=== PATIENT | female | born 1975 | race Hispanic/Latino ===

== ENCOUNTER 2019-12-27 12:22 | Emergency (ER) | payer SELFPAY ==
[2019-12-27 13:44] LABS: Absolute Lymphocytes (CBC) 2.1 K/uL (0.7-4.9); Basophils % 0.2 % (0-1.3); Hematocrit 40.2 % (36.0-45.0); Lymphocytes % 16.3 % (15.3-44.8); MPV 10.9 fL (7.6-11.3); RBC Red Blood Cell Count 4.82 M/uL (3.86-4.86)
[2019-12-27 14:02] LABS: BUN Blood Urea Nitrogen 16 mg/dL (7-18); Bicarbonate 25 mmol/L (21-32); Glucose Level 183 mg/dL (74-106); Potassium 3.3 mmol/L (3.5-5.1); Sodium Level 140 mmol/L (136-145)
[2019-12-27 14:03] LABS: HCG, Quantitative < 1 mIU/mL (1-3)
[2019-12-27] MEDS ORDERED: NA CHLORIDE 0.9% 3,000 ML ONE (14:37)
[2019-12-27] MEDS ORDERED: PROMETHAZINE INJ 25 MG/ML AMP ONE (14:37)
[2019-12-27 14:42] LABS: Absolute Lymphocytes (CBC) 1.7 K/uL (0.7-4.9); Basophils % 0.4 % (0-1.3); Hematocrit 37.7 % (36.0-45.0); Lymphocytes % 12.9 % (15.3-44.8); MPV 11.6 fL (7.6-11.3); RBC Red Blood Cell Count 4.49 M/uL (3.86-4.86)
--- NOTE | 2019-12-27 16:20 | EDPHYS ---
Physician Documentation [facility] Name: Shwetha Hightower Age: 44 yrs Sex: Female : 1975 Arrival Date: 12/27/2019 Time: 12:24 Bed 20 Private MD: ED Physician Bladimir Gallegos HPI: 12/26 13:20 This 44 yrs old Female presents to ER via Ambulatory with complaints of snw Vaginal Bleeding. 13:20 The patient presents with vaginal bleeding that is heavy, with clots. Onset: The snw symptoms/episode began/occurred 3 day(s) ago, and became persistent. Modifying factors: The symptoms are alleviated by nothing. Associated signs and symptoms: Pertinent positives: nausea, dizziness, diaphoresis. Severity of symptoms: At their worst the symptoms were moderate, severe. The patient's method of control includes Depo-provera. The patient has experienced a previous episode, approximately 3 years ago. The patient has not recently seen a physician, appt for depo-provera tomorrow. 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 - Social history:: Smoking status: Patient denies any tobacco usage or history of. ROS: 14:53 Constitutional: Negative for fever, chills, and weight loss, Eyes: Negative for injury, snw pain, redness, and discharge, ENT: Negative for injury, pain, and discharge, Neck: Negative for injury, pain, and swelling, Cardiovascular: Negative for chest pain, palpitations, and edema, Respiratory: Negative for shortness of breath, cough, wheezing, and pleuritic chest pain, Abdomen/GI: Negative for abdominal pain, vomiting, diarrhea, and constipation, positive for nausea Back: Negative for injury and pain, : Negative for injury, discharge, and swelling, heavy bleeding with clots MS/Extremity: Negative for injury and deformity, Skin: Negative for injury, rash, and discoloration, Neuro: Negative for headache, weakness, numbness, tingling, and seizure, + dizziness Psych: Negative for depression, anxiety, suicide ideation, homicidal ideation, and hallucinations. Exam: 13:30 Head/Face: Normocephalic, atraumatic. Eyes: Pupils equal round and reactive to light, snw extra-ocular motions intact. Lids and lashes normal. Conjunctiva and sclera are non-icteric and not injected. Cornea within normal limits. Periorbital areas with no swelling, redness, or edema. ENT: Nares patent. No nasal discharge, no septal abnormalities noted. Tympanic membranes are normal and external auditory canals are clear. Oropharynx with no redness, swelling, or masses, exudates, or evidence of obstruction, uvula midline. Mucous membranes moist. Neck: Trachea midline, no thyromegaly or masses palpated, and no cervical lymphadenopathy. Supple, full range of motion without nuchal rigidity, or vertebral point tenderness. No Meningismus. Chest/axilla: Normal chest wall appearance and motion. Nontender with no deformity. No lesions are appreciated. Cardiovascular: Regular rate and rhythm with a normal S1 and S2. No gallops, murmurs, or rubs. Normal PMI, no JVD. No pulse deficits. Respiratory: Lungs have equal breath sounds bilaterally, clear to auscultation and percussion. No rales, rhonchi or wheezes noted. No increased work of breathing, no retractions or nasal flaring. Abdomen/GI: Soft, non-tender, with normal bowel sounds. No distension or tympany. No guarding or rebound. No evidence of tenderness throughout. Back: No spinal tenderness. No costovertebral tenderness. Full range of motion. Skin: Warm, dry with normal turgor. Normal color with no rashes, no lesions, and no evidence of cellulitis. MS/ Extremity: Pulses equal, no cyanosis. Neurovascular intact. Full, normal range of motion. Neuro: Awake and alert, GCS 15, oriented to person, place, time, and situation. Cranial nerves II-XII grossly intact. Motor strength 5/5 in all extremities. Sensory grossly intact. Cerebellar exam normal. Normal gait. Psych: Awake, alert, with orientation to person, place and time. Behavior, mood, and affect are within normal limits. 13:30 Constitutional: The patient appears alert, awake, anxious, diaphoretic. Vital Signs: 12:43 BP 111 / 78; Pulse 123; Resp 18; Temp 98.3; Pulse Ox 99% ; Pain 0/10; ll1 13:30 BP 109 / 65; Pulse 101; Resp 18; Pulse Ox 99% on R/A; ls4 14:30 BP 95 / 65; Pulse 104; Resp 16; Pulse Ox 99% on R/A; Pain 0/10; ls4 15:37 BP 110 / 62; Pulse 101; Resp 16; Pulse Ox 99% on R/A; Pain 0/10; ls4 MDM: 13:24 Patient medically screened. snw 16:26 Data reviewed: vital signs, nurses notes. Counseling: I had a detailed discussion with snw the patient and/or guardian regarding: the historical points, exam findings, and any diagnostic results supporting the discharge/admit diagnosis, lab results, the need for outpatient follow up, to return to the emergency department if symptoms worsen or persist or if there are any questions or concerns that arise at home. Special discussion: Based on the history and exam findings, there is no indication for further emergent testing or inpatient evaluation. I discussed with the patient/guardian the need to see the OB Gyne specialist for further evaluation of the symptoms. I discussed with the patient/guardian the need to see the primary care provider for further evaluation of the symptoms. 12/26 13:23 Order name: Quantitative Hcg; Complete Time: 14:13 [facility] 12/26 13:23 Order name: Basic Metabolic Panel; Complete Time: 14:13 [facility] 12/26 13:23 Order name: CBC with Diff; Complete Time: 13:48 [facility] 12/26 13:41 Order name: TS [facility] 12/26 14:38 Order name: CBC with Automated Diff; Complete Time: 14:50 [facility] 12/26 13:23 Order name: IV Saline Lock; Complete Time: 13:37 [facility] 12/26 13:50 Order name: EKG; Complete Time: 13:50 [facility] 12/26 15:38 Order name: Antibody Identification [facility] 12/26 16:51 Order name: Urine Microscopic Only [facility] 12/26 17:24 Order name: Urine Culture [facility] 12/26 13:23 Order name: Labs collected and sent; Complete Time: 13:36 w 12/26 13:23 Order name: NPO; Complete Time: 13:36 [facility] 12/26 13:42 Order name: Labs - recollect needed: recollect aborh tube and reband / cut off old eb band; Complete Time: 14:29 12/26 13:50 Order name: EKG - Nurse/Tech; Complete Time: 15:06 snw EC:38 Rate is 104 beats/min. Rhythm is regular. ME interval is normal. QRS interval is snw normal. QT interval is normal. Clinical impression: Sinus tachycardia. Administered Medications: 14:32 Drug: NS 0.9% 1000 ml Route: IV; Rate: 1 bolus; Site: right antecubital; ls4 16:22 Follow up: IV Status: Completed infusion; IV Intake: 1000ml ls4 14:32 Drug: NS 0.9% 2000 ml Route: IV; Rate: 1 bolus; Site: right antecubital; ls4 15:32 Follow up: IV Status: Completed infusion; IV Intake: 1000ml ls4 14:32 Drug: Phenergan 12.5 mg Route: IVP; Site: right antecubital; ls4 14:45 Follow up: Response: No adverse reaction; Marked relief of symptoms ls4 Disposition: 12/27/19 16:19 Discharged to Home. Impression: Abnormal uterine and vaginal bleeding, unspecified. - Condition is Stable. - Discharge Instructions: Abnormal Uterine Bleeding, Dysfunctional Uterine Bleeding. - Prescriptions for Vitamin 27- 0.8 mg Oral Tablet - take 1 tablet by ORAL route once daily; 60 tablet. Diclofenac Sodium 75 mg Oral Tablet Sustained Release - take 1 tablet by ORAL route 2 times per day; 30 tablet. - Medication Reconciliation Form, Thank You Letter, Antibiotic Education, Prescription Opioid Use form. - Follow up: Emergency Department; When: As needed; Reason: Worsening of condition. Follow up: Private Physician; When: Tomorrow; Reason: Recheck today's complaints, Continuance of care, Re-evaluation by your physician. Signatures: Dispatcher [employer] EDMS Elvira Tian, DARRELLC EGG SMELLER-Csnw Joleen Pina Lisa RN RN ls4 Sofy Pizarro RN RN ll1 Corrections: (The following items were deleted from the chart) 14:54 14:53 Constitutional: Negative for fever, chills, and weight loss, Eyes: Negative for snw injury, pain, redness, and discharge, ENT: Negative for injury, pain, and discharge, Neck: Negative for injury, pain, and swelling, Cardiovascular: Negative for chest pain, palpitations, and edema, Respiratory: Negative for shortness of breath, cough, wheezing, and pleuritic chest pain, Abdomen/GI: Negative for abdominal pain, nausea, vomiting, diarrhea, and constipation, Back: Negative for injury and pain, : Negative for injury, discharge, and swelling, heavy bleeding with clots MS/Extremity: Negative for injury and deformity, Skin: Negative for injury, rash, and discoloration, Neuro: Negative for headache, weakness, numbness, tingling, and seizure, Psych: Negative for depression, anxiety, suicide ideation, homicidal ideation, and hallucinations, snw 15:06 13:23 ABO/RH TYPING+BB.LAB.BRZ ordered. EDMS EDMS 16:19 16:18 Chart complete. snw snw 18:07 16:19 12/27/2019 16:19 Discharged to Home. Impression: Abnormal uterine and vaginal ls4 bleeding, unspecified. Condition is Stable. Forms are Medication Reconciliation Form, Thank You Letter, Antibiotic Education, Prescription Opioid Use. Follow up: Emergency Department; When: As needed; Reason: Worsening of condition. Follow up: Private Physician; When: Tomorrow; Reason: Recheck today's complaints, Continuance of care, Re-evaluation by your physician. snw
--- NOTE | 2019-12-27 16:20 | ER ---
Nurse's Notes [facility] Name: Shwetha Hightower Age: 44 yrs Sex: Female : 1975 Arrival Date: 12/27/2019 Time: 12:24 Bed 20 Private MD: Diagnosis: Abnormal uterine and vaginal bleeding, unspecified Presentation: 12/26 12:43 Chief complaint: Patient states: Vaginal bleeding for 3 days, worse today with large ll1 clots. + dizzy, weak, and sweating a lot. Coronavirus screen: Client denies travel out of the [place] in the last 14 days. At this time, the client does not indicate any symptoms associated with coronavirus-19. Ebola Screen: Patient denies travel to an Ebola-affected area in the 21 days before illness onset. Initial Sepsis Screen: Does the patient meet any 2 criteria? HR > 90 bpm. Risk Assessment: Do you want to hurt yourself or someone else? Patient reports no desire to harm self or others. Onset of symptoms was December 25, 2019. 12:43 Method Of Arrival: Ambulatory ll1 12:43 Acuity: FABIENNE 2 ll1 13:30 Initial Sepsis Screen: Does the patient have a suspected source of infection? No. ls4 Patient's initial sepsis screen is negative. Triage Assessment: 15:34 General: Appears uncomfortable, Behavior is anxious, fussy. Pain: Denies pain. : ls4 Reports vaginal bleeding that is bright red, since this morning. 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 - Social history:: Smoking status: Patient denies any tobacco usage or history of. Screenin:35 Abuse screen: Denies threats or abuse. Denies injuries from another. Nutritional ls4 screening: No deficits noted. Tuberculosis screening: No symptoms or risk factors identified. Fall Risk None identified. Assessment: 15:35 : Urine is clear, Reports vaginal bleeding that is bright red. ls4 Vital Signs: 12:43 BP 111 / 78; Pulse 123; Resp 18; Temp 98.3; Pulse Ox 99% ; Pain 0/10; ll1 13:30 BP 109 / 65; Pulse 101; Resp 18; Pulse Ox 99% on R/A; ls4 14:30 BP 95 / 65; Pulse 104; Resp 16; Pulse Ox 99% on R/A; Pain 0/10; ls4 15:37 BP 110 / 62; Pulse 101; Resp 16; Pulse Ox 99% on R/A; Pain 0/10; ls4 ED Course: 12:24 Patient arrived in ED. mr 12:44 Triage completed. ll1 12:44 Arm band placed on. ll1 13:22 Elvira Tian FNP-C [facility]. snw 13:22 Bladimir Gallegos MD is Attending Physician. snw 13:30 Initial lab(s) drawn, by me, sent to lab. T\T\S collected, blood band applied to patient. jp3 Inserted saline lock: 20 gauge in left antecubital area, using aseptic technique. Blood collected. Patient maintains SpO2 saturation greater than 95% on room air. 13:36 Placed in gown. Bed in low position. Call light in reach. Side rails up X 1. Warm jp3 blanket given. Pillow given. Verbal reassurance given. Pulse ox on. NIBP on. 13:36 patient monitor on. jp3 13:59 Toshia Mcgill, RN is Primary Nurse. ls4 14:30 EKG done, by ED staff, reviewed by Elvira CARDONA. jp3 15:35 No provider procedures requiring assistance completed. ls4 18:07 IV discontinued, intact, bleeding controlled, No redness/swelling at site. Pressure ls4 dressing applied. Administered Medications: 14:32 Drug: NS 0.9% 1000 ml Route: IV; Rate: 1 bolus; Site: right antecubital; ls4 16:22 Follow up: IV Status: Completed infusion; IV Intake: 1000ml ls4 14:32 Drug: NS 0.9% 2000 ml Route: IV; Rate: 1 bolus; Site: right antecubital; ls4 15:32 Follow up: IV Status: Completed infusion; IV Intake: 1000ml ls4 14:32 Drug: Phenergan 12.5 mg Route: IVP; Site: right antecubital; ls4 14:45 Follow up: Response: No adverse reaction; Marked relief of symptoms ls4 Intake: 15:32 IV: 1000ml; Total: 1000ml. ls4 16:22 IV: 1000ml; Total: 2000ml. ls4 Outcome: 16:19 Discharge ordered by . suleman 16:36 Discharged to home ambulatory. ls4 18:06 Condition: good ls4 18:06 Discharge instructions given to patient, Instructed on discharge instructions, follow up and referral plans. medication usage, Demonstrated understanding of instructions, follow-up care, medications, Prescriptions given X 2. 18:07 Patient left the ED. ls4 Signatures: Elvira Tian, DARRELLC RESTAURANT HOSPITALITY MANAGER-Misti Brock mr Asha Tin jp3 Toshia Mcgill, RN RN ls4 Sofy Pizarro RN RN ll1 Corrections: (The following items were deleted from the chart) 18:07 16:36 Discharged to [facility]
[2019-12-27 17:22] LABS: Urine Bacteria <20 /HPF (<20); Urine RBC TNTC /HPF (NONE SEEN)
[2019-12-27 17:23] LABS: Urine Culture Reflex Order REFLEXED
[2019-12-28 05:59] VITALS: TEMP 98.3; O2SAT 99
[2019-12-28 06:02] VITALS: BP 110/62
--- NOTE | 2019-12-28 20:01 | EKG ---
Test Date: 2019-12-27 Test Time: 14:37:09 Materials Specialist: KRISTEN MEASUREMENT RESULTS: Intervals: Rate: 104 MD: 128 QRSD: 70 QT: 342 QTc: 449 [place]: P: 39 MD: 128 QRS: 11 T: 4 INTERPRETIVE STATEMENTS: Sinus tachycardia Cannot rule out Anterior infarct, age undetermined Abnormal ECG Compared to ECG 10/16/2016 23:22:25 Myocardial infarct finding now present Electronically Signed On 12-28-19 19:59:26 CDT by Shankar Easley
== END 2019-12-27 18:07 | disposition home or self-care (01) ==
LOC: ER 12:22
DX: N93.9 Abnormal uterine and vaginal bleeding, unspecified (principal)
CPT/HCPCS: 36415; 80048; 81015; 84702; 85025; 86850; 86870; 86900; 86901; 86902; 87086; 87088; 93005; 96361; 96374; 99285; J2550; J7030

== ENCOUNTER 2020-09-06 17:27 | Emergency (ER) | payer SELFPAY ==
--- OUTSIDE RECORDS SUMMARY | 2020-09-06 17:30 | XMS REPORT | Continuity of Care Document ---
:1975 Author Organization [facility] t Address [address] [place] [address] Care Team Providers Name Role Phone Visit, Nurse Attending Clinician Unavailable Doctor Unassigned, Name Attending Clinician Unavailable Suri Hussein Attending Clinician Pgy3 Attending Clinician Unavailable Problems This patient has no known problems. Allergies, Adverse Reactions, Alerts This patient has no known allergies or adverse reactions. Medications This patient has no known medications. Procedures This patient has no known procedures. Encounters Start End Encounter Admission Attending Care Care Encounter Source Date/Time Date/Time Type Type Clinicians Facility Department ID 2020-06-15 2020-06-15 Nurse Visit, [facility] [id number] 13:07:28 13:22:28 Visit [facility] [id number] Nurse [facility] [id number] MATERNAL [id number] & CHILD [address] [place] [address] 2020-05-09 2020-05-09 Orders Doctor BAYLEE [id number] 00:00:00 00:00:00 Only UnassignedKRISTIN [id number] [place] [facility] [id number] 2020-03-23 2020-03-23 Nurse Visit, [facility] [id number] 13:37:20 14:02:39 Visit [facility] [id number] Nurse [facility] [id number] MATERNAL [id number] & CHILD [facility] 2020-02-23 2020-02-[id number] 08:26:32 23:59:00 Encounter [facility] [id number] CLINICS [id number] 2020-02-23 2020-02-[id number] 08:24:37 08:25:00 Encounter [facility] [id number] CLINICS [id number] 2020-02-22 2020-02-22 Office Pgy[place] [id number] 12:56:26 13:11:26 Visit [facility] [id number] CLINICS [id number] Results This patient has no known results.
[2020-09-06 18:44] LABS: Hematocrit 33.5 % (36.0-45.0); RBC Red Blood Cell Count 3.94 M/uL (3.86-4.86)
[2020-09-06 18:45] LABS: Absolute Lymphocytes (CBC) 2.1 K/uL (0.7-4.9); Basophils % 0.5 % (0-1.3); Lymphocytes % 18.6 % (15.3-44.8); MPV 10.7 fL (7.6-11.3)
[2020-09-06 18:48] LABS: Protime INR 1.16
[2020-09-06 18:59] LABS: ALT/SGPT 21 U/L (12-78); AST/SGOT 9 U/L (15-37); Albumin 3.3 g/dL (3.4-5.0); Alkaline Phosphatase 150 U/L (45-117); BUN Blood Urea Nitrogen 12 mg/dL (7-18); Bicarbonate 26 mmol/L (21-32); Bilirubin Direct < 0.1 mg/dL (0-0.2); Bilirubin Total 0.2 mg/dL (0.2-1.0); Glucose Level 152 mg/dL (74-106); Magnesium 2.2 mg/dL (1.8-2.4); Potassium 3.9 mmol/L (3.5-5.1); Protein, Total 6.7 g/dL (6.4-8.2); Sodium Level 138 mmol/L (136-145); Troponin (Emerg Dept Use Only) < 0.02 ng/mL (0.0-0.045)
--- NOTE | 2020-09-06 19:46 | RAD REPORT ---
EXAM DESCRIPTION: US - Transvaginal Study Probe - 09/06/2020 7:29 pm CLINICAL HISTORY: VAGINAL BLEEDING Pelvic pain. COMPARISON: Transvaginal Study Probe dated 10/17/2016 FINDINGS: The uterus is normal in size, shape and echotexture. The uterus measures 9.3 x 5.8 x 4.4 c m. There is an anterior wall submucosal fibroid measuring 20 x 18 x 17 mm. The endometrial stripe measures 5 mm, normal. Both ovaries are normal in size, shape and echotexture. The right ovary measures 2.0 x 2.0 x 1.6 cm. The left ovary measures 2.0 x 2.0 x 1.8 cm. No ovarian or parovarian lesions. No adnexal masses. Normal Doppler blood flow was demonstrated to both ovaries. No significant pelvic ascites. IMPRESSION: 20 mm submucosal fibroid suspected anterior wall.
[2020-09-06 19:51] LABS: Urine Blood 3+ (Negative); Urine Glucose Negative (Negative); Urine Protein 2+ (Negative); Urine Specific Gravity >=1.030 (1.005-1.030); Urine pH 6.5 (5.0-7.0)
[2020-09-06] MEDS ORDERED: NA CHLORIDE 0.9% 1,000 ML ONE (20:10)
--- NOTE | 2020-09-06 20:21 | ER ---
Nurse's Notes [facility] Name: Shwetha Hightower Age: 44 yrs Sex: Female : 1975 Arrival Date: 09/06/2020 Time: 17:56 Bed 17 Private MD: Diagnosis: Abnormal uterine and vaginal bleeding, unspecified;Anemia in chronic diseases classified elsewhere Presentation: 09/06 19:43 Chief complaint: Patient states: Heavy vaginal bleeding for the last past 3 weeks. zb Coronavirus screen: At this time, the client does not indicate any symptoms associated with coronavirus-19. Ebola Screen: No symptoms or risks identified at this time. Initial Sepsis Screen: Does the patient meet any 2 criteria? No. Patient's initial sepsis screen is negative. Does the patient have a suspected source of infection? No. Patient's initial sepsis screen is negative. Risk Assessment: Do you want to hurt yourself or someone else? Patient reports no desire to harm self or others. Onset of symptoms was June 2020. 19:43 Acuity: FABIENNE 3 zb 19:43 Method Of Arrival: EMS zb Triage Assessment: 21:00 General: Appears uncomfortable, Behavior is calm, cooperative, anxious, Reports fatigue zb for >3 days. 21:00 Pain: Denies pain. EENT: No deficits noted. Neuro: Level of Consciousness is awake, zb alert, obeys commands, Oriented to person, place, time. Cardiovascular: Heart tones S1 S2 Patient's skin is warm and dry. Rhythm is regular. Respiratory: Reports shortness of breath on exertion Airway is patent Respiratory effort is even, unlabored, Respiratory pattern is regular, symmetrical. GI: No signs and/or symptoms were reported involving the gastrointestinal system. : Urine is blood tinged, Reports vaginal bleeding that is bright red, with clots, heavy flow since 3 weeks. Derm: Skin is intact, is healthy with good turgor, Skin is dry, Skin is pale. Musculoskeletal: Range of motion: intact in all extremities. 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 - Social history:: Smoking status: Patient denies any tobacco usage or history of. Screenin:41 Abuse screen: Denies threats or abuse. Denies injuries from another. Nutritional zb screening: No deficits noted. Tuberculosis screening: No symptoms or risk factors identified. Fall Risk None identified. Assessment: 20:21 Reassessment: Patient appears in no apparent distress at this time. Patient and/or zb family updated on plan of care and expected duration. Pain level reassessed. Patient is alert, oriented x 3, equal unlabored respirations, skin warm/dry/pink. family at bedside. patient wheeled to restroom. 21:14 Reassessment: d/c pending completion of IV fluids . zb Vital Signs: 18:43 BP 97 / 66 Supine; Pulse 102; mt 18:43 BP 110 / 79 Sitting; Pulse 106; mt 18:43 BP 99 / 61 Standing; Pulse 100; mt 19:41 BP 100 / 69; Pulse 106; Resp 18; Temp 97.6; Pulse Ox 100% on R/A; Weight 65.77 kg; zb Height 5 ft. 6 in. (167.64 cm); Pain 0/10; 19:41 Body Mass Index 23.40 (65.77 kg, 167.64 cm) zb ED Course: 17:56 Patient arrived in ED. bd 17:56 Cyril Mcknight PA is PHCP. cp 17:56 Kt Mooney MD is Attending Physician. cp 18:29 Inserted saline lock: 20 gauge in right antecubital area, using aseptic technique. mt Blood collected. 18:33 Michelle Watkins, CYRUS is Primary Nurse. zb 19:44 Triage completed. zb 19:45 Patient has correct armband on for positive identification. Bed in low position. Call zb light in reach. Side rails up X 1. cardiac monitor technician on. Pulse ox on. NIBP on. 20:00 Arm band placed on. zb 21:26 No provider procedures requiring assistance completed. IV discontinued, intact, zb bleeding controlled, No redness/swelling at site. Pressure dressing applied. Administered Medications: 20:00 Drug: NS 0.9% 1000 ml Route: IV; Rate: 1 bolus; Site: right antecubital; zb 21:00 Follow up: Response: No adverse reaction; IV Status: Completed infusion; IV Intake: zb 1000ml 20:21 Drug: Zofran (Ondansetron) 4 mg Route: IVP; Site: right antecubital; zb 21:13 Follow up: Response: No adverse reaction; Nausea is decreased zb Intake: 21:00 IV: 1000ml; Total: 1000ml. zb Outcome: 20:21 Discharge ordered by MD. cp 21:15 Discharged to home via wheelchair, with family. zb 21:15 Condition: stable 21:15 Discharge instructions given to patient, family, Instructed on discharge instructions, follow up and referral plans. medication usage, Demonstrated understanding of instructions, follow-up care, medications, Prescriptions given X 1. 21:26 Patient left the ED. zb Signatures: Nanda Patterson Corey PA GEOVANNY Patterson, Michelle Helms mt RN RN zb Corrections: (The following items were deleted from the chart) 09/07 00:19 05 21:15 General: Appears uncomfortable, Behavior is calm, zb zb
--- NOTE | 2020-09-06 20:22 | EDPHYS ---
Physician Documentation [facility] Name: Shwetha Hightower Age: 44 yrs Sex: Female : 1975 Arrival Date: 09/06/2020 Time: 17:56 Bed 17 Private MD: ED Physician Kt Mooney HPI: 09/06 18:35 This 44 yrs old Female presents to ER via Unassigned with complaints of cp General Weakness, Syncope. 18:35 The patient has experienced syncope, lost consciousness. Onset: The symptoms/episode cp began/occurred today. Associated injury: The patient did not suffer any apparent associated injury. Associated signs and symptoms: Pertinent positives: heavy vaginal bleeding times 2 weeks. 18:35 Current symptoms: general weakness. cp 18:35 Patient reports she has had to receive blood transfusion in the past due to anemia from cp heavy menstrual bleeding and a depo shot. Patient reports she has appt tomorrow with [employer]IE[employer] for depo shot. [employer]IE[employer]: 19:45 LMP 09/06/2020 zb Historical: - Allergies: 19:45 No Known Allergies; zb - Home Meds: 19:45 Iron CR Oral [Active]; calcium [Active]; zb - PSHx: 19:45 ; zb - Immunization history:: Adult Immunizations up to date. - Social history:: Smoking status: Patient denies any tobacco usage or history of. ROS: 18:40 Constitutional: Negative for body aches, chills, fever, poor PO intake. cp 18:40 Eyes: Negative for injury, pain, redness, and discharge. cp 18:40 ENT: Negative for ear pain, sore throat, difficulty swallowing, difficulty handling secretions. 18:40 Cardiovascular: Negative for chest pain, edema, palpitations. 18:40 Respiratory: Negative for cough, shortness of breath, wheezing. 18:40 Abdomen/GI: Negative for abdominal pain, nausea, vomiting, and diarrhea. 18:40 : Positive for vaginal bleeding, Negative for urinary symptoms. 18:40 Neuro: Positive for syncope, weakness, Negative for altered mental status, headache. 18:40 All other systems are negative. Exam: 18:45 Constitutional: The patient appears in no acute distress, alert, awake, cp non-diaphoretic, non-toxic, well developed, well nourished. 18:45 Head/Face: Normocephalic, atraumatic. cp 18:45 Eyes: Periorbital structures: appear normal, Pupils: equal, round, and reactive to light and accomodation, Extraocular movements: intact throughout, Conjunctiva: normal, no exudate, no injection, Sclera: no appreciated abnormality, Lids and lashes: appear normal, bilaterally. 18:45 ENT: External ear(s): are unremarkable, Nose: is normal, Mouth: Lips: moist, Oral mucosa: moist, Posterior pharynx: Airway: no evidence of obstruction, patent. 18:45 Neck: ROM/movement: is normal, is supple, without pain, no range of motions limitations. 18:45 Chest/axilla: Inspection: normal, Palpation: is normal, no crepitus, no tenderness. 18:45 Cardiovascular: Rate: tachycardic, Rhythm: regular, Heart sounds: murmur, not appreciated, Edema: is not appreciated. 18:45 Respiratory: the patient does not display signs of respiratory distress, Respirations: normal, no use of accessory muscles, no retractions, labored breathing, is not present, Breath sounds: are clear throughout, no decreased breath sounds. 18:45 Abdomen/GI: Inspection: abdomen appears normal, Palpation: abdomen is soft and non-tender, in all quadrants. 18:45 Neuro: Orientation: to person, place \T\ time. Mentation: is normal, Cerebellar function: is grossly normal, Motor: moves all fours, strength is normal, Sensation: is normal. 18:45 ECG was reviewed by the Attending Physician. cp Vital Signs: 18:43 BP 97 / 66 Supine; Pulse 102; mt 18:43 BP 110 / 79 Sitting; Pulse 106; mt 18:43 BP 99 / 61 Standing; Pulse 100; mt 19:41 BP 100 / 69; Pulse 106; Resp 18; Temp 97.6; Pulse Ox 100% on R/A; Weight 65.77 kg; zb Height 5 ft. 6 in. (167.64 cm); Pain 0/10; 19:41 Body Mass Index 23.40 (65.77 kg, 167.64 cm) zb MDM: 17:58 Patient medically screened. cp 20:20 Data reviewed: vital signs, nurses notes, lab test result(s), EKG, radiologic studies, cp ultrasound. 20:20 Test interpretation: by ED physician or midlevel provider: ECG. Counseling: I had a cp detailed discussion with the patient and/or guardian regarding: the historical points, exam findings, and any diagnostic results supporting the discharge/admit diagnosis, lab results, radiology results, the need for outpatient follow up, for definitive care, an OB/Gyne specialist, to return to the emergency department if symptoms worsen or persist or if there are any questions or concerns that arise at home. 09/06 17:58 Order name: Basic Metabolic Panel cp 09/06 17:58 Order name: CBC with Diff cp 09/06 17:58 Order name: LFT's cp 09/06 17:58 Order name: Magnesium cp 09/06 17:58 Order name: PT-INR cp 09/06 17:58 Order name: Troponin (emerg Dept Use Only) cp 09/06 17:58 Order name: Type And Screen cp 09/06 17:58 Order name: Ptt, Activated cp 09/06 18:45 Order name: CBC with Automated Diff; Complete Time: 18:49 EDMS 09/06 18:50 Interpretation: Normal except: WBC 11.50; HGB 11.1; HCT 33.5; NEUT A 8.4. cp 09/06 18:57 Order name: Protime (+INR); Complete Time: 19:18 EDMS 09/06 18:57 Order name: PTT, Activated Partial Thromb; Complete Time: 19:18 EDMS 09/06 18:59 Order name: Basic Metabolic Panel; Complete Time: 19:18 EDMS 09/06 19:52 Interpretation: Normal except: GLUC 152; CRE 0.53; CA 8.2. cp 09/06 18:59 Order name: Liver (Hepatic) Function; Complete Time: 19:18 EDMS 09/06 19:18 Interpretation: Normal except: AST 9; ALK 150; ALB 3.3; A/G 1.0. cp 09/06 18:59 Order name: Troponin (Emerg Dept Use Only); Complete Time: 19:18 EDMS 09/06 17:58 Order name: Orthostatics; Complete Time: 18:42 cp 09/06 17:58 Order name: EKG; Complete Time: 17:59 cp 09/06 17:58 Order name: Cardiac monitoring; Complete Time: 18:42 cp 09/06 17:58 Order name: EKG - Nurse/Tech; Complete Time: 18:42 cp 09/06 17:58 Order name: IV Saline Lock; Complete Time: 18:29 cp 09/06 17:58 Order name: Labs collected and sent; Complete Time: 18:30 cp 09/06 17:58 Order name: O2 Per Protocol; Complete Time: 18:30 cp 09/06 17:58 Order name: O2 Sat Monitoring; Complete Time: 18:30 cp 09/06 17:58 Order name: US Transvaginal Study (Probe) cp 09/06 18:59 Order name: Magnesium; Complete Time: 19:18 EDMS 09/06 19:46 Order name: US; Complete Time: 19:51 EDMS 09/06 19:51 Order name: Urine Dipstick-Ancillary; Complete Time: 19:52 EDMS 09/06 19:52 Interpretation: Normal except: UKET Trace; UBLD 3+; UPROT 2+. cp 09/06 19:53 Order name: Urine --Ancillary (enter results) ms 09/06 20:26 Order name: Urine --Ancillary EDMS 09/06 17:58 Order name: Urine Dipstick-Ancillary (obtain specimen); Complete Time: 18:33 cp EC:45 Rate is 102 beats/min. Rhythm is regular. [place] interval is normal. QRS interval is cp normal. QT interval is normal. Interpreted by me. Reviewed by me. Administered Medications: 20:00 Drug: NS 0.9% 1000 ml Route: IV; Rate: 1 bolus; Site: right antecubital; zb 21:00 Follow up: Response: No adverse reaction; IV Status: Completed infusion; IV Intake: zb 1000ml 20:21 Drug: Zofran (Ondansetron) 4 mg Route: IVP; Site: right antecubital; zb 21:13 Follow up: Response: No adverse reaction; Nausea is decreased zb Disposition: 09/07 07:19 Co-signature as Attending Physician, Kt Mooney MD. rn Disposition: 09/06/20 20:21 Discharged to Home. Impression: Abnormal uterine and vaginal bleeding, unspecified, Anemia in chronic diseases classified elsewhere. - Condition is Stable. - Discharge Instructions: Abnormal Uterine Bleeding, Anemia, Nonspecific. - Prescriptions for Zofran 4 mg Oral Tablet - take 1 tablet by ORAL route every 12 hours As needed; 20 tablet. - Medication Reconciliation Form, Thank You Letter, Antibiotic Education, Prescription Opioid Use, Work release form, Family Work Release form. - Follow up: Private Physician; When: Tomorrow; Reason: Recheck today's complaints. - Problem is an ongoing problem. - Symptoms have improved. Signatures: Dispatcher [employer] EDMS Kt Mooney MD MD rn Cyril Mcknight PA PA cp Brown, Zipporah, RN RN zb Corrections: (The following items were deleted from the chart) 09/06 19:52 19:18 Normal except: GLUC 152; CRE 0.53. cp cp 21:26 20:21 09/06/2020 20:21 Discharged to Home. Impression: Abnormal uterine and vaginal zb bleeding, unspecified; Anemia in chronic diseases classified elsewhere. Condition is Stable. Forms are Medication Reconciliation Form, Thank You Letter, Antibiotic Education, Prescription Opioid Use. Follow up: Private Physician; When: Tomorrow; Reason: Recheck today's complaints. Problem is an ongoing problem. Symptoms have improved. cp
[2020-09-06 20:27] LABS: Urine Specific Gravity/Preg >1.030 (1.005-1.030)
[2020-09-06] MEDS ORDERED: ONDANSETRON 4 MG/2 ML VIAL ONE (20:38)
[2020-09-06 21:54] VITALS: BP 100/69; TEMP 97.6; O2SAT 100
== END 2020-09-06 21:26 | disposition home or self-care (01) ==
LOC: ER 17:27
DX: D64.9 Anemia, unspecified (principal)
CPT/HCPCS: 36415; 76830; 80048; 80076; 81003; 81025; 83735; 84484; 85025; 85610; 85730; 86850; 86870; 86900; 86901; 93005; 96361; 96374; 99284; J2405; J7030

== ENCOUNTER 2021-04-04 20:16 | Inpatient (IN) | payer SELFPAY ==
--- OUTSIDE RECORDS SUMMARY | 2021-04-04 20:25 | XMS REPORT | Continuity of Care Document ---
:1975 Author Organization [facility] t Address [address] [place] [address] Care Team Providers Name Role Phone Chantelle GARCIA Primary Care Physician Unavailable Val LANDAVERDE Attending Clinician Unavailable Visit, Nurse Attending Clinician Unavailable Jose STOCK C Attending Clinician Chantelle GARCIA Attending Clinician Unavailable Lillian FRAUSTO, R Attending Clinician LILLIAN R Attending Clinician Unavailable Reji TRUONG, Jurgen Attending Clinician Alison TRUONG, Randy Attending Clinician Wilner TRUONG Attending Clinician Doctor Unassigned, Name Attending Clinician Unavailable Pgy3 Attending Clinician Unavailable Amber TRUONG, L Attending Clinician Lab Attending Clinician Unavailable Christiano TRUONG Attending Clinician Fabrice, Attending Clinician Unavailable Fernando TRUONG, Suri Attending Clinician Anjum Attending Clinician Robert Ladd MD Attending Clinician Raul TRUONG Attending Clinician Jurgen Mendoza MD Admitting Clinician Raul TRUONG Admitting Clinician Payers Payer Name Policy Type Policy Number Effective Date Expiration Date [facility] FAMILY PLANNING [id number] 2019 DOMINIQUE 0-100% 00:00:00 Advance Directives Directive Decision Effective Termination Comments Source Date Date Healthcare Agents on N/A [facility] ersity FileNameRelationshipHealthcare of [place] Agent Medical RelationshipCommunicationJermy Branch GarciaSpouseHealth Care [phone] (Mobile) Trinidad AlvaradoOtherFirst Alternate Health Care [phone] (Mobile) Problems Condition Condition Condition Status Onset Resolution Last Treating Co mments Source Name Details Category Date Date Treatment Clinician Date Menorrhagi Menorrhagi Disease Active U nivers a with a with 6-21 ity of regular regular 00:00: [place] cycle cycle 00 Medical Branch Feeling Feeling Disease Active Univers tired tired 6-21 ity of 00:00: [place] 00 Medical Branch Weight Weight Disease Active Univers gain gain 6-21 ity of 00:00: [place] [facility] Symptomati Symptomati Disease Active U nivers c anemia c anemia -08 ity of 00:00: [place] [facility] Depo-Prove Depo-Prove Disease Active U nivers ra ra 6-16 [place] status [place] status 00 Me dical Branch Class 1 Class 1 Disease Active Univers obesity obesity 6-16 [place] with body [place] mass index mass index 00 Me dical (BMI) of (BMI) of Branch 32.0 to 32.0 to 32.9 in 32.9 in adult, adult, unspecifie unspecifie d obesity d obesity type, type, unspecifie unspecifie d whether d whether serious serious comorbidit comorbidit y present y present BMI BMI Disease Active 2019- Univers 32.0-32.9, 32.0-32.9, 6-16 it y of adult adult 00:00: [place] 00 Medical Branch Encounter Encounter Disease Active Uni vers for for 6-16 ity of surveillan surveillan [place] ce of ce of 00 Medical injectable injectable Br anch contracept contracept goyo goyo Well woman Well woman Disease Active U nivers exam (no exam (no 4-10 ity of gynecologi gynecologi [place] maria luisa exam[place] maria luisa exam) 00 [facility] maria luisa Branch Research Research Disease Active Overview: Un jane study study 2- Formattin ity of patient patient 00:00: g of this [place] 00 note Medical might be Branch different from the original. Patient is in the HCTZ study IRB # [id number] y questions please contact:Mitchell Tipton MD [phone] Suarez MD [phone] Nuñez MD [phone] facts Patient randomize d after delivery if they met inclusion criteria a nd accepted Medicati on comes from [facility]S not pharmacy, [facility]S Phone Number Ext. [phone] or cell Patient can start meds as soon as they tolerate PO One tab per day of either placebo or HCTZ Medicati on stays with patient Medicati on will appear on JUN, Nurses need to carly as given (No barcode) Medicati on needs to counted prior to discharge by research production team manager All follow ups need to be on POD or PP day # 14 or more Patient needs to be reminded to bring their left over medicatio n and bottle back to their visit IDS needs to be notified at time of discharge Please contact Dr. Tipton with any Questions GDM GDM Disease Active Overview: Univer s (gestation (gestation 8-23 Formattin ity of al al 00:00: g of this [place] diabetes diabetes 00 note Medica l mellitus) mellitus) might be Br anch different from the original. Failed 1hr 207mgdl BMI BMI Disease Active Univers 28.0-28.9, 28.0-28.9, 8-21 it y of adult adult 00:00: [place] 00 Medical Branch Allergies, Adverse Reactions, Alerts Allergy Allergy Status Severity Reaction(s) Onset Inactive Treating Comm ents Source Name Type Date Date Clinician NO KNOWN Drug Active Univers ALLERGIE Class ity of S [place] [facility] [place] Social History Social Habit Start Date Stop Date Quantity Comments Source Exposure to Not sure [facility]-CoV-2 [place] Medical (event) Branch Tobacco use and 2020-12-04 2020-12-04 Never used Universit y of exposure 00:00:00 00:00:00 [facility] Alcohol intake 2020-12-04 2020-12-04 Current University of 00:00:00 00:00:00 non-drinker of [facility] alcohol Branch (finding) Sex [birth year] Universit y of 00:00:00 00:00:00 [facility] Smoking Status Start Date Stop Date Source Never smoker [facility] Medical Branch Medications Ordered Filled Start Stop Current Ordering Indication Dosage Frequency Signature Comments Components Source Medication Medication Date Date Medication? Clinician (SIG) Name Name medroxyPROG 2020- No [id number] 150mg Univers ESTERone 12-04 ity of (DEPO-PROVE 19:45: 18:38 [place] RA) 00 :00 Medical injection Branch 150 mg medroxyPROG 2020- No [id number] 150mg 150 mg, Univers ESTERone 12-04 Intramuscu ity of (DEPO-PROVE 19:45: 18:38 lar, ONCE, [place] RA) 00 :00 1 dose, Medical injection Mon Branch 150 mg 12/04/20 at 1445, Routine vitamin Yes [id number] 50ug Take 50 Un jane B-12 100 6-21 mcg by ity of mcg tablet 20:30: mouth [place] 22 daily. Medical Branch vitamin C Yes 100mg Take 100 Uni vers (VITAMIN C) 6-21 mg by ity of 100 mg 20:30: mouth [place] tablet 22 daily. Medical Branch vitamin Yes [id number] 50ug Take 50 Un jane B-12 100 6-21 mcg by ity of mcg tablet 20:30: mouth [place] 22 daily. [facility] Branch vitamin C Yes 100mg Take 100 Uni vers (VITAMIN C) 6-21 mg by ity of 100 mg 20:30: mouth [place] tablet 22 daily. [facility] Branch vitamin Yes [id number] 50ug Take 50 Un jane B-12 100 6-21 mcg by ity of mcg tablet 20:30: mouth [place] 22 daily. [facility] vitamin C Yes 100mg Take 100 Uni vers (VITAMIN C) 6-21 mg by ity of 100 mg 20:30: mouth [place] tablet 22 daily. Medical Branch Nitrofurant 2020- No [id number] 100mg Take 1 Univers oin&Nit. 5-28 06-08 capsule by ity of Macrocryst 00:00: 04:59 mouth 2 [place] as (MACROBID) 00 :00 (two) Medical 100 mg times Branch capsule daily for 10 days. Nitrofurant 2020- No [id number] 100mg Take 1 Univers oin&Nit. 5-28 06-08 capsule by ity of [place]ryst 00:00: 04:59 mouth 2 [place] as (MACROBID) 00 :00 (two) Medical 100 mg times Branch capsule daily for 10 days. Nitrofurant 2020- No [id number] 100mg Take 1 Univers oin&Nit. 5-28 06-08 capsule by ity of [place] 00:00: 04:59 mouth 2 [place] as (MACROBID) 00 :00 (two) Medical 100 mg times Branch capsule daily for 10 days. Nitrofurant 2020- No [id number] 100mg Take 1 Univers oin&Nit. 5-28 06-08 capsule by ity of [place] 00:00: 04:59 mouth 2 [place] as (MACROBID) 00 :00 (two) Medical 100 mg times Branch capsule daily for 10 days. Nitrofurant 2020- No [id number] 100mg Take 1 Univers oin&Nit. 5-28 06-08 capsule by ity of [place] 00:00: 04:59 mouth 2 [place] as (MACROBID) 00 :00 (two) Medical 100 mg times Branch capsule daily for 10 days. Nitrofurant 2020- No [id number] 100mg Take 1 Univers oin&Nit. 5-28 06-08 capsule by ity of Mac[place]ryst 00:00: 04:59 mouth 2 [place] as (MACROBID) 00 :00 (two) Medical 100 mg times Branch capsule daily for 10 days. NaCl 0.9% 2020- No 1000mL at 999 Uni vers (NS) bolus 5-25 05-25 mL/hr, ity of infusion 03:45: 04:00 1,000 mL, [place] as 1,000 mL 00 :00 IV Medical Infusion, Branch ONCE, 1 dose, 09/11/20 at 2245, STAT acetaminoph 2020-0 202- No 975mg 975 mg, U nivers en 5-25 05-25 Oral, ity of (TYLENOL) 02:00: 01:18 ONCE, 1 [place] tablet 975 00 :00 dose, Mon Medi maria luisa mg 09/11/20 at Branch 2100, ROSANEN calcium 2020-0 Yes 2{tbl} Take 2 Univer s carbonate 9-10 tablets by ity of (CALCIUM 19:03: mouth [place] 500 ORAL) 06 daily. [facility] calcium 2020-0 Yes 2{tbl} Take 2 Univer s carbonate 9-10 tablets by ity of (CALCIUM 19:03: mouth [place] 500 ORAL) 06 daily. [facility] calcium 2019-0 Yes 2{tbl} Take 2 Univer s carbonate 9-10 tablets by ity of (CALCIUM 19:03: mouth [place] 500 ORAL) 06 daily. [facility] calcium 2019-0 Yes 2{tbl} Take 2 Univer s carbonate 9-10 tablets by ity of (CALCIUM 19:03: mouth [place] 500 ORAL) 06 daily. [facility] calcium 2019-0 Yes 2{tbl} Take 2 Univer s carbonate 9-10 tablets by ity of (CALCIUM 19:03: mouth [place] 500 ORAL) 06 daily. [facility] calcium 2020-0 Yes 2{tbl} Take 2 Univer s carbonate 9-10 tablets by ity of (CALCIUM 19:03: mouth [place] 500 ORAL) 06 daily. [facility] calcium 2019-0 Yes 2{tbl} Take 2 Univer s carbonate 9-10 tablets by ity of (CALCIUM 19:03: mouth [place] 500 ORAL) 06 daily. [facility] calcium 2020-0 Yes 2{tbl} Take 2 Univer s carbonate 9-10 tablets by ity of (CALCIUM 19:03: mouth [place] 500 ORAL) 06 daily. [facility] calcium 2020-0 Yes 2{tbl} Take 2 Univer s carbonate 9-10 tablets by ity of (CALCIUM 19:03: mouth [place] 500 ORAL) 06 daily. [facility] calcium 2020-0 Yes 2{tbl} Take 2 Univer s carbonate 9-10 tablets by ity of (CALCIUM 19:03: mouth [place] 500 ORAL) 06 daily. [facility] calcium 2020-0 Yes 2{tbl} Take 2 Univer s carbonate 9-10 tablets by ity of (CALCIUM 19:03: mouth [place] 500 ORAL) 06 daily. Medical Branch calcium 2020-0 Yes 2{tbl} Take 2 Univer s carbonate 9-10 tablets by ity of (CALCIUM 19:03: mouth [place] 500 ORAL) 06 daily. Medical Branch calcium 2020-0 Yes 2{tbl} Take 2 Univer s carbonate 9-10 tablets by ity of (CALCIUM 19:03: mouth [place] 500 ORAL) 06 daily. Medical Branch calcium 2020-0 Yes 2{tbl} Take 2 Univer s carbonate 9-10 tablets by ity of (CALCIUM 19:03: mouth [place] 500 ORAL) 06 daily. Medical Branch calcium 2020-0 Yes 2{tbl} Take 2 Univer s carbonate 9-10 tablets by ity of (CALCIUM 19:03: mouth [place] 500 ORAL) 06 daily. Medical Branch calcium 2020-0 Yes 2{tbl} Take 2 Univer s carbonate 9-10 tablets by ity of (CALCIUM 19:03: mouth [place] 500 ORAL) 06 daily. Medical Branch calcium 2020-0 Yes 2{tbl} Take 2 Univer s carbonate 9-10 tablets by ity of (CALCIUM 19:03: mouth [place] 500 ORAL) 06 daily. Medical Branch calcium 2020-0 Yes 2{tbl} Take 2 Univer s carbonate 9-10 tablets by ity of (CALCIUM 19:03: mouth [place] 500 ORAL) 06 daily. Medical Branch calcium 2020-0 Yes 2{tbl} Take 2 Univer s carbonate 9-10 tablets by ity of (CALCIUM 19:03: mouth [place] 500 ORAL) 06 daily. Medical Branch calcium 2020-0 Yes 2{tbl} Take 2 Univer s carbonate 9-10 tablets by ity of (CALCIUM 19:03: mouth [place] 500 ORAL) 06 daily. Medical Branch calcium 2020-0 Yes 2{tbl} Take 2 Univer s carbonate 9-10 tablets by ity of (CALCIUM 19:03: mouth [place] 500 ORAL) 06 daily. Medical Branch calcium 2020-0 Yes 2{tbl} Take 2 Univer s carbonate 9-10 tablets by ity of (CALCIUM 19:03: mouth [place] 500 ORAL) 06 daily. Medical Branch calcium 2020-0 Yes 2{tbl} Take 2 Univer s carbonate 9-10 tablets by ity of (CALCIUM 19:03: mouth [place] 500 ORAL) 06 daily. Medical Branch calcium 2020-0 Yes 2{tbl} Take 2 Univer s carbonate 9-10 tablets by ity of (CALCIUM 19:03: mouth [place] 500 ORAL) 06 daily. Medical Branch calcium 2020-0 Yes 2{tbl} Take 2 Univer s carbonate 9-10 tablets by ity of (CALCIUM 19:03: mouth [place] 500 ORAL) 06 daily. Medical Branch calcium 2020-0 Yes 2{tbl} Take 2 Univer s carbonate 9-10 tablets by ity of (CALCIUM 19:03: mouth [place] 500 ORAL) 06 daily. [facility] Branch calcium 2020-0 Yes 2{tbl} Take 2 Univer s carbonate 9-10 tablets by ity of (CALCIUM 19:03: mouth [place] 500 ORAL) 06 daily. [facility] Branch calcium 2020-0 Yes 2{tbl} Take 2 Univer s carbonate 9-10 tablets by ity of (CALCIUM 19:03: mouth [place] 500 ORAL) 06 daily. [facility] Branch calcium 2020-0 Yes 2{tbl} Take 2 Univer s carbonate 9-10 tablets by ity of (CALCIUM 19:03: mouth [place] 500 ORAL) 06 daily. [facility] Branch calcium 2020-0 Yes 2{tbl} Take 2 Univer s carbonate 9-10 tablets by ity of (CALCIUM 19:03: mouth [place] 500 ORAL) 06 daily. [facility] Branch calcium 2020-0 Yes 2{tbl} Take 2 Univer s carbonate 9-10 tablets by ity of (CALCIUM 19:03: mouth [place] 500 ORAL) 06 daily. [facility] Branch calcium 2020-0 Yes 2{tbl} Take 2 Univer s carbonate 9-10 tablets by ity of (CALCIUM 19:03: mouth [place] 500 ORAL) 06 daily. [facility] Branch calcium 2020-0 Yes 2{tbl} Take 2 Univer s carbonate 9-10 tablets by ity of (CALCIUM 19:03: mouth [place] 500 ORAL) 06 daily. [facility] Branch KCL 2020-0 2020- No 40meq 40 mEq, Univers (KLOR-CON -10 - Oral, ity of M20) tablet 18:15: 18:27 ONCE, 1 [place] 40 mEq 00 :00 dose, [facility] 12/30/19 at Branch 1315, Routine KCL 2020-0 2020- No 40meq 40 mEq, Univers (KLOR-CON -01 27-10 Oral, ity of M20) tablet 14:30: 14:25 ONCE, 1 [place] 40 mEq 00 :00 dose, [place] [facility] 12/30/19 at Branch 0930, Routine medroxyPROG 2020-0 2020- No 150mg 150 mg, U nivers ESTERone 12-29 Intramuscu ity of (DEPO-PROVE 00:00: 00:40 lar, ONCE, [place] RA) 00 :00 1 dose, Medical injection 12/29/19 Bran ch 150 mg at 1900, Routine Sliding 2020-0 Yes Subcutaneo Univ ers Scale 12-28 us, AC+HS, ity of Insulin-Reg 21:30: First dose [place] ular + Fsbg 00 on Fri Medica l Testing 12/29/19 at Branch 1630, Until Discontinu ed, Routine furosemide 2019-0 2020- No 20mg 20 mg, Univ ers (LASIX) 12-28 Slow IV ity of injection 21:30: 21:46 Push, [place] 20 mg 00 :00 ONCE, 1 Medical dose, [facility] Branch 12/29/19 at 1630, Routine conjugated 2020-0 2020- No 25mg 25 mg, Univ ers estrogens 12-28 Intravenou ity of (PREMARIN) 20:45: 21:21 s, ONCE, 1 [place] injection 00 :00 dose, Fri Medic al 25 mg 12/29/19 at Branch 1545, Routine glucagon 2019-0 Yes 1mg 1 mg, Univers (GLUCAGEN 12-28 Intramuscu ity of DIAGNOSTIC 16:42: lar, PRN, [place] KIT) 21 Starting Medical injection 1 Fri12/29/19 Br anch mg at 1142, Until Discontinu ed, ROSANNE, Blood Glucose < or = 70 mg/dL and patient is unable to swallow or has mental changes. dextrose 50 2020-0 Yes 25mL 25 mL, Univ ers % in water 12-28 Slow IV ity of (D50W) 16:42: Push, PRN, [place] injection 20 Starting Medica l 25 mL 12/29/19 Branch at 1142, Until Discontinu ed, ROSANNE, Blood Glucose < or = 70 mg/dL and patient is unable to swallow or has mental status changes. conjugated 2020-0 2020- No 25mg 25 mg, Univ ers estrogens 12-28 Intravenou ity of (PREMARIN) 14:00: 14:45 s, Q6H [place] injection 00 :00 ABX, 1 Medical 25 mg dose, Branch First dose (after last reorder) on Fri12/29/19 at 0900, Routine proMETHazin 2020-0 Yes 25mg 25 mg, IV U nivers e 12-28 Piggyback, ity of (PHENERGAN) 12:24: Q4HPRN, [place] as 25 mg in 50 Starting Medical NaCl 0.9% [facility] 12/29/19 Bran ch (NS) 50 mL at 0724, IV Until piggyback Discontinu ed, Routine, N/V unresponsi ve to Ondansetro n acetaminoph 2019-0 2020- No 650mg 650 mg, U nivers en 12-28 Oral, ity of (TYLENOL) 08:45: 07:42 ONCE, 1 [place] tablet 650 00 :00 dose, Fri Medi maria luisa mg 12/29/19 at Branch 0345, Routine diphenhydrA 2019-0 2020- No 50mg 50 mg, Uni vers MINE 12-28 Oral, ity of (BENADRYL) 08:45: 08:45 ONCE, 1 [place] as capsule 50 00 :00 dose, Fri Medi maria luisa mg 12/29/19 at Branch 0345, Routine KCL 2020-0 2020- No 60meq 60 mEq, Univers (KLOR-CON 12-28 Oral, ity of M20) tablet 07:30: 07:09 ONCE, 1 [place] 60 mEq 00 :00 dose, [facility] Medical 12/29/19 at Branch 0230, Routine NaCl 0.9% 2020-0 2020- No 1000mL at 125 Uni vers (NS) IV 12-28 mL/hr, IV ity of infusion 07:30: 06:28 Infusion, [place] as 1,000 mL 00 :00 ONCE, 1 Medical dose, [facility] Branch 12/29/19 at 0230, Routine conjugated 2020-0 2020- No 25mg 25 mg, Univ ers estrogens 12-28 Intravenou ity of (PREMARIN) 05:00: 08:01 s, Q6H, 2 [place] injection 00 :00 doses, Medical 25 mg First dose Branch on Fri12/29/19 at 0000, Last dose on Fri12/29/19 at 0600, Routine ondansetron 2019- Yes 4mg 4 mg, Slow Univers (ZOFRAN 12-28 IV Push, ity of (PF)) 00:11: Q6HPRN, [place] injection 4 50 Starting Medi maria luisa mg Fri12/28/19 Branch at 191, Until Discontinu ed, Routine, Nausea and Vomiting (N/V) acetaminoph 2019- Yes 650mg 650 mg, Un jane en 12-28 Oral, ity of (TYLENOL) 00:11: Q6HPRN, [place] tablet 650 42 Starting Medic al mg Fri12/28/19 Branch at 191, Until Discontinu ed, Routine, Pain (scale 1-3) NaCl 0.9% 2019-2019- No 1000mL at 999 Uni vers (NS) bolus 12-27-08 mL/hr, ity of infusion 22:30: 22:39 1,000 mL, [place] as 1,000 mL 00 :00 IV Medical Infusion, Branch ONCE, 1 dose, Fri12/28/19 at 1730, ROSANNE NaCl 0.9% 2019- No 1000mL at 999 Uni vers (NS) bolus 12-27- mL/hr, ity of infusion 19:45: 23:12 1,000 mL, [place] as 1,000 mL 00 :00 IV Medical Infusion, Branch ONCE, 1 dose, Fri12/28/19 at 1445, ROSANNE 2020- No Take by [facility] ers 25/iron 10-04 mouth. ity of fum/folic/d 20:38: 00:00 [place] valencia 02 :00 Medical (-1 Branch ORAL) 2019- No Take by [facility] ers 25/iron 10-04 mouth. ity of fum/folic/d 20:38: 00:00 [place] valencia 02 :00 Medical (-1 Branch ORAL) medroxyPROG 2020- No [id number] 150mg 150 mg, [place] [facility] 10-04 Intramuscu ity of (DEPO-PROVE 20:30: 19:21 lar, [place] RA) 00 :00 [id number], Medical injection 4 doses, Branch 150 mg First dose on Fri10/05/19 at 1530, Last dose on Fri06/13/20 at 1530, Routine medroxyPROG 2019-2020- No [id number] 150mg Univers ESTERone 6-16 05-18 ity of (DEPO-PROVE 20:30: 20:29 [place] RA) 00 :00 Medical injection Branch 150 mg medroxyPROG 2020-0 2020- No [id number] 150mg 150 mg, Univers ESTERone 6-16 05-18 Intramuscu ity of (DEPO-PROVE 20:30: 20:29 lar, [place] RA) 00 :00 [id number], Medical injection 4 doses, Branch 150 mg First dose on Fri10/05/19 at 1530, Last dose on Fri06/13/20 at 1530, Routine medroxyPROG 2019-2020- No [id number] 150mg Univers ESTERone 6-16 05-18 ity of (DEPO-PROVE 20:30: 20:29 [place] RA) 00 :00 Medical injection Branch 150 mg medroxyPROG 2019-2020- No [id number] 150mg 150 mg, Univers ESTERone 6-16 05-18 Intramuscu ity of (DEPO-PROVE 20:30: 20:29 lar, [place] RA) 00 :00 [id number], Medical injection 4 doses, Branch 150 mg First dose on Fri10/05/19 at 1530, Last dose on Fri06/13/20 at 1530, Routine medroxyPROG 2019-2020- No [id number] 150mg Univers ESTERone 6-16 05-18 ity of (DEPO-PROVE 20:30: 20:29 [place] RA) 00 :00 Medical injection Branch 150 mg medroxyPROG 2020-0 2020- No [id number] 150mg Univers ESTERone 6-16 05-18 ity of (DEPO-PROVE 20:30: 20:29 [place] RA) 00 :00 Medical injection Branch 150 mg medroxyPROG 2020-0 2020- No [id number] 150mg Univers ESTERone 6-16 05-18 ity of (DEPO-PROVE 20:30: 20:29 [place] RA) 00 :00 Medical injection Branch 150 mg medroxyPROG 2020-0 2020- No [id number] 150mg Univers ESTERone 6-16 05-18 ity of (DEPO-PROVE 20:30: 20:29 [place] RA) 00 :00 Medical injection Branch 150 mg medroxyPROG 2020-0 2020- No [id number] 150mg Univers ESTERone 6-16 05-18 ity of (DEPO-PROVE 20:30: 20:29 [place] RA) 00 :00 Medical injection Branch 150 mg medroxyPROG 2020-0 2020- No [id number] 150mg Univers ESTERone 6-16 05-18 ity of (DEPO-PROVE 20:30: 20:29 [place] RA) 00 :00 Medical injection Branch 150 mg medroxyPROG 2020-0 2020- No [id number] 150mg Univers ESTERone 6-16 05-18 ity of (DEPO-PROVE 20:30: 20:29 [place] RA) 00 :00 Medical injection Branch 150 mg medroxyPROG 2020-0 2020- No [id number] 150mg Univers ESTERone 6-16 05-18 ity of (DEPO-PROVE 20:30: 20:29 [place] RA) 00 :00 Medical injection Branch 150 mg medroxyPROG 2020-0 2020- No [id number] 150mg Univers ESTERone 6-16 05-18 ity of (DEPO-PROVE 20:30: 20:29 [place] RA) 00 :00 Medical injection Branch 150 mg medroxyPROG 2020-0 2020- No [id number] 150mg Univers ESTERone 6-16 05-18 ity of (DEPO-PROVE 20:30: 20:29 [place] RA) 00 :00 Medical injection Branch 150 mg medroxyPROG 2020-0 2020- No [id number] 150mg Univers ESTERone 6-16 05-18 ity of (DEPO-PROVE 20:30: 20:29 [place] RA) 00 :00 Medical injection Branch 150 mg medroxyPROG 2020-0 2020- No [id number] 150mg Univers ESTERone 6-16 05-18 ity of (DEPO-PROVE 20:30: 20:29 [place] RA) 00 :00 Medical injection Branch 150 mg medroxyPROG 2020-0 2020- No [id number] 150mg Univers ESTERone 6-16 05-18 ity of (DEPO-PROVE 20:30: 20:29 [place] RA) 00 :00 Medical injection Branch 150 mg medroxyPROG 2020-0 2020- No [id number] 150mg Univers ESTERone 6-16 05-18 ity of (DEPO-PROVE 20:30: 20:29 [place] RA) 00 :00 Medical injection Branch 150 mg medroxyPROG 2020-0 2020- No [id number] 150mg Univers ESTERone 6-16 05-18 ity of (DEPO-PROVE 20:30: 20:29 [place] RA) 00 :00 Medical injection Branch 150 mg medroxyPROG 2020-0 2020- No [id number] 150mg Univers ESTERone 6-16 05-18 ity of (DEPO-PROVE 20:30: 20:29 [place] RA) 00 :00 Medical injection Branch 150 mg medroxyPROG 2020-0 2020- No [id number] 150mg Univers ESTERone 6-16 05-18 ity of (DEPO-PROVE 20:30: 20:29 [place] RA) 00 :00 Medical injection Branch 150 mg medroxyPROG 2020-0 2020- No [id number] 150mg Univers ESTERone 6-16 05-18 ity of (DEPO-PROVE 20:30: 20:29 [place] RA) 00 :00 Medical injection Branch 150 mg medroxyPROG 2020-0 2020- No [id number] 150mg Univers ESTERone 6-16 05-18 ity of (DEPO-PROVE 20:30: 20:29 [place] RA) 00 :00 Medical injection Branch 150 mg medroxyPROG 2020-0 2020- No [id number] 150mg Univers ESTERone 6-16 05-18 ity of (DEPO-PROVE 20:30: 20:29 [place] RA) 00 :00 Medical injection Branch 150 mg medroxyPROG 2020-0 2020- No [id number] 150mg Univers ESTERone 6-16 05-18 ity of (DEPO-PROVE 20:30: 20:29 [place] RA) 00 :00 Medical injection Branch 150 mg medroxyPROG 2020-0 2020- No [id number] 150mg Univers ESTERone 6-16 05-18 ity of (DEPO-PROVE 20:30: 20:29 [place] RA) 00 :00 Medical injection Branch 150 mg medroxyPROG 2020-0 2020- No [id number] 150mg Univers ESTERone 6-16 05-18 ity of (DEPO-PROVE 20:30: 20:29 [place] RA) 00 :00 Medical injection Branch 150 mg medroxyPROG 2020-0 2020- No [id number] 150mg Univers ESTERone 6-16 05-18 ity of (DEPO-PROVE 20:30: 20:29 [place] RA) 00 :00 Medical injection Branch 150 mg medroxyPROG 2020-0 2020- No [id number] 150mg Univers ESTERone 6-16 05-18 ity of (DEPO-PROVE 20:30: 20:29 [place] RA) 00 :00 Medical injection Branch 150 mg medroxyPROG 2020-0 2020- No [id number] 150mg Univers ESTERone 6-16 05-18 ity of (DEPO-PROVE 20:30: 20:29 [place] RA) 00 :00 Medical injection Branch 150 mg medroxyPROG 2019-0 2020- No [id number] 150mg 150 mg, Univers ESTERone 6-16 05-18 Intramuscu ity of (DEPO-PROVE 20:30: 20:29 lar, [place] RA) 00 :00 [id number], Medical injection 4 doses, Branch 150 mg First dose on Fri10/05/19 at 1530, Last dose on Fri06/13/20 at 1530, Routine medroxyPROG 2019-2020- No [id number] 150mg Univers ESTERone 6-16 05-18 ity of (DEPO-PROVE 20:30: 20:29 [place] RA) 00 :00 Medical injection Branch 150 mg medroxyPROG 2019-0 2020- No [id number] 150mg Univers ESTERone 6-16 05-18 ity of (DEPO-PROVE 20:30: 20:29 [place] RA) 00 :00 Medical injection Branch 150 mg medroxyPROG 2019-0 2020- No [id number] 150mg 150 mg, Univers ESTERone 6-16 05-18 Intramuscu ity of (DEPO-PROVE 20:30: 20:29 lar, [place] RA) 00 :00 [id number], Medical injection 4 doses, Branch 150 mg First dose on Fri10/05/19 at 1530, Last dose on Fri06/13/20 at 1530, Routine calcium 2020-0 Yes 2{tbl} Take 2 Univer s carbonate 6-16 tablets by ity of (CALCIUM 20:14: mouth [place] 500 ORAL) 19 daily. Medical Branch calcium 2020-0 Yes 2{tbl} Take 2 Univer s carbonate 6-16 tablets by ity of (CALCIUM 20:14: mouth [place] 500 ORAL) 19 daily. Medical Branch calcium 2020-0 Yes 2{tbl} Take 2 Univer s carbonate 6-16 tablets by ity of (CALCIUM 20:14: mouth [place] 500 ORAL) 19 daily. Medical Branch calcium 2020-0 Yes 2{tbl} Take 2 Univer s carbonate 6-16 tablets by ity of (CALCIUM 20:14: mouth [place] 500 ORAL) 19 daily. [facility] calcium 2020-0 Yes 2{tbl} Take 2 Univer s carbonate 6-16 tablets by ity of (CALCIUM 20:14: mouth [place] 500 ORAL) 19 daily. [facility] calcium 2020-0 Yes 2{tbl} Take 2 Univer s carbonate 6-16 tablets by ity of (CALCIUM 20:14: mouth [place] 500 ORAL) 19 daily. [facility] calcium 2020-0 Yes 2{tbl} Take 2 Univer s carbonate 6-16 tablets by ity of (CALCIUM 20:14: mouth [place] 500 ORAL) 19 daily. [facility] calcium 2020-0 Yes 2{tbl} Take 2 Univer s carbonate 6-16 tablets by ity of (CALCIUM 20:14: mouth [place] 500 ORAL) 19 daily. [facility] calcium 2020-0 Yes 2{tbl} Take 2 Univer s carbonate 6-16 tablets by ity of (CALCIUM 20:14: mouth [place] 500 ORAL) 19 daily. [facility] calcium 2020-0 Yes 2{tbl} Take 2 Univer s carbonate 6-16 tablets by ity of (CALCIUM 20:14: mouth [place] 500 ORAL) 19 daily. [facility] calcium 2020-0 Yes 2{tbl} Take 2 Univer s carbonate 6-16 tablets by ity of (CALCIUM 20:14: mouth [place] 500 ORAL) 19 daily. [facility] calcium 2020-0 Yes 2{tbl} Take 2 Univer s carbonate 6-16 tablets by ity of (CALCIUM 20:14: mouth [place] 500 ORAL) 19 daily. [facility] calcium 2020-0 Yes 2{tbl} Take 2 Univer s carbonate 6-16 tablets by ity of (CALCIUM 20:14: mouth [place] 500 ORAL) 19 daily. [facility] Branch medroxyPROG 2020-0 2020- No 150mg Univ ers ESTERone 324 03-24 ity of (DEPO-PROVE 20:15: 19:15 [place] RA) 00 :00 Medical injection Branch 150 mg medroxyPROG 2019-0 2020- No 150mg 150 mg, U nivers ESTERone 07-12 Intramuscu ity of (DEPO-PROVE 20:15: 19:15 lar, ONCE, [place] RA) 00 :00 1 dose, Medical injection Tue Branch 150 mg 07/13/19 at 1515, Routine Yes Take by Unive rs 25/iron 4-10 mouth. ity of fum/folic/d 15:52: [facility] 49 Medical (-1 Branch ORAL) Yes Take by Unive rs 25/iron 4-10 mouth. ity of fum/folic/d 15:52: [facility] 49 Medical (-1 Branch ORAL) simethicone Yes [id number] 160mg Take 2 Univers 80 mg 3-01 tablets by ity of chewable 00:00: mouth [place] tablet 00 after Medical meals and Branch at bedtime as needed for Gas. docusate Yes [id number] 240mg Take 1 U nivers calcium 240 3-01 capsule by it y of mg capsule 00:00: mouth [place] 00 daily as Medical needed for Branch Constipati on. HYDROcodone 2018- Yes [id number] 1{tbl} Take 1 Univers -acetaminop 3-01 tablet by ity of hen 5-325 00:00: mouth [place] mg tablet 00 every 6 Medical (six) Branch hours as needed for Pain (scale 4-6). ibuprofen 2018- Yes [id number] 600mg Take 1 [facility] 600 mg 3-01 tablet by ity of tablet 00:00: mouth [place] 00 every 6 Medical (six) Branch hours as needed for Pain (scale 1-3) or Pain (scale 4-6). 2019- Yes [id number] 1{tbl} Take 1 Univers vitamin 3-01 tablet by ity of w/FA tablet 00:00: mouth [place] 00 daily. Medical Branch ferrous 2019-0 Yes [id number] 325mg Take 1 Un jane sulfate 325 3-01 tablet by ity of mg (65 mg 00:00: mouth 2 [place] iron) 00 (two) Medical tablet times Branch daily. simethicone Yes [id number] 160mg Take 2 Univers 80 mg 3-01 tablets by ity of chewable 00:00: mouth [place] tablet 00 after Medical meals and Branch at bedtime as needed for Gas. docusate Yes [id number] 240mg Take 1 U nivers calcium 240 3-01 capsule by it y of mg capsule 00:00: mouth once [place] 00 daily as Medical needed for Branch Constipati on. HYDROcodone Yes [id number] 1{tbl} Take 1 Univers -acetaminop 3-01 tablet by ity of hen 5-325 00:00: mouth [place] mg tablet 00 every 6 Medical (six) Branch hours as needed for Pain (scale 4-6). ibuprofen Yes [id number] 600mg Take 1 [facility] 600 mg 3-01 tablet by ity of tablet 00:00: mouth [place] 00 every 6 Medical (six) Branch hours as needed for Pain (scale 1-3) or Pain (scale 4-6). Yes [id number] 1{tbl} Take 1 [facility] vitamin 3-01 tablet by ity of w/FA tablet 00:00: mouth [place] 00 daily. Medical Branch ferrous Yes [id number] 325mg Take 1 Un jane sulfate 325 3-01 tablet by ity of mg (65 mg 00:00: mouth 2 [place] iron) 00 (two) Medical tablet times Branch daily. simethicone 2020- No [id number] 160mg Take 2 Univers 80 mg 3-01 06-16 tablets by ity of chewable 00:00: 00:00 mouth [place] tablet 00 :00 after Medical meals and Branch at bedtime as needed for Gas. docusate 2020- No [id number] 240mg Take 1 [facility] calcium 240 3-01 06-16 capsule by i ty of mg capsule 00:00: 00:00 mouth once [place] 00 :00 daily as Medical needed for Branch Constipati on. HYDROcodone 2020- No [id number] 1{tbl} Take 1 Univers -acetaminop 3-01 06-16 tablet by it y of hen 5-325 00:00: 00:00 mouth [place] mg tablet 00 :00 every 6 Medical (six) Branch hours as needed for Pain (scale 4-6). ibuprofen 2020- No [id number] 600mg Take 1 [facility] 600 mg 06-1916 tablet by ity of tablet 00:00: 00:00 mouth [place] 00 :00 every 6 Medical (six) Branch hours as needed for Pain (scale 1-3) or Pain (scale 4-6). 2019- No [id number] 1{tbl} Take 1 [facility] vitamin 06-1916 tablet by ity of w/FA tablet 00:00: 00:00 [place] 00 :00 daily. [facility] ferrous 2019- No [id number] 325mg Take 1 U nivers sulfate 325 06-1916 tablet by it y of mg (65 mg 00:00: 00:00 [place] iron) 00 :00 (two) Medical tablet times Branch daily. simethicone 2019- No [id number] 160mg Take 2 [facility] 80 mg 06-1916 tablets by ity of chewable 00:00: 00:00 mouth [place] tablet 00 :00 after Medical meals and Branch at bedtime as needed for Gas. docusate 2019- No [id number] 240mg Take 1 [facility] calcium 240 06-19 capsule by i ty of mg capsule 00:00: 00:00 mouth once [place] 00 :00 daily as Medical needed for Branch Constipati on. HYDROcodone 2019- No [id number] 1{tbl} Take 1 Univers -acetaminop 06-1916 tablet by it y of hen 5-325 00:00: 00:00 mouth [place] mg tablet 00 :00 every 6 Medical (six) Branch hours as needed for Pain (scale 4-6). ibuprofen 2019- No [id number] 600mg Take 1 [facility] 600 mg 06-1916 tablet by ity of tablet 00:00: 00:00 mouth [place] 00 :00 every 6 Medical (six) Branch hours as needed for Pain (scale 1-3) or Pain (scale 4-6). 2019- No [id number] 1{tbl} Take 1 [facility] vitamin 06-1916 tablet by ity of w/FA tablet 00:00: 00:00 [place] 00 :00 daily. [facility] ferrous 2019- No [id number] 325mg Take 1 U nivers sulfate 325 3-01 06-16 tablet by it y of mg (65 mg 00:00: 00:00 [place] iron) 00 :00 (two) Medical tablet times Branch daily. Blood-Gluco 2017-04 Yes Glucose Uni vers se Meter 0-05 check 4X ity of (FREESTYLE 00:00: daily [place] LITE METER) 00 [facility] Blood-Gluco 2017-04 Yes Glucose Uni vers se Meter 0-05 check 4X ity of (FREESTYLE 00:00: daily [place] LITE METER) 00 [facility] Blood-Gluco 2017-04 2020- No Glucose Un jane se Meter 0-05 -16 check 4X ity of (FREESTYLE 00:00: 00:00 daily [place] LITE METER) 00 :00 [facility] Blood-Gluco 2017-04 2020- No Glucose Un jane se Meter 0-05 -16 check 4X ity of (FREESTYLE 00:00: 00:00 daily [place] LITE METER) 00 :00 [facility] lancets 2017-04 Yes Gucose Univers (FREESTYLE 0-04 Check 4X ity o f LANCETS) 28 00:00: daily [place] gauge Misc 00 [facility] blood sugar 2017-04 Yes Gucose Univ ers diagnostic 0-04 Check 4X ity o f (FREESTYLE 00:00: daily [place] LITE 00 Medical STRIPS) Branch strip lancets 2017-04 Yes Gucose Univers (FREESTYLE 0-04 Check 4X ity o f LANCETS) 28 00:00: daily [place] gauge Misc 00 [facility] blood sugar 2017-04 Yes Gucose Univ ers diagnostic 0-04 Check 4X ity o f (FREESTYLE 00:00: daily [place] LITE 00 Medical STRIPS) Branch strip lancets 2017-04 2020- No Gucose Univers (FREESTYLE 0-04 06-16 Check 4X ity of LANCETS) 28 00:00: 00:00 [place] gauge Misc 00 :00 [facility] blood sugar 2017-04 2020- No Gucose Uni vers diagnostic 0-04 06-16 Check 4X ity of (FREESTYLE 00:00: 00:00 daily [place] LITE 00 :00 Medical STRIPS) Branch strip lancets 2017-04 2020- No Gucose Univers (FREESTYLE 0-04 06-16 Check 4X ity of LANCETS) 28 00:00: 00:00 [place] gauge Misc 00 :00 [facility] blood sugar 2017- 2020- No Gucose Uni vers diagnostic 016 Check 4X ity of (FREESTYLE 00:00: 00:00 daily [place] LITE 00 :00 Medical STRIPS) Branch strip Immunizations Ordered Filled Immunization Date Status Comments Sourc e Immunization Name Name [facility] 2018-04-24 Completed University of 00:00:00 [facility] TDAP 2018-04-24 Completed University of 00:00:00 [facility] Tdap 2018-04-24 Completed University of 00:00:00 [facility] Tdap 2018-04-24 Completed University of 00:00:00 [facility] Tdap 2018-04-24 Completed University of 00:00:00 [facility] TDAP 2018-04-24 Completed University of 00:00:00 [facility] TDAP 2018-04-24 Completed University of 00:00:00 [facility] TDAP 2018-04-24 Completed University of 00:00:00 [facility] TDAP 2018-04-24 Completed University of 00:00:00 [facility] TDAP 2018-04-24 Completed University of 00:00:00 [facility] TDAP 2018-04-24 Completed University of 00:00:00 [facility] TDAP 2018-04-24 Completed University of 00:00:00 [facility] TDAP 2018-04-24 Completed University of 00:00:00 [facility] TDAP 2018-04-24 Completed University of 00:00:00 [facility] TDAP 2018-04-24 Completed University of 00:00:00 [facility] TDAP 2018-04-24 Completed University of 00:00:00 [facility] TDAP 2018-04-24 Completed University of 00:00:00 [facility] TDAP 2018-04-24 Completed University of 00:00:00 [facility] TDAP 2018-04-24 Completed University of 00:00:00 [facility] TDAP 2018-04-24 Completed University of 00:00:00 [facility] TDAP 2018-04-24 Completed University of 00:00:00 [facility] TDAP 2018-04-24 Completed University of 00:00:00 [facility] TDAP 2018-04-24 Completed University of 00:00:00 [facility] TDAP 2018-04-24 Completed [facility] 00[facility]00:00 [facility] TDAP 2018-04-24 Completed University of 00:00:00 [facility] TDAP 2018-04-24 Completed [facility] 00:00:00 [facility] Com[facility] University of 00:00:00 [facility] TDAP 2018-04-24 Completed University of 00:00:00 [facility] TDAP 2018-04-24 Completed University of 00:00:00 [facility] TDAP 2018-04-24 Completed [facility] 00:00[facility]00[facility] 2018[facility]04[facility]24 Completed [facility] 00:00[facility] 2018-04-24 Completed University of 00:00:00 [facility] 2018-04-24 Completed University of 00:00:00 [facility] TDAP 2018-04-24 Completed University of 00:00:00 [facility] TDAP 2018-04-24 Completed University of 00:00:00 [facility] 2018-04-24 Completed University of 00:00:00 [facility] 2018-04-24 Completed University of 00:00:00 [facility] TDAP 2018-04-24 Completed [facility] 00:00[facility] Com[facility] 00[facility]00[facility] 2018-04-24 Completed University of 00:00:00 [facility] TDAP 2018-04-24 Completed University of 00:00:00 [facility] TDAP 2018-04-24 Completed University of 00:00:00 [facility] TDAP 2018-04-24 Completed University of 00:00:00 [facility] TDAP 2018-04-24 Completed University of 00:00:00 [facility] TDAP 2018-04-24 Completed University of 00:00:00 [facility] TDAP 2018-04-24 Completed University of 00:00:00 [facility] Varicella 2015-04-04 Completed University of (varivax)(chicken 00:00:00 [facility] edical pox) Branch Varicella 2015-04-04 Completed University of (varivax)(chicken 00:00:00 [place] [facility] edical pox) Branch Varicella 2015-04-04 Completed University of (varivax)(chicken 00:00:00 [place] [facility] edical pox) Branch Varicella 2015-04-04 Completed University of (varivax)(chicken 00:00:00 [place] [facility] edical pox) Branch Varicella 2015-04-04 Completed University of (varivax)(chicken 00:00:00 [place] [facility] edical pox) Branch Varicella 2015-04-04 Completed University of (varivax)(chicken 00:00:00 [place] M edical pox) Branch Varicella 2015-04-04 Completed University of (varivax)(chicken 00:00:00 [place] M edical pox) Branch Varicella 2015-04-04 Completed University of (varivax)(chicken 00:00:00 [place] M edical pox) Branch Varicella 2015-04-04 Completed University of (varivax)(chicken 00:00:00 [place] [facility] edical pox) Branch Varicella 2015-04-04 Completed University of (varivax)(chicken 00:00:00 [place] M edical pox) Branch Varicella 2015-04-04 Completed University of (varivax)(chicken 00:00:00 [place] [facility] edical pox) Branch Varicella 2015-04-04 Completed University of (varivax)(chicken 00:00:00 [place] M edical pox) Branch Varicella 2015-04-04 Completed University of (varivax)(chicken 00:00:00 [place] [facility] edical pox) Branch Varicella 2015-04-04 Completed University of (varivax)(chicken 00:00:00 [place] M edical pox) Branch Varicella 2015-04-04 Completed University of (varivax)(chicken 00:00:00 [place] M edical pox) Branch Varicella 2015-04-04 Completed University of (varivax)(chicken 00:00:00 [place] M edical pox) Branch Varicella 2015-04-04 Completed University of (varivax)(chicken 00:00:00 [place] M edical pox) Branch Varicella 2015-04-04 Completed University of (varivax)(chicken 00:00:00 [place] M edical pox) Branch Varicella 2015-04-04 Completed University of (varivax)(chicken 00:00:00 [place] M edical pox) Branch Varicella 2015-04-04 Completed University of (varivax)(chicken 00:00:00 [place] M edical pox) Branch Varicella 2015-04-04 Completed University of (varivax)(chicken 00:00:00 [place] [facility] edical pox) Branch Varicella 2015-04-04 Completed University of (varivax)(chicken 00:00:00 [place] [facility] edical pox) Branch Varicella 2015-04-04 Completed University of (varivax)(chicken 00:00:00 [place] M edical pox) Branch Varicella 2015-04-04 Completed University of (varivax)(chicken 00:00:00 [place] [facility] edical pox) Branch Varicella 2015-04-04 Completed University of (varivax)(chicken 00:00:00 [place] M edical pox) Branch Varicella 2015-04-04 Completed University of (varivax)(chicken 00:00:00 [place] M edical pox) Branch Varicella 2015-04-04 Completed University of (varivax)(chicken 00:00:00 [place] M edical pox) Branch Varicella 2015-04-04 Completed University of (varivax)(chicken 00:00:00 [place] M edical pox) Branch Varicella 2015-04-04 Completed University of (varivax)(chicken 00:00:00 [place] M edical pox) Branch Varicella 2015-04-04 Completed University of (varivax)(chicken 00:00:00 [place] M edical pox) Branch Varicella 2015-04-04 Completed University of (varivax)(chicken 00:00:00 [place] M edical pox) Branch Varicella 2015-04-04 Completed University of (varivax)(chicken 00:00:00 [place] M edical pox) Branch Varicella 2015-04-04 Completed University of (varivax)(chicken 00:00:00 [place] M edical pox) Branch Varicella 2015-04-04 Completed University of (varivax)(chicken 00:00:00 [place] M edical pox) Branch Varicella 2015-04-04 Completed University of (varivax)(chicken 00:00:00 [place] M edical pox) Branch Varicella 2015-04-04 Completed University of (varivax)(chicken 00:00:00 [place] M edical pox) Branch Varicella 2015-04-04 Completed University of (varivax)(chicken 00:00:00 [place] M edical pox) Branch Varicella 2015-04-04 Completed University of (varivax)(chicken 00:00:00 [place] M edical pox) Branch Varicella 2015-04-04 Completed University of (varivax)(chicken 00:00:00 [place] M edical pox) Branch Varicella 2015-04-04 Completed University of (varivax)(chicken 00:00:00 [place] M edical pox) Branch Varicella 2015-04-04 Completed University of (varivax)(chicken 00:00:00 [place] M edical pox) Branch Varicella 2015-04-04 Completed University of (varivax)(chicken 00:00:00 [place] M edical pox) Branch Varicella 2015-04-04 Completed University of (varivax)(chicken 00:00:00 [place] M edical pox) Branch Varicella 2015-04-04 Completed University of (varivax)(chicken 00:00:00 [place] M edical pox) Branch Varicella 2015-04-04 Completed University of (varivax)(chicken 00:00:00 [place] M edical pox) Branch Varicella 2015-04-04 Completed University of (varivax)(chicken 00:00:00 [place] M edical pox) Branch Varicella 2015-04-04 Completed University of (varivax)(chicken 00:00:00 [place] M edical pox) Branch Varicella 2015-04-04 Completed University of (varivax)(chicken 00:00:00 [place] M edical pox) Branch Influenza Virus 2015-01-06 Completed Universit y of Vaccine Quad IM 3+ 00:00:00 [facility] TDAP 2015-01-06 Completed University of 00:00:00 [facility] Influenza Virus 2015-01-06 Completed Universit y of Vaccine Quad IM 3+ 00:00:00 [facility] Tdap 2015-01-06 Completed University of 00:00:00 [facility] Influenza Virus 2015-01-06 Completed Universit y of Vaccine Quad IM 3+ 00:00:00 [facility] Tdap 2015-01-06 Completed University of 00:00:00 [facility] Influenza Virus 2015-01-06 Completed Universit y of Vaccine Quad IM 3+ 00:00:00 [facility] Tdap 2015-01-06 Completed University of 00:00:00 [facility] Influenza Virus 2015-01-06 Completed Universit y of Vaccine Quad IM 3+ 00:00:00 [facility] TDAP 2015-01-06 Completed University of 00:00:00 [facility] Influenza Virus 2015-01-06 Completed Universit y of Vaccine Quad IM 3+ 00:00:00 [facility] TDAP 2015-01-06 Completed University of 00:00:00 [facility] Influenza Virus 2015-01-06 Completed Universit y of Vaccine Quad IM 3+ 00:00:00 [facility] TDAP 2015-01-06 Completed University of 00:00:00 [facility] Influenza Virus 2015-01-06 Completed Universit y of Vaccine Quad IM 3+ 00:00:00 [facility] TDAP 2015-01-06 Completed University of 00:00:00 [facility] Influenza Virus 2015-01-06 Completed Universit y of Vaccine Quad IM 3+ 00:00:00 [facility] TDAP 2015-01-06 Completed University of 00:00:00 [facility] Influenza Virus 2015-01-06 Completed Universit y of Vaccine Quad IM 3+ 00:00:00 [facility] TDAP 2015-01-06 Completed University of 00:00:00 [facility] Influenza Virus 2015-01-06 Completed Universit y of Vaccine Quad IM 3+ 00:00:00 [facility] TDAP 2015-01-06 Completed University of 00:00:00 [facility] Influenza Virus 2015-01-06 Completed Universit y of Vaccine Quad IM 3+ 00:00:00 [facility] TDAP 2015-01-06 Completed University of 00:00:00 [facility] Influenza Virus 2015-01-06 Completed Universit y of Vaccine Quad IM 3+ 00:00:00 [facility] TDAP 2015-01-06 Completed University of 00:00:00 [facility] Influenza Virus 2015-01-06 Completed Universit y of Vaccine Quad IM 3+ 00:00:00 [facility] TDAP 2015-01-06 Completed University of 00:00:00 [facility] Influenza Virus 2015-01-06 Completed Universit y of Vaccine Quad IM 3+ 00:00:00 [facility] TDAP 2015-01-06 Completed University of 00:00:00 [facility] Influenza Virus 2015-01-06 Completed Universit y of Vaccine Quad IM 3+ 00:00:00 [facility] TDAP 2015-01-06 Completed University of 00:00:00 [facility] Influenza Virus 2015-01-06 Completed Universit y of Vaccine Quad IM 3+ 00:00:00 [facility] TDAP 2015-01-06 Completed University of 00:00:00 [facility] Influenza Virus 2015-01-06 Completed Universit y of Vaccine Quad IM 3+ 00:00:00 [facility] TDAP 2015-01-06 Completed University of 00:00:00 [facility] Influenza Virus 2015-01-06 Completed Universit y of Vaccine Quad IM 3+ 00:00:00 [facility] TDAP 2015-01-06 Completed University of 00:00:00 [facility] Influenza Virus 2015-01-06 Completed Universit y of Vaccine Quad IM 3+ 00:00:00 [facility] TDAP 2015-01-06 Completed University of 00:00:00 [facility] Influenza Virus 2015-01-06 Completed Universit y of Vaccine Quad IM 3+ 00:00:00 [facility] TDAP 2015-01-06 Completed University of 00:00:00 [facility] Influenza Virus 2015-01-06 Completed Universit y of Vaccine Quad IM 3+ 00:00:00 [facility] TDAP 2015-01-06 Completed University of 00:00:00 [facility] Influenza Virus 2015-01-06 Completed Universit y of Vaccine Quad IM 3+ 00:00:00 [facility] TDAP 2015-01-06 Completed University of 00:00:00 [facility] Influenza Virus 2015-01-06 Completed Universit y of Vaccine Quad IM 3+ 00:00:00 [facility] TDAP 2015-01-06 Completed University of 00:00:00 [facility] Influenza Virus 2015-01-06 Completed Universit y of Vaccine Quad IM 3+ 00:00:00 [facility] TDAP 2015-01-06 Completed University of 00:00:00 [facility] Influenza Virus 2015-01-06 Completed Universit y of Vaccine Quad IM 3+ 00:00:00 [facility] TDAP 2015-01-06 Completed University of 00:00:00 [facility] Influenza Virus 2015-01-06 Completed Universit y of Vaccine Quad IM 3+ 00:00:00 [facility] TDAP 2015-01-06 Completed University of 00:00:00 [facility] Influenza Virus 2015-01-06 Completed Universit y of Vaccine Quad IM 3+ 00:00:00 [facility] TDAP 2015-01-06 Completed University of 00:00:00 [facility] Influenza Virus 2015-01-06 Completed Universit y of Vaccine Quad IM 3+ 00:00:00 [facility] TDAP 2015-01-06 Completed University of 00:00:00 [facility] Influenza Virus 2015-01-06 Completed Universit y of Vaccine Quad IM 3+ 00:00:00 [facility] TDAP 2015-01-06 Completed University of 00:00:00 [facility] Influenza Virus 2015-01-06 Completed Universit y of Vaccine Quad IM 3+ 00:00:00 [facility] TDAP 2015-01-06 Completed University of 00:00:00 [facility] Influenza Virus 2015-01-06 Completed Universit y of Vaccine Quad IM 3+ 00:00:00 [facility] TDAP 2015-01-06 Completed University of 00:00:00 [facility] Influenza Virus 2015-01-06 Completed Universit y of Vaccine Quad IM 3+ 00:00:00 [facility] TDAP 2015-01-06 Completed University of 00:00:00 [facility] Influenza Virus 2015-01-06 Completed Universit y of Vaccine Quad IM 3+ 00:00:00 [facility] TDAP 2015-01-06 Completed University of 00:00:00 [facility] Influenza Virus 2015-01-06 Completed Universit y of Vaccine Quad IM 3+ 00:00:00 [facility] TDAP 2015-01-06 Completed University of 00:00:00 [facility] Influenza Virus 2015-01-06 Completed Universit y of Vaccine Quad IM 3+ 00:00:00 [facility] TDAP 2015-01-06 Completed [facility] 00:00:00 [facility] Influenza Virus 2015-01-06 Completed [facility]it y of Vaccine Quad IM 3+ 00:00:00 [facility] TDAP 2015-01-06 Completed [facility] 00:00:00 [facility] Influenza Virus 2015-01-06 Completed [facility] y of Vaccine Quad IM 3+ 00:00:00 [facility] TDAP 2015-01-06 Completed [facility] 00:00:00 [facility] Influenza Virus 2015-01-06 Completed [facility] y of Vaccine Quad IM 3+ 00:00:00 [facility] TDAP 2015-01-06 Completed [facility] 00:00:00 [facility] Influenza Virus 2015-01-06 Completed [facility] y of Vaccine Quad IM 3+ 00:00:00 [facility] TDAP 2015-01-06 Completed [facility] 00:00:00 [facility] Influenza Virus 2015-01-06 Completed [facility] y of Vaccine Quad IM 3+ 00:00:00 [facility] TDAP 2015-01-06 Completed [facility] 00:00:00 [facility] Influenza Virus 2015-01-06 Completed [facility] y of Vaccine Quad IM 3+ 00:00:00 [facility] TDAP 2015-01-06 Completed [facility] 00:00:00 [facility] Influenza Virus 2015-01-06 Completed [facility] y of Vaccine Quad IM 3+ 00:00:00 [facility] TDAP 2015-01-06 Completed [facility] 00:00:00 [facility] Influenza Virus 2015-01-06 Completed [facility] y of Vaccine Quad IM 3+ 00:00:00 [facility] TDAP 2015-01-06 Completed [facility] 00:00:00 [facility] Influenza Virus 2015-01-06 Completed [facility] y of Vaccine Quad IM 3+ 00:00:00 [facility] TDAP 2015-01-06 Completed [facility] 00:00:00 [facility] Influenza Virus 2015-01-06 Completed [facility] y of Vaccine Quad IM 3+ 00:00:00 [facility] TDAP 2015-01-06 Completed [facility] 00:00:00 [facility] Influenza Virus 2015-01-06 Completed [facility] y of Vaccine Quad IM 3+ 00:00:00 [facility] Tdap 2015-01-06 Completed [facility] 00:00:00 [facility] Influenza Virus 2015-01-06 Completed [facility] y of Vaccine Quad IM 3+ 00:00:00 [facility] TDAP 2015-01-06 Completed [facility] 00:00:00 [facility] TDAP 2013-08-12 Completed [facility] 00:00:00 [facility] Tdap 2013-08-12 Completed [facility] 00:00:00 [facility] Tdap 2013-08-12 Completed [facility] 00:00:00 [facility] Tdap 2013-08-12 Completed [facility] 00:00:00 [facility] TDAP 2013-08-12 Completed [facility] 00:00:00 [facility] TDAP 2013-08-12 Completed [facility] 00:00:00 [facility] TDAP 2013-08-12 Completed [facility] 00:00:00 [facility] TDAP 2013-08-12 Completed [facility] 00:00:00 [facility] TDAP 2013-08-12 Completed [facility] 00:00:00 [facility] TDAP 2013-08-12 Completed [facility] 00:00:00 [facility] TDAP 2013-08-12 Completed [facility] 00:00:00 [facility] TDAP 2013-08-12 Completed [facility] 00:00:00 [facility] TDAP 2013-08-12 Completed [facility] 00:00:00 [facility] TDAP 2013-08-12 Completed [facility] 00:00:00 [facility] TDAP 2013-08-12 Completed [facility] 00:00:00 [facility] TDAP 2013-08-12 Completed [facility] 00:00:00 [facility] TDAP 2013-08-12 Completed [facility] 00:00:00 [facility] TDAP 2013-08-12 Completed [facility] 00:00:00 [facility] TDAP 2013-08-12 Completed [facility] 00:00:00 [facility] TDAP 2013-08-12 Completed [facility] 00:00:00 [facility] TDAP 2013-08-12 Completed [facility] 00:00:00 [facility] TDAP 2013-08-12 Completed [facility] 00:00:00 [facility] TDAP 2013-08-12 Completed [facility] 00:00:00 [facility] TDAP 2013-08-12 Completed [facility] 00:00:00 [facility] TDAP 2013-08-12 Completed [facility] 00:00:00 [facility] TDAP 2013-08-12 Completed [facility] 00:00:00 [facility] TDAP 2013-08-12 Completed [facility] 00:00:00 [facility] TDAP 2013-08-12 Completed [facility] 00:00:00 [facility] TDAP 2013-08-12 Completed [facility] 00:00:00 [facility] TDAP 2013-08-12 Completed [facility] 00:00:00 [facility] TDAP 2013-08-12 Completed [facility] 00:00:00 [facility] TDAP 2013-08-12 Completed [facility] 00:00:00 [facility] TDAP 2013-08-12 Completed [facility] 00:00:00 [facility] TDAP 2013-08-12 Completed [facility] 00:00:00 [facility] TDAP 2013-08-12 Completed [facility] 00:00:00 [facility] TDAP 2013-08-12 Completed [facility] 00:00:00 [facility] TDAP 2013-08-12 Completed [facility] 00:00:00 [facility] TDAP 2013-08-12 Completed [facility] 00:00:00 [facility] TDAP 2013-08-12 Completed [facility] 00:00:00 [facility] TDAP 2013-08-12 Completed [facility] 00:00:00 [facility] TDAP 2013-08-12 Completed [facility] 00:00:00 [facility] TDAP 2013-08-12 Completed [facility] 00:00:00 [facility] TDAP 2013-08-12 Completed [facility] 00:00:00 [facility] TDAP 2013-08-12 Completed [facility] 00:00:00 [facility] TDAP 2013-08-12 Completed [facility] 00:00:00 [facility] Tdap 2013-08-12 Completed [facility] 00:00:00 [facility] TDAP 2013-08-12 Completed [facility] 00:00:00 [facility] TDAP 2013-08-12 Completed [facility] 00:00:00 [facility] Influenza Virus 2013-06-11 Completed [facility] of Vaccine (3+ yrs) 00:00:00 [facility] Influenza Virus 2013-06-11 Completed [facility] y of Vaccine (3+ yrs) 00:00:00 [facility] Influenza Virus 2013-06-11 Completed [facility] y of Vaccine (3+ yrs) 00:00:00 [facility] Influenza Virus 2013-06-11 Completed [facility] y of Vaccine (3+ yrs) 00:00:00 [facility] Influenza Virus 2013-06-11 Completed [facility] y of Vaccine (3+ yrs) 00:00:00 [facility] Influenza Virus 2013-06-11 Completed [facility] y of Vaccine (3+ yrs) 00:00:00 [facility] Influenza Virus 2013-06-11 Completed [facility] y of Vaccine (3+ yrs) 00:00:00 [facility] Influenza Virus 2013-06-11 Completed [facility] y of Vaccine (3+ yrs) 00:00:00 [facility] Influenza Virus 2013-06-11 Completed [facility] y of Vaccine (3+ yrs) 00:00:00 [facility] Influenza Virus 2013-06-11 Completed [facility] y of Vaccine (3+ yrs) 00:00:00 [facility] Influenza Virus 2013-06-11 Completed [facility] y of Vaccine (3+ yrs) 00:00:00 [facility] Influenza Virus 2013-06-11 Completed [facility] y of Vaccine (3+ yrs) 00:00:00 [facility] Influenza Virus 2013-06-11 Completed [facility] y of Vaccine (3+ yrs) 00:00:00 [facility] Influenza Virus 2013-06-11 Completed [facility] y of Vaccine (3+ yrs) 00:00:00 [facility] Influenza Virus 2013-06-11 Completed [facility] y of Vaccine (3+ yrs) 00:00:00 [facility] Influenza Virus 2013-06-11 Completed [facility] y of Vaccine (3+ yrs) 00:00:00 [facility] Influenza Virus 2013-06-11 Completed [facility] y of Vaccine (3+ yrs) 00:00:00 [facility] Influenza Virus 2013-06-11 Completed [facility] y of Vaccine (3+ yrs) 00:00:00 [facility] Influenza Virus 2013-06-11 Completed [facility] y of Vaccine (3+ yrs) 00:00:00 [facility] Influenza Virus 2013-06-11 Completed [facility] y of Vaccine (3+ yrs) 00:00:00 [facility] Influenza Virus 2013-06-11 Completed [facility] y of Vaccine (3+ yrs) 00:00:00 [facility] Influenza Virus 2013-06-11 Completed [facility] y of Vaccine (3+ yrs) 00:00:00 [facility] Influenza Virus 2013-06-11 Completed [facility] y of Vaccine (3+ yrs) 00:00:00 [facility] Influenza Virus 2013-06-11 Completed [facility] y of Vaccine (3+ yrs) 00:00:00 [facility] Influenza Virus 2013-06-11 Completed [facility] y of Vaccine (3+ yrs) 00:00:00 [facility] Influenza Virus 2013-06-11 Completed [facility] y of Vaccine (3+ yrs) 00:00:00 [facility] Influenza Virus 2013-06-11 Completed [facility] y of Vaccine (3+ yrs) 00:00:00 [facility] Influenza Virus 2013-06-11 Completed [facility] y of Vaccine (3+ yrs) 00:00:00 [facility] Influenza Virus 2013-06-11 Completed [facility] of Vaccine (3+ yrs) 00:00:00 [facility] Influenza Virus 2013-06-11 Completed [facility] of Vaccine (3+ yrs) 00:00:00 [facility] Influenza Virus 2013-06-11 Completed [facility] of Vaccine (3+ yrs) 00:00:00 [facility] Influenza Virus 2013-06-11 Completed [facility] of Vaccine (3+ yrs) 00:00:00 [facility] Influenza Virus 2013-06-11 Completed [facility] of Vaccine (3+ yrs) 00:00:00 [facility] Influenza Virus 2013-06-11 Completed [facility] of Vaccine (3+ yrs) 00:00:00 [facility] Influenza Virus 2013-06-11 Completed [facility] of Vaccine (3+ yrs) 00:00:00 [facility] Influenza Virus 2013-06-11 Completed [facility] y of Vaccine (3+ yrs) 00:00:00 [facility] Influenza Virus 2013-06-11 Completed [facility] of Vaccine (3+ yrs) 00:00:00 [facility] Influenza Virus 2013-06-11 Completed [facility] of Vaccine (3+ yrs) 00:00:00 [facility] Influenza Virus 2013-06-11 Completed [facility] of Vaccine (3+ yrs) 00:00:00 [facility] Influenza Virus 2013-06-11 Completed [facility] of Vaccine (3+ yrs) 00:00:00 [facility] Influenza Virus 2013-06-11 Completed [facility] of Vaccine (3+ yrs) 00:00:00 [facility] Influenza Virus 2013-06-11 Completed [facility] of Vaccine (3+ yrs) 00:00:00 [facility] Influenza Virus 2013-06-11 Completed [facility] of Vaccine (3+ yrs) 00:00:00 [facility] Influenza Virus 2013-06-11 Completed [facility] of Vaccine (3+ yrs) 00:00:00 [facility] Influenza Virus 2013-06-11 Completed [facility] of Vaccine (3+ yrs) 00:00:00 [facility] Influenza Virus 2013-06-11 Completed [facility] of Vaccine (3+ yrs) 00:00:00 [facility] Influenza Virus 2013-06-11 Completed [facility] Vaccine (3+ yrs) 00:00:00 [facility] Influenza Virus 2013-06-11 Completed [facility] of Vaccine (3+ yrs) 00:00:00 [facility] PPD (TB) 2003-04-21 Completed [facility] 00:00:00 [facility] PPD (TB) 2003-04-21 Completed [facility] 00:00:00 [facility] PPD (TB) 2003-04-21 Completed [facility] 00:00:00 [facility] PPD (TB) 2003-04-21 Completed [facility] 00:00:00 [facility] PPD (TB) 2003-04-21 Completed [facility] 00:00:00 [facility] PPD (TB) 2003-04-21 Completed [facility] 00:00:00 [facility] PPD (TB) 2003-04-21 Completed [facility] 00:00:00 [facility] PPD (TB) 2003-04-21 Completed [facility] 00:00:00 [facility] PPD (TB) 2003-04-21 Completed [facility] 00:00:00 [facility] PPD (TB) 2003-04-21 Completed [facility] 00:00:00 [facility] PPD (TB) 2003-04-21 Completed [facility] 00:00:00 [facility] PPD (TB) 2003-04-21 Completed [facility] 00:00:00 [facility] PPD (TB) 2003-04-21 Completed [facility] 00:00:00 [facility] PPD (TB) 2003-04-21 Completed [facility] 00:00:00 [facility] PPD (TB) 2003-04-21 Completed [facility] 00:00:00 [facility] PPD (TB) 2003-04-21 Completed [facility] 00:00:00 [facility] PPD (TB) 2003-04-21 Completed [facility] 00:00:00 [facility] PPD (TB) 2003-04-21 Completed [facility] 00:00:00 [facility] PPD (TB) 2003-04-21 Completed [facility] 00:00:00 [facility] PPD (TB) 2003-04-21 Completed [facility] 00:00:00 [facility] PPD (TB) 2003-04-21 Completed [facility] 00:00:00 [facility] PPD (TB) 2003-04-21 Completed [facility] 00:00:00 [facility] PPD (TB) 2003-04-21 Completed [facility] 00:00:00 [facility] PPD (TB) 2003-04-21 Completed [facility] 00:00:00 [facility] PPD (TB) 2003-04-21 Completed [facility] 00:00:00 [facility] PPD (TB) 2003-04-21 Completed [facility] 00:00:00 [facility] PPD (TB) 2003-04-21 Completed [facility] 00:00:00 [facility] PPD (TB) 2003-04-21 Completed [facility] 00:00:00 [facility] PPD (TB) 2003-04-21 Completed [facility] 00:00:00 [facility] PPD (TB) 2003-04-21 Completed [facility] 00:00:00 [facility] PPD (TB) 2003-04-21 Completed [facility] 00:00:00 [facility] PPD (TB) 2003-04-21 Completed [facility] 00:00:00 [facility] PPD (TB) 2003-04-21 Completed [facility] 00:00:00 [facility] PPD (TB) 2003-04-21 Completed [facility] 00:00:00 [facility] PPD (TB) 2003-04-21 Completed [facility] 00:00:00 [facility] PPD (TB) 2003-04-21 Completed [facility] 00:00:00 [facility] PPD (TB) 2003-04-21 Completed [facility] 00:00:00 [facility] PPD (TB) 2003-04-21 Completed [facility] 00:00:00 [facility] PPD (TB) 2003-04-21 Completed [facility] 00:00:00 [facility] PPD (TB) 2003-04-21 Completed [facility] 00:00:00 [facility] PPD (TB) 2003-04-21 Completed [facility] 00:00:00 [facility] PPD (TB) 2003-04-21 Completed [facility] 00:00:00 [facility] PPD (TB) 2003-04-21 Completed [facility] 00:00:00 [facility] PPD (TB) 2003-04-21 Completed [facility] 00:00:00 [facility] PPD (TB) 2003-04-21 Completed [facility] 00:00:00 [facility] PPD (TB) 2003-04-21 Completed [facility] 00:00:00 [facility] PPD (TB) 2003-04-21 Completed [facility] 00:00:00 [facility] PPD (TB) 2003-04-21 Completed [facility] 00:00:00 [facility] Td 2002-04-21 Completed [facility] 00:00:00 [facility] Td 2002-04-21 Completed [facility] 00:00:00 [facility] Td 2002-04-21 Completed [facility] 00:00:00 [facility] Td 2002-04-21 Completed [facility] 00:00:00 [facility] Td 2002-04-21 Completed [facility] 00:00:00 [facility] Td 2002-04-21 Completed [facility] 00:00:00 [facility] Td 2002-04-21 Completed [facility] 00:00:00 [facility] Td 2002-04-21 Completed [facility] 00:00:00 [facility] Td 2002-04-21 Completed [facility] 00:00:00 [facility] Td 2002-04-21 Completed [facility] 00:00:00 [facility] Td 2002-04-21 Completed [facility] 00:00:00 [facility] Td 2002-04-21 Completed [facility] 00:00:00 [facility] Td 2002-04-21 Completed [facility] 00:00:00 [facility] Td 2002-04-21 Completed [facility] 00:00:00 [facility] Td 2002-04-21 Completed [facility] 00:00:00 [facility] Td 2002-04-21 Completed [facility] 00:00:00 [facility] Td 2002-04-21 Completed [facility] 00:00:00 [facility] Td 2002-04-21 Completed [facility] 00:00:00 [facility] Td 2002-04-21 Completed [facility] 00:00:00 [facility] Td 2002-04-21 Completed [facility] 00:00:00 [facility] Td 2002-04-21 Completed [facility] 00:00:00 [facility] Td 2002-04-21 Completed [facility] 00:00:00 [facility] Td 2002-04-21 Completed [facility] 00:00:00 [facility] Td 2002-04-21 Completed [facility] 00:00:00 [facility] Td 2002-04-21 Completed [facility] 00:00:00 [facility] Td 2002-04-21 Completed [facility] 00:00:00 [facility] Td 2002-04-21 Completed [facility] 00:00:00 [facility] Td 2002-04-21 Completed [facility] 00:00:00 [facility] Td 2002-04-21 Completed [facility] 00:00:00 [facility] Td 2002-04-21 Completed [facility] 00:00:00 [facility] Td 2002-04-21 Completed [facility] 00:00:00 [facility] Td 2002-04-21 Completed [facility] 00:00:00 [facility] Td 2002-04-21 Completed [facility] 00:00:00 [facility] Td 2002-04-21 Completed [facility] 00:00:00 [facility] Td 2002-04-21 Completed [facility] 00:00:00 [facility] Td 2002-04-21 Completed [facility] 00:00:00 [facility] Td 2002-04-21 Completed [facility] 00:00:00 [facility] Td 2002-04-21 Completed [facility] 00:00:00 [facility] Td 2002-04-21 Completed [facility] 00:00:00 [facility] Td 2002-04-21 Completed [facility] 00:00:00 [facility] Td 2002-04-21 Completed [facility] 00:00:00 [facility] Td 2002-04-21 Completed [facility] 00:00:00 [facility] Td 2002-04-21 Completed [facility] 00:00:00 [facility] Td 2002-04-21 Completed [facility] 00:00:00 [facility] Td 2002-04-21 Completed [facility] 00:00:00 [facility] Td 2002-04-21 Completed [facility] 00:00:00 [facility] Td 2002-04-21 Completed [facility] 00:00:00 [facility] Td 2002-04-21 Completed [facility] 00:00:00 [facility] Vital Signs Vital Name Observation Time Observation Value Comments Source Systolic blood 2020-12-04 134 mm[Hg] [facility] pressure 18:23:00 [facility] Diastolic blood 2020-12-04 79 mm[Hg] University o f pressure 18:23:00 [facility] Heart rate 2020-12-04 82 /min [facility] of 18:23:00 [facility] Body temperature 2020-12-04 36.56 Jill [facility] 18:23:00 [facility] Respiratory rate 2020-12-04 16 /min [facility] 18:23:00 [facility] Body height 2020-12-04 165.1 cm University of 18:23:00 [facility] Body weight 2020-12-04 77.293 kg University of 18:23:00 [facility] BMI 2020-12-04 28.36 kg/m2 University of 18:23:00 [facility] Systolic blood 2020-10-09 123 mm[Hg] [facility] of pressure 20:21:00 [facility] Diastolic blood 2020-10-09 82 mm[Hg] University o f pressure 20:21:00 [facility] Heart rate 2020-10-09 96 /min [facility] 20:21:00 [facility] Body temperature 2020-10-09 37.06 Jill [facility] 20:21:00 [facility] Respiratory rate 2020-10-09 16 /min [facility] 20:21:00 [facility] Body height 2020-10-09 165.1 cm [facility] 20::00 [facility] Body weight 2020-10-09 77.656 kg University of 20:21:00 [facility] BMI 2020-10-09 28.49 kg/m2 University [facility] 20::00 [facility] Systolic blood 2020-09-21 136 mm[Hg] [facility] of pressure 20:13:00 [facility] Diastolic blood 2020-09-21 80 mm[Hg] University o f pressure 20:13:00 [facility] Heart rate 2020-09-21 112 /min [facility] 20:13:00 [facility] Body temperature 2020-09-21 36.83 Jill [facility] 20:13:00 [facility] Respiratory rate 2020-09-21 22 /min [facility] 20:13:00 [facility] Body height 2020-09-21 165.1 cm [facility] 20:13:00 [facility] Body weight 2020-09-21 76.114 kg University of 20:13:00 [facility] BMI 2020-09-21 27.92 kg/m2 [facility] 20:13:00 [facility] Systolic blood 2020-09-12 112 mm[Hg] [facility] pressure 08:30:00 [facility] Diastolic blood 2020-09-12 62 mm[Hg] University o f pressure 08:30:00 [facility] Heart rate 2020-09-12 70 /min [facility] 08:30:00 [facility] Respiratory rate 2020-09-12 20 /min [facility] 08:30:00 [facility] Oxygen saturation 2020-09-12 98 /min University of in Arterial blood 08:30:00 [facility] maria luisa by Pulse oximetry Branch Body temperature 2020-09-12 37.33 Jill [facility] 06:22:00 [facility] Body weight 2020-09-12 65.772 kg University of 06:22:00 [facility] BMI 2020-09-12 24.13 kg/m2 University [facility] 06:22:00 [facility] Systolic blood 2020-09-12 106 mm[Hg] [facility] pressure 04:45:00 [facility] Diastolic blood 2020-09-12 72 mm[Hg] [facility] pressure 04[facility]45:00 [facility] [place] Heart rate 2020-09-12 94 /min University of 04:45:00 [facility] [place] Respiratory rate 2020-09-12 17 /min University of 04:45:00 [facility] [place] Oxygen saturation 2020-09-12 98 /min University of in Arterial blood 04:45:00 [facility] by Pulse oximetry Branch Body temperature 2020-09-12 37.22 Jill [place] of 03:15:00 [facility] [place] Body weight 2020-09-12 65.772 kg University of 00:11:00 [facility] [place] BMI 2020-09-12 24.13 kg/m2 University of 00:11:00 [facility] [place] Systolic blood 2020-09-07 133 mm[Hg] University of pressure 19:26:00 [facility] [place] Diastolic blood 2020-09-07 74 mm[Hg] University o f pressure 19:26:00 [facility] [place] Heart rate 2020-09-07 131 /min University of 19:26:00 [facility] [place] Body temperature 2020-09-07 36.17 Jill University of :26:00 [facility] [place] Respiratory rate 2020-09-07 16 /min University of :26:00 [facility] [place] Body height 2020-09-07 165.1 cm University of 19:26:00 [facility] [place] Body weight 2020-09-07 76.476 kg University of :26:00 [facility] [place] BMI 2020-09-07 28.06 kg/m2 University of 19:26:00 [facility] [place] Systolic blood 2020-06-15 130 mm[Hg] University of pressure :31:00 [facility] Diastolic blood 2020-06-15 87 mm[Hg] University o f pressure ::00 [facility] Heart rate 2020-06-15 80 /min University of ::00 [facility] Body temperature 2020-06-15 36.83 Jill University of ::00 [facility] Respiratory rate 2020-06-15 16 /min University of 19:31:00 [facility] Body height 2020-06-15 165.1 cm University of ::00 [facility] [place] Body weight 2020-06-15 76.006 kg University of ::00 [facility] [place] BMI 2020-06-15 27.88 kg/m2 University of ::00 [facility] [place] Systolic blood 2020-06-15 130 mm[Hg] University of pressure :: [facility] Diastolic blood 2020-06-15 87 mm[Hg] University o f pressure :: [facility] Heart rate 2020-06-15 80 /min University of ::00 [facility] Body temperature 2020-06-15 36.83 Jill University of ::00 [facility] Respiratory rate 2020-06-15 16 /min University of ::00 [facility] Body height 2020-06-15 165.1 cm University of ::00 [facility] [place] Body weight 2020-06-15 76.006 kg University of ::00 [facility] [place] BMI 2020-06-15 27.88 kg/m2 University of :31:00 [facility] [place] Systolic blood 2020-03-23 115 mm[Hg] University of pressure 19:45:00 [facility] Diastolic blood 2020-03-23 81 mm[Hg] University o f pressure 19:45:00 [facility] Heart rate 2020-03-23 87 /min University of 19:45:00 [facility] Body temperature 2020-03-23 37.11 Jill University of 19:45:00 [facility] Respiratory rate 2020-03-23 16 /min University of 19:45:00 [facility] Body height 2020-03-23 165.1 cm University of 19:45:00 [facility] Body weight 2020-03-23 76.261 kg University of 19:45:00 [facility] BMI 2020-03-23 27.98 kg/m2 University of 19:45:00 [facility] Systolic blood 2020-03-23 115 mm[Hg] University of pressure 19:45:00 [place] [facility] Diastolic blood 2020-03-23 81 mm[Hg] University o f pressure 19:45:00 [facility] Heart rate 2020-03-23 87 /min University of 19:45:00 [facility] Body temperature 2020-03-23 37.11 Jill University of 19:45:00 [facility] Respiratory rate 2020-03-23 16 /min University of 19:45:00 [facility] Body height 2020-03-23 165.1 cm University of 19:45:00 [facility] [place] Body weight 2020-03-23 76.261 kg University of 19:45:00 [facility] [place] BMI 2020-03-23 27.98 kg/m2 University of 19:45:00 [facility] [place] Systolic blood 2020-02-22 130 mm[Hg] University of pressure 18:56:00 [facility] Diastolic blood 2020-02-22 80 mm[Hg] University o f pressure 18:56:00 [facility] Heart rate 2020-02-22 92 /min University of 18:56:00 [facility] [place] Body temperature 2020-02-22 37.11 Jill University of 18:56:00 [facility] Respiratory rate 2020-02-22 18 /min University of 18:56:00 [facility] [place] Body height 2020-02-22 152.4 cm University of 18:56:00 [facility] Body weight 2020-02-22 76.25 kg University of 18:56:00 [facility] BMI 2020-02-22 32.83 kg/m2 University of 18:56:00 [facility] Systolic blood 2020-02-22 130 mm[Hg] University of pressure 18:56:00 [place] [facility] Diastolic blood 2020-02-22 80 mm[Hg] University o f pressure 18:56:00 [facility] Heart rate 2020-02-22 92 /min University of 18:56:00 [facility] [place] Body temperature 2020-02-22 37.11 Jill University of 18:56:00 [facility] Respiratory rate 2020-02-22 18 /min University of 18:56:00 [facility] [place] Body height 2020-02-22 152.4 cm University of 18:56:00 [facility] [place] Body weight 2020-02-22 76.25 kg University of 18:56:00 [facility] [place] BMI 2020-02-22 32.83 kg/m2 University of 18:56:00 [facility] [place] Systolic blood 2020-01-11 118 mm[Hg] University of pressure 18:00:00 [facility] [place] Diastolic blood 2020-01-11 64 mm[Hg] University o f pressure 18:00:00 [facility] [place] Heart rate 2020-01-11 84 /min University of 18:00:00 [facility] [place] Body temperature 2020-01-11 36.72 Jill University of 18:00:00 [facility] [place] Respiratory rate 2020-01-11 20 /min University of 18:00:00 [facility] [place] Body height 2020-01-11 152.4 cm University of 18:00:00 [facility] [place] Body weight 2020-01-11 76.386 kg University of 18:00:00 [facility] [place] BMI 2020-01-11 32.89 kg/m2 University of 18:00:00 [facility] [place] Systolic blood 2019-12-30 98 mm[Hg] University of pressure 17:00:00 [facility] [place] Diastolic blood 2019-12-30 73 mm[Hg] University o f pressure 17:00:00 [facility] [place] Heart rate 2019-12-30 114 /min University of 17:00:00 [facility] [place] Body temperature 2019-12-30 37.67 Jill University of 17:00:00 [facility] [place] Respiratory rate 2019-12-30 20 /min University of 17:00:00 [facility] [place] Oxygen saturation 2019-12-30 98 /min [facility] in Arterial blood 17:00:00 [facility] by Pulse oximetry Branch Body weight 2019-12-28 81.647 kg University of 19:23:00 [facility] [place] BMI 2019-12-28 35.15 kg/m2 University of 19:23:00 [facility] [place] Systolic blood 2019-10-05 128 mm[Hg] University of pressure 20:09:00 [facility] [place] Diastolic blood 2019-10-05 87 mm[Hg] University o f pressure 20:09:00 [facility] [place] Heart rate 2019-10-05 100 /min University of 20:09:00 [facility] [place] Body temperature 2019-10-05 36.72 Jill University of 20:09:00 [facility] [place] Respiratory rate 2019-10-05 16 /min [facility] 20:09:00 [facility] [place] Body height 2019-10-05 152.4 cm [facility] 20:09:00 [facility] [place] Body weight 2019-10-05 75.411 kg [facility] 20:09:00 [facility] [place] BMI 2019-10-05 32.47 kg/m2 [facility] 20:09:00 [facility] [place] Body weight 2019-07-13 72.802 kg documented from [facility] 19:12:00 last visit, [facility] [place] [facility] BMI 2019-07-13 26.71 kg/m2 [facility] 19:12:00 [facility] [place] Procedures Procedure Date / Time Performing Clinician Source Performed XR CHEST 1 VW 2020-09-12 01:20:52 Breezy Darby [facility] BLOOD CULTURE SCREEN 2020-09-12 01:14:00 Breezy Darby [facility] BLOOD CULTURE SCREEN 2020-09-12 01:09:00 Breeyz Darby [facility] COVID-19 (ID NOW RAPID 2020-09-12 00:55:00 Breezy Darby [facility] TESTING) [facility] POCT TEST 2020-09-12 00:52:00 Breezy Darby [facility] LACTIC ACID WHOLE BLOOD 2020-09-12 00:49:00 Breezy Darby [facility] MAGNESIUM 2020-09-12 00:48:00 Breezy Darby [facility] FREE T4 2020-09-12 00:48:00 Breezy Darby [facility] THYROID STIMULATING 2020-09-12 00:48:00 Breezy Darby [facility] HORMONE [facility] HEPATIC FUNCTION PANEL 2020-09-12 00:48:00 Breezy Draby [facility] ([id number]) (ALB,T.PRO,BILI [facility] T,BU/BC,ALT,AST,ALK PHOS) BASIC METABOLIC PANEL 2020-09-12 00:48:00 Breezy Darby [facility] (NA, K, CL, CO2, GLUCOSE, Medica l Branch BUN, CREATININE, CA) CBC WITH DIFF 2020-09-12 00:48[facility]00 [facility] 2020-09-12 00:48:00 Breezy Darby [facility] ACTIVATED PARTIAL 2020-09-12 00:48:00 Breezy Darby [facility] THRMPLAS TALIA [facility] URINALYSIS 2020-09-12 00:48:00 Breezy Darby [facility] HB ABO GROUPING 2020-09-12 00:48:00 Breezy Darby [facility] NOTICE OF PRIVACY 2020-09-12 00:01:00 Doctor Unassigned, [facility] PRACTICES [facility] CONSENT/REFUSAL FOR 2020-09-12 00:00:48 Doctor Elmo [facility] DIAGNOSIS AND TREATMENT [facility] BCCS-RELATED 2020-05-09 06:01:00 Doctor Unamargo, [facility] DOCUMENTATION [facility] BI DIAGNOSTIC 2020-02-23 14:57:20 Irma Snyder [facility] TOMOSYNTHESIS RIGHT Medical Bran ch BCCS-RELATED 2020-02-04 05:01:00 Doctor Unamargo, [facility] DOCUMENTATION [facility] [place] FREE T4 2020-01-11 20:06:00 Callywy [facility] THYROID STIMULATING 2020-01-11 20:06:00 Christiano [facility] COMP. METABOLIC PANEL 2020-01-11 20:06:00 Christiano [facility] ([id number]) [facility] FOLLICLE STIMULATING 2020-01-11 20:06:00 Christiano [facility] CBC WITH DIFF 2020-01-11 20:06:00 Christiano [facility] DISCLOSURE AND CONSENT, 2020-01-11 05:01:00 Doctor Unamargo [facility] MEDICAL AND SURGICAL [facility] PROCEDURES POCT GLUCOSE (AUTOMATED) 2019-12-30 16:33:00 Vineet Carter [facility] HEMOGLOBIN 2019-12-30 16:17:00 Vineet Carter [facility] HEMATOCRIT 2019-12-30 16:17:00 Vineet Carter [facility] POCT GLUCOSE (AUTOMATED) 2019-12-30 12:38:00 Vineet Carter [facility] MAGNESIUM 2019-12-30 10:10:00 Vineet Carter [facility] BASIC METABOLIC PANEL 2019-12-30 10:10:00 Vineet Carter [facility] (NA, K, CL, CO2, GLUCOSE, Medica l Branch BUN, CREATININE, CA) CBC WITH DIFF 2019-12-30 10:10:00 Raul [facility] HEMOGLOBIN 2019-12-30 05:21:00 Raven Sewell [facility] TRANSFUSE PACKED RBC 2019-12-30 03:33:04 Rosmery [facility] US PELVIS COMPLETE WITH 2019-12-30 02:02:18 Rosmery [facility] POCT GLUCOSE (AUTOMATED) 2019-12-30 01:26:00 Vineet Carter [facility] PREPARE PACKED RBC 2019-12-30 01:06:01 Rosmery [facility] POCT GLUCOSE (AUTOMATED) 2019-12-29 22:09:00 Vineet Carter [facility] URINALYSIS 2019-12-29 21:39:00 Raul [facility] CBC WITHOUT DIFF 2019-12-29 20:17:00 Rosmery [facility] PREPARE PACKED RBC 2019-12-29 15:23:21 Arley Ladd [facility] HEMOGLOBIN 2019-12-29 11:06:00 Rosmery [facility] BASIC METABOLIC PANEL 2019-12-29 07:36:00 Vineet Carter [facility] (NA, K, CL, CO2, GLUCOSE, Medica l Branch BUN, CREATININE, CA) CBC WITH DIFF 2019-12-29 07:36:00 Raul [facility] GLYCOSYLATED HEMOGLOBIN 2019-12-29 07:[facility] PREPARE PACKED RBC 2019-12-29 07:06:22 Doctor Unassigned, [facility] HEMOGLOBIN 2019-12-29 05:38:00 Rosmery [facility] HEMATOCRIT 2019-12-29 05:38:00 [facility] [place] o f [facility] [place] PANEL IDENTIFICATION 2019-12-28 21:10:00 Vineet Carter [facility] EKG-12 LEAD 2019-12-28 20:13:12 Arley Ladd [facility] COVID-19 (ID NOW RAPID 2019-12-28 19:39:00 Arley Ladd [facility] TESTING) Medical Branch HB ABO GROUPING 2019-12-28 19:37:00 Arley Ladd [facility] LIPASE 2019-12-28 19:36:00 Arley Ladd [facility] TEST, SERUM 2019-12-28 19:36:00 Wilberto [facility] TROPONIN I 2019-12-28 19:36:00 Wilberto [facility] HEPATIC FUNCTION PANEL 2019-12-28 19:36:00 Wilberto [facility] ([id number]) [facility] T,BU/BC,ALT,AST,ALK PHOS) BASIC METABOLIC PANEL 2019-12-28 19:36:00 Wilberto [facility] (NA, K, CL, CO2, GLUCOSE, Medica l Branch BUN, CREATININE, CA) CBC WITH DIFF 2019-12-28 19:36:00 Arley Ladd [facility] PROTHROMBIN TIME / INR 2019-12-28 19:36:00 Arley Ladd [facility] EKG-12 LEAD 2019-12-28 19:34:10 Arley Ladd [facility] CONSENT/REFUSAL FOR 2019-12-28 19:06:26 Doctor Elmo [facility] DIAGNOSIS AND TREATMENT [facility] [place] NOTICE OF PRIVACY 2019-12-28 19:06:03 Doctor Elmo, [facility] PRACTICES [facility] POCT TEST 2019-10-05 20:35:00 Irma Snyder [facility] IMMTRAC2 CONSENT 2019-04-20 06:01:00 Doctor Elmo, [facility] Name Medical [place] Encounters Start End Encounter Admission Attending Care Care Encounter Source Date/Time Date/Time Type Type Clinicians Facility Department ID 2021-02-18 Emergency [facility] [id number] Univers 21:01:50 ity [facility] 2021-02-18 Emergency [facility] [id number] Univers 21:01:15 ity [facility] 2021-02-16 Emergency [facility] [id number] Univers 16:24:04 ity [facility] 2021-02-28 2021-02-28 [facility] [id number] Univers 13:00:00 13:31:05 HIRAM ity [facility] 2021-02-28 2021-02-28 Outpatient R [facility] [id number] Univers 13:00:00 13:00:00 [id number] y [facility] 2021-02-27 2021-02-27 Outpatient R [facility] [id number] Univers 14:00:00 14:00:00 [id number] [facility] 2021-02-27 2021-02-27 [facility] [id number] Univers 13:30:00 13:30:00 HIRAM [facility] 2021-02-26 2021-02-26 Outpatient R [facility] [id number] Univers 14:00:00 14:00:00 [id number] [facility] 2021-02-26 2021-02-26 Outpatient R [facility] [id number] Univers 14:00:00 14:00:00 [facility] 2020-12-04 2020-12-04 Nurse Visit, Stuart-Rmchp Nurse [facility] 1.2 .[id number] Univers 13:09:20 13:36:09 Visit Domingo Garcia PICKLING MACHINE OPERATOR [id number] [facility] [id number] Christiano as MATERNAL [id number] [facility] ical & CHILD [address] [place] [address] 2020-12-04 2020-12-04 Outpatient R [facility] [id number] Univers 13:30:00 13:30:00 [id number] [facility] 2020-12-04 2020-12-04 Out[facility] [id number] Univers 13:30:00 13:30:00 DOMINGO ity o [facility] 2020-11-30 2020-11-30 Outpatient R [facility] [id number] Univers 14:30:00 14:30:00 [id number] ity [facility] 2020-11-30 2020-11-30 Outpatient R [facility] [id number] Univers 14:30:00 14:30:00 ity [facility] 2020-11-09 2020-11-09 Outpatient R [facility] [id number] Univers 13:30:00 13:30:00 [id number] ity [facility] 2020-11-09 2020-11-09 Outpatient R [facility] [id number] Univers 13:30:00 13:30:00 ity [facility] 2020-10-09 2020-10-09 [facility] [id number] Univers 14:40:20 16:00:30 [facility] PICKLING MACHINE OPERATOR [id number] ity of REGIONAL [id number] Christiano as MATERNAL [id number] Med ical & CHILD [address] [place] [address] 2020-10-09 2020-10-09 Out[facility] [address] [facility] [id number] Univers 15:00:00 15:00:00 ROBYNNDA [id number] ity o [facility] 2020-10-09 2020-10-09 [address] [facility] [id number] Univers 15:00:00 15:00:00 ROSNDA ity o [facility] 2020-09-21 2020-09-21 Office [facility] [id number] Univers 14:48:30 16:02:42 Visit [facility] Everettdelmi R PICKLING MACHINE OPERATOR [id number] ity of REGIONAL [id number] Christiano as MATERNAL [id number] [facility] ical & CHILD [address] [place] [address] 2020-09-21 2020-09-21 Out[facility] [id number] Univers 15:00:00 15:00:00 IRMA [id number] ity o f [facility] [place] 2020-09-21 2020-09-21 Outpatient R LILLIAN [facility] [id number] Univers 15:00:00 15:00:00 IRMA ity o f [facility] [place] 2020-09-15 2020-09-15 Telephone Lillian [facility] [id number] Univers 00:00:00 00:00:00 Irma R PICKLING MACHINE OPERATOR [id number] ity of REGIONAL [id number] Christiano as MATERNAL [id number] Med ical & CHILD [address] [place] [address] 2020-09-12 2020-09-12 Emergency Juan Mendoza W TRAU[facility] 1.2.840. [id number] Univers 01:24:00 04:45:00 John Rosas [place] [id number] [id number] [id number] [facility] 014 [place] 2020-09-11 2020-09-12 Emergency [facility] [id number] Univers 19:15:00 00:13:00 Breezy [place] [id number] i ty of [id number] [id number] [facility] 084 [place] 2020-09-07 2020-09-07 Nurse Visit, Ang-Rmchp Nurse [facility] 1.2 .840.114 [id number] Univers 13:48:49 14:20:05 Visit Domingo Garcia PICKLING MACHINE OPERATOR [id number] 10 ity of [facility] [id number] Christiano as MATERNAL [id number] [facility] & [address] 2020-09-07 2020-09-07 Outpatient R [facility] [id number] Univers 14:00:00 14:00:00 [id number] ity of [facility] [place] 2020-09-07 2020-09-07 Outpatient R [facility] [id number] Univers 14:00:00 14:00:00 ity [facility] 2020-09-07 2020-09-[address] [facility] [id number] Univers 14:00:00 14:00:00 DOMINGO woodall f [facility] [place] 2020-06-15 2020-06-15 Nurse Visit, [facility] [id number] 13:07:28 13:22:28 Visit [facility] PICKLING MACHINE OPERATOR [id number] Nurse [facility] [id number] MATERNAL [phone] & CHILD [address] [place] [address] 2020-06-15 2020-06-15 [facility] 1.2 .840.114 [id number] [facility] 13:07:28 13:22:28 Visit Domingo Garcia PICKLING MACHINE OPERATOR [id number]. 10 ity [facility] [id number] Christiano as MATERNAL [id number] Med ical & CHILD [address] [place] [address] 2020-06-15 2020-06-15 Outpatient R [facility] [id number] Univers 13:00:00 13:00:00 [id number] ity [facility] 2020-06-15 2020-06-15 Outpatient R [facility] [id number] Univers 13:00:00 13:00:00 ity [facility] 2020-05-09 2020-05-09 Orders Doctor BAYLEE [id number] [id number] 00:00:00 00:00:00 Only Unassigned, KRISTIN [id number] [place] [facility] [id number] 2020-05-09 2020-05-09 Orders Doctor BAYLEE 1.2.840.114 [id number] Univers 00:00:00 00:00:00 Only Unassigned, KRISTIN [id number] ity of [place] [facility] [id number] Christiano as [phone] [address] 2020-03-23 2020-03-23 Nurse Visit, [facility] Nurse [facility] 1.2 .840.114 [id number] Univers 13:37:20 14:02:39 Visit Domingo Garcia PICKLING MACHINE OPERATOR [id number] 10 ity of REGIONAL [id number] Christiano as MATERNAL [id number] Med ical & CHILD [address] [place] [address] 2020-03-23 2020-03-23 Nurse Visit, [facility] 1.2.840.114 [id number] 13:37:20 14:02:39 [facility] PICKLING MACHINE OPERATOR [id number] Nurse [facility] [id number] MATERNAL [phone] & CHILD [address] [place] [address] 2020-03-23 2020-03-23 Outpatient R [facility] [id number] Univers 14:00:00 14:00:00 [id number] ity [facility] 2020-03-23 2020-03-[address] [facility] [facility] [address] [id number] Univers 14:00:00 14:00:00 DOMINGO woodall [facility] 2020-02-23 2020-02-23 [facility] 1.2.840.114 [id number] Univers 08:26:32 23:59:00 Encounter Roshunda R Y HEALTH [id number] ity of [id number] [id number] [address] 2020-02-23 2020-02-23 [facility] 1.2.840.114 [id number] 08:26:32 23:59:00 Encounter Roshunda R Y HEALTH [id number] CLINICS [id number] [facility] 2020-02-23 2020-02-23 Out[facility] [id number] Univers 09:00:00 09:00:00 IRMA ity o [facility] 2020-02-23 2020-02-23 [facility] 1.2.840.114 [id number] Univers 08:24:37 08:25:00 Encounter Roshunda R Y HEALTH 350.1.13.10 it[place] [phone] [facility] [address] 2020-02-23 2020-02-23 Hospital LOUIS Snyder 1.2.840.114 [id number] 08:24:37 08:25:00 Encounter Irma R Y HEALTH 350.1.13.10 CLINICS 4.2.7.2.686 [id number] 800 2020-02-23 2020-02-23 Outpatient R LILLIAN [facility] [id number] Univers 00:00:00 00:00:00 IRMA ity o f [facility] 2020-02-22 2020-02-22 Office Pgy3 UNIVERSIT 1.2.916.077 [id number] Univers 12:56:26 13:11:26 Visit Keagan Clark Y HEALTH 350.1.13.10 it[place] [id number] [facility] [address] 2020-02-22 2020-02-22 Office Pgy3 UNIVERSIT 1.2.294.398 [id number] 12:56:26 13:11:26 Visit Y HEALTH 350.1.13.10 CLINICS 4.2.7.2.686 [id number] 113 2020-02-22 2020-02-22 Outpatient R [facility] [id number] -[id number] Univers 13:00:00 13:00:00 ity of [facility] 2020-02-22 2020-02-22 Outpatient R [facility] [id number] Univers 13:00:00 13:00:00 ity of [facility] 2020-02-04 2020-02-04 Orders Doctor BAYLEE 1.2.840.114 [id number] Univers 00:00:00 00:00:00 Only Unassigned, KRISTIN 350.1.13.10 ity of [place] [facility] 4.2.7.2.686 Christiano as [id number] [facility] [address] 2020-01-21 2020-01-21 Tour Sales Representative Lab, Ang-Rmchp [facility] 1.2.840. 114 [id number] Univers 08:29:44 08:44:44 Visit Domingo Garcia PICKLING MACHINE OPERATOR 350.1.13. 10 ity of REGIONAL 4.2.7.2.686 [place]o as MATERNAL [phone] Med ical & CHILD 107 [facility] 2020-01-21 2020-01-21 Outpatient [facility] [id number] -20 Univers 08:30:00 08:30:00 ity of [facility] 2020-01-21 2020-01-21 Outpatient R JOSE, [facility] [id number] Univers 08:30:00 08:30:00 DOMINGO ity o f [facility] 2020-01-19 2020-01-19 Telephone Lillian [facility] 1.2.174.922 [id number] Univers 00:00:00 00:00:00 Irma Mccord PICKLING MACHINE OPERATOR 350.1.13.10 ity of [facility] 4.2.7.2.686 [place]o as MATERNAL [id number] [facility] ical & CHILD [address] [place] [address] 2020-01-14 2020-01-14 Telephone SARAH AlvaradoIT 1.2.840.114 [id number] Univers 00:00:00 00:00:00 Debbie Y HEALTH 350.1.13.10 i ty [place] [id number] [address] 2020-01-11 2020-01-11 Office [facility] Resident UNIVERSIT 1.2.8 40.114 [id number] Univers 12:54:00 15:06:16 Visit Alexa King R Y HEALTH 350.1.13.10 it[place] [id number] [address] 2020-01-11 2020-01-11 Outpatient R [facility] [id number] -[id number] Univers 14:30:00 14:30:00 [id number] ity of [facility] 2020-01-11 2020-01-11 Outpatient R [facility] [id number] Univers 14:30:00 14:30:00 ity of [facility] 2020-01-11 2020-01-11 Orders Doctor BEACH 1.2.840.114 [id number] Univers 00:00:00 00:00:00 Only Unassigned, KRISTIN 350.1.13.10 ity of [place] [facility] 4.2.7.2.686 Christiano as [phone] [facility] [address] 2019-12-31 2019-12-31 Transition Niko Valero 1.2.840.114 [id number] Univers 00:00:00 00:00:00 of Care Roselyn Grangery 350.1.13.10 it[place] of [place] [id number] [facility] [address] 2019-12-28 2019-12-30 [facility] Wilberto Mason [facility] 1.2.840 .114 [id number] Univers 14:32:00 13:33:00 Encounter Vineet Carterton 350.1.13.10 ity of [place] [id number] [facility] [address] [place] 2019-12-28 2019-12-28 [facility] 1.2 .840.114 [id number] Univers 15:00:00 15:15:00 Visit Domingo Garcia PICKLING MACHINE OPERATOR 350.1.13. 10 ity [facility] 4.2.7.2.686 Christiano as MATERNAL [phone] Med ical & CHILD [address] [place] [address] 2019-12-28 2019-12-28 Outpatient R [facility] [id number] -20 Univers 15:00:00 15:00:00 [id number] ity [facility] 2019-12-28 2019-12-28 [address] [facility] [id number] Univers 15:00:00 15:00:00 DOMINGO woodall f [facility] 2019-12-09 2019-12-09 [facility] 1.2.845.244 [id number] Univers 00:00:00 00:00:00 Irma Mccord PICKLING MACHINE OPERATOR 350.1.13.10 ity of [facility] 4.2.7.2.686 [place] as MATERNAL [id number] [facility] [address] [place] [address] 2019-12-06 2019-12-06 [facility] 1.2.840.114 [id number] Univers 00:00:00 00:00:00 Management Irma R PICKLING MACHINE OPERATOR 350.1.13.10 ity of REGIONAL 4.2.7.2.686 [place] as MATERNAL [id number] [facility] [address] [place] [address] 2019-11-29 2019-11-29 Outpatient R [facility] [id number] -[id number] Univers 10:00:00 10:00:00 ity of [facility] 2019-11-29 2019-11-29 Outpatient R [facility] [id number] Univers 10:00:00 10:00:00 ity of [facility] 2019-11-26 2019-11-26 [facility] 1.2.653.859 [id number] Univers 00:00:00 00:00:00 Menga R PICKLING MACHINE OPERATOR 350.1.13.10 ity of [facility] 4.2.7.2.686 [place] as MATERNAL [id number] [facility] [address] [place] [address] 2019-11-26 2019-11-26 [facility] 1.2.124.816 [id number] Univers 00:00:00 00:00:00 Irma R PICKLING MACHINE OPERATOR 350.1.13.10 ity of REGIONAL 4.2.7.2.686 [place] as MATERNAL [id number] [facility] & CHILD [address] [place] [address] 2019-11-25 2019-11-25 [facility] 1.2.982.220 [id number] Univers 00:00:00 00:00:00 Menga R PICKLING MACHINE OPERATOR 350.1.13.10 ity of REGIONAL 4.2.7.2.686 [place]o as MATERNAL [id number] [facility] & CHILD [address] [place] [address] 2019-11-24 2019-11-24 [facility] 1.2.840.114 [id number] Univers 06:35:23 23:59:00 Encounter Irma R SPECIALTY 350.1.13.10 ity of C[place] [facility] [id number] Ny yojana DUMONT 815 [facility] 2019-11-24 2019-11-24 Outpatient R [facility] [id number] -[id number] Univers 15:00:00 15:00:00 IRMA ity o ancelmo [facility] 2019-11-24 2019-11-24 Outpatient R LILLIAN [facility] [id number] Univers 00:00:00 00:00:00 IRMA marroquin o ancelmo [facility] 2019-11-24 2019-11-24 Telephone Francyfedejuhi [facility] 1.2.840.114 [id number] Univers 00:00:00 00:00:00 Domingo Lockhart PICKLING MACHINE OPERATOR 350.1.13.10 ity of [facility] 4.2.7.2.686 [place]o as MATERNAL [phone] Med ical & CHILD [address] [place] [address] 2019-10-05 2019-10-05 Office Lillian [facility] 1.2.840.114 [id number] Univers 15:03:26 15:38:20 Visit Irma Suri PICKLING MACHINE OPERATOR 350.1.13.10 ity of [facility] 4.2.7.2.686 [place]o as MATERNAL [id number] [facility] [address] [place] [address] 2019-10-05 2019-10-05 Outpatient Suri SNYDER [facility] [id number] -20 Univers 15:00:00 15:00:00 IRMA [id number] lopez ag [facility] 2019-10-05 2019-10-05 Outpatient Suri SNYDER [facility] [id number] Univers 15:00:00 15:00:00 IRMA ag [facility] 2019-07-13 2019-07-13 Outpatient R FRANCYGARCIA [facility] [id number] Univers 14:30:00 14:30:00 DOMINGO ag [facility] 2019-07-13 2019-07-13 Nurse Visit, Ang-Rmchp Nurse [facility] 1.2 .840.114 [id number] Univers 13:50:29 14:05:29 Visit Domingo Garcia PICKLING MACHINE OPERATOR 350.1.13. 10 ity of [facility] 4.2.7.2.686 Christiano as MATERNAL [phone] [facility] ical & CHILD [address] [place] [address] 2019-04-20 2019-04-20 Orders Doctor [place] 1.2.840.114 [id number] Univers 00:00:00 00:00:00 Only Unassigned, KRISTIN 350.1.13.10 ity of [place] [facility] 4.2.7.2.686 Christiano as [phone] [place] [address] Branch Results Test Description Test Time Test Comments Results Result Comments Source CBC with Differential 2020-09-12 04:10:59 Test Item Value Reference Range Interpretation Comme nts WBC (test code = 6690-2) See_Comment [A utomated message] The system which ge nerated this result transmit toan reference range: 4.30 - 1 1.10 10*3/?L. The reference r prasanth was not used to interpr et this result as normal/abnor mal. RBC (test code = 789-8) See_Comment L [Au tomated message] The system which ge nerated this result transmit toan reference range: 3.93 - 5 .25 10*6/?L. The reference r prasanth was not used to interpr et this result as normal/abnor mal. HGB (test code = 718-7) 7.0 g/dL 11.6-15.0 L HCT (test code = 4544-3) 23.1 % 35.7-45.2 L MCV (test code = 787-2) 94.7 fL 80.6-95.5 MCH (test code = 785-6) 28.7 pg 25.9-32.8 MCHC (test code = 786-4) 30.3 g/dL 31.6-35.1 L RDW-SD (test code = 09658-6) 51.8 fL 39.0-49.9 H RDW-CV (test code = 788-0) 17.1 % 12.0-15.5 H PLT (test code = 777-3) See_Comment [Au tomated message] The system which ge nerated this result transmit toan reference range: 166 - 35 8 10*3/?L. The reference range was not used to interpret th is result as normal/abnormal . MPV (test code = 00741-8) 12.7 fL 9.5-12.9 NRBC/100 WBC (test code = See_Comment [ Automated message] The 8574450600) system which ge nerated this result transmit toan reference range: 0.0 - 10 .0 /100 WBCs. The reference r prasanth was not used to interpr et this result as normal/abnor mal. NRBC x10^3 (test code = See_Comment [Au tomated message] The 4887694603) system which [employer] nerated this result transmit toan reference range: 10*3/?L. The reference range was not u sed to interpret this result as normal/abnormal . SEG % (test code = 72613-4) 63 % 33-76 BAND % (test code = 64965-0) 8 % 0-1 H LYMPH % (test code = 25 % 14-54 94964-9) MONO % (test code = 43470-8) 4 % 0-4 ANC (test code = 4173610853) 6.13 10*3/uL 1.88-7.09 POLYCHROMASIA (test code = 2+ See_Comment [Automated message] The 81341-9) system which ge nerated this result transmit toan reference range: 2+. The reference range was not used to interpret this result as angelita l/abnormal. PLT ESTIMATE (test code = Normal Normal 9317-9) Lab Interpretation (test Abnormal code = 52388-9) [facility] [id number] 03:38:02 Test Item Value Reference Range Interpretation Comments FREE T4 (test code = See_Comment [Autom ated message] 3960991450) The system whic h generated this result transmitted ref erence range: 0.78 - 2 .20 ng/dL:. The ref erence range was not u sed to interpret this result as normal/abnor mal. Lab Interpretation (test Normal code = 90234-3) [facility]ieType and Screen - ONCE [id number] 02:17:30 Test Item Value Reference Range Interpretation Comments ABO & RH (test code O Positive Performe d at [facility] = 20) Laboratory Serv [facility] [address] [place], [place] [id number] Free: [phone] A No. [id number] IAT (test code = Positive Performed a t [facility] 1185) Laboratory Serv [facility] [address] [place], [place] [address]Toll Free: [phone] A No. [id number] [facility]ieaPTT2021-05-25 02:02:02 Test Item Value Reference Range Interpretation Comments APTT Patient (test <20 See_Comment L [Automat ed code = 3173-2) message] The system which generated this result transmitted reference range : 23 - 38 Seconds . The reference range was not used to interpr et this result as normal/abnormal . ROSALEE (test code = ROSALEE) The [facility] patient population mean normal value for aPTT is 30 seconds. Lab Interpretation Abnormal (test code = 86849-6) [facility]ieUrinalysis2021-05-25 02:01:05 Test Item Value Reference Range Interpretation Comments APPEARANCE (test code = Hazy Clear A 3938818370) COLOR (test code = Yellow Yellow 8860501243) PH (test code = 4.8-8.0 7222670683) SP GRAVITY (test code = 1.003-1.030 2618561674) GLU U QUAL (test code = 500 mg/dL Normal A 1977430193) BLOOD (test code = 3+ Negative A 3621232767) KETONES (test code = Negative Negative 0846309692) PROTEIN (test code = Negative Negative 2887-8) UROBILIN (test code = 2.0 mg/dL Normal A 5802567189) BILIRUBIN (test code = Negative Negative 3033794757) NITRITE (test code = Negative Negative 4656157259) LEUK CRISTOFER (test code = Negative Negative 1361347663) RBC/HPF (test code = See_Comment [Autom ated message] 8758923961) The system [employer] generated this result transmit toan reference range : 0 - 3 HPF. The refe rence range was not u sed to interpret th is result as normal/abnormal . WBC/HPF (test code = See_Comment [Autom ated message] 1924804855) The system [employer] generated this result transmit toan reference range : 0 - 5 HPF. The refe rence range was not u sed to interpret th is result as normal/abnormal . BACTERIA (test code = Few Negative A 5415164129) SQ EPITH (test code = HPF 6584384059) Lab Interpretation (test Abnormal code = 91843-7) [facility]ieTHYROID STIMULATING [id number] 01:55:33 Test Item Value Reference Range Interpretation Comments TSH (test code = See_Comment [Automated message] 4488714445) The system [employer] generated this result transmitted ref erence range: 0.45 - 4 .70 mIU/L. The refe rence range was not u sed to interpret this result as normal/abnor mal. Lab Interpretation (test Normal code = 42776-3) [facility]ieMAGNESIUM2021-05-25 01:25:20 Test Item Value Reference Range Interpretation Comments MAGNESIUM (test code = 7607354757) 2.1 mg/dL 1.7-2.4 Lab Interpretation (test code = Normal 46719-3) [facility] Metabolic Panel (NA, K, CL, CO2, GLUCOSE, BUN, CREATININE, CA)2020-09-12 01:25:19 Test Item Value Reference Range Interpretation Comments NA (test code = 139 mmol/L 135-145 5289956037) K (test code = 4.4 mmol/L 3.5-5.0 1926344966) CL (test code = 107 mmol/L 98-108 2148540029) CO2 TOTAL (test code = 23 mmol/L 23-31 9351080916) AGAP (test code = 2-16 6818411557) BUN (test code = 8 mg/dL 7-23 7663437331) GLUCOSE (test code = 161 mg/dL 70-110 H 7013549610) CREATININE (test code = 0.39 mg/dL 0.50-1.04 L 7784923824) CALCIUM (test code = 9.1 mg/dL 8.6-10.6 2848110374) eGFR (test code = mL/min/1.73m2 7189160059) ROSALEE (test code = ROSALEE) Association of Glomerular Filtration Rate (GFR) and Staging of Kidney Disease* + --+ --+ ------+| GFR (mL/min/1.73 m2) ?| With Kidney Damage ?| ?Without Kidney Damage+ --------+ --------+ +| ?>90 ?| ?Stage one ?| ? Normal ?+ ---+ ---+ -------+| ?60-89 ?| ?Stage two ?| ? Decreased GFR ? + --+ --+ ------+| ?30-59 ?| ?Stage three ?| ? Stage three ? + --+ --+ ------+| ?15-29 ?| ?Stage four ? | ? Stage four ?+ ---+ ---+ -------+| ?<15 (or dialysis) ? ?| ?Stage five ? | ? Stage five ?+ ---+ ---+ -------+ *Each stage assumes the associated GFR level has been in effect for at least three months. ?Stages 1 to 5, with or without kidney disease, indicate chronic kidney disease. Notes: Determination of stages one and two (with eGFR >59mL/min/1.73 m2) requires estimation of kidney damage for at least three months as defined by structural or functional abnormalities of the kidney, manifested by either:Pathological abnormalities or Markers of kidney damage (including abnormalities in the composition of the blood or urine or abnormalities in imaging tests). Lab Interpretation Abnormal (test code = 85740-4) [facility]ieHepatic Function Panel (ALB, T.PRO, BILI T, BU/BC, ALT, AST, ALK PHOS)2020-09-12 01:25:19 Test Item Value Reference Range Interpretation Comments TOTAL BILI (test code = 9128367685) 0.4 mg/dL 0.1-1.1 BILI UNCON (test code = 5046747388) 0.3 mg/dL 0.1-1.1 BILI CONJ (test code = 8860290232) 0.0 mg/dL 0.0-0.3 T PROTEIN (test code = 0378278980) 6.4 g/dL 6.3-8.2 ALBUMIN (test code = 1273641803) 3.9 g/dL 3.5-5.0 ALK PHOS (test code = 5599591420) 112 U/L 34-122 ALTv (test code = 1742-6) 29 U/L 5-35 AST(SGOT) (test code = 8539672354) 37 U/L 13-40 Lab Interpretation (test code = Normal 14869-6) [facility]ieCOVID-19 (ID NOW RAPID TESTING)2020-09-12 01:17:57 Test Item Value Reference Range Interpretation Comments SARS-CoV-2 Rapid ID NOW Not Detected Not Detected (test code = 54141-6) ROSALEE (test code = ROSALEE) ID NOW COVID-19 Assay is an isothermal nucleic acid amplification test intended for the qualitative detection of nucleic acid from SARS-CoV-2 viral RNA in nasopharyngeal (LIBRARY ATTENDANT) specimens. It is used under Emergency Use Authorization (EUA) by FDA. The limit of detection (LOD) of the assay is 125 Genome Equivalents/mL. A positive result is indicative of the presence of SARS-CoV-2 RNA. ?Clinical correlation with patient history and other diagnostic information is necessary to determine patient infection status. A negative (Not Detected) result does not preclude SARS-CoV-2 infection. In patients with clinical symptoms and other tests that are consistent with SARS-CoV-2 infection, negative results should be treated as presumptive negative and a new specimen should be tested with alternative PCR molecular test. Invalid: Please collect a new specimen for repeat patient testing if clinically indicated. Lab Interpretation Normal (test code = 90947-0) [facility]ahachieProthrombin Time (PT) / [id number] 01:17:16 Test Item Value Reference Range Interpretation Comments PROTIME PATIENT (test See_Comment [Auto mated message] code = 5964-2) The system [employer] generated this result transmitted ref erence range: 12.0 - 1 4.7 Seconds. The re ference range was not u sed to interpret this result as normal/abnor mal. INR (test code = 6301-6) Nor mal INR <1.1; Warfarin Therap eutic range 2.0 to 3. 0 or 2.5 to 3.5, dep ending upon the indica tions. Lab Interpretation (test Normal code = 58861-6) [facility]achieLactic Acid Whole [id number] 00:58:57 Test Item Value Reference Range Interpretation Comments LACTIC ACID (test code = 1.81 mmol/L 0.50-2.20 3299624990) Lab Interpretation (test code = Normal 11047-4) [facility]iePOCT [id number] 00:52:00 Test Item Value Reference Range Interpretation Comments POCT PREG (test code = 1605) negative On board controls acceptable with present C Line (test code = 3574) POCT PREG LOT # (test code = 3575) [id number] POCT PREG TEST DATE (test 03/20/2022 code = 3576) Lab Interpretation (test code = Normal 26672-3) [facility]ieBI DIAGNOSTIC TOMOSYNTHESIS [id number] 16:53:09Examination:BI DIAGNOSTIC TOMOSYNTHESIS RIGHT History:Patient is 44 year old and is seen for: ?Abnormal mammogram. Computer-aided detection (CAD) utilized. Comparisons: 11/24/2019 BI SCREENING TOMOSYNTHESIS BILATERAL Recent exam with the following findings: Impression:RIGHT BREAST: 6 mm asymmetry is p resent on the CC view retroareolar plane at anterior depth at a distance of 3 cm from the nipple. CURRENT EXAM: ? Findings:The right breast has scattered areas of fibroglandular density. There is no evidence of suspicious masses, calcifications, or other abnormal findings in the right breast. Specifically, the mammographic asymmetry noted at recent screening mammography in the retroareolar plane did not persist with additional imaging and is consistent with superimposition of normal breast tissue. Impression:No mammographic evidence of malignancy. Recommendation:Annual mammographic follow-up BI-RADS Category: Right 1 - NegativeUnAudie L. Murphy Memorial [facility] HospitalTHYROID STIMULATING [id number] 00:02:00 Test Item Value Reference Range Interpretation Comments TSH (test code = See_Comment [Automated message] 6070852499) The system [employer] generated this result transmitted ref erence range: 0.45 - 4 .70 mIU/L. The refe rence range was not u sed to interpret this result as normal/abnor mal. Lab Interpretation (test Normal code = 55865-4) [facility]ieTHYROID STIMULATING [id number] 00:02:00 Test Item Value Reference Range Interpretation Comments TSH (test code = See_Comment [Automated message] 6597527535) The system [employer] generated this result transmitted ref erence range: 0.45 - 4 .70 mIU/L. The refe rence range was not u sed to interpret this result as normal/abnor mal. Lab Interpretation (test Normal code = 30302-9) [facility]achieFREE [id number] 23:49:00 Test Item Value Reference Range Interpretation Comments FREE T4 (test code = See_Comment [Autom ated message] 9207507382) The system [employer] generated this result transmitted ref erence range: 0.78 - 2 .20 ng/dL:. The ref erence range was not u sed to interpret this result as normal/abnor mal. Lab Interpretation (test Normal code = 44081-5) [facility] [id number] 23:49:00 Test Item Value Reference Range Interpretation Comments FREE T4 (test code = See_Comment [Autom ated message] 2142911547) The system [employer] generated this result transmitted ref erence range: 0.78 - 2 .20 ng/dL:. The ref erence range was not u sed to interpret this result as normal/abnor mal. Lab Interpretation (test Normal code = 67357-6) [facility]ahachieFOLLICLE STIMULATING [id number] 23:45:00 Test Item Value Reference Range Interpretation Comments FSH (test code = mIU/mL 1716070447) ROSALEE (test code = FSH Reference Ranges ROSALEE) Follicular Phase: ? ? ? 3.8-8.8 mIU/mLMid-cycle Peak: ? 4.5-22.85 mIU/mLLuteal Phase: ? 1.7-5.1 mIU/mLPost-menopause female: ?16.7-113.6 mIU/mLAdult male: ? 1.2-19 mIU/mL [facility] W[facility]achieFOLLICLE STIMULATING [id number] 23:45:00 Test Item Value Reference Range Interpretation Comments FSH (test code = mIU/mL 8591690095) ROSALEE (test code = FSH Reference Ranges ROSALEE) Follicular Phase: ? ? ? 3.8-8.8 mIU/mLMid-cycle Peak: ? 4.5-22.85 mIU/mLLuteal Phase: ? 1.7-5.1 mIU/mLPost-menopause female: ?16.7-113.6 mIU/mLAdult male: ? 1.2-19 mIU/mL [facility]achieCOMP. METABOLIC PANEL (01659)2020-01-11 23:28:00 Test Item Value Reference Range Interpretation Comments NA (test code = 136 mmol/L 135-145 4284222698) K (test code = 4.0 mmol/L 3.5-5 4120397186) CL (test code = 104 mmol/L 98-108 8018411018) CO2 TOTAL (test code = 20 mmol/L 23-31 L 3251674210) AGAP (test code = 2-16 1169448631) BUN (test code = 13 mg/dL 7-23 4656642304) GLUCOSE (test code = 240 mg/dL 70-110 H 9356374381) CREATININE (test code = 0.47 mg/dL 0.5-1.04 L 2932537865) TOTAL BILI (test code = 0.5 mg/dL 0.1-1.4 8166359863) CALCIUM (test code = 8.4 mg/dL 8.6-10.6 L 2169740180) T PROTEIN (test code = 6.9 g/dL 6.3-8.2 0464731909) ALBUMIN (test code = 3.7 g/dL 3.5-5 1676526107) ALK PHOS (test code = 129 U/L 34-122 H 9822710949) ALTv (test code = 18 U/L 5-35 1742-6) AST(SGOT) (test code = 36 U/L 13-40 5619487145) eGFR Calculation mL/min/1.73m2 (Non-) (test code = 4172058838) eGFR Calculation mL/min/1.73m2 () (test code = 8693937046) ROSALEE (test code = ROSALEE) Association of Glomerular Filtration Rate (GFR) and Staging of Kidney Disease* + --+ --+ ------+| GFR (mL/min/1.73 m2) ?| With Kidney Damage ?| ?Without Kidney Damage+ --------+ --------+ +| ?>90 ?| ?Stage one ?| ? Normal ?+ ---+ ---+ -------+| ?60-89 ?| ?Stage two ?| ? Decreased GFR ? + --+ --+ ------+| ?30-59 ?| ?Stage three ?| ? Stage three ? + --+ --+ ------+| ?15-29 ?| ?Stage four ? | ? Stage four ?+ ---+ ---+ -------+| ?<15 (or dialysis) ? ?| ?Stage five ? | ? Stage five ?+ ---+ ---+ -------+ *Each stage assumes the associated GFR level has been in effect for at least three months. ?Stages 1 to 5, with or without kidney disease, indicate chronic kidney disease. Notes: Determination of stages one and two (with eGFR >59mL/min/1.73 m2) requires estimation of kidney damage for at least three months as defined by structural or functional abnormalities of the kidney, manifested by either:Pathological abnormalities or Markers of kidney damage (including abnormalities in the composition of the blood or urine or abnormalities in imaging tests). Lab Interpretation Abnormal (test code = 73544-0) [facility]. METABOLIC PANEL (91293)2020-01-11 23:28:00 Test Item Value Reference Range Interpretation Comments NA (test code = 136 mmol/L 135-145 0491151576) K (test code = 4.0 mmol/L 3.5-5 8304553133) CL (test code = 104 mmol/L 98-108 6257765617) CO2 TOTAL (test code = 20 mmol/L 23-31 L 7735579305) AGAP (test code = 2-16 3278202785) BUN (test code = 13 mg/dL 7-23 8602220208) GLUCOSE (test code = 240 mg/dL 70-110 H 6958185656) CREATININE (test code = 0.47 mg/dL 0.5-1.04 L 4563899515) TOTAL BILI (test code = 0.5 mg/dL 0.1-1.1 3423198685) CALCIUM (test code = 8.4 mg/dL 8.6-10.6 L 4257049343) T PROTEIN (test code = 6.9 g/dL 6.3-8.2 5299241830) ALBUMIN (test code = 3.7 g/dL 3.5-5 7950330630) ALK PHOS (test code = 129 U/L 34-122 H 3411383359) ALTv (test code = 18 U/L 5-35 1742-6) AST(SGOT) (test code = 36 U/L 13-40 0718104136) eGFR Calculation mL/min/1.73m2 (Non-) (test code = 6807947203) eGFR Calculation mL/min/1.73m2 () (test code = 5985954476) ROSALEE (test code = ROSALEE) Association of Glomerular Filtration Rate (GFR) and Staging of Kidney Disease* + --+ --+ ------+| GFR (mL/min/1.73 m2) ?| With Kidney Damage ?| ?Without Kidney Damage+ --------+ --------+ +| ?>90 ?| ?Stage one ?| ? Normal ?+ ---+ ---+ -------+| ?60-89 ?| ?Stage two ?| ? Decreased GFR ? + --+ --+ ------+| ?30-59 ?| ?Stage three ?| ? Stage three ? + --+ --+ ------+| ?15-29 ?| ?Stage four ? | ? Stage four ?+ ---+ ---+ -------+| ?<15 (or dialysis) ? ?| ?Stage five ? | ? Stage five ?+ ---+ ---+ -------+ *Each stage assumes the associated GFR level has been in effect for at least three months. ?Stages 1 to 5, with or without kidney disease, indicate chronic kidney disease. Notes: Determination of stages one and two (with eGFR >59mL/min/1.73 m2) requires estimation of kidney damage for at least three months as defined by structural or functional abnormalities of the kidney, manifested by either:Pathological abnormalities or Markers of kidney damage (including abnormalities in the composition of the blood or urine or abnormalities in imaging tests). Lab Interpretation Abnormal (test code = 92210-9) [facility] WITH [id number] 22:23:00 Test Item Value Reference Range Interpretation Comments WBC (test code = See_Comment [Automated 0834-2) message] The sy stem which generated this result transmitted reference range : 4.30 - 11.10 10*3/?L. The reference range was not used to interpret this result as normal/abnormal . RBC (test code = See_Comment L [Automated 406-8) message] The sy stem which generated this result transmitted reference range : 3.93 - 5.25 10*6/?L. The reference range was not used to interpret this result as normal/abnormal . HGB (test code = 7.4 g/dL 11.6-15 L 718-7) HCT (test code = 25.4 % 35.7-45.2 L 4544-3) MCV (test code = 85.2 fL 80.6-95.5 787-2) MCH (test code = 24.8 pg 25.9-32.8 L 785-6) MCHC (test code = 29.1 g/dL 31.6-35.1 L 786-4) RDW-SD (test code = 51.9 fL 39-49.9 H 58960-7) RDW-CV (test code = 16.7 % 12-15.5 H 788-0) PLT (test code = See_Comment [Automated 777-3) message] The sy stem which generated this result transmitted reference range : 166 - 358 10*3/ ?L. The reference r prasanth was not used to interpret this result as normal/abnormal . MPV (test code = 12.2 fL 9.5-12.9 01791-2) NRBC/100 WBC (test See_Comment [Automat ed code = 3955666590) message] The system which generated this result transmitted reference range : 0.0 - 10.0 /100 WBCs. The refer ence range was not u sed to interpret th is result as normal/abnormal . NRBC x10^3 (test code <0.01 See_Comment [Auto mated = 0598432293) message] The s ystem which generated this result transmitted reference range : 10*3/?L. The reference range was not used to interpret this result as normal/abnormal . GRAN MAT (NEUT) % 66.5 % (test code = 770-8) IMM GRAN % (test code 1.30 % = 7018149633) LYMPH % (test code = 22.5 % 736-9) MONO % (test code = 8.5 % 5905-5) EOS % (test code = 0.8 % 713-8) BASO % (test code = 0.4 % 706-2) GRAN MAT x10^3(ANC) 5.63 10*3/uL 1.88-7.09 (test code = 7309881493) IMM GRAN x10^3 (test 0.11 10*3/uL 0-0.06 H code = 2524610183) LYMPH x10^3 (test code 1.90 10*3/uL 1.32-3.29 = 731-0) MONO x10^3 (test code 0.72 10*3/uL 0.33-0.92 = 742-7) EOS x10^3 (test code = 0.07 10*3/uL 0.03-0.39 711-2) BASO x10^3 (test code 0.03 10*3/uL 0.01-0.07 = 704-7) Lab Interpretation Abnormal (test code = 78682-0) [facility] WITH [id number] 22:23:00 Test Item Value Reference Range Interpretation Comments WBC (test code = See_Comment [Automated 6690-2) message] The sy stem which generated this result transmitted reference range : 4.30 - 11.10 10*3/?L. The reference range was not used to interpret this result as normal/abnormal . RBC (test code = See_Comment L [Automated 789-8) message] The sy stem which generated this result transmitted reference range : 3.93 - 5.25 10*6/?L. The reference range was not used to interpret this result as normal/abnormal . HGB (test code = 7.4 g/dL 11.6-15 L 718-7) HCT (test code = 25.4 % 35.7-45.2 L 4544-3) MCV (test code = 85.2 fL 80.6-95.5 787-2) MCH (test code = 24.8 pg 25.9-32.8 L 785-6) MCHC (test code = 29.1 g/dL 31.6-35.1 L 786-4) RDW-SD (test code = 51.9 fL 39-49.9 H 17535-0) RDW-CV (test code = 16.7 % 12-15.5 H 788-0) PLT (test code = See_Comment [Automated 777-3) message] The sy stem which generated this result transmitted reference range : 166 - 358 10*3/ ?L. The reference r prasanth was not used to interpret this result as normal/abnormal . MPV (test code = 12.2 fL 9.5-12.9 30731-6) NRBC/100 WBC (test See_Comment [Automat ed code = 2959200255) message] The system which generated this result transmitted reference range : 0.0 - 10.0 /100 WBCs. The refer ence range was not u sed to interpret th is result as normal/abnormal . NRBC x10^3 (test code <0.01 See_Comment [Auto mated = 2972110408) message] The s ystem which generated this result transmitted reference range : 10*3/?L. The reference range was not used to interpret this result as normal/abnormal . GRAN MAT (NEUT) % 66.5 % (test code = 770-8) IMM GRAN % (test code 1.30 % = 1815612445) LYMPH % (test code = 22.5 % 736-9) MONO % (test code = 8.5 % 5905-5) EOS % (test code = 0.8 % 713-8) BASO % (test code = 0.4 % 706-2) GRAN MAT x10^3(ANC) 5.63 10*3/uL 1.88-7.09 (test code = 1853521229) IMM GRAN x10^3 (test 0.11 10*3/uL 0-0.06 H code = 8673216129) LYMPH x10^3 (test code 1.90 10*3/uL 1.32-3.29 = 731-0) MONO x10^3 (test code 0.72 10*3/uL 0.33-0.92 = 742-7) EOS x10^3 (test code = 0.07 10*3/uL 0.03-0.39 711-2) BASO x10^3 (test code 0.03 10*3/uL 0.01-0.07 = 704-7) Lab Interpretation Abnormal (test code = 11253-3) [facility] GLUCOSE (AUTOMATED)2019-12-30 17:01:00 Test Item Value Reference Range Interpretation Comments POCT GLU (test code = 7188399402) 151 mg/dL 70-110 H Lab Interpretation (test code = Abnormal 68398-0) [facility] GLUCOSE (AUTOMATED)2019-12-30 16:40:00 Test Item Value Reference Range Interpretation Comments POCT GLU (test code = 7835724849) 118 mg/dL 70-110 H Lab Interpretation (test code = Abnormal 93108-7) [facility] 16:40:00 Test Item Value Reference Range Interpretation Comments HGB (test code = 718-7) 7.6 g/dL 11.6-15 L Lab Interpretation (test code = Abnormal 15660-8) [facility]2020-[facility]10 16:40:00 Test Item Value Reference Range Interpretation Comments HCT (test code = 4544-3) 22.4 % 35.7-45.2 L Lab Interpretation (test code = Abnormal 35097-6) [facility] 15:44:00 Test Item Value Reference Range Interpretation Comments MAGNESIUM (test code = 0198474399) 1.9 mg/dL 1.7-2.4 Lab Interpretation (test code = Normal 35874-9) [facility] WITH [id number] 12:14:00 Test Item Value Reference Range Interpretation Comments WBC (test code = See_Comment H [Automated 6690-2) message] The system which generated this result transmit toan reference range : 4.30 - 11.10 10*3/?L. The reference range was not used to interpret this result as normal/abnormal . RBC (test code = See_Comment L [Automated 789-8) message] The system which generated this result transmit toan reference range : 3.93 - 5.25 10*6/?L. The reference range was not used to interpret this result as normal/abnormal . HGB (test code = 7.3 g/dL 11.6-15 L 718-7) HCT (test code = 20.8 % 35.7-45.2 L 4544-3) MCV (test code = 84.6 fL 80.6-95.5 787-2) MCH (test code = 29.7 pg 25.9-32.8 785-6) MCHC (test code = 35.1 g/dL 31.6-35.1 786-4) RDW-SD (test code = 42.1 fL 39-49.9 78007-6) RDW-CV (test code = 13.9 % 12-15.5 788-0) PLT (test code = See_Comment [Automated 777-3) message] The system which generated this result transmit toan reference range : 166 - 358 10*3/ ?L. The reference range was not u sed to interpret th is result as normal/abnormal . MPV (test code = 11.9 fL 9.5-12.9 85371-3) NRBC/100 WBC (test See_Comment [Automat ed code = 2920061585) message] The system which generated this result transmit toan reference range : 0.0 - 10.0 /100 WBCs. The reference range was not used to interpret this result as normal/abnormal . NRBC x10^3 (test code See_Comment [Auto mated = 3976940904) message] The system which generated this result transmit toan reference range : 10*3/?L. The reference range was not used to interpret this result as normal/abnormal . SEG % (test code = 71 % 33-76 56485-7) BAND % (test code = 3 % 0-1 H 39062-6) META % (test code = 1 % See_Comment H [Automa toan 00685-9) message] The system which generated this result transmit toan reference range : <=0. The refere nce range was not u sed to interpret th is result as normal/abnormal . MYELO % (test code = 5 % See_Comment H [Autom ated 44931-6) message] The system which generated this result transmit toan reference range : <=0. The refere nce range was not u sed to interpret th is result as normal/abnormal . LYMPH % (test code = 15 % 14-54 27023-3) MONO % (test code = 4 % 0-4 90870-2) EOS % (test code = 1 % 0-3 47379-8) ANC (test code = 13.83 10*3/uL 1.88-7.09 H 8046760788) Lab Interpretation Abnormal (test code = 61382-6) [facility] METABOLIC PANEL (NA, K, CL, CO2, GLUCOSE, BUN, CREATININE, CA)2019-12-30 11:38:00 Test Item Value Reference Range Interpretation Comments NA (test code = 135 mmol/L 135-145 0642863072) K (test code = 2.9 mmol/L 3.5-5 LL 9554346378) CL (test code = 104 mmol/L 98-108 5527185268) CO2 TOTAL (test code = 26 mmol/L 23-31 0085695473) AGAP (test code = 2-16 8275803301) BUN (test code = 7 mg/dL 7-23 7979838740) GLUCOSE (test code = 101 mg/dL 70-110 8209405292) CREATININE (test code = 0.47 mg/dL 0.5-1.04 L 4274183543) CALCIUM (test code = 7.4 mg/dL 8.6-10.6 L 7644515206) eGFR Calculation mL/min/1.73m2 (Non-) (test code = 7886869422) eGFR Calculation mL/min/1.73m2 () (test code = 4477564158) ROSALEE (test code = ROSALEE) Association of Glomerular Filtration Rate (GFR) and Staging of Kidney Disease* + --+ --+ ------+| GFR (mL/min/1.73 m2) ?| With Kidney Damage ?| ?Without Kidney Damage+ --------+ --------+ +| ?>90 ?| ?Stage one ?| ? Normal ?+ ---+ ---+ -------+| ?60-89 ?| ?Stage two ?| ? Decreased GFR ? + --+ --+ ------+| ?30-59 ?| ?Stage three ?| ? Stage three ? + --+ --+ ------+| ?15-29 ?| ?Stage four ? | ? Stage four ?+ ---+ ---+ -------+| ?<15 (or dialysis) ? ?| ?Stage five ? | ? Stage five ?+ ---+ ---+ -------+ *Each stage assumes the associated GFR level has been in effect for at least three months. ?Stages 1 to 5, with or without kidney disease, indicate chronic kidney disease. Notes: Determination of stages one and two (with eGFR >59mL/min/1.73 m2) requires estimation of kidney damage for at least three months as defined by structural or functional abnormalities of the kidney, manifested by either:Pathological abnormalities or Markers of kidney damage (including abnormalities in the composition of the blood or urine or abnormalities in imaging tests). Lab Interpretation Abnormal (test code = 46505-5) [facility]2020[facility] 05:31:00 Test Item Value Reference Range Interpretation Comments HGB (test code = 718-7) 7.5 g/dL 11.6-15 L Lab Interpretation (test code = Abnormal 43297-6) [facility] P[facility] COMPLETE WITH [id number] 02:28:47 Mildly thickened endometrium with increased vascularity which may representblood clots within the endometrial cavity. No discrete focal lesion, suchas endometrial polyp or fibroid, is identified. Distortion of theendometrium in the lower uterine segment is perhaps related to previousC-section Unremark able bilateral ovaries Preliminary Report Dictated by Resident: Donovan Rice MD.,have reviewed this study and agree with the abovereport.EXAM: US PELVIS COMPLETE WITH TRANSVAGINAL HISTORY: 44 years -old Female with menorrhagia . LMP = 12/23/2019 TECHNIQUE: Transabdominal and transvagi nal ultrasound imaging of the pelviswas performed including color Doppler evaluation. Representativeimageswere obtained for the record. COMPARISON: None FINDINGS: Uterus: Size: 10.8 x 5.2 x 6.2 cmOrientation: AntevertedMyometrium: Homogenous with a mid uterine anechoic structure whichcorrelates to the patient's prior history of section.Masses: NoneCervix: UnremarkableEndometrial thickness: 9 mmEndometrium: Normal echogenicity with increased vascularity. Theendometrium is somewhat distortedat the level of the surgical scar relatedto . Right Adnexa:Ovary size: 2.2 x 1.6 and 1.3 cm, 2.3 mLOvary appearance: Normal. Other: No mass or collection. Left Adnexa:Ovary size: 3.2 x 1.9 x 2.1 cm, 6.6 mLOvary appearance: Few small follicles. Other: No mass or collection. Cul-de-sac: No freefluid. [facility], Radiant Results Inft User - 12/29/2019 9:29 PM CDTEXAM: US PELVIS COMPLETE WITH TRANSVAGINALHISTORY: 44 years -old Female with menorrhagia . LMP = 12/23/2019TECHNIQUE: Transabdominal and transvaginal ultrasound imaging of the pelviswas performed including color Doppler evaluation. Tax Examiner imageswere obtained for the record.COMPARISON: NoneFINDINGS:Uterus: Size: 10.8 x 5.2 x 6.2 cmOrientation: AntevertedMyometrium: Homogenous with a mid uterine anechoic structure whichcorrelates to the patient's prior history of section.Masses: NoneCervix: UnremarkableEndometrial thickness: 9 mmEndometrium: Normal echogenicity with increased vascularity. Theendometrium is somewhat distorted at the level of the surgical scar relatedto .Right Adnexa:Ovary size: 2.2 x 1.6 and 1.3cm, 2.3 mLOvary appearance: Normal. Other: No mass or collection.Left Adnexa:Ovary size: 3.2 x 1.9 x2.1 cm, 6.6 mLOvary appearance: Few small follicles. Other: No mass or collection.Cul-de-sac: No free fluid. IMPRESSIONMildly thickened endometrium with increased vascularity which may representblood clots within the endometrial cavity. No discrete focal lesion, suchas endometrial polyp or fibroid, isidentified. Distortion of theendometrium in the lower uterine segment is perhaps related to previousC- sectionUnremarkable bilateral ovariesPreliminary Report Dictated by Resident: Lea Dias, Donovan Justice MD., have reviewed this study and agree with the abovereport.[facility] GLUCOSE (AUTOMATED)2019-12-30 02:09:00 Test Item Value Reference Range Interpretation Comments POCT GLU (test code = 185 mg/dL 70-110 H Notifi ed Provider 1853264497) Lab Interpretation (test Abnormal code = 62158-7) [facility] GLUCOSE (AUTOMATED)2019-12-29 22:25:00 Test Item Value Reference Range Interpretation Comments POCT GLU (test code = 8160930433) 151 mg/dL 70-110 H Lab Interpretation (test code = Abnormal 52351-5) [facility]2020-[facility]-09 22:18:00 Test Item Value Reference Range Interpretation Comments APPEARANCE (test code = Hazy Clear A 1990167927) COLOR (test code = Yellow Yellow 9191249550) PH (test code = 4.8-8.0 4202525726) SP GRAVITY (test code = 1.003-1.030 7915008905) GLU U QUAL (test code = 500 mg/dL Normal A 9384241578) BLOOD (test code = 3+ Negative A 2822297416) KETONES (test code = Negative Negative 4124801977) PROTEIN (test code = 30 mg/dL Negative A 2887-8) UROBILIN (test code = Normal Normal 9444182425) BILIRUBIN (test code = Negative Negative 1968956057) NITRITE (test code = Negative Negative 8019378136) LEUK CRISTOFER (test code = Negative Negative 0996859885) RBC/HPF (test code = >182 See_Comment H [Autom ated message] 1526537939) The system [employer] generated this result transmit toan reference range : 0 - 3 HPF. The refe rence range was not u sed to interpret th is result as normal/abnormal . WBC/HPF (test code = See_Comment [Autom ated message] 3468534734) The system [employer] generated this result transmit toan reference range : 0 - 5 HPF. The refe rence range was not u sed to interpret th is result as normal/abnormal . BACTERIA (test code = Few Negative A 3002482650) MUCOUS (test code = Slight Negative LPF A 3589139018) SQ EPITH (test code = <1 HPF 5872849789) WBC CLUMPS (test code = <1 See_Comment [Au tomated message] 5937128877) The system [employer] generated this result transmit toan reference range : <=1 HPF. The refere nce range was not u sed to interpret th is result as normal/abnormal . Lab Interpretation (test Abnormal code = 88630-3) [facility] - 30 minutes after transfusion of each [id number] 21:03:00 Test Item Value Reference Range Interpretation Comments WBC (test code = See_Comment H [Automated message] 6690-2) The system [employer] generated this result transmitted ref erence range: 4.30 - 1 1.10 10*3/?L. The reference range was not used to int erpret this result as normal/abnormal . RBC (test code = 789-8) See_Comment L [Au tomated message] The system [employer] generated this result transmitted ref erence range: 3.93 - 5 .25 10*6/?L. The reference range was not used to int erpret this result as normal/abnormal . HGB (test code = 718-7) 7.0 g/dL 11.6-15 L HCT (test code = 19.7 % 35.7-45.2 L 4544-3) MCH (test code = 785-6) 29.5 pg 25.9-32.8 MCV (test code = 787-2) 83.1 fL 80.6-95.5 MCHC (test code = 35.5 g/dL 31.6-35.1 H 786-4) PLT (test code = 777-3) See_Comment [Au tomated message] The system [employer] generated this result transmitted ref erence range: 166 - 35 8 10*3/?L. The reference range was not used to int erpret this result as normal/abnormal . MPV (test code = 12.8 fL 9.5-12.9 87645-3) RDW-CV (test code = 14.3 % 12-15.5 788-0) RDW-SD (test code = 42.4 fL 39-49.9 86377-0) NRBC x10^3 (test code = See_Comment [Au tomated message] 6551009088) The system [employer] generated this result transmitted ref erence range: 10*3/?L. The reference range was not used to int erpret this result as normal/abnormal . NRBC/100 WBC (test code See_Comment [Au tomated message] = 0478090980) The system [employer] generated this result transmitted ref erence range: 0.0 - 10 .0 /100 WBCs. The reference range was not used to int erpret this result as normal/abnormal . IPF % (test code = 6.5 % 1.3-7.7 Platelet count 9666229714) measured by fluorescence me thod. Lab Interpretation Abnormal (test code = 46133-3) [facility]ie[facility]cosylated Hemoglobin (A1C)2019-12-29 19:33:00HGB T5WJccrvjq: Due to low hemoglobin %A1c cannot be calculated.[facility]%A1C (NGSP) Interpretation (ADA)4.8-5.6 ? ? Normal or (Non-Diabetic Range)5.7-6.4 ? ? Increased Risk (Pre-Diabetic)>6.5 ?Diabetes IndicatedUnAudie L. Murphy Memorial [facility] HospitalPrepare Packed RBC (in units)2019-12-29 15:23:21 Test Item Value Reference Range Interpretation Comments Unit Blood Type (test O Pos code = 4410) ISBT Blood Type Code (test code = 128637) Unit Number (test [id number] code = 4411) Blood Expiration Date & Time (test code = 924310) Status Information Issued (test code = 4412) Product Red Blood Cells Identification (test code = 4413) Product Code (test T6880R03 Performed at [facility] code = 4414) Laboratory Services - [facility] Blood [address] [place] [id number] Free: [phone] A No. [id number] Cross Match Result Compatible (test code = 4409) [facility]2020-09-09 11:16:00 Test Item Value Reference Range Interpretation Comments HGB (test code = 718-7) 5.4 g/dL 11.6-15 L Lab Interpretation (test code = Abnormal 89390-1) [facility] with [id number] 09:15:00 Test Item Value Reference Range Interpretation Comments WBC (test code = See_Comment H [Automated 8690-2) message] The system which generated this result transmit toan reference range : 4.30 - 11.10 10*3/?L. The reference range was not used to interpret this result as normal/abnormal . RBC (test code = See_Comment L [Automated 789-8) message] The system which generated this result transmit toan reference range : 3.93 - 5.25 10*6/?L. The reference range was not used to interpret this result as normal/abnormal . HGB (test code = 4.7 g/dL 11.6-15 LL 718-7) HCT (test code = 14.7 % 35.7-45.2 LL 4544-3) MCV (test code = 87.5 fL 80.6-95.5 787-2) MCH (test code = 28.0 pg 25.9-32.8 785-6) MCHC (test code = 32.0 g/dL 31.6-35.1 786-4) RDW-SD (test code = 44.0 fL 39-49.9 16524-2) RDW-CV (test code = 14.3 % 12-15.5 788-0) PLT (test code = See_Comment [Automated 777-3) message] The system which generated this result transmit toan reference range : 166 - 358 10*3/ ?L. The reference range was not u sed to interpret th is result as normal/abnormal . MPV (test code = 12.3 fL 9.5-12.9 00805-4) NRBC/100 WBC (test See_Comment [Automat ed code = 7886568421) message] The system which generated this result transmit toan reference range : 0.0 - 10.0 /100 WBCs. The reference range was not used to interpret this result as normal/abnormal . NRBC x10^3 (test code <0.01 See_Comment [Auto mated = 2517949403) message] The system which generated this result transmit toan reference range : 10*3/?L. The reference range was not used to interpret this result as normal/abnormal . GRAN MAT (NEUT) % 59.0 % (test code = 770-8) IMM GRAN % (test code 2.90 % = 3222415599) LYMPH % (test code = 29.7 % 736-9) MONO % (test code = 8.1 % 5905-5) EOS % (test code = 0.1 % 713-8) BASO % (test code = 0.2 % 706-2) GRAN MAT x10^3(ANC) 10.09 10*3/uL 1.88-7.09 H (test code = 4592244912) IMM GRAN x10^3 (test 0.50 10*3/uL 0-0.06 H code = 7166561796) LYMPH x10^3 (test code 5.09 10*3/uL 1.32-3.29 H = 731-0) MONO x10^3 (test code 1.39 10*3/uL 0.33-0.92 H = 742-7) EOS x10^3 (test code = <0.03 0.03-0.39 L 711-2) BASO x10^3 (test code 0.04 10*3/uL 0.01-0.07 = 704-7) Lab Interpretation Abnormal (test code = 96369-1) [facility] Metabolic Panel (NA, K, CL, CO2, GLUCOSE, BUN, CREATININE, CA)2019-12-29 09:04:00 Test Item Value Reference Range Interpretation Comments NA (test code = 136 mmol/L 135-145 5961058864) K (test code = 3.2 mmol/L 3.5-5 L 4773265544) CL (test code = 110 mmol/L 98-108 H 1333638436) CO2 TOTAL (test code = 23 mmol/L 23-31 7991592461) AGAP (test code = 2-16 6083553142) BUN (test code = 7 mg/dL 7-23 5848571444) GLUCOSE (test code = 171 mg/dL 70-110 H 7335189208) CREATININE (test code = 0.46 mg/dL 0.5-1.04 L 2910096782) CALCIUM (test code = 7.4 mg/dL 8.6-10.6 L 8043014154) eGFR Calculation mL/min/1.73m2 (Non-) (test code = 6466508161) eGFR Calculation mL/min/1.73m2 () (test code = 7361638853) ROSALEE (test code = ROSALEE) Association of Glomerular Filtration Rate (GFR) and Staging of Kidney Disease* + --+ --+ ------+| GFR (mL/min/1.73 m2) ?| With Kidney Damage ?| ?Without Kidney Damage+ --------+ --------+ +| ?>90 ?| ?Stage one ?| ? Normal ?+ ---+ ---+ -------+| ?60-89 ?| ?Stage two ?| ? Decreased GFR ? + --+ --+ ------+| ?30-59 ?| ?Stage three ?| ? Stage three ? + --+ --+ ------+| ?15-29 ?| ?Stage four ? | ? Stage four ?+ ---+ ---+ -------+| ?<15 (or dialysis) ? ?| ?Stage five ? | ? Stage five ?+ ---+ ---+ -------+ *Each stage assumes the associated GFR level has been in effect for at least three months. ?Stages 1 to 5, with or without kidney disease, indicate chronic kidney disease. Notes: Determination of stages one and two (with eGFR >59mL/min/1.73 m2) requires estimation of kidney damage for at least three months as defined by structural or functional abnormalities of the kidney, manifested by either:Pathological abnormalities or Markers of kidney damage (including abnormalities in the composition of the blood or urine or abnormalities in imaging tests). Lab Interpretation Abnormal (test code = 55273-3) [facility]iePANEL [id number] 08:29:59 Test Item Value Reference Range Interpretation Comments ANTIBODY ID (test Anti-E History of antibody of code = 245) undetermined sp ecificity not showingPerf ormed at [facility] Laboratory Services - [facility] Blood Bank[address] [place] [address]Luks Free: [phone] A No. [id number] [facility]iePrepare Packed RBC (in units)2019-12-29 07:06:22 Test Item Value Reference Range Interpretation Comments Unit Blood Type (test O Neg code = 4410) ISBT Blood Type Code (test code = 936507) Unit Number (test code [id number] = 4411) Blood Expiration Date & Time (test code = 504586) Status Information Issued (test code = 4412) Product Identification Red Blood (test code = 4413) Cells Product Code (test N3084W73 Performed at [facility] code = 4414) Laboratory Services - [facility] [address] [place] [address]Qtlz Free: [phone] A No. [id number] [facility]HEMOGLOBIN2020-09-09 06:19:00 Test Item Value Reference Range Interpretation Comments HGB (test code = 718-7) 4.7 g/dL 11.6-15 LL Lab Interpretation (test code = Abnormal 80943-5) [facility]HEMATOCRIT2020-09-09 06:19:00 Test Item Value Reference Range Interpretation Comments HCT (test code = 4544-3) 14.6 % 35.7-45.2 LL Lab Interpretation (test code = Abnormal 28318-1) [facility]ieType and Screen - ONCE [id number] 21:19:49 Test Item Value Reference Range Interpretation Comments ABO & RH (test code O Positive Performe d at [facility] = 20) Laboratory Serv [facility] Blood Bank[address] [place], [place] [id number] Free: [phone] A No. [id number] IAT (test code = Positive Performed a t [facility] 1185) Laboratory Serv [facility] Blood Bank[address] [place] [address]Bels Free: [phone] A No. [id number] [facility]ieCBC with [id number] 20:29:00 Test Item Value Reference Range Interpretation Comments WBC (test code = See_Comment H [Automated 1690-2) message] The system which generated this result transmit toan reference range : 4.30 - 11.10 10*3/?L. The reference range was not used to interpret this result as normal/abnormal . RBC (test code = See_Comment L [Automated 169-8) message] The system which generated this result transmit toan reference range : 3.93 - 5.25 10*6/?L. The reference range was not used to interpret this result as normal/abnormal . HGB (test code = 7.0 g/dL 11.6-15 L 718-7) HCT (test code = 21.3 % 35.7-45.2 L 4544-3) MCV (test code = 85.5 fL 80.6-95.5 787-2) MCH (test code = 28.1 pg 25.9-32.8 785-6) MCHC (test code = 32.9 g/dL 31.6-35.1 786-4) RDW-SD (test code = 42.5 fL 39-49.9 10269-2) RDW-CV (test code = 13.8 % 12-15.5 788-0) PLT (test code = See_Comment [Automated 777-3) message] The system which generated this result transmit toan reference range : 166 - 358 10*3/ ?L. The reference range was not u sed to interpret th is result as normal/abnormal . MPV (test code = 12.7 fL 9.5-12.9 58172-3) NRBC/100 WBC (test See_Comment [Automat ed code = 0635841478) message] The system which generated this result transmit toan reference range : 0.0 - 10.0 /100 WBCs. The reference range was not used to interpret this result as normal/abnormal . NRBC x10^3 (test code <0.01 See_Comment [Auto mated = 0810017631) message] The system which generated this result transmit toan reference range : 10*3/?L. The reference range was not used to interpret this result as normal/abnormal . GRAN MAT (NEUT) % 65.2 % (test code = 770-8) IMM GRAN % (test code 2.60 % = 1949394595) LYMPH % (test code = 25.7 % 736-9) MONO % (test code = 6.1 % 5905-5) EOS % (test code = 0.1 % 713-8) BASO % (test code = 0.3 % 706-2) GRAN MAT x10^3(ANC) 10.95 10*3/uL 1.88-7.09 H (test code = 4073395160) IMM GRAN x10^3 (test 0.43 10*3/uL 0-0.06 H code = 2403444679) LYMPH x10^3 (test code 4.30 10*3/uL 1.32-3.29 H = 731-0) MONO x10^3 (test code 1.02 10*3/uL 0.33-0.92 H = 742-7) EOS x10^3 (test code = <0.03 0.03-0.39 L 711-2) BASO x10^3 (test code 0.05 10*3/uL 0.01-0.07 = 704-7) Lab Interpretation Abnormal (test code = 89658-0) [facility]iePregnancy Test, [id number] 20:22:00 Test Item Value Reference Range Interpretation Comments PREG SERUM (test code Negative = 0518516990) ROSALEE (test code = ROSALEE) Less than 10 IU/L. ?If low titer or ectopic is suspected, resubmit specimen in 48-72 hours. [facility]achieTrpinkyn [id number] 20:18:00 Test Item Value Reference Range Interpretation Comments TROPONIN I (test <0.012 See_Comment [Automated code = 2761701535) message] The system which generated this result transmitted reference range : <=0.034 ng/mL. The reference range was not used to interpr et this result as normal/abnormal . ROSALEE (test code = Equal or Less than ROSALEE) 0.034 ng/ml---Normal ?Note: Cardiac troponin begins to rise 3-4 hours after the onset of ischemia. Repeat in 4-6 hours if the sample was drawn within 3-4 hours of the onset of the symptom and found normal. Between 0.035 and 0.120 ng/mL--- Borderline. Questionable myocardial injury or necrosis ? ?Note: Serial measurement may be necessary to confirm or exclude the diagnosis of myocardial injury or necrosis; Clinical correlation (symptoms, EKGs, imaging studies, and others) required; Repeat in 4-6 hours if clinically indicated. ? Equal or Higher than 0.121 ng/mL---Abnormal. Myocardial Injury or Necrosis Likely ? Biotin has been reported to cause a negative bias, interpret results relative to patient's use of biotin. ? Lab Interpretation Normal (test code = 71960-2) [facility]ieCOVID-19 (ID NOW RAPID TESTING)2019-12-28 20:15:00 Test Item Value Reference Range Interpretation Comments SARS-CoV-2 Rapid ID NOW Not Detected Not Detected (test code = 16628-2) ROASLEE (test code = ROSALEE) ID NOW COVID-19 Assay is an isothermal nucleic acid amplification test intended for the qualitative detection of nucleic acid from SARS-CoV-2 viral RNA in nasopharyngeal (LIBRARY ATTENDANT) specimens. It is used under Emergency Use Authorization (EUA) by FDA. The limit of detection (LOD) of the assay is 125 Genome Equivalents/mL. A positive result is indicative of the presence of SARS-CoV-2 RNA. ?Clinical correlation with patient history and other diagnostic information is necessary to determine patient infection status. A negative (Not Detected) result does not preclude SARS-CoV-2 infection. In patients with clinical symptoms and other tests that are consistent with SARS-CoV-2 infection, negative results should be treated as presumptive negative and a new specimen should be tested with alternative PCR molecular test. Invalid: Please collect a new specimen for repeat patient testing if clinically indicated. Lab Interpretation Normal (test code = 77929-9) [facility]ieHepatic Function Panel (ALB, T.PRO, BILI T, BU/BC, ALT, AST, ALK PHOS)2019-12-28 20:12:00 Test Item Value Reference Range Interpretation Comments TOTAL BILI (test code = 3030070412) <0.1 0.1-1.1 L BILI UNCON (test code = 5459587973) 0.4 mg/dL 0.1-1.1 BILI CONJ (test code = 3651931452) 0.0 mg/dL 0-0.3 T PROTEIN (test code = 4782760846) 5.6 g/dL 6.3-8.2 L ALBUMIN (test code = 8349738759) 2.9 g/dL 3.5-5 L ALK PHOS (test code = 5094640154) 107 U/L 34-122 ALTv (test code = 1742-6) 15 U/L 5-35 AST(SGOT) (test code = 6851621208) 17 U/L 13-40 Lab Interpretation (test code = Abnormal 76095-2) [facility]ieBasic Metabolic Panel (NA, K, CL, CO2, GLUCOSE, BUN, CREATININE, CA)2019-12-28 20:08:00 Test Item Value Reference Range Interpretation Comments NA (test code = 136 mmol/L 135-145 6426879753) K (test code = 3.3 mmol/L 3.5-5 L 1083940720) CL (test code = 106 mmol/L 98-108 9068969498) CO2 TOTAL (test code = 21 mmol/L 23-31 L 0212477521) AGAP (test code = 2-16 0665907760) BUN (test code = 11 mg/dL 7-23 2475534215) GLUCOSE (test code = 227 mg/dL 70-110 H 3416867176) CREATININE (test code = 0.42 mg/dL 0.5-1.04 L 5967520148) CALCIUM (test code = 8.3 mg/dL 8.6-10.6 L 5670630003) eGFR Calculation mL/min/1.73m2 (Non-) (test code = 5057568835) eGFR Calculation mL/min/1.73m2 () (test code = 8803463580) ROSALEE (test code = ROSALEE) Association of Glomerular Filtration Rate (GFR) and Staging of Kidney Disease* + --+ --+ ------+| GFR (mL/min/1.73 m2) ?| With Kidney Damage ?| ?Without Kidney Damage+ --------+ --------+ +| ?>90 ?| ?Stage one ?| ? Normal ?+ ---+ ---+ -------+| ?60-89 ?| ?Stage two ?| ? Decreased GFR ? + --+ --+ ------+| ?30-59 ?| ?Stage three ?| ? Stage three ? + --+ --+ ------+| ?15-29 ?| ?Stage four ? | ? Stage four ?+ ---+ ---+ -------+| ?<15 (or dialysis) ? ?| ?Stage five ? | ? Stage five ?+ ---+ ---+ -------+ *Each stage assumes the associated GFR level has been in effect for at least three months. ?Stages 1 to 5, with or without kidney disease, indicate chronic kidney disease. Notes: Determination of stages one and two (with eGFR >59mL/min/1.73 m2) requires estimation of kidney damage for at least three months as defined by structural or functional abnormalities of the kidney, manifested by either:Pathological abnormalities or Markers of kidney damage (including abnormalities in the composition of the blood or urine or abnormalities in imaging tests). Lab Interpretation Abnormal (test code = 15818-3) [facility]achieLipase [id number] 20:07:00 Test Item Value Reference Range Interpretation Comments LIPASE (test code = 0117061817) 79 U/L 0-220 Lab Interpretation (test code = Normal 86474-3) [facility]achieProthrombin Time (PT) / [id number] 20:02:00 Test Item Value Reference Range Interpretation Comments PROTIME PATIENT (test See_Comment [Auto mated message] code = 5964-2) The system [employer] generated this result transmitted ref erence range: 12.0 - 1 4.7 Seconds. The re ference range was not u sed to interpret this result as normal/abnor mal. INR (test code = 6301-6) Nor mal INR <1.1; Warfarin Therap eutic range 2.0 to 3. 0 or 2.5 to 3.5, dep ending upon the indica tions. Lab Interpretation (test Normal code = 78803-1) [facility]achiePOPA [id number] 20:35:00 Test Item Value Reference Range Interpretation Comments POCT PREG (test code = 1605) Negative On board controls acceptable with C Yes Line (test code = 3574) POCT PREG LOT # (test code = 3575) POCT PREG TEST DATE (test code = 3576) [facility]achiePOCT [id number] 20:35:00 Test Item Value Reference Range Interpretation Comments POCT PREG (test code = 1605) Negative On board controls acceptable with C Yes Line (test code = 3574) POCT PREG LOT # (test code = 3575) POCT PREG TEST DATE (test code = 3576) [facility]"
[2021-04-04] MEDS ORDERED: ONDANSETRON 4 MG/2 ML VIAL ONE (21:57)
[2021-04-04 22:09] LABS: Urine Blood 3+ (Negative); Urine Glucose Negative (Negative); Urine Protein Negative (Negative); Urine pH 7.5 (5.0-7.0)
[2021-04-04 22:23] LABS: Absolute Lymphocytes (CBC) 2.1 K/uL (0.7-4.9); Basophils % 0.4 % (0-1.3); Lymphocytes % 24.3 % (15.3-44.8); MPV 9.5 fL (7.6-11.3); RBC Red Blood Cell Count 2.05 M/uL (3.86-4.86)
[2021-04-04 22:26] LABS: Hematocrit 17.3 % (36.0-45.0)
[2021-04-04 22:41] LABS: BUN Blood Urea Nitrogen 14 mg/dL (7-18); Bicarbonate 26 mmol/L (21-32); Glucose Level 128 mg/dL (74-106); Potassium 3.6 mmol/L (3.5-5.1); Sodium Level 143 mmol/L (136-145)
--- NOTE | 2021-04-04 23:19 | ER ---
Nurse's Notes [facility] Name: Shwetha Hightower Age: 45 yrs Sex: Female : 1975 Arrival Date: 04/04/2021 Time: 20:18 Bed 7 Private MD: Diagnosis: Anemia, unspecified Presentation: 04/04 20:57 Chief complaint: Patient states: I have been having very heavy vaginal bleeding for one ld1 month. Pt reporting nausea, headache, hot flashes \\T\\ generalized weakness. Coronavirus screen: At this time, the client does not indicate any symptoms associated with coronavirus-19. Ebola Screen: No symptoms or risks identified at this time. Initial Sepsis Screen: Does the patient meet any 2 criteria? No. Patient's initial sepsis screen is negative. Does the patient have a suspected source of infection? No. Patient's initial sepsis screen is negative. Risk Assessment: Do you want to hurt yourself or someone else? Patient reports no desire to harm self or others. Onset of symptoms was April 04, 2021. 20:57 Method Of Arrival: Ambulatory ld1 20:57 Acuity: FABIENNE 3 ld1 Triage Assessment: 21:03 General: Appears in no apparent distress. comfortable, Behavior is calm, cooperative, ld1 appropriate for age. Pain: Denies pain. EENT: No signs and/or symptoms were reported regarding the EENT system. Neuro: Level of Consciousness is awake, alert, obeys commands, Oriented to person, place, time, situation, Appropriate for age. Cardiovascular: Capillary refill < 3 seconds Patient's skin is warm and dry. Respiratory: Airway is patent Respiratory effort is even, unlabored, Respiratory pattern is regular, symmetrical. GI: Abdomen is flat, non-distended. : Reports vaginal bleeding that is with clots, heavy flow. Derm: No signs and/or symptoms reported regarding the dermatologic system. Musculoskeletal: No signs and/or symptoms reported regarding the musculoskeletal system. LOSS PREVENTION REPRESENTATIVE: 21:03 LMP 04/04/2021 ld1 Historical: - Allergies: 21:03 No Known Allergies; ld1 - Home Meds: 21:03 None [Active]; ld1 - PMHx: 21:03 None; ld1 - PSHx: 21:03 section; ld1 - Immunization history:: Adult Immunizations up to date, Client reports receiving the 2nd dose of the Covid vaccine. - Social history:: Smoking status: Patient denies any tobacco usage or history of. Patient/guardian denies using alcohol. Screenin:05 Abuse screen: Denies threats or abuse. Denies injuries from another. Nutritional ld1 screening: No deficits noted. Tuberculosis screening: No symptoms or risk factors identified. Fall Risk None identified. Assessment: 21:05 Reassessment: See triage assessment. ld1 23:02 Reassessment: Patient and/or family updated on plan of care and expected duration. Pain as6 level reassessed. Patient is alert, oriented x 3, equal unlabored respirations, skin warm/dry/pink. Neuro: Reports weakness. Cardiovascular: Reports fatigue. 04/05 00:01 Neuro: Level of Consciousness is awake, alert, obeys commands, Oriented to person, mk place, time, situation, Moves all extremities. Reports weakness generalized. Cardiovascular: Reports fatigue, Heart tones S1 S2 Capillary refill < 3 seconds fingers toes Patient's skin is warm and dry. pale nailbeds and mucous membranes. Pulses are 2+ in right radial artery, right dorsalis pedis artery, left radial artery and left dorsalis pedis artery Rhythm is sinus rhythm. Respiratory: Airway is patent Respiratory effort is even, unlabored, Respiratory pattern is regular, symmetrical, Breath sounds are clear. GI: Abdomen is flat, Bowel sounds Abd is soft and non tender X 4 quads. GI: : No signs and/or symptoms were reported regarding the genitourinary system. : Reports vaginal bleeding that is reports heavy periods, ongoing issue she has seen an OBGYN regarding but has no findings suggesting a reason for this. Derm: No signs and/or symptoms reported regarding the dermatologic system. Musculoskeletal: No signs and/or symptoms reported regarding the musculoskeletal system. Musculoskeletal: No signs and/or symptoms reported regarding the musculoskeletal system. 01:03 Reassessment: Patient appears in no apparent distress at this time. No changes from mk previously documented assessment. Patient and/or family updated on plan of care and expected duration. Pain level reassessed. RN called lab, spoke with Chavo regarding blood. Chavo informed this RN that the blood showed the pt had antibodies. Will continue to monitor. Pt denies bad reactions to blood transfusions in the past. 03:39 Reassessment: blood transfusion being preformed, see paper charting. as6 Vital Signs: 04/04 20:57 BP 117 / 74; Pulse 112; Resp 18; Temp 98.2(TE); Pulse Ox 98% on R/A; Weight 72.57 kg; ld1 Height 5 ft. 5 in. (165.10 cm); Pain 0/10; 23:03 BP 109 / 70; Pulse 95; Resp 16 S; Pulse Ox 100% on R/A; as6 04/05 00:02 BP 98 / 61; Pulse 86; Resp 18; Pulse Ox 98% on R/A; mk 01:04 BP 107 / 75; Pulse 86; Resp 18; Pulse Ox 99% on R/A; mk 02:05 BP 107 / 67; Pulse 96; Resp 18; Pulse Ox 97% on R/A; as6 02:54 BP 114 / 65; Pulse 95; Resp 18 S; Pulse Ox 100% on R/A; as6 03:50 BP 91 / 65; Pulse 97; Resp 15; Temp 98.8; Pulse Ox 99% on R/A; mk 04/04 20:57 Body Mass Index 26.63 (72.57 kg, 165.10 cm) ld1 [place] Coma Score: 04/04 23:03 Eye Response: spontaneous(4). Verbal Response: oriented(5). Motor Response: obeys mk commands(6). Total: 15. 04/05 00:02 Eye Response: spontaneous(4). Verbal Response: oriented(5). Motor Response: obeys mk commands(6). Total: 15. 01:04 Eye Response: spontaneous(4). Verbal Response: oriented(5). Motor Response: obeys mk commands(6). Total: 15. 02:05 Eye Response: spontaneous(4). Verbal Response: oriented(5). Motor Response: obeys as6 commands(6). Total: 15. 03:50 Eye Response: spontaneous(4). Verbal Response: oriented(5). Motor Response: obeys mk commands(6). Total: 15. ED Course: 04/04 20:18 Patient arrived in ED. kc5 20:46 Mavis King MD is Attending Physician. sp3 20:54 Nargis Kendrick RN is Primary Nurse. ld1 21:03 Triage completed. ld1 21:03 Arm band placed on right wrist. ld1 21:05 Patient has correct armband on for positive identification. Placed in gown. Bed in low ld1 position. Call light in reach. Side rails up X2. health and wellness sales consultant on. Pulse ox on. NIBP on. Door closed. Noise minimized. Warm blanket given. 21:05 No provider procedures requiring assistance completed. ld1 21:29 Prince Clement PA is PHCP. jr8 21:29 Mavis King MD is Attending Physician. jr8 23:17 Taiwo Coffey is Hospitalizing Provider. jr8 04/05 00:53 IV is patent, is intact. 02:41 COVID-19 SARS RT PCR (Document "Date of Onset" if Symptomatic) Sent. as6 04:52 Patient admitted, IV remains in place. as6 Administered Medications: 04/04 22:03 Drug: Zofran (Ondansetron) 4 mg Route: IVP; Site: right antecubital; ld1 22:16 Follow up: Response: No adverse reaction ld1 04/05 02:50 Drug: Benadryl (diphenhydrAMINE) 12.5 mg Route: IVP; Site: right antecubital; as6 03:40 Follow up: Response: No adverse reaction as6 02:51 Drug: Tylenol 650 mg Route: PO; as6 03:40 Follow up: Response: No adverse reaction as6 Outcome: 04/04 23:18 Decision to Hospitalize by Provider. jr8 04/05 04:52 Admitted to Med/surg accompanied by nurse, via wheelchair, room 230, with chart, Report as6 called to Dalia BRIDGES Condition: stable 04:52 Patient left the ED. as6 Signatures: Prince Clement PA PA jr8 Nargis Kendrick, RN RN ld1 Mavis King MD MD sp3 Tomas Redd RN RN as6 Fiona Portillo 5 Debbi Ha RN RN jame Corrections: (The following items were deleted from the chart) 04/04 21:04 21:03 Home Meds: calcium; ld1 ld1 21:04 21:03 Home Meds: Iron CR Oral; ld1 ld1
--- NOTE | 2021-04-04 23:19 | EDPHYS ---
Physician Documentation [facility] Name: Shwetha Hightower Age: 45 yrs Sex: Female : 1975 Arrival Date: 04/04/2021 Time: 20:18 Bed 7 Private MD: ED Physician Mavis King HPI: 04/04 21:59 This 45 yrs old Female presents to ER via Ambulatory with complaints of jr8 Vaginal Bleeding, Nausea. 21:59 45-year-old female presents with x1 month. Patient states bleeding is intermittently jr8 heavy and she began experiencing nausea and palpitations today. Patient states she has a history of vaginal bleeding that required blood transfusion 1 year ago. Patient did not follow-up with gynecology. Patient denies fever, shortness of breath, chest pain, abdominal pain, or back pain. Patient denies any medical history takes no medications has history of .. 22:10 The patient has experienced similar episodes in the past, a few times. The patient has jr8 not recently seen a physician. 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 - Social history:: Smoking status: Patient denies any tobacco usage or history of. Patient/guardian denies using alcohol. ROS: 22:10 Constitutional: Negative for fever, chills, and weight loss, Respiratory: Negative for jr8 shortness of breath, cough, wheezing, and pleuritic chest pain, Back: Negative for injury and pain, MS/Extremity: Negative for injury and deformity, Skin: Negative for injury, rash, and discoloration, Neuro: Negative for headache, weakness, numbness, tingling, and seizure. 22:10 Cardiovascular: Positive for palpitations. 22:10 Abdomen/GI: Positive for nausea, Negative for abdominal pain, vomiting, diarrhea. 22:10 : Positive for vaginal bleeding. Exam: 22:10 Constitutional: This is a well developed, well nourished patient who is awake, alert, jr8 and in no acute distress. Eyes: Pupils equal round and reactive to light, extra-ocular motions intact. Lids and lashes normal. Conjunctiva and sclera are non-icteric and not injected. Cornea within normal limits. Periorbital areas with no swelling, redness, or edema. Neck: Trachea midline, no thyromegaly or masses palpated, and no cervical lymphadenopathy. Supple, full range of motion without nuchal rigidity, or vertebral point tenderness. No Meningismus. Respiratory: Lungs have equal breath sounds bilaterally, clear to auscultation and percussion. No rales, rhonchi or wheezes noted. No increased work of breathing, no retractions or nasal flaring. Abdomen/GI: Soft, non-tender, with normal bowel sounds. No distension or tympany. No guarding or rebound. No evidence of tenderness throughout. Back: No spinal tenderness. No costovertebral tenderness. Full range of motion. Skin: Warm, dry with normal turgor. Normal color with no rashes, no lesions, and no evidence of cellulitis. MS/ Extremity: Pulses equal, no cyanosis. Neurovascular intact. Full, normal range of motion. Neuro: Awake and alert, GCS 15, oriented to person, place, time, and situation. Cranial nerves II-XII grossly intact. Motor strength 5/5 in all extremities. Sensory grossly intact. 22:10 Cardiovascular: Rate: tachycardic, Rhythm: regular, Pulses: Pulses are 2+ in right radial artery and left radial artery. Heart sounds: normal, normal S1and S2, no S3 or S4, no murmur, no rub, no gallop, Edema: is not appreciated, JVD: is not appreciated. Vital Signs: 20:57 BP 117 / 74; Pulse 112; Resp 18; Temp 98.2(TE); Pulse Ox 98% on R/A; Weight 72.57 kg; ld1 Height 5 ft. 5 in. (165.10 cm); Pain 0/10; 23:03 BP 109 / 70; Pulse 95; Resp 16 S; Pulse Ox 100% on R/A; as6 12/16 00:02 BP 98 / 61; Pulse 86; Resp 18; Pulse Ox 98% on R/A; mk 01:04 BP 107 / 75; Pulse 86; Resp 18; Pulse Ox 99% on R/A; mk 02:05 BP 107 / 67; Pulse 96; Resp 18; Pulse Ox 97% on R/A; as6 02:54 BP 114 / 65; Pulse 95; Resp 18 S; Pulse Ox 100% on R/A; as6 03:50 BP 91 / 65; Pulse 97; Resp 15; Temp 98.8; Pulse Ox 99% on R/A; mk 04/04 20:57 Body Mass Index 26.63 (72.57 kg, 165.10 cm) ld1 [place] Coma Score: 04/04 23:03 Eye Response: spontaneous(4). Verbal Response: oriented(5). Motor Response: obeys mk commands(6). Total: 15. 04/05 00:02 Eye Response: spontaneous(4). Verbal Response: oriented(5). Motor Response: obeys mk commands(6). Total: 15. 01:04 Eye Response: spontaneous(4). Verbal Response: oriented(5). Motor Response: obeys mk commands(6). Total: 15. 02:05 Eye Response: spontaneous(4). Verbal Response: oriented(5). Motor Response: obeys as6 commands(6). Total: 15. 03:50 Eye Response: spontaneous(4). Verbal Response: oriented(5). Motor Response: obeys mk commands(6). Total: 15. MDM: 04/04 21:29 Patient medically screened. [facility] 23:17 Data reviewed: vital signs, nurses notes, lab test result(s), and as a result, I will [facility] admit patient. Data interpreted: Pulse oximetry: on room air is 100 %. Interpretation: normal. Counseling: I had a detailed discussion with the patient and/or guardian regarding: the historical points, exam findings, and any diagnostic results supporting the discharge/admit diagnosis, lab results, the need for further work-up and treatment in the hospital. 04/04 21:54 Order name: Basic Metabolic Panel; Complete Time: 23:04 [facility] 04/04 21:54 Order name: CBC with Diff; Complete Time: 01:06 [facility] 04/04 21:54 Order name: TS [facility] 04/04 22:09 Order name: Urine Dipstick-Ancillary; Complete Time: 22:10 EDMS 04/04 22:09 Order name: Urine --Ancillary (enter results); Complete Time: 22:21 [facility] 04/04 22:27 Order name: Manual Differential; Complete Time: 01:06 [facility] 04/04 23:16 Order name: Packed RBC Leukored [facility] 04/04 23:23 Order name: Antibody Identification [facility] 04/05 01:50 Order name: COVID-19 SARS RT PCR (Document "Date of Onset" if Symptomatic) [facility] 04/05 03:23 Order name: SARS-COV-2 RT PCR [facility] 04/04 21:54 Order name: IV Saline Lock; Complete Time: 22:16 [facility] 04/04 21:54 Order name: Labs collected and sent; Complete Time: 22:16 [facility] 04/04 21:54 Order name: Urine Dipstick-Ancillary (obtain specimen); Complete Time: 22:15 [facility] 04/04 21:54 Order name: Urine Test (obtain specimen); Complete Time: 22:15 [facility] 04/04 23:05 Order name: Transfuse; Complete Time: 03:40 jr8 Administered Medications: 22:03 Drug: Zofran (Ondansetron) 4 mg Route: IVP; Site: right antecubital; ld1 22:16 Follow up: Response: No adverse reaction ld1 12 02:50 Drug: Benadryl (diphenhydrAMINE) 12.5 mg Route: IVP; Site: right antecubital; as6 03:40 Follow up: Response: No adverse reaction as6 02:51 Drug: Tylenol 650 mg Route: PO; as6 03:40 Follow up: Response: No adverse reaction as6 Disposition: 19:45 Co-signature as Attending Physician, Mavis King MD I agree with the assessment and sp3 plan of care. Disposition Summary: 04/04/21 23:18 Hospitalization Ordered Hospitalization Status: Observation jr8 Provider: Taiwo Coffey jr8 Location: Telemetry/MedSurg (observation) 8 Condition: Stable jr8 Problem: new jr8 Symptoms: have improved jr8 Bed/Room Type: Standard [facility] Room Assignment: 230(04/05/21 03:32) eb1 Diagnosis - Anemia, unspecified jr8 Forms: - Medication Reconciliation Form jr8 - SBAR form jr8 Signatures: Dispatcher [employer] EDPrince Miller PA PA jr8 Rose Ahuja RN RN eb1 Nargis Kendrick RN RN ld1 Mavis King MD MD sp3 Tomas Redd RN RN as6 Corrections: (The following items were deleted from the chart) 04/04 21:04 21:03 Home Meds: calcium; ld1 ld1 21:04 21:03 Home Meds: Iron CR Oral; ld1 ld1 23:15 23:06 ABO/RH typing ordered. EDMS EDMS 23:16 23:06 PACKED RBC LEUKORED -1+BB.LAB.BRZ ordered. EDMS EDMS 23:16 23:06 Antibody Screen ordered. EDMS EDMS 23:18 23:18 Amenorrhea, unspecified jr8 jr8 04/05 03:32 04/04 23:18 jr8 eb1
[2021-04-04 23:36] LABS: Blood Morphology Comment NOTED (NOT SEEN); Platelet Estimate ADEQ; Polychromasia 3+
--- NOTE | 2021-04-05 00:13 | P.HP ---
Certification for Inpatient Patient admitted to: Inpatient With expected LOS: <2 Midnights Patient will require the following post-hospital care: None Practitioner: I am a practitioner with admitting privileges, knowledge of patient current condition, hospital course, and medical plan of care. Services: Services provided to patient in accordance with Admission requirements found in Title 42 Section 412.3 of the Code of Federal Regulations Patient History Date of Service: 04/04/21 Primary Care Provider: ASIF Hernandez Reason for admission: anemia requiring transfusions History of Present Illness: Ms. Hightower is a 45 yo F who presents with fatigue, palpitations, nausea, headache, and shaking in her legs beginning last night. Hemoglobin found to be 5.3. She said she had anemia requiring blood transfusions about 1 year ago. Since then she has been taking iron pills and has been on the Depo Provera shot. However, she was in a program in order to obtain the shot and the program ended. She was supposed to get another shot in February which she was not able to. She has had heavy menstruation cycles that do not occur when she is on the Depo shot. Allergies No Known Allergies Allergy (Verified 10/17/16 05:19) Home Medications: NK [No Home Meds] 10/17/16 - Past Medical/Surgical History Diabetic: Yes -: Gestational diabetes -: iron deficiency anemia -: C section - Family History Family History: Reviewed- Non-Contributory - Social History Smoking Status: Never smoker Alcohol use: No CD- Drugs: No Caffeine use: Yes Place of Residence: Home Review of Systems 10-point ROS is otherwise unremarkable General: Malaise Eyes: Unremarkable ENT: Unremarkable Respiratory: Unremarkable Cardiovascular: Palpitations Gastrointestinal: Unremarkable Genitourinary: Unremarkable Musculoskeletal: Unremarkable Integumentary: Unremarkable Neurological: Unremarkable Lymphatics: Unremarkable Physical Examination - Physical Exam General: Alert, In no apparent distress HEENT: Atraumatic, PERRLA, Mucous membr. moist/pink, EOMI, Sclerae nonicteric Neck: Supple, 2+ carotid pulse no bruit, No LAD, Without JVD or thyroid abnormality Respiratory: Clear to auscultation bilaterally, Normal air movement Cardiovascular: Regular rate/rhythm, Normal S1 S2 Gastrointestinal: Normal bowel sounds, No tenderness Musculoskeletal: No tenderness Integumentary: No rashes Neurological: Normal speech, Normal strength at 5/5 x4 extr, Normal tone, Normal affect Lymphatics: No axilla or inguinal lymphadenopathy - Studies Laboratory Data (last 24 hrs) 04/04/21 22:05: WBC 8.60, Hgb 5.3 L*, Hct 17.3 L*, Plt Count 299 04/04/21 22:05: Sodium 143, Potassium 3.6, BUN 14, Creatinine 0.60, Glucose 128 H Assessment and Plan - Problems (Diagnosis) (1) Menorrhagia Onset Date: 10/17/16 Current Visit: No Status: Chronic Qualifiers: Menorrhagia type: with onset of menstrual periods Qualified Code(s): N92.2 - Excessive menstruation at puberty (2) Symptomatic anemia Onset Date: 10/17/16 Current Visit: No Status: Acute - Plan 2 units pRBCs ordered in the ED will order 2 hour post hemoglobin and hematocrit transvaginal US pending iron panel pending TSH/T4 pending, A1c pending will give Depo shot tonight DVT ppx Discharge Plan: Home Plan to discharge in: 48 Hours - Advance Directives Does patient have a Living Will: No Does patient have a Durable POA for Healthcare: No - Code Status/Comfort Care Code Status Assessed: Yes (full code ) Critical Care: No Time Spent Managing Pts Care (In Minutes): 70
[2021-04-05] MEDS ORDERED: NA CHLORIDE 0.9% 250 ML ONE ×2 (02:36→05:13)
[2021-04-05] MEDS ORDERED: DIPHENHYDRAMINE 50 MG/ML VIAL ONE (02:43)
[2021-04-05] MEDS ORDERED: ACETAMINOPHEN 325 MG TABLET ONE (02:44)
[2021-04-05] MEDS ORDERED: ACETAMINOPHEN 500 MG TAB PO PRN (04:11)
[2021-04-05] MEDS ORDERED: ONDANSETRON 4 MG/2 ML VIAL IV PRN (04:11)
[2021-04-05] MEDS ORDERED: MEDROXYPROGEST ACET 150 MG/ML IM SCH (04:11)
[2021-04-05] MEDS ORDERED: NA CHLORIDE 0.9% 1,000 ML IV SCH (04:11)
[2021-04-05 05:35] VITALS: BMI 26.6
[2021-04-05] MEDS: INSULIN -REGULAR HUMAN 50 UNIT/0.5 ML ML SQ SCH ×3 (07:30→16:30)
--- NOTE | 2021-04-05 07:41 | RAD REPORT ---
EXAM DESCRIPTION: US - TRANSVAG OB - 04/05/2021 6:28 am CLINICAL HISTORY: menorrhagia COMPARISON: August 2020 FINDINGS: The uterus measures 9 x 5 x 5 centimeters. A gestational sac is not visualized within the endometrium. Endometrial stripe 7 millimeters. Previously described fibroid is not clearly visualize d on this exam. The ovaries are normal in size echotexture. Right and left adnexa unremarkable. No significant free fluid IMPRESSION: A gestational sac is not visualized within the endometrium. If the patient is beta HCG p ositive then this may represent an early IUP in which the gestational sac is not yet seen. a nd even an ectopic can also result in this appearance. This all should be correlated clinic ally and if needed serial beta HCG levels and followup endovaginal sonogram in 1 week
--- NOTE | 2021-04-05 10:33 | P.DS ---
Admission Date: 04/04/21 Discharge Date: 04/05/21 Primary Care Provider: ASIF Hernandez Disposition: ROUTINE DISCHARGE Discharge Condition: FAIR Reason for Admission: anemia requiring transfusions - Problems (1) Acute blood loss anemia Current Visit: Yes Status: Acute (2) Menorrhagia Onset Date: 10/17/16 Current Visit: No Status: Chronic Qualifiers: Menorrhagia type: with onset of menstrual periods Qualified Code(s): N92.2 - Excessive menstruation at puberty Brief History of Present Illness: Ms. Hightower is a 45 yo F who presented with fatigue, palpitations, nausea, he adache. Hemoglobin found to be 5.3. She said she had anemia requiring blood transfusions about 1 year ago. Since then she has been taking iron pills and has been on the Depo Provera shot. However, she was in a program in order to obtain the shot and the program ended. She was supposed to get another shot in February which she was not able to. She has had heavy menstruation cycles that do not occur when she is on the Depo shot. Patient hospitalized for blood transfusion. Hospital Course: Patient admitted to the medical floor and given 2 unit PRBC transfusion. Post-t ransfusion hemoglobin is 7.5. Urine test negative. Transvaginal sonogram unremarkable. Patient need Depo Provera injection. REPRESENTATIVE consulted. Dr. Baker will see patient in the office for the Depo-Provera injection. Patient prescribed iron supplements for anemia. She is clinically stable for discharge. Vital Signs/Physical Exam: Temp Pulse Resp BP Pulse Ox 97.6 F 76 18 102/72 99 04/05/21 08:00 04/05/21 08:00 04/05/21 08:00 04/05/21 08:00 04/05/21 08:00 General: Alert, In no apparent distress, Oriented x3 HEENT: Mucous membr. moist/pink, Sclerae nonicteric Respiratory: Clear to auscultation bilaterally, Normal air movement Cardiovascular: No edema, Regular rate/rhythm, Normal S1 S2 Gastrointestinal: Soft and benign, Non-distended Musculoskeletal: No swelling Integumentary: No rashes Neurological: Normal strength at 5/5 x4 extr Laboratory Data at Discharge: WBC 8.60 K/uL (4.3-10.9) 04/04/21 22:05 Hgb Cancelled 04/05/21 04:11 Hct Cancelled 04/05/21 04:11 Plt Count 299 K/uL (152-406) 04/04/21 22:05 Sodium 143 mmol/L (136-145) 04/04/21 22:05 Potassium 3.6 mmol/L (3.5-5.1) 04/04/21 22:05 BUN 14 mg/dL (7-18) 04/04/21 22:05 Creatinine 0.60 mg/dL (0.55-1.3) 04/04/21 22:05 Glucose 128 mg/dL (74-106) H 04/04/21 22:05 Home Medications: Iron Polysaccharide Complex [Hematex] 150 mg PO DAILY #30 tablet 04/05/21 New Medications: Iron Polysaccharide Complex [Hematex] 150 mg PO DAILY #30 tablet Diet: AHA Activity: Ad conrad Followup: Livier Baker MD [ACTIVE - CAN ADMIT] - 1-2 Days NONE,NONE [Primary Care Provider] - Time spent managing pt's care (in minutes): 35
[2021-04-05 11:27] LABS: Absolute Lymphocytes (CBC) 2.7 K/uL (0.7-4.9); Basophils % 0.3 % (0-1.3); Hematocrit 22.3 % (36.0-45.0); Lymphocytes % 29.2 % (15.3-44.8); MPV 9.4 fL (7.6-11.3); RBC Red Blood Cell Count 2.69 M/uL (3.86-4.86)
[2021-04-05 12:18] LABS: ALT/SGPT 29 U/L (12-78); AST/SGOT 15 U/L (15-37); Albumin 2.6 g/dL (3.4-5.0); Alkaline Phosphatase 99 U/L (45-117); BUN Blood Urea Nitrogen 16 mg/dL (7-18); Bicarbonate 25 mmol/L (21-32); Bilirubin Total 0.4 mg/dL (0.2-1.0); Glucose Level 111 mg/dL (74-106); HDL Cholesterol 28 mg/dL (40-60); LDL Cholesterol, Calculated 41 (<130); Phosphorus 3.1 mg/dL (2.5-4.9); Potassium 3.3 mmol/L (3.5-5.1); Sodium Level 142 mmol/L (136-145); Transferrin 190 mg/dL (200-360)
[2021-04-05] MEDS ORDERED: INFLUENZA VACCINE (for 6+ mo) 0.5 ML DOSE IMVAC ONE (14:00)
[2021-04-05 17:12] VITALS: BP 120/77; TEMP 97.8; O2SAT 98
[2021-04-05] MEDS ORDERED: POTASSIUM CL SA 10 MEQ TAB PO ONE (18:00)
== END 2021-04-05 18:28 | disposition home or self-care (01) | DRG 760 ==
LOC: ER 20:16 → ERHOLD 23:43 → 2ND 04-05 03:46
PROVIDERS: ADMIT Internal Medicine; ATTEND Internal Medicine
PROC: 30233N1 Transfusion of Nonautologous Red Blood Cells into Peripheral Vein, Percutaneous Approach (ICD-10-PCS; principal; 2021-04-04)
DX: N92.0 Excessive and frequent menstruation with regular cycle (principal); D62 Acute posthemorrhagic anemia; Z20.822 Contact with and (suspected) exposure to COVID-19; Z23 Encounter for immunization
CPT/HCPCS: 36415; 76813; 80048; 80053; 80061; 81003; 81025; 82607; 82728; 82747; 82947; 83036; 83540; 83735; 84100; 84439; 84443; 84466; 85025; 86850; 86870; 86900; 86901; 86922; 90471; 96374; 96375; 99285; J1050; J1200; J2405; J7030; J7050; P9016; Q2035; U0003

== ENCOUNTER 2024-05-31 08:05 | Emergency (ER) | payer OTHER, SELFPAY ==
--- OUTSIDE RECORDS SUMMARY | 2024-05-31 08:11 | XMS REPORT | Continuity of Care Document ---
Author Name Unknown Address [address] [facility] [place] [address] [facility] Address [address] [facility] [address] [place] [address] Care Team Providers Care Moss Bleacher Name Role Phone CATHY GARCIA Primary Care Physician Unav ailable [email or web address]_S Attending Clinician Unavaila HIRAM Thomas Attending Clinician Unavailabl e Visit, [facility] Nurse Attending Clinician Unava ilable Jose WHBRENNAPCathy Attending Clinician + CATHY GARCIA Attending Clinician Unavail able Irma Hussein Attending Clinician [phone] IRMA SNYDER Attending Clinician Unavailab Juan Peralta MD Attending Clinician [phone] John Rosas MD Attending Clinician [phone] SUZANNE DARBY Attending Clinician Unavailable Suzanne Darby MD Attending Clinician [phone] Doctor Unassigned, [place] Attending Clinician U navailable Pgy3 Attending Clinician Unavailable Keagan Clark MD Attending Clinician [phone] Lab, [facility] Attending Clinician Unavailable Christiano TRUONG, Debbie Attending Clinician [phone]- [phone] [facility] Attending Clinician Unavailab Alexa Nance MD Attending Clinician Roselyn Valero Attending Clinician [phone] Wilberto TRUONG, Arley Jones Attending Clinician [phone] Raul TRUONG, Vineet Attending Clinician [phone] [email or web address]_S Admitting Clinician Krzysztof Mendoza MD, Juan Jurgen Admitting Clinician [phone] Raul TRUONG, Vineet Admitting Clinician [phone] Payers Payer Name Policy Type Policy Number Effective Date Expirati on Date Source [employer] 0-100% [id number] 2019 00:00:00 Problems Condition Name Condition Details Condition Category Status Onset Date Resolution Date Last Treatment Date Treating Clinician Comments Source Menorrhagi a with regular cycle Menorrhagi a with regular cycle Disease Active 10-09 00:00: 00 [facility] Feeling tired Feeling tired Disease Active 10-09 00:00: 00 [facility] Weight gain Weight gain Disease Active 10-09 00:00: 00 [facility] Symptomati c anemia Symptomati c anemia Disease Active 12-27 00:00: 00 [facility] Depo-Prove ra contracept goyo status Depo-Prove ra contracept goyo status Disease Active 10-04 00:00: 00 [facility] Class 1 obesity with body mass index (BMI) of 32.0 to 32.9 in adult, unspecifie d obesity type, unspecifie d whether serious comorbidit y present Class 1 obesity with body mass index (BMI) of 32.0 to 32.9 in adult, unspecifie d obesity type, unspecifie d whether serious comorbidit y present Disease Active 10-04 00:00: 00 [facility] BMI 32.0-32.9, adult BMI 32.0-32.9, adult Disease Active 10-04 00:00: 00 [facility] Encounter for surveillan ce of injectable contracept goyo Encounter for surveillan ce of injectable contracept goyo Disease Active 10-04 00:00: 00 [facility] Well woman exam (no gynecologi maria luisa exam) Well woman exam (no gynecologi maria luisa exam) Disease Active 4-10 00:00: 00 [facility] Research study patient Research study patient Disease Active 2- 00:00: 00 Overview: Formattin g of this note might be different from the original. Patient is in the HCTZ study IRB # [id number] y questions please contact:Mitchell Tipton MD [phone] Suarez MD [phone] Nuñez MD [phone] facts Patient randomize d after delivery if they met inclusion criteria a nd accepted Medicati on comes from [facility] not pharmacy, [facility] Phone Number Ext. 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 Failed 1hr 207mgdl [facility] BMI 28.0-28.9, adult BMI 28.0-28.9, adult Disease Active 8 00:00: 00 [facility] Allergies, Adverse Reactions, Alerts Allergy Name Allergy Type Status Severity Reaction(s) Onset Date Inactive Date Treating Clinician Comments Source NO KNOWN ALLERGIE S Drug Class Active [facility] Social History Social Habit Start Date Stop Date Quantity Comments Source Exposure to SARS-CoV-2 (event) Not sure [facility] Tobacco use and exposure 2020-12-04 00:00:00 2020-12-04 00:00:00 Never used [facility] Alcohol intake 2020-12-04 00:00:00 2020-12-04 00:00:00 Current non-drinker of alcohol (finding) [facility] Sex Assigned At 1975 00:00:00 1975 00:00:00 [facility] Smoking Status Start Date Stop Date Source Never smoker [facility] Medications Ordered Medication Name Filled Medication Name Start Date Stop Date Current Medication? Ordering Clinician Indication Dosage Frequency Signature (SIG) Comments Components Source medroxyPROG ESTERone (DEPO-PROVE RA) injection 150 mg 12-04 19:45: 00 12-04 18:38 :00 No [id number] 150mg [facility] vitamin B-12 100 mcg tablet 10-09 20:30: 22 Yes [id number] 50ug Take 50 mcg by mouth daily. [facility] vitamin C (VITAMIN C) 100 mg tablet 10-09 20:30: 22 Yes 100mg Take 100 mg by mouth daily. [facility] Nitrofurant oin&Nit. Macrocryst (MACROBID) 100 mg capsule 09-15 00:00: 00 09-26 04:59 :00 No [id number] 100mg Take 1 capsule by mouth 2 (two) times daily for 10 days. [facility] NaCl 0.9% (NS) bolus infusion 1,000 mL 09-12 03:45: 00 09-12 04:00 :00 No 1000mL at 999 mL/hr, 1,000 mL, IV Infusion, ONCE, 1 dose, Fri09/11/20 at 2245, STAT [facility] acetaminoph en (TYLENOL) tablet 975 mg 09-12 02:00: 00 09-12 01:18 :00 No 975mg 975 mg, Oral, ONCE, 1 dose, Fri09/11/20 at 2100, ROSANNE [facility] calcium carbonate (CALCIUM 500 ORAL) 910 19:03: 06 Yes 2{tbl} Take 2 tablets by mouth daily. [facility] KCL (KLOR-CON M20) tablet 40 mEq 12-29 18:15: 00 12-29 18:27 :00 No 40meq 40 mEq, Oral, ONCE, 1 dose, [place] 12/30/19 at 1315, Routine [facility] KCL (KLOR-CON M20) tablet 40 mEq 12-29 14:30: 00 12-29 14:25 :00 No 40meq 40 mEq, Oral, ONCE, 1 dose, [place] 12/30/19 at 0930, Routine [facility] medroxyPROG ESTERone (DEPO-PROVE RA) injection 150 mg 12-29 00:00: 00 12-29 00:40 :00 No 150mg 150 mg, Intramuscu lar, ONCE, 1 dose, Fri12/29/19 at 1900, Routine [facility] Sliding Scale Insulin-Reg ular + Fsbg Testing 12-28 21:30: 00 Yes Subcutaneo us, AC+HS, First dose on Fri12/29/19 at 1630, Until Discontinu ed, Routine [facility] furosemide (LASIX) injection 20 mg 12-28 21:30: 00 12-28 21:46 :00 No 20mg 20 mg, Slow IV Push, ONCE, 1 dose, Fri12/29/19 at 1630, Routine [facility] conjugated estrogens (PREMARIN) injection 25 mg 12-28 20:45: 00 12-28 21:21 :00 No 25mg 25 mg, Intravenou s, ONCE, 1 dose, Fri12/29/19 at 1545, Routine [facility] glucagon (GLUCAGEN DIAGNOSTIC KIT) injection 1 mg 12-28 16:42: 21 Yes 1mg 1 mg, Intramuscu lar, PRN, Starting Fri12/29/19 at 1142, Until Discontinu ed, ROSANNE, Blood Glucose < or = 70 mg/dL and patient is unable to swallow or has mental changes. [facility] dextrose 50 % in water (D50W) injection 25 mL 12-28 16:42: 20 Yes 25mL 25 mL, Slow IV Push, PRN, Starting Fri12/29/19 at 1142, Until Discontinu ed, ROSANNE, Blood Glucose < or = 70 mg/dL and patient is unable to swallow or has mental status changes. [facility] conjugated estrogens (PREMARIN) injection 25 mg 12-28 14:00: 00 12-28 14:45 :00 No 25mg 25 mg, Intravenou s, Q6H ABX, 1 dose, First dose (after last reorder) on Fri12/29/19 at 0900, Routine [facility] proMETHazin e (PHENERGAN) 25 mg in NaCl 0.9% (NS) 50 mL IV piggyback 12-28 12:24: 50 Yes 25mg 25 mg, IV Piggyback, Q4HPRN, Starting Fri12/29/19 at 0724, Until Discontinu ed, Routine, N/V unresponsi ve to Ondansetro n [facility] acetaminoph en (TYLENOL) tablet 650 mg 12-28 08:45: 00 12-28 07:42 :00 No 650mg 650 mg, Oral, ONCE, 1 dose, Fri12/29/19 at 0345, Routine [facility] diphenhydrA MINE (BENADRYL) capsule 50 mg 12-28 08:45: 00 12-28 08:45 :00 No 50mg 50 mg, Oral, ONCE, 1 dose, Fri12/29/19 at 0345, Routine [facility] KCL (KLOR-CON M20) tablet 60 mEq 12-28 07:30: 00 12-28 07:09 :00 No 60meq 60 mEq, Oral, ONCE, 1 dose, Fri12/29/19 at 0230, Routine [facility] NaCl 0.9% (NS) IV infusion 1,000 mL 12-28 07:30: 00 12-28 06:28 :00 No 1000mL at 125 mL/hr, IV Infusion, ONCE, 1 dose, Fri12/29/19 at 0230, Routine [facility] conjugated estrogens (PREMARIN) injection 25 mg 12-28 05:00: 00 12-28 08:01 :00 No 25mg 25 mg, Intravenou s, Q6H, 2 doses, First dose on Fri12/29/19 at 0000, Last dose on Fri12/29/19 at 0600, Routine [facility] ondansetron (ZOFRAN (PF)) injection 4 mg 12-28 00:11: 50 Yes 4mg 4 mg, Slow IV Push, Q6HPRN, Starting Fri12/28/19 at 191, Until Discontinu ed, Routine, Nausea and Vomiting (N/V) [facility] acetaminoph en (TYLENOL) tablet 650 mg 12-28 00:11: 42 Yes 650mg 650 mg, Oral, Q6HPRN, Starting Fri12/28/19 at 191, Until Discontinu ed, Routine, Pain (scale 1-3) [facility] NaCl 0.9% (NS) bolus infusion 1,000 mL 12-27 22:30: 00 12-27 22:39 :00 No 1000mL at 999 mL/hr, 1,000 mL, IV Infusion, ONCE, 1 dose, Fri12/28/19 at 1730, [facility] NaCl 0.9% (NS) bolus infusion 1,000 mL 12-27 19:45: 00 12-27 23:12 :00 No 1000mL at 999 mL/hr, 1,000 mL, IV Infusion, ONCE, 1 dose, Fri12/28/19 at 1445, [facility]folic[facility] valencia (-1 ORAL) 10-04 20:38: 02 10-04 00:00 :00 No Take by mouth. [facility] medroxyPROG ESTERone (DEPO-PROVE RA) injection 150 mg 10-04 20:30: 00 09-07 19:21 :00 No [id number] 150mg 150 mg, Intramuscu lar, [id number], 4 doses, First dose on Fri10/05/19 at 1530, Last dose on Fri06/13/20 at 1530, Routine [facility] calcium carbonate (CALCIUM 500 ORAL) 10-04 20:14: 19 Yes 2{tbl} Take 2 tablets by mouth daily. [facility] medroxyPROG ESTERone (DEPO-PROVE RA) injection 150 mg 07-12 20:15: 00 07-12 19:15 :00 No 150mg [facility] 25/iron fum/folic/d valencia (-1 ORAL) 07-29 15:52: 49 Yes Take by mouth. [facility] simethicone 80 mg chewable tablet 06-19 00:00: 00 10-04 00:00 :00 No [id number] 160mg Take 2 tablets by mouth after meals and at bedtime as needed for Gas. [facility] docusate calcium 240 mg capsule 06-19 00:00: 00 10-04 00:00 :00 No [id number] 240mg Take 1 capsule by mouth once daily as needed for Constipati on. [facility] HYDROcodone -acetaminop hen 5-325 mg tablet 06-19 00:00: 00 10-04 00:00 :00 No [id number] 1{tbl} Take 1 tablet by mouth every 6 (six) hours as needed for Pain (scale 4-6). [facility] ibuprofen 600 mg tablet 06-19 00:00: 00 10-04 00:00 :00 No [id number] 600mg Take 1 tablet by mouth every 6 (six) hours as needed for Pain (scale 1-3) or Pain (scale 4-6). [facility] vitamin w/FA tablet 06-19 00:00: 00 10-04 00:00 :00 No [id number] 1{tbl} Take 1 tablet by mouth daily. [facility] ferrous sulfate 325 mg (65 mg iron) tablet 3 00:00: 00 10-04 00:00 :00 No [id number] 325mg Take 1 tablet by mouth 2 (two) times daily. [facility] Blood-Gluco se Meter (FREESTYLE LITE METER) Kit 2017-04 0-05 00:00: 00 10-04 00:00 :00 No Glucose check 4X daily [facility] lancets (FREESTYLE LANCETS) 28 gauge Misc 2017-04 0-04 00:00: 00 10-04 00:00 :00 No Gucose Check 4X daily [facility] blood sugar diagnostic (FREESTYLE LITE STRIPS) strip 2017-04 0-04 00:00: 00 10-04 00:00 :00 No Gucose Check 4X daily [facility] Vital Signs Vital Name Observation Time Observation Value Comments S ource Systolic blood pressure 2020-12-04 18:23:00 134 mm[Hg] [facility] Diastolic blood pressure 2020-12-04 18:23:00 79 mm[Hg] [facility] Heart rate 2020-12-04 18:23:00 82 /min [facility] Body temperature 2020-12-04 18:23:00 36.56 Jill [facility] Respiratory rate 2020-12-04 18:23:00 16 /min [facility] Body height 2020-12-04 18:23:00 165.1 cm [facility] Body weight 2020-12-04 18:23:00 77.293 kg [facility] BMI 2020-12-04 18:23:00 28.36 kg/m2 [facility] Systolic blood pressure 2020-10-09 20:21:00 123 mm[Hg] [facility] Diastolic blood pressure 2020-10-09 20:21:00 82 mm[Hg] [facility] Heart rate 2020-10-09 20:21:00 96 /min [facility] Body temperature 2020-10-09 20:21:00 37.06 Jill [facility] Respiratory rate 2020-10-09 20:21:00 16 /min [facility] Body height 2020-10-09 20:21:00 165.1 cm [facility] Body weight 2020-10-09 20:21:00 77.656 kg [facility] BMI 2020-10-09 20:21:00 28.49 kg/m2 [facility] Systolic blood pressure 2020-09-21 20:13:00 136 mm[Hg] [facility] Diastolic blood pressure 2020-09-21 20:13:00 80 mm[Hg] [facility] Heart rate 2020-09-21 20:13:00 112 /min [facility] Body temperature 2020-09-21 20:13:00 36.83 Jill [facility] Respiratory rate 2020-09-21 20:13:00 22 /min [facility] Body height 2020-09-21 20:13:00 165.1 cm [facility] Body weight 2020-09-21 20:13:00 76.114 kg [facility] BMI 2020-09-21 20:13:00 27.92 kg/m2 [facility] Systolic blood pressure 2020-09-12 08:30:00 112 mm[Hg] [facility] Diastolic blood pressure 2020-09-12 08:30:00 62 mm[Hg] [facility] Heart rate 2020-09-12 08:30:00 70 /min [facility] Respiratory rate 2020-09-12 08:30:00 20 /min [facility] Oxygen saturation in Arterial blood by Pulse oximetry 2020-09-12 08:30:00 98 /min [facility] Body temperature 2020-09-12 06:22:00 37.33 Jill [facility] Body weight 2020-09-12 06:22:00 65.772 kg [facility] BMI 2020-09-12 06:22:00 24.13 kg/m2 [facility] Systolic blood pressure 2020-09-12 04:45:00 106 mm[Hg] [facility] Diastolic blood pressure 2020-09-12 04:45:00 72 mm[Hg] [facility] Heart rate 2020-09-12 04:45:00 94 /min [facility] Respiratory rate 2020-09-12 04:45:00 17 /min [facility] Oxygen saturation in Arterial blood by Pulse oximetry 2020-09-12 04:45:00 98 /min [facility] Body temperature 2020-09-12 03:15:00 37.22 Jill [facility] Body weight 2020-09-12 00:11:00 65.772 kg [facility] BMI 2020-09-12 00:11:00 24.13 kg/m2 [facility] Systolic blood pressure 2020-09-07 19:26:00 133 mm[Hg] [facility] Diastolic blood pressure 2020-09-07 19:26:00 74 mm[Hg] [facility] Heart rate 2020-09-07 19:26:00 131 /min [facility] Body temperature 2020-09-07 19:26:00 36.17 Jill [facility] Respiratory rate 2020-09-07 19:26:00 16 /min [facility] Body height 2020-09-07 19:26:00 165.1 cm [facility] Body weight 2020-09-07 19:26:00 76.476 kg [facility] BMI 2020-09-07 19:26:00 28.06 kg/m2 [facility] Systolic blood pressure 2020-06-15 19:31:00 130 mm[Hg] [facility] Diastolic blood pressure 2020-06-15 19:31:00 87 mm[Hg] [facility] Heart rate 2020-06-15 19:31:00 80 /min [facility] Body temperature 2020-06-15 19:31:00 36.83 Jill [facility] Respiratory rate 2020-06-15 19:31:00 16 /min [facility] Body height 2020-06-15 19:31:00 165.1 cm [facility] Body weight 2020-06-15 19:31:00 76.006 kg [facility] BMI 2020-06-15 19:31:00 27.88 kg/m2 [facility] Systolic blood pressure 2020-06-15 19:31:00 130 mm[Hg] [facility] Diastolic blood pressure 2020-06-15 19:31:00 87 mm[Hg] [facility] Heart rate 2020-06-15 19:31:00 80 /min [facility] Body temperature 2020-06-15 19:31:00 36.83 Jill [facility] Respiratory rate 2020-06-15 19:31:00 16 /min [facility] Body height 2020-06-15 19:31:00 165.1 cm [facility] Body weight 2020-06-15 19:31:00 76.006 kg [facility] BMI 2020-06-15 19:31:00 27.88 kg/m2 [facility] Systolic blood pressure 2020-03-23 19:45:00 115 mm[Hg] [facility] Diastolic blood pressure 2020-03-23 19:45:00 81 mm[Hg] [facility] Heart rate 2020-03-23 19:45:00 87 /min [facility] Body temperature 2020-03-23 19:45:00 37.11 Jill [facility] Respiratory rate 2020-03-23 19:45:00 16 /min [facility] Body height 2020-03-23 19:45:00 165.1 cm [facility] Body weight 2020-03-23 19:45:00 76.261 kg [facility] BMI 2020-03-23 19:45:00 27.98 kg/m2 [facility] Systolic blood pressure 2020-03-23 19:45:00 115 mm[Hg] [facility] Diastolic blood pressure 2020-03-23 19:45:00 81 mm[Hg] [facility] Heart rate 2020-03-23 19:45:00 87 /min [facility] Body temperature 2020-03-23 19:45:00 37.11 Jill [facility] Respiratory rate 2020-03-23 19:45:00 16 /min [facility] Body height 2020-03-23 19:45:00 165.1 cm [facility] Body weight 2020-03-23 19:45:00 76.261 kg [facility] BMI 2020-03-23 19:45:00 27.98 kg/m2 [facility] Systolic blood pressure 2020-02-22 18:56:00 130 mm[Hg] [facility] Diastolic blood pressure 2020-02-22 18:56:00 80 mm[Hg] [facility] Heart rate 2020-02-22 18:56:00 92 /min [facility] Body temperature 2020-02-22 18:56:00 37.11 Jill [facility] Respiratory rate 2020-02-22 18:56:00 18 /min [facility] Body height 2020-02-22 18:56:00 152.4 cm [facility] Body weight 2020-02-22 18:56:00 76.25 kg [facility] BMI 2020-02-22 18:56:00 32.83 kg/m2 [facility] Systolic blood pressure 2020-02-22 18:56:00 130 mm[Hg] [facility] Diastolic blood pressure 2020-02-22 18:56:00 80 mm[Hg] [facility] Heart rate 2020-02-22 18:56:00 92 /min [facility] Body temperature 2020-02-22 18:56:00 37.11 Jill [facility] Respiratory rate 2020-02-22 18:56:00 18 /min [facility] Body height 2020-02-22 18:56:00 152.4 cm [facility] Body weight 2020-02-22 18:56:00 76.25 kg [facility] BMI 2020-02-22 18:56:00 32.83 kg/m2 [facility] Systolic blood pressure 2020-01-11 18:00:00 118 mm[Hg] [facility] Diastolic blood pressure 2020-01-11 18:00:00 64 mm[Hg] [facility] Heart rate 2020-01-11 18:00:00 84 /min [facility] Body temperature 2020-01-11 18:00:00 36.72 Jill [facility] Respiratory rate 2020-01-11 18:00:00 20 /min [facility] Body height 2020-01-11 18:00:00 152.4 cm [facility] Body weight 2020-01-11 18:00:00 76.386 kg [facility] BMI 2020-01-11 18:00:00 32.89 kg/m2 [facility] Systolic blood pressure 2019-12-30 17:00:00 98 mm[Hg] [facility] Diastolic blood pressure 2019-12-30 17:00:00 73 mm[Hg] [facility] Heart rate 2019-12-30 17:00:00 114 /min [facility] Body temperature 2019-12-30 17:00:00 37.67 Jill [facility] Respiratory rate 2019-12-30 17:00:00 20 /min [facility] Oxygen saturation in Arterial blood by Pulse oximetry 2019-12-30 17:00:00 98 /min [facility] Body weight 2019-12-28 19:23:00 81.647 kg [facility] BMI 2019-12-28 19:23:00 35.15 kg/m2 [facility] Systolic blood pressure 2019-10-05 20:09:00 128 mm[Hg] [facility] Diastolic blood pressure 2019-10-05 20:09:00 87 mm[Hg] [facility] Heart rate 2019-10-05 20:09:00 100 /min [facility] Body temperature 2019-10-05 20:09:00 36.72 Jill [facility] Respiratory rate 2019-10-05 20:09:00 16 /min [facility] Body height 2019-10-05 20:09:00 152.4 cm [facility] Body weight 2019-10-05 20:09:00 75.411 kg [facility] BMI 2019-10-05 20:09:00 32.47 kg/m2 [facility] Body weight 2019-07-13 19:12:00 72.802 kg documented from last visit, due to COVID-19 [facility] BMI 2019-07-13 19:12:00 26.71 kg/m2 [facility] Procedures Procedure Date / Time Performed Performing Clinician Source XR CHEST 1 VW 2020-09-12 01:20:52 Suzanne Darby [facility] BLOOD CULTURE SCREEN 2020-09-12 01:14:00 Kenton Darby [facility] BLOOD CULTURE SCREEN 2020-09-12 01:09:00 Kenton Darby [facility] COVID-19 (ID NOW RAPID TESTING) 2020-09-12 00:55:00 Suzanne Darby [facility] POCT TEST 2020-09-12 00:52:00 Bg Darby [facility] LACTIC ACID WHOLE BLOOD 2020-09-12 00:49:00 Do mary Darby [facility] MAGNESIUM 2020-09-12 00:48:00 Suzanne Darby [facility] FREE T4 2020-09-12 00:48:00 Suzanne Darby [facility] THYROID STIMULATING HORMONE 2020-09-12 00:48:00 Suzanne Darby [facility] HEPATIC FUNCTION PANEL (54575) (ALB,T.PRO,BILI T,BU/BC,ALT,AST,ALK PHOS) 2020-09-12 00:48:00 Suzanne Darby [facility] BASIC METABOLIC PANEL (NA, K, CL, CO2, GLUCOSE, BUN, CREATININE, CA) 2020-09-12 00:48:00 Suzanne Darby [facility] CBC WITH DIFF 2020-09-12 00:48:00 Suzanne Darby [facility] PROTHROMBIN TIME / INR 2020-09-12 00:48:00 Santos Darby [facility] ACTIVATED PARTIAL THRMPLAS TALIA 2020-09-12 00:48:00 Suzanne Darby [facility] URINALYSIS 2020-09-12 00:48:00 Suzanne Darby [facility] HB ABO GROUPING 2020-09-12 00:48:00 [facility] NOTICE OF PRIVACY PRACTICES 2020-09-12 00:01:00 Doctor Unassigned, [place] [facility] CONSENT/REFUSAL FOR DIAGNOSIS AND TREATMENT 2020-09-12 00:00:48 Doctor Unassigned, [place] [facility] BCCS-RELATED DOCUMENTATION 2020-05-09 06:01:00 Doctor Unassigned, [place] [facility] BI DIAGNOSTIC TOMOSYNTHESIS RIGHT 2020-02-23 14:57:20 Irma Snyder [facility] BCCS-RELATED DOCUMENTATION 2020-02-04 05:01:00 Doctor Unassigned, [place] [facility] FREE T4 2020-01-11 20:06:00 Debbie Alvarado [facility] THYROID STIMULATING HORMONE 2020-01-11 20:06:00 Christiano Debbie [facility] COMP. METABOLIC PANEL (23275) 2020-01-11 20:06:00 Debbie Alvarado [facility] FOLLICLE STIMULATING HORMONE 2020-01-11 20:06:00 Debbie Alvarado [facility] CBC WITH DIFF 2020-01-11 20:06:[address] [facility] DISCLOSURE AND CONSENT, MEDICAL AND SURGICAL PROCEDURES 2020-01-11 05:01:00 Doctor Unassigned, [place] [facility] POCT GLUCOSE (AUTOMATED) 2019-12-30 16:33:00 Raul [facility] HEMOGLOBIN 2019-12-30 16:17:00 Raul [facility] HEMATOCRIT 2019-12-30 16:17:00 Raul [facility] POCT GLUCOSE (AUTOMATED) 2019-12-30 12:38:00 Raul [facility] MAGNESIUM 2019-12-30 10:10:00 Raul [facility] BASIC METABOLIC PANEL (NA, K, CL, CO2, GLUCOSE, BUN, CREATININE, CA) 2019-12-30 10:10:00 Raul [facility] CBC WITH DIFF 2019-12-30 10:10:00 Vineet Carter [facility] HEMOGLOBIN 2019-12-30 05:21:00 [facility] TRANSFUSE PACKED RBC 2019-12-30 03:33:04 Jonny Botello [facility] US PELVIS COMPLETE WITH TRANSVAGINAL 2019-12-30 02:02:18 Rosmery Parma [facility] POCT GLUCOSE (AUTOMATED) 2019-12-30 01:26:00 Raul [facility] PREPARE PACKED RBC 2019-12-30 01:06:01 Rosmery Parma [facility] POCT GLUCOSE (AUTOMATED) 2019-12-29 22:09:00 Raul [facility] URINALYSIS 2019-12-29 21:39:00 Raul [facility] CBC WITHOUT DIFF 2019-12-29 20:17:[address] [facility] PREPARE PACKED RBC 2019-12-29 15:23:21 Arley Ladd [facility] HEMOGLOBIN 2019-12-29 11:06:00 Rosmery [facility] BASIC METABOLIC PANEL (NA, K, CL, CO2, GLUCOSE, BUN, CREATININE, CA) 2019-12-29 07:36:00 Vineet Carter [facility] CBC WITH DIFF 2019-12-29 07:36:00 Vineet Carter [facility] GLYCOSYLATED HEMOGLOBIN (A1C) 2019-12-29 07:36:00 Vineet Carter [facility] PREPARE PACKED RBC 2019-12-29 07:06:22 Doctor Un assigned, [place] [facility] HEMOGLOBIN 2019-12-29 05:38:00 Rosmery [facility] HEMATOCRIT 2019-12-29 05:38:00 Rosmery [facility] PANEL IDENTIFICATION 2019-12-28 21:10:00 Vineet Carter [facility] EKG-12 LEAD 2019-12-28 20:13:12 Arley Ladd [facility] COVID-19 (ID NOW RAPID TESTING) 2019-12-28 19:39:00 Arley Ladd [facility] HB ABO GROUPING 2019-12-28 19:37:00 Arley Ladd [facility] LIPASE 2019-12-28 19:36:00 Arley Ladd [facility] TEST, SERUM 2019-12-28 19:36:00 Glen Ladd [facility] TROPONIN I 2019-12-28 19:36:00 Arley Ladd [facility] HEPATIC FUNCTION PANEL (22719) (ALB,T.PRO,BILI T,BU/BC,ALT,AST,ALK PHOS) 2019-12-28 19:36:00 Arley Ladd [facility] BASIC METABOLIC PANEL (NA, K, CL, CO2, GLUCOSE, BUN, CREATININE, CA) 2019-12-28 19:36:00 Arley Ladd [facility] CBC WITH DIFF 2019-12-28 19:36:00 Arley Ladd [facility] PROTHROMBIN TIME / INR 2019-12-28 19:36:00 Darion Ladd [facility] EKG-12 LEAD 2019-12-28 19:34:10 Arley Ladd [facility] CONSENT/REFUSAL FOR DIAGNOSIS AND TREATMENT 2019-12-28 19:06:26 Doctor Unassigned, [place] [facility] NOTICE OF PRIVACY PRACTICES 2019-12-28 19:06:03 Doctor Unassigned, [place] [facility] POCT TEST 2019-10-05 20:35:00 Kristy Snyder [facility] IMMTRAC2 CONSENT 2019-04-20 06:01:00 Doctor Unas signed, [place] [facility] Encounters Start Date/Time End Date/Time Encounter Type Admission Type Attending Clinicians Care Facility Care Department Encounter ID Source 2021-02-18 21:01:15 Emergency [facility] [id number] [facility] 2021-02-16 16:24:04 Emergency [facility] [id number] [facility] 2023-02-18 00:00:00 2023-02-18 00:00:00 Outpatient [email or web address]_S [facility] [id number] [facility] 2021-02-28 13:00:00 2021-02-28 13:31:05 Outpatient HIRAM LAWS [facility] [id number] [facility] 2021-02-27 13:30:00 2021-02-27 13:30:00 Outpatient HIRAM LAWS [facility] [id number] [facility] 2021-02-26 14:00:00 2021-02-26 14:00:00 Outpatient R [facility] [id number] [facility] 2020-12-04 13:09:20 2020-12-04 13:36:09 [facility] RETOUCHER [employer]OTOENGRA[employer]ING [facility] MATERNAL & [facility] 1.2.840.114 350.1.13.10 4.2.7.2.686 [id number] 107 [id number] [facility] 2020-12-04 13:30:00 2020-12-04 13:30:00 Outpatient R CATHY GARCIA [facility] [id number] [facility] 2020-11-30 14:30:00 2020-11-30 14:30:00 Outpatient R [facility] [id number] [facility] 2020-11-09 13:30:00 2020-11-09 13:30:00 Outpatient R [facility] [id number] [facility] 2020-10-09 14:40:20 2020-10-09 16:00:30 Office Visit Irma Snyder [facility] RETOUCHER [employer]OTO[employer]ING [facility] & CHILD [facility] ..840.114 350.1.13.10 4.2.7.2.686 [id number] [facility] 2020-10-09 15:00:00 2020-10-09 15:00:00 Outpatient R SNYDERROBYN JarrellJHONATAN [facility] [id number] [facility] 2020-09-21 14:48:30 2020-09-21 16:02:42 Office Visit Irma Snyder [facility] RETOUCHER [employer]ING [facility] & CHILD [facility] ..840.114 350.1.13.10 4.2.7.2.686 [id number] 107 [id number] [facility] 2020-09-21 15:00:00 2020-09-21 15:00:00 Outpatient R SNYDERIRMA [facility] [id number] [facility] 2020-09-15 00:00:00 2020-09-15 00:00:00 Telephone Irma Snyder [facility] RET[facility]ER [employer]ING [facility] & [facility]ILD [facility] ..840.114 350.1.13.10 4.2.7.2.686 [id number] 107 [id number] [facility] 2020-09-12 01:24:00 2020-09-12 04:45:00 Emergency Juan Mendoza [facility] 1..114 350.1.13.10 4.2.7.2.686 [id number] [facility] 2020-09-11 19:15:00 2020-09-12 00:13:00 Emergency X SUZANNE DARBY [facility] ERT [id number] [facility] 2020-09-11 19:15:00 2020-09-12 00:13:00 Emergency Suzanne Darby [facility] 1..114 350.1.13.10 4.2.7.2.686 [id number] [facility] 2020-09-07 13:48:49 2020-09-07 14:20:05 [facility] RET[facility] [employer]ING [facility] & [facility]ILD [facility] 1.840.114 350.1.13.10 4.2.7.2.686 [id number] 107 [id number] [facility] 2020-09-07 14:00:00 2020-09-07 14:00:00 Outpatient R [facility] [id number] [facility] 2020-09-07 14:00:00 2020-09-07 14:00:00 Outpatient R CATHY GARCIA [facility] [id number] [facility] 2020-06-15 13:07:28 2020-06-15 13:22:28 Nurse Visit Visit, Eder Fair [facility] RETOUCHER [facility]OTOENGRAVING [facility] 1.840.114 350.1.13.10 4.2.7.2.686 [id number] 2020-06-15 13:07:28 2020-06-15 13:22:28 Nurse Visit Visit, Cathy Marie [facility] RETOUCHER [employer]ING [facility] 1.2.840.114 350.1.13.10 4.2.7.2.686 [id number] [facility] 2020-06-15 13:00:00 2020-06-15 13:00:00 Outpatient R [facility] [id number] [facility] 2020-05-09 00:00:00 2020-05-09 00:00:00 Orders Only Doctor Unassigned, [place] [facility] 1.2.840.114 350.1.13.10 4.2.7.2.686 [id number] [facility] 2020-05-09 00:00:00 2020-05-09 00:00:00 Orders Only Doctor Unassigned, [place] [facility] 1.2.840.114 350.1.13.10 4.2.7.2.686 [id number] 2020-03-23 13:37:20 2020-03-23 14:02:39 Nurse Visit Visit, Cathy Marie [facility] RETOUCHER [employer]ING [facility]ILD [facility] 1.2.840.114 350.1.13.10 4.2.7.2.686 [id number] [facility] 2020-03-23 13:37:20 2020-03-23 14:02:39 Nurse Visit Visit, Eder Fair [facility] RET[facility]CHER [employer]ING [facility] 1.2.840.114 350.1.13.10 4.2.7.2.686 [id number] 2020-03-23 14:00:00 2020-03-23 14:00:00 Outpatient R CATHY GARCIA [facility] [id number] [facility] 2020-02-23 08:26:32 2020-02-23 23:59:00 Hospital Encounter Irma Snyder [facility] 1.2840.114 350.1.13.10 4.2.7.2.686 [id number] [facility] 2020-02-23 08:26:32 2020-02-23 23:59:00 Hospital Encounter [facility] 1.2.840.114 350.1.13.10 4.2.7.2.686 [id number] 2020-02-23 08:24:37 2020-02-23 08:25:00 Hospital Encounter [facility] 1.2.840.114 350.1.13.10 4.2.7.2.686 [id number] [facility] 2020-02-23 08:24:37 2020-02-23 08:25:00 Hospital Encounter [facility] 1.2.840.114 350.1.13.10 4.2.7.2.686 [id number] 2020-02-23 00:00:00 2020-02-23 00:00:00 Outpatient R ALAINA SNYDERJHONATAN [facility] [id number] [facility] 2020-02-22 12:56:26 2020-02-22 13:11:26 Office Visit Pgy3 Keagan Clark [facility] 1.2.840.114 350.1.13.10 4.2.7.2.686 [id number] [facility] 2020-02-22 12:56:26 2020-02-22 13:11:26 Office Visit Pgy3 [facility] 1.2.840.114 350.1.13.10 4.2.7.2.686 [id number] 2020-02-22 13:00:00 2020-02-22 13:00:00 Outpatient R [facility] [id number] [facility] 2020-02-04 00:00:00 2020-02-04 00:00:00 Orders Only Doctor Unassigned, [place] [facility] 1.2.840.114 350.1.13.10 4.2.7.2.686 [id number] [facility] 2020-01-21 08:29:44 2020-01-21 08:44:44 Senior Web Analyst Visit Lab, Ang[facility] Cathy Garcia [facility] RETOUCHER [employer]ING [facility] MATERNAL & CHILD [facility] 1..114 350.1.13.10 4.2.7.2.686 [id number] [facility] 2020-01-21 08:30:00 2020-01-21 08:30:00 Outpatient R CATHY GARCIA [facility] [id number] [facility] 2020-01-19 00:00:00 2020-01-19 00:00:00 Telephone Irma Snyder R [facility] RETOUCHER [employer]ING [facility] MATERNAL & CHILD [facility] 1..114 350.1.13.10 4.2.7.2.686 [id number] [facility] 2020-01-14 00:00:00 2020-01-14 00:00:00 Telephone Debbie Alvarado [facility] 1..114 350.1.13.10 4.2.7.2.686 [id number] [facility] 2020-01-11 12:54:00 2020-01-11 15:06:16 Office Visit [facility] Res[facility] Alexa King [facility] 1..114 350.1.13.10 4.2.7.2.686 [id number] [facility] 2020-01-11 14:30:00 2020-01-11 14:30:00 Outpatient R [facility] [id number] [facility] 2020-01-11 00:00:00 2020-01-11 00:00:00 Orders Only Doctor Unassigned, [place] [facility] 1..114 350.1.13.10 4.2.7.2.686 [id number] [facility] 2019-12-31 00:00:00 2019-12-31 00:00:00 Transition of Care Roselyn Valero 1.2.840.114 350.1.13.10 4.2.7.2.686 [id number] [facility] 2019-12-28 14:32:00 2019-12-30 13:33:00 Hospital Encounter Arley Ladd, [facility] 1.2840.114 350.1.13.10 4.2.7.2.686 [id number] [facility] 2019-12-28 15:00:00 2019-12-28 15:15:00 Nurse Visit Visit, Ang-Rmchp Nurse Cathy Garcia [facility] RETOUCHER [employer]OTO[employer]RAVING [facility] MATERNAL & CHILD [facility] 1.20.114 350.1.13.10 4.2.7.2.686 [id number] [facility] 2019-12-28 15:00:00 2019-12-28 15:00:00 Outpatient R CATHY GARCIA [facility] [id number] [facility] 2019-12-09 00:00:00 2019-12-09 00:00:00 Telephone Irma Snyder [facility] RETOUCHER [employer]OTO[employer]ING [facility] 1.2840.114 350.1.13.10 4.2.7.2.686 [id number] [facility] 2019-12-06 00:00:00 2019-12-06 00:00:00 Case Management Irma Snyder [facility] RETOUCHER PHOTOENGRAVING [facility] CH[facility] 1.2.840.114 350.1.13.10 4.2.7.2.686 [id number] [facility] 2019-11-29 10:00:00 2019-11-29 10:00:00 Outpatient R [facility] [id number] [facility] 2019-11-26 00:00:00 2019-11-26 00:00:00 Telephone Irma Snyder [facility] RETOUCHER [employer]ING [facility] 1.2.840.114 350.1.13.10 4.2.7.2.686 [id number] [facility] 2019-11-26 00:00:00 2019-11-26 00:00:00 Telephone Meng Snyderdelmi Suri [facility] RETOUCHER PHOTOENG[employer]VING [facility] CH[facility] 1.2.840.114 350.1.13.10 4.2.7.2.686 [id number] [facility] 2019-11-25 00:00:00 2019-11-25 00:00:00 Telephone Alaina Snyderlilliana Mccord [facility] RETOUCHER PHOTOENGRAVING [facility] CH[facility] 1.2.840.114 350.1.13.10 4.2.7.2.686 [id number] [facility] 2019-11-24 06:35:23 2019-11-24 23:59:00 [facility] Encounter SnyderIrma [facility] 1.2.840.114 350.1.13.10 4.2.7.2.686 [id number] [facility] 2019-11-24 00:00:00 2019-11-24 00:00:00 Outpatient R LILLIAN IRMA [facility] [id number] [facility] 2019-11-24 00:00:00 2019-11-24 00:00:00 Telephone Cathy Garcia [facility] RETOUCHER [employer]ING [facility] 1.2.840.114 350.1.13.10 4.2.7.2.686 [id number] [facility] 2019-10-05 15:03:26 2019-10-05 15:38:20 Office Visit Irma Snyder [facility] RETOUCHER [employer]ING [facility] MATERNAL & CHILD [facility] 1.2.840.114 350.1.13.10 4.2.7.2.686 [id number] [facility] 2019-10-05 15:00:00 2019-10-05 15:00:00 Outpatient R SNYDERIRMA [facility] [id number] [facility] 2019-07-13 14:30:00 2019-07-13 14:30:00 Outpatient CATHY BARR [facility] [id number] [facility] 2019-07-13 13:50:29 2019-07-13 14:05:29 Nurse Visit Visit, [facility] Nurse Cathy Garcia [facility] RETOUCHER [employer]ING [facility] 1..840.114 350.1.13.10 4.2.7.2.686 [id number] [facility] 2019-04-20 00:00:00 2019-04-20 00:00:00 Orders Only Doctor Unassigned, [place] [facility] 1.2.840.114 350.1.13.10 4.2.7.2.686 [id number] [facility] Results Test Description Test Time Test Comments Results Result Co mments Source [id number] 03:38:02* Test Item Value Reference Range Interpretation Comme nts FREE T4 (test code = 2126943269) See_Comment [Automated messa ge] The system which generated this result transmitted reference range: 0.78 - 2.20 ng/dL:. The reference range was not used to interpret this result as normal/abnormal. Lab Interpretation (test code = 86977-3) Normal [facility] Screen - ONCE [id number] 02:17:30 * Test Item Value Reference Range Interpretation Comme nts ABO & RH (test code = 20) O Positive Performed at [facility] B Laboratory Services - [facility] Blood [address] [place], [place] [address]Toll Free: [phone] No. [id number] IAT (test code = 1185) Positive Performed at [facility] B Laboratory Services - [facility] Blood [address] [place], [place] [address]Jqlu Free: [phone] No. [id number] [facility]2021-05-25 02:02:02* Test Item Value Reference Range Interpretation Comme nts APTT Patient (test code = 3173-2) <20 See_Comment L [Automated message] The system which generated this result transmitted reference range: 23 - 38 Seconds. The reference range was not used to interpret this result as normal/abnormal. ROSALEE (test code = ROSALEE) The [facility] patient population mean normal value for aPTT is 30 seconds. Lab Interpretation (test code = 71303-1) Abnormal [facility]ne[facility]inalysis2021-05-25 02:01:05* Test Item Value Reference Range Interpretation Comme nts APPEARANCE (test code = 7534596146) Hazy Clear A COLOR (test code = 0420803568) Yellow Yellow PH (test code = 9743918100) 4.8-8.0 SP GRAVITY (test code = 3907036457) 1.003-1.030 GLU U QUAL (test code = 6619275414) 500 mg/dL Normal A BLOOD (test code = 6203165464) 3+ Negative A KETONES (test code = 0423331304) Negative Negative PROTEIN (test code = 2887-8) Negative Negative UROBILIN (test code = 5614558700) 2.0 mg/dL Normal A BILIRUBIN (test code = 9781649931) Negative Negative NITRITE (test code = 9093655785) Negative Negative LEUK CRISTOFER (test code = 1949340830) Negative Negative RBC/HPF (test code = 8088941177) See_Comment [Automated Online-ORa ge] The system which generated this result transmitted reference range: 0 - 3 HPF. The reference range was not used to interpret this result as normal/abnormal. WBC/HPF (test code = 9244720664) See_Comment [Automated Online-ORa ge] The system which generated this result transmitted reference range: 0 - 5 HPF. The reference range was not used to interpret this result as normal/abnormal. BACTERIA (test code = 7041286037) Few Negative A SQ EPITH (test code = 2888198946) HPF Lab Interpretation (test code = 81795-6) Abnormal [facility]ne[facility]ID STIMULATING [id number] 01:55:33 * Test Item Value Reference Range Interpretation Comme nts TSH (test code = 8833129533) See_Comment [Automated messa ge] The system which generated this result transmitted reference range: 0.45 - 4.70 mIU/L. The reference range was not used to interpret this result as normal/abnormal. Lab Interpretation (test code = 11457-7) Normal [facility]2021-05-25 01:25:20* Test Item Value Reference Range Interpretation Comme nts MAGNESIUM (test code = 4875866620) 2.1 mg/dL 1.7-2.4 Lab Interpretation (test cod e = 51402-5) Normal [facility] (NA, K, CL, CO2, GLUCOSE, BUN, CREATININE, CA)2020-09-12 01:25:19* Test Item Value Reference Range Interpretation Comme nts NA (test code = 2292370254) 139 mmol/L 135-145 K (test code = 4294956304) 4.4 mmol/L 3.5-5.0 CL (test code = 2396070235) 107 mmol/L 98-108 CO2 TOTAL (test code = 8166741644) 23 mmol/L 23-31 AGAP (test code = 0162487908) 2-16 BUN (test code = 3335064864) 8 mg/dL 7-23 GLUCOSE (test code = 5722442615) 161 mg/dL 70-110 H CREATININE (test code = 6076701318) 0.39 mg/dL 0.50-1.04 L CALCIUM (test code = 3819203424) 9.1 mg/dL 8.6-10.6 eGFR (test code = 9960595415) mL/min/1.73m2 ROSALEE (test code = ROSALEE) Association of [...] or abnormalities in imaging tests). Lab Interpretation (test code = 18342-4) [facility] (ALB, T.PRO, BILI T, BU/BC, ALT, AST, ALK PHOS)2020-09-12 01:25:19* Test Item Value Reference Range Interpretation Comme nts TOTAL BILI (test code = 3031302348) 0.4 mg/dL 0.1-1.1 BILI UNCON (test code = 7803490040) 0.3 mg/dL 0.1-1.1 BILI CONJ (test code = 8982725867) 0.0 mg/dL 0.0-0.3 T PROTEIN (test code = 4014238244) 6.4 g/dL 6.3-8.2 ALBUMIN (test code = 8927320653) 3.9 g/dL 3.5-5.0 ALK PHOS (test code = 4779457924) 112 U/L 34-122 ALTv (test code = 1742-6) 29 U/L 5-35 AST(SGOT) (test code = 7133031303) 37 U/L 13-40 Lab Interpretation (test cod e = 86660-7) [facility] NOW RAPID TESTING)2020-09-12 01:17:57* Test Item Value Reference Range Interpretation Comme nts SARS-CoV-2 Rapid ID NOW (test code = 29622-7) Not Detected Not Detected ROSALEE (test code = ROSALEE) ID NOW COVID-19 As say is an isothermal nucleic acid amplification test intended for the qualitative detection of nucleic acid from SARS-CoV-2 viral RNA in nasopharyngeal (LIBRARY [employer]PERVIS[employer]) specimens. It is used under Emergency Use [...] patient testing if clinically indicated. Lab Interpretation (test code = 90696-7) Normal [facility]ne[facility]thrombin Time (PT) / [id number] 01:17:16 * Test Item Value Reference Range Interpretation Comme nts PROTIME PATIENT (test code = 5964-2) See_Comment [Automated [employer]] The system which generated this result transmitted reference range: 12.0 - 14.7 Seconds. The reference range was not used to interpret this result as normal/abnormal. INR (test code = 6301-6) Normal INR <1.1; Warfarin Therapeutic range 2.0 to 3.0 or 2.5 to 3.5, depending upon the indications. Lab Interpretation (test code = 86247-2) Normal [facility]neLaky[facility] Whole [id number] 00:58:57* Test Item Value Reference Range Interpretation Comme nts LACTIC ACID (test code = 3300130977) 1.81 mmol/L 0.50-2.20 Lab Interpretation (test cod e = 88519-1) Normal [facility] [id number] 00:52:00* Test Item Value Reference Range Interpretation Comme nts POCT PREG (test code = 1605) negative On board controls acceptable with C Line (test code = 3574) present POCT PREG LOT # (test code = 3575) [id number] POCT PREG TEST DATE ( test code = 3576) 03/20/2022 Lab Interpretation (test cod e = 63241-6) Normal [facility]neBI DIAGNOSTIC TOMOSYNTHESIS [id number] 16:53:09Examination:BI DIAGNOSTIC TOMOSYNTHESIS RIGHT History:Patient is 44 year old and is seen for: ?Abnormal mammogram. Computer-aided detection (CAD) utilized. Comparisons: 11/24/2019 BI SCREENING TOMOSYNTHESIS BILATERAL Recent exam with the following findings: Impression:RIGHT BREAST: 6 mm asymmetry is present on the CC view retroareolar plane at anterior depth at a distance of 3 cm from the nipple.CURRENT EXAM: ? Findings:The right breast has scattered [...] mammographic follow-up BI-RADS Category: Right 1 - Negative[facility]neTHYROID STIMULATING [id number] 00:02:00* Test Item Value Reference Range Interpretation Comme nts TSH (test code = 6825244436) See_Comment [Automated [employer] [facility]] The system which generated this result transmitted reference range: 0.45 - 4.70 mIU/L. The reference range was not used to interpret this result as normal/abnormal. Lab Interpretation (test code = 67782-9) Normal [facility]ne[facility]YROID STIMULATING [id number] 00:02:00 * Test Item Value Reference Range Interpretation Comme nts TSH (test code = 6104735832) See_Comment [Automated [employer]] The system which generated this result transmitted reference range: 0.45 - 4.70 mIU/L. The reference range was not used to interpret this result as normal/abnormal. Lab Interpretation (test code = 33911-5) Normal [facility] [id number] 23:49:00* Test Item Value Reference Range Interpretation Comme nts FREE T4 (test code = 6258784033) See_Comment [Automated messa ge] The system which generated this result transmitted reference range: 0.78 - 2.20 ng/dL:. The reference range was not used to interpret this result as normal/abnormal. Lab Interpretation (test code = 97171-6) Normal [facility] [id number] 23:49:00* Test Item Value Reference Range Interpretation Comme nts FREE T4 (test code = 7606847349) See_Comment [Automated messa ge] The system which generated this result transmitted reference range: 0.78 - 2.20 ng/dL:. The reference range was not used to interpret this result as normal/abnormal. Lab Interpretation (test code = 33419-1) Normal [facility]neFOLLICLE STIMULATING [id number] 23:45:00* Test Item Value Reference Range Interpretation Comme nts FSH (test code = 1311362692) mIU/mL ROSALEE (test code = ROSALEE) FSH Reference Ranges Follicular Phase: ? ? ? 3.8-8.8 mIU/mLMid-cycle Peak: ? 4.5-22.85 mIU/mLLuteal Phase: ? 1.7-5.1 mIU/mLPost-menopause female: ?16.7-113.6 mIU/mLAdult male: ? 1.2-19 mIU/mL [facility]neFOLLICLE STIMULATING [id number] 23:45:00* Test Item Value Reference Range Interpretation Comme nts FSH (test code = 2761600852) mIU/mL ROSALEE (test code = ROSALEE) FSH Reference Ranges Follicular Phase: ? ? ? 3.8-8.8 mIU/mLMid-cycle Peak: ? 4.5-22.85 mIU/mLLuteal Phase: ? 1.7-5.1 mIU/mLPost-menopause female: ?16.7-113.6 mIU/mLAdult male: ? 1.2-19 mIU/mL [facility]. METABOLIC PANEL (62541)2020-01-11 23:28:00* Test Item Value Reference Range Interpretation Comme nts NA (test code = 3811179863) 136 mmol/L 135-145 K (test code = 7035456236) 4.0 mmol/L 3.5-5 CL (test code = 1728104053) 104 mmol/L 98-108 CO2 TOTAL (test code = 7557673539) 20 mmol/L 23-31 L AGAP (test code = 2107786594) 2-16 BUN (test code = 2766682140) 13 mg/dL 7-23 GLUCOSE (test code = 1718341987) 240 mg/dL 70-110 H CREATININE (test code = 0470979373) 0.47 mg/dL 0.5-1.04 L TOTAL BILI (test code = 7499091938) 0.5 mg/dL 0.1-1.1 CALCIUM (test code = 1638333258) 8.4 mg/dL 8.6-10.6 L T PROTEIN (test code = 7641991502) 6.9 g/dL 6.3-8.2 ALBUMIN (test code = 7573941028) 3.7 g/dL 3.5-5 ALK PHOS (test code = 9924475198) 129 U/L 34-122 H ALTv (test code = 1742-6) 18 U/L 5-35 AST(SGOT) (test code = 7617557339) 36 U/L 13-40 eGFR Calculation (Non-) (test code = 6170310176) mL/min/1.73m2 eGFR Calculation () (test code = 8941140577) mL/min/1.73m2 ROSALEE (test code = ROSALEE) Association of [...] or abnormalities in imaging tests). Lab Interpretation (test code = 18971-9) Abnormal [facility]. METABOLIC PANEL (37656)2020-01-11 23:28:00* Test Item Value Reference Range Interpretation Comme nts NA (test code = 1728276729) 136 mmol/L 135-145 K (test code = 3420048023) 4.0 mmol/L 3.5-5 CL (test code = 0220112508) 104 mmol/L 98-108 CO2 TOTAL (test code = 0774032718) 20 mmol/L 23-31 L AGAP (test code = 0478200969) 2-16 BUN (test code = 2737971910) 13 mg/dL 7-23 GLUCOSE (test code = 9252574849) 240 mg/dL 70-110 H CREATININE (test code = 9469021849) 0.47 mg/dL 0.5-1.04 L TOTAL BILI (test code = 0250674094) 0.5 mg/dL 0.1-1.1 CALCIUM (test code = 1922493150) 8.4 mg/dL 8.6-10.6 L T PROTEIN (test code = 0060530517) 6.9 g/dL 6.3-8.2 ALBUMIN (test code = 0164005217) 3.7 g/dL 3.5-5 ALK PHOS (test code = 8860075419) 129 U/L 34-122 H ALTv (test code = 1742-6) 18 U/L 5-35 AST(SGOT) (test code = 0039241757) 36 U/L 13-40 eGFR Calculation (Non-) (test code = 8000312586) mL/min/1.73m2 eGFR Calculation () (test code = 6377711891) mL/min/1.73m2 ROSALEE (test code = ROSALEE) Association of [...] or abnormalities in imaging tests). Lab Interpretation (test code = 19435-1) Abnormal [facility] WITH [id number] 22:23:00* Test Item Value Reference Range Interpretation Comme nts WBC (test code = 6690-2) See_Comment [Automated [employer]] The system which generated this result transmitted reference range: 4.30 - 11.10 10*3/?L. The reference range was not used to interpret this result as normal/abnormal. RBC (test code = 789-8) See_Comment L [Automated messa ge] The system which generated this result transmitted reference range: 3.93 - 5.25 10*6/?L. The reference range was not used to interpret this result as normal/abnormal. HGB (test code = 718-7) 7.4 g/dL 11.6-15 L HCT (test code = 4544-3) 25.4 % 35.7-45.2 L MCV (test code = 787-2) 85.2 fL 80.6-95.5 MCH (test code = 785-6) 24.8 pg 25.9-32.8 L MCHC (test code = 786-4) 29.1 g/dL 31.6-35.1 L RDW-SD (test code = 12480-3) 51.9 fL 39-49.9 H RDW-CV (test code = 788-0) 16.7 % 12-15.5 H PLT (test code = 777-3) See_Comment [[employer]ated [employer]] The system which generated this result transmitted reference range: 166 - 358 10*3/?L. The reference range was not used to interpret this result as normal/abnormal. MPV (test code = 57001-4) 12.2 fL 9.5-12.9 NRBC/100 WBC (test code = 9192102856) See_Comment [Automated [employer]] The system which generated this result transmitted reference range: 0.0 - 10.0 /100 WBCs. The reference range was not used to interpret this result as normal/abnormal. NRBC x10^3 (test code = 9154568550) <0.01 See_Comment [[employer]] The system which generated this result transmitted reference range: 10*3/?L. The reference range was not used to interpret this result as normal/abnormal. GRAN MAT (NEUT) % (test code = 770-8) 66.5 % IMM GRAN % (test code = 5516332279) 1.30 % LYMPH % (test code = 736-9) 22.5 % MONO % (test code = 5905-5) 8.5 % EOS % (test code = 713-8) 0.8 % BASO % (test code = 706-2) 0.4 % GRAN MAT x10^3(ANC) (test code = 5646369519) 5.63 10*3/uL 1.88-7.09 IMM GRAN x10^3 (test code = 5429169682) 0.11 10*3/uL 0-0.06 H LYMPH x10^3 (test code = 731-0) 1.90 10*3/uL 1.32-3.29 MONO x10^3 (test code = 742-7) 0.72 10*3/uL 0.33-0.92 EOS x10^3 (test code = 711-2) 0.07 10*3/uL 0.03-0.39 BASO x10^3 (test code = 704-7) 0.03 10*3/uL 0.01-0.07 Lab Interpretation (test code = 70024-2) Abnormal [facility] WITH [id number] 22:23:00* Test Item Value Reference Range Interpretation Comme nts WBC (test code = 6690-2) See_Comment [Automated messa ge] The system which generated this result transmitted reference range: 4.30 - 11.10 10*3/?L. The reference range was not used to interpret this result as normal/abnormal. RBC (test code = 789-8) See_Comment L [Automated messa ge] The system which generated this result transmitted reference range: 3.93 - 5.25 10*6/?L. The reference range was not used to interpret this result as normal/abnormal. HGB (test code = 718-7) 7.4 g/dL 11.6-15 L HCT (test code = 4544-3) 25.4 % 35.7-45.2 L MCV (test code = 787-2) 85.2 fL 80.6-95.5 MCH (test code = 785-6) 24.8 pg 25.9-32.8 L MCHC (test code = 786-4) 29.1 g/dL 31.6-35.1 L RDW-SD (test code = 40170-2) 51.9 fL 39-49.9 H RDW-CV (test code = 788-0) 16.7 % 12-15.5 H PLT (test code = 777-3) See_Comment [Automated messa ge] The system which generated this result transmitted reference range: 166 - 358 10*3/?L. The reference range was not used to interpret this result as normal/abnormal. MPV (test code = 79811-5) 12.2 fL 9.5-12.9 NRBC/100 WBC (test code = 7047508705) See_Comment [Automated me ssage] The system which generated this result transmitted reference range: 0.0 - 10.0 /100 WBCs. The reference range was not used to interpret this result as normal/abnormal. NRBC x10^3 (test code = 6850618737) <0.01 See_Comment [Automated messa ge] The system which generated this result transmitted reference range: 10*3/?L. The reference range was not used to interpret this result as normal/abnormal. GRAN MAT (NEUT) % (test code = 770-8) 66.5 % IMM GRAN % (test code = 0552587456) 1.30 % LYMPH % (test code = 736-9) 22.5 % MONO % (test code = 5905-5) 8.5 % EOS % (test code = 713-8) 0.8 % BASO % (test code = 706-2) 0.4 % GRAN MAT x10^3(ANC) (test code = 7831415502) 5.63 10*3/uL 1.88-7.09 IMM GRAN x10^3 (test code = 2025979550) 0.11 10*3/uL 0-0.06 H LYMPH x10^3 (test code = 731-0) 1.90 10*3/uL 1.32-3.29 MONO x10^3 (test code = 742-7) 0.72 10*3/uL 0.33-0.92 EOS x10^3 (test code = 711-2) 0.07 10*3/uL 0.03-0.39 BASO x10^3 (test code = 704-7) 0.03 10*3/uL 0.01-0.07 Lab Interpretation (test code = 54151-0) Abnormal [facility] GLUCOSE (AUTOMATED)2019-12-30 17:01:00* Test Item Value Reference Range Interpretation Comme nts POCT GLU (test code = 3816479633) 151 mg/dL 70-110 H Lab Interpretation (test cod e = 41741-1) [facility]normal [facility]2019-12-30 16:40:00* Test Item Value Reference Range Interpretation Comme nts POCT GLU (test code = 6562495799) 118 mg/dL 70-110 H Lab Interpretation (test cod e = 52504-7) [facility]normal [facility]2020-09-10 16:40:00* Test Item Value Reference Range Interpretation Comme nts HGB (test code = 718-7) 7.6 g/dL 11.6-15 L Lab Interpretation (test cod e = 57571-2) [facility]normal [facility]2020-09-10 16:40:00* Test Item Value Reference Range Interpretation Comme nts HCT (test code = 4544-3) 22.4 % 35.7-45.2 L Lab Interpretation (test cod e = 87865-0) [facility]normal [facility]IUM2020-09-10 15:44:00* Test Item Value Reference Range Interpretation Comme nts MAGNESIUM (test code = 7878403724) 1.9 mg/dL 1.7-2.4 Lab Interpretation (test cod e = 48185-0) Normal [facility]neCB WITH [id number] 12:14:00* Test Item Value Reference Range Interpretation Comme nts WBC (test code = 6690-2) See_Comment H [Automated message] The system which generated this result transmitted reference range: 4.30 - 11.10 10*3/?L. The reference range was not used to interpret this result as normal/abnormal. RBC (test code = 789-8) See_Comment L [Automated message] The system which generated this result transmitted reference range: 3.93 - 5.25 10*6/?L. The reference range was not used to interpret this result as normal/abnormal. HGB (test code = 718-7) 7.3 g/dL 11.6-15 L HCT (test code = 4544-3) 20.8 % 35.7-45.2 L MCV (test code = 787-2) 84.6 fL 80.6-95.5 MCH (test code = 785-6) 29.7 pg 25.9-32.8 MCHC (test code = 786-4) 35.1 g/dL 31.6-35.1 RDW-SD (test code = 70006-2) 42.1 fL 39-49.9 RDW-CV (test code = 788-0) 13.9 % 12-15.5 PLT (test code = 777-3) See_Comment [Automated message] The system which generated this result transmitted reference range: 166 - 358 10*3/?L. The reference range was not used to interpret this result as normal/abnormal. MPV (test code = 17041-9) 11.9 fL 9.5-12.9 NRBC/100 WBC (test code = 5501213819) See_Comment [Automated message] The system which generated this result transmitted reference range: 0.0 - 10.0 /100 WBCs. The reference range was not used to interpret this result as normal/abnormal. NRBC x10^3 (test code = 8594863768) See_Comment [Automated message] The system which generated this result transmitted reference range: 10*3/?L. The reference range was not used to interpret this result as normal/abnormal. SEG % (test code = 36915-1) 71 % 33-76 BAND % (test code = 86063-4) 3 % 0-1 H META % (test code = 60555-3) 1 % See_Comment H [Automated message] The system which generated this result transmitted reference range: <=0. The reference range was not used to interpret this result as normal/abnormal. MYELO % (test code = 18973-5) 5 % See_Comment H [Automated message] The system which generated this result transmitted reference range: <=0. The reference range was not used to interpret this result as normal/abnormal. LYMPH % (test code = 57878-7) 15 % 14-54 MONO % (test code = 77849-1) 4 % 0-4 EOS % (test code = 65141-8) 1 % 0-3 ANC (test code = 1980523799) 13.83 10*3/uL 1.88-7.09 H Lab Interpretation (test code = 17232-8) Abnormal [facility] METABOLIC PANEL (NA, K, CL, CO2, GLUCOSE, BUN, CREATININE, CA)2019-12-30 11:38:00* Test Item Value Reference Range Interpretation Comme nts NA (test code = 7612715411) 135 mmol/L 135-145 K (test code = 2427952587) 2.9 mmol/L 3.5-5 LL CL (test code = 1207260301) 104 mmol/L 98-108 CO2 TOTAL (test code = 9351586673) 26 mmol/L 23-31 AGAP (test code = 9706518245) 2-16 BUN (test code = 6639272174) 7 mg/dL 7-23 GLUCOSE (test code = 3814962958) 101 mg/dL 70-110 CREATININE (test code = 9876714181) 0.47 mg/dL 0.5-1.04 L CALCIUM (test code = 1909057928) 7.4 mg/dL 8.6-10.6 L eGFR Calculation (Non-) (test code = 2232561233) mL/min/1.73m2 eGFR Calculation () (test code = 6722516686) mL/min/1.73m2 ROSALEE (test code = ROSALEE) Association of [...] or abnormalities in imaging tests). Lab Interpretation (test code = 75325-2) [facility]normal [facility]2020-09-10 05:31:00* Test Item Value Reference Range Interpretation Comme nts HGB (test code = 718-7) 7.5 g/dL 11.6-15 L Lab Interpretation (test cod e = 39452-1) Abnormal [facility]neUS PELVIS COMPLETE WITH [id number] 02:28:47Mildly thickened endometrium with increased vascularity which may representblood clots within the endometrial cavity. No discrete focal lesion, suchas endometrial polyp or fibroid, is identified. Distortion of theendometrium in the lower uterine segment is perhaps related to previousC-section Unrema rkable bilateral ovaries Preliminary Report Dictated by Resident: Donovan Rice MD., have reviewed this study and agree with the abovereport.EXAM: US PELVIS COMPLETE WITH TRANSVAGINAL HISTORY: 44 years -old Female with menorrhagia . LMP = 12/23/2019 TECHNIQUE: Transabdominal and cheney svaginal ultrasound imaging of the pelviswas performed including color Doppler evaluation. Shake Packer imageswere obtained for the record. COMPARISON: None FINDINGS: Uterus: Size: 10.8 x 5.2 x 6.2cmOrientation: AntevertedMyometrium: Homogenous with a mid uterine anechoic structure whichcorrelates to the patient's prior history of section.Masses: NoneCervix: UnremarkableEndometrial thickness: 9 mmEndometrium: Normal echogenicity with increased vascularity. Theendometrium is somewhatdistorted at the level of the surgical scar relatedto . Right Adnexa:Ovary size: 2.2 x 1.6and 1.3 cm, 2.3 mLOvary appearance: Normal. Other: No mass or collection. Left Adnexa:Ovary size: 3.2 x 1.9 x 2.1 cm, 6.6 mLOvary appearance: Few small follicles. Other: No mass or collection. Cul-de-sac: No free fluid. [facility], Radiant Results Inft User - 12/29/2019 9:29 PM CDTEXAM: US PELVIS COMPLETE WITH TRANSVAGINALHISTORY: 44 years -old Female with menorrhagia . LMP = 12/23/2019TECHNIQUE: Transabdominal and transvaginal ultrasound imaging of the pelviswas performed including color Doppler evaluation. Shake Packer imageswere obtained for the record.COMPARISON: NoneFINDINGS:Uterus: Size: 10.8x 5.2 x 6.2 cmOrientation: AntevertedMyometrium: Homogenous with a mid uterine anechoic structure wh ichcorrelates to the patient's prior history of section.Masses: NoneCervix: UnremarkableEndometrial thickness: 9 mmEndometrium: Normal echogenicity with increased vascularity. Theendometriumis somewhat distorted at the level of the surgical scar relatedto .Right Adnexa:Ovary size: 2.2 x 1.6 and 1.3 cm, 2.3 mLOvary appearance: Normal. Other: No mass or collection.Left Adnexa:Ovary size: 3.2 x 1.9 x 2.1 cm, 6.6 mLOvary appearance: Few small follicles. Other: No mass or collection.Cul-de-sac: No free fluid. IMPRESSIONMildly thickened endometrium with increased vascularity which may representblood clots within the endometrial cavity. No discrete focal lesion, suchas endometrial polyp or fibroid, is identified. Distortion of theendometrium in the lower uterine segment is perhaps related to previousC-sectionUnremarkable bilateral ovariesPreliminary Report Dictated by Resident: Donovan Alvarado MD., have reviewed this study and agree with the abovereport.[facility] GLUCOSE (AUTOMATED)2019-12-30 02:09:00* Test Item Value Reference Range Interpretation Comme nts POCT GLU (test code = 0496506145) 185 mg/dL 70-110 H Notified Provide r Lab Interpretation (test code = 68252-6) Abnormal [facility] GLUCOSE (AUTOMATED)2019-12-29 22:25:00* Test Item Value Reference Range Interpretation Comme nts POCT GLU (test code = 1730997452) 151 mg/dL 70-110 H Lab Interpretation (test cod e = 34147-8) [facility]normal [facility]2020-[facility]-09 22:18:00* Test Item Value Reference Range Interpretation Comme nts APPEARANCE (test code = 1359568502) Hazy Clear A COLOR (test code = 7890889499) Yellow Yellow PH (test code = 9428832939) 4.8-8.0 SP GRAVITY (test code = 1340312172) 1.003-1.030 GLU U QUAL (test code = 8019002864) 500 mg/dL Normal A BLOOD (test code = 7796019099) 3+ Negative A KETONES (test code = 7042679215) Negative Negative PROTEIN (test code = 2887-8) 30 mg/dL Negative A UROBILIN (test code = 9848106290) Normal Normal BILIRUBIN (test code = 8417553251) Negative Negative NITRITE (test code = 5354294407) Negative Negative LEUK CRISTOFER (test code = 6751152395) Negative Negative RBC/HPF (test code = 1411263223) >182 See_Comment H [Automated messa ge] The system which generated this result transmitted reference range: 0 - 3 HPF. The reference range was not used to interpret this result as normal/abnormal. WBC/HPF (test code = 8005861510) See_Comment [Automated messa ge] The system which generated this result transmitted reference range: 0 - 5 HPF. The reference range was not used to interpret this result as normal/abnormal. BACTERIA (test code = 9611448128) Few Negative A MUCOUS (test code = 0313237401) Slight Negative LPF A SQ EPITH (test code = 2794822859) <1 HPF WBC CLUMPS (test code = 9492355884) <1 See_Comment [Automated messa ge] The system which generated this result transmitted reference range: <=1 HPF. The reference range was not used to interpret this result as normal/abnormal. Lab Interpretation (test code = 21484-5) [facility] - 30 minutes after transfusion of each [id number] 21:03:00* Test Item Value Reference Range Interpretation Comme nts WBC (test code = 6690-2) See_Comment H [Automated messa ge] The system which generated this result transmitted reference range: 4.30 - 11.10 10*3/?L. The reference range was not used to interpret this result as normal/abnormal. RBC (test code = 789-8) See_Comment L [Automated message] The system which generated this result transmitted reference range: 3.93 - 5.25 10*6/?L. The reference range was not used to interpret this result as normal/abnormal. HGB (test code = 718-7) 7.0 g/dL 11.6-15 L HCT (test code = 4544-3) 19.7 % 35.7-45.2 L MCH (test code = 785-6) 29.5 pg 25.9-32.8 MCV (test code = 787-2) 83.1 fL 80.6-95.5 MCHC (test code = 786-4) 35.5 g/dL 31.6-35.1 H PLT (test code = 777-3) See_Comment [Automated message] The system which generated this result transmitted reference range: 166 - 358 10*3/?L. The reference range was not used to interpret this result as normal/abnormal. MPV (test code = 07530-2) 12.8 fL 9.5-12.9 RDW-CV (test code = 788-0) 14.3 % 12-15.5 RDW-SD (test code = 89329-9) 42.4 fL 39-49.9 NRBC x10^3 (test code = 3350208529) See_Comment [[employer]ated [employer]] The system which generated this result transmitted reference range: 10*3/?L. The reference range was not used to interpret this result as normal/abnormal. NRBC/100 WBC (test code = 8661869855) See_Comment [[employer]ated [employer]] The system which generated this result transmitted reference range: 0.0 - 10.0 /100 WBCs. The reference range was not used to interpret this result as normal/abnormal. IPF % (test code = 7755751488) 6.5 % 1.3-7.7 Platelet count measured by fluorescence method. Lab Interpretation (test code = 08793-3) [facility]normal [facility]neGlycosylated Hemoglobin (A1C)2019-12-29 19:33:00HGB G7CNbbajek: Due to low hemoglobin %A1c cannot be calculated.[facility]%A1C (NGSP) Interpretation (ADA)4.8-5.6 ? ? Normal or (Non-Diabetic Range)5.7-6.4 ? ? Increased Risk (Pre-Diabetic)>6.5 ?Diabetes IndicatedUnLas Palmas Medical CenterPrepare Packed RBC (in units)2019-12-29 15:23:21* Test Item Value Reference Range Interpretation Comme nts Unit Blood Type (test code = 4410) O Pos ISBT Blood Type Code (test code = 655626) Unit Number (test code = 4411) [id number] Blood Expiration Date & Time (test code = 755230) Status Information (test code = 4412) Issued Product Identification (test code = 4413) Red Blood Cells Product Code (test code = 4414) [id number] Performed at [facility] B Laboratory Services [facility] Blood [address] [place], [place] [address]Toll Free: [phone] No. [id number] Cross Match Result (test code = 4409) Compatible [facility] 11:16:00* Test Item Value Reference Range Interpretation Comme [facility] HGB (test code = 718-7) 5.4 g/dL 11.6-15 L Lab Interpretation (test cod e = 52781-5) Abnormal [facility] with Xcybwbyjouvl2627-50-56 09:15:00* Test Item Value Reference Range Interpretation Comme [facility] WBC (test code = 6690-2) See_Comment H [Automated message] The system which generated this result transmitted reference range: 4.30 - 11.10 10*3/?L. The reference range was not used to interpret this result as normal/abnormal. RBC (test code = 789-8) See_Comment L [Automated message] The system which generated this result transmitted reference range: 3.93 - 5.25 10*6/?L. The reference range was not used to interpret this result as normal/abnormal. HGB (test code = 718-7) 4.7 g/dL 11.6-15 LL HCT (test code = 4544-3) 14.7 % 35.7-45.2 LL MCV (test code = 787-2) 87.5 fL 80.6-95.5 MCH (test code = 785-6) 28.0 pg 25.9-32.8 MCHC (test code = 786-4) 32.0 g/dL 31.6-35.1 RDW-SD (test code = 74753-4) 44.0 fL 39-49.9 RDW-CV (test code = 788-0) 14.3 % 12-15.5 PLT (test code = 777-3) See_Comment [Automated message] The system which generated this result transmitted reference range: 166 - 358 10*3/?L. The reference range was not used to interpret this result as normal/abnormal. MPV (test code = 01942-8) 12.3 fL 9.5-12.9 NRBC/100 WBC (test code = 4245704542) See_Comment [Automated message] The system which generated this result transmitted reference range: 0.0 - 10.0 /100 WBCs. The reference range was not used to interpret this result as normal/abnormal. NRBC x10^3 (test code = 2808532483) <0.01 See_Comment [Automated message] The system which generated this result transmitted reference range: 10*3/?L. The reference range was not used to interpret this result as normal/abnormal. GRAN MAT (NEUT) % (test code = 770-8) 59.0 % IMM GRAN % (test code = 0129051479) 2.90 % LYMPH % (test code = 736-9) 29.7 % MONO % (test code = 5905-5) 8.1 % EOS % (test code = 713-8) 0.1 % BASO % (test code = 706-2) 0.2 % GRAN MAT x10^3(ANC) (test code = 3605890079) 10.09 10*3/uL 1.88-7.09 H IMM GRAN x10^3 (test code = 7848349793) 0.50 10*3/uL 0-0.06 H LYMPH x10^3 (test code = 731-0) 5.09 10*3/uL 1.32-3.29 H MONO x10^3 (test code = 742-7) 1.39 10*3/uL 0.33-0.92 H EOS x10^3 (test code = 711-2) <0.03 0.03-0.39 L BASO x10^3 (test code = 704-7) 0.04 10*3/uL 0.01-0.07 Lab Interpretation (test code = 94522-3) Abnormal [facility] Metabolic Panel (NA, K, CL, CO2, GLUCOSE, BUN, CREATININE, CA)2019-12-29 09:04:00* Test Item Value Reference Range Interpretation Comme nts NA (test code = 1232624427) 136 mmol/L 135-145 K (test code = 6368735769) 3.2 mmol/L 3.5-5 L CL (test code = 9811434897) 110 mmol/L 98-108 H CO2 TOTAL (test code = 8297017274) 23 mmol/L 23-31 AGAP (test code = 4932900650) 2-16 BUN (test code = 9463040622) 7 mg/dL 7-23 GLUCOSE (test code = 9796077062) 171 mg/dL 70-110 H CREATININE (test code = 7460570141) 0.46 mg/dL 0.5-1.04 L CALCIUM (test code = 5976893836) 7.4 mg/dL 8.6-10.6 L eGFR Calculation (Non-) (test code = 5113431585) mL/min/1.73m2 eGFR Calculation () (test code = 9260418977) mL/min/1.73m2 ROSALEE (test code = ROSALEE) Association of [...] or abnormalities in imaging tests). Lab Interpretation (test code = 49035-4) Abnormal [facility] [id number] 08:29:59* Test Item Value Reference Range Interpretation Comme nts ANTIBODY ID (test code = 245) Anti-E History of antib lisa of undetermined specificity not showingPerformed at [facility] Services - [facility] Blood [address] [place] [address]Jshg Free: [phone] No. [id number] [facility]nePrep[facility] Packed RBC (in units)2019-12-29 07:06:22* Test Item Value Reference Range Interpretation Comme nts Unit Blood Type (test code = 4410) O Neg ISBT Blood Type Code (test code = 984411) Unit Number (test code = 4411) [id number] Blood Expiration Date & Time (test code = 950045) Status Information (test code = 4412) Issued Product Identification (test code = 4413) Red Blood Cells Product Code (test code = 4414) [id number] Performed at [facility] B Laboratory Services - [facility] Blood [address] [place] [address]Qjcw Free: [phone] No. [id number] [facility]2020-09-09 06:19:00* Test Item Value Reference Range Interpretation Comme nts HGB (test code = 718-7) 4.7 g/dL 11.6-15 LL Lab Interpretation (test cod e = 31886-3) Abnormal [facility]2020-09-09 06:19:00* Test Item Value Reference Range Interpretation Comme nts HCT (test code = 4544-3) 14.6 % 35.7-45.2 LL Lab Interpretation (test cod e = 67873-1) Abnormal [facility]neType and Screen - ONCE [id number] 21:19:49 * Test Item Value Reference Range Interpretation Comme nts ABO & RH (test code = 20) O Positive Performed at [facility] Laboratory [facility] Blood [address] [place], [place] [id number] Free: [phone] No. [id number] IAT (test code = 1185) Positive Performed at [facility] Laboratory [facility] Blood [address] [place], [place] [address]Toll Free: [phone] No. [id number] [facility]neCBC with Ufsmyfaotirp7530-71-62 20:29:00* Test Item Value Reference Range Interpretation Comme nts WBC (test code = 6690-2) See_Comment H [Automated message] The system which generated this result transmitted reference range: 4.30 - 11.10 10*3/?L. The reference range was not used to interpret this result as normal/abnormal. RBC (test code = 789-8) See_Comment L [Automated message] The system which generated this result transmitted reference range: 3.93 - 5.25 10*6/?L. The reference range was not used to interpret this result as normal/abnormal. HGB (test code = 718-7) 7.0 g/dL 11.6-15 L HCT (test code = 4544-3) 21.3 % 35.7-45.2 L MCV (test code = 787-2) 85.5 fL 80.6-95.5 MCH (test code = 785-6) 28.1 pg 25.9-32.8 MCHC (test code = 786-4) 32.9 g/dL 31.6-35.1 RDW-SD (test code = 70647-3) 42.5 fL 39-49.9 RDW-CV (test code = 788-0) 13.8 % 12-15.5 PLT (test code = 777-3) See_Comment [Automated message] The system which generated this result transmitted reference range: 166 - 358 10*3/?L. The reference range was not used to interpret this result as normal/abnormal. MPV (test code = 86860-5) 12.7 fL 9.5-12.9 NRBC/100 WBC (test code = 0277742481) See_Comment [Automated message] The system which generated this result transmitted reference range: 0.0 - 10.0 /100 WBCs. The reference range was not used to interpret this result as normal/abnormal. NRBC x10^3 (test code = 9809059794) <0.01 See_Comment [Automated message] The system which generated this result transmitted reference range: 10*3/?L. The reference range was not used to interpret this result as normal/abnormal. GRAN MAT (NEUT) % (test code = 770-8) 65.2 % IMM GRAN % (test code = 8424591473) 2.60 % LYMPH % (test code = 736-9) 25.7 % MONO % (test code = 5905-5) 6.1 % EOS % (test code = 713-8) 0.1 % BASO % (test code = 706-2) 0.3 % GRAN MAT x10^3(ANC) (test code = 0125816325) 10.95 10*3/uL 1.88-7.09 H IMM GRAN x10^3 (test code = 8058921477) 0.43 10*3/uL 0-0.06 H LYMPH x10^3 (test code = 731-0) 4.30 10*3/uL 1.32-3.29 H MONO x10^3 (test code = 742-7) 1.02 10*3/uL 0.33-0.92 H EOS x10^3 (test code = 711-2) <0.03 0.03-0.39 L BASO x10^3 (test code = 704-7) 0.05 10*3/uL 0.01-0.07 Lab Interpretation (test code = 52168-6) Abnormal [facility]nePregnancy Test, [id number] 20:22:00* Test Item Value Reference Range Interpretation Comme nts PREG SERUM (test code = 3976671877) Negative ROSALEE (test code = ROSALEE) Less than 10 IU/L. ?If low titer or ectopic is suspected, resubmit specimen in 48-72 hours. [facility]neTroponin [id number] 20:18:00* Test Item Value Reference Range Interpretation Comme nts TROPONIN I (test code = 5109168489) <0.012 See_Comment [Automated message] The system which generated this result transmitted reference range: <=0.034 ng/mL. The reference range was not used to interpret this result as normal/abnormal. ROSALEE (test code = ROSALEE) Equal or Less than 0.034 ng/ml---Normal ?Note: Cardiac troponin begins to [...] patient's use of biotin. ? Lab Interpretation (test code = 77326-8) Normal [facility]neCOVID-19 (ID NOW RAPID TESTING)2019-12-28 20:15:00* Test Item Value Reference Range Interpretation Comme nts SARS-CoV-2 Rapid ID NOW (test code = 17386-0) Not Detected Not Detected ROSALEE (test code = ROSALEE) ID NOW COVID-19 As say is an isothermal nucleic acid amplification test intended for the qualitative detection of nucleic acid from SARS-CoV-2 viral RNA in nasopharyngeal (LIBR[employer]PERVIS[employer]) specimens. It is used under Emergency Use [...] patient testing if clinically indicated. Lab Interpretation (test code = 09774-0) Normal [facility]neHepatic Function Panel (ALB, T.PRO, BILI T, BU/BC, ALT, AST, ALK PHOS)2019-12-28 20:12:00* Test Item Value Reference Range Interpretation Comme nts TOTAL BILI (test code = 5471672223) <0.1 0.1-1.1 L BILI UNCON (test code = 2005484285) 0.4 mg/dL 0.1-1.1 BILI CONJ (test code = 3846411200) 0.0 mg/dL 0-0.3 T PROTEIN (test code = 0994962557) 5.6 g/dL 6.3-8.2 L ALBUMIN (test code = 3484991165) 2.9 g/dL 3.5-5 L ALK PHOS (test code = 8667632558) 107 U/L 34-122 ALTv (test code = 1742-6) 15 U/L 5-35 AST(SGOT) (test code = 8398850720) 17 U/L 13-40 Lab Interpretation (test cod e = 01423-8) Abnormal [facility]ne[facility] Metabolic Panel (NA, K, CL, CO2, GLUCOSE, BUN, CREATININE, CA)2019-12-28 20:08:00* Test Item Value Reference Range Interpretation Comme nts NA (test code = 8104265063) 136 mmol/L 135-145 K (test code = 4159907431) 3.3 mmol/L 3.5-5 L CL (test code = 9486313012) 106 mmol/L 98-108 CO2 TOTAL (test code = 5271100691) 21 mmol/L 23-31 L AGAP (test code = 7027466252) 2-16 BUN (test code = 4792037306) 11 mg/dL 7-23 GLUCOSE (test code = 0240652792) 227 mg/dL 70-110 H CREATININE (test code = 6373906955) 0.42 mg/dL 0.5-1.04 L CALCIUM (test code = 9783355868) 8.3 mg/dL 8.6-10.6 L eGFR Calculation (Non-) (test code = 3889563133) mL/min/1.73m2 eGFR Calculation () (test code = 7637870160) mL/min/1.73m2 ROSALEE (test code = ROSALEE) Association of [...] or abnormalities in imaging tests). Lab Interpretation (test code = 87088-3) Abnormal [facility] CleburneLipase [id number] 20:07:00* Test Item Value Reference Range Interpretation Comme nts LIPASE (test code = 1720251223) 79 U/L 0-220 Lab Interpretation (test cod e = 02838-9) Normal [facility] Cle[facility]neProthrombin Time (PT) / [id number] 20:02:00 * Test Item Value Reference Range Interpretation Comme [facility] PROTIME PATIENT (test code = 5964-2) See_Comment [Automated messa ge] The system which generated this result transmitted reference range: 12.0 - 14.7 Seconds. The reference range was not used to interpret this result as normal/abnormal. INR (test code = 6301-6) Normal INR <1.1; Warfarin Therapeutic range 2.0 to 3.0 or 2.5 to 3.5, depending upon the indications. Lab Interpretation (test code = 55870-6) Normal [facility]nePOCT [id number] 20:35:00* Test Item Value Reference Range Interpretation Comme [facility] POCT PREG (test code = 1605) Negative On board controls acceptable with C Line (test code = 3574) Yes POCT PREG LOT # (test code = 3575) POCT PREG TEST DATE ( test code = 3576) [facility]nePOCT [id number] 20:35:00* Test Item Value Reference Range Interpretation Comme [facility] POCT PREG (test code = 1605) Negative On board controls acceptable with C Line (test code = 3574) Yes POCT PREG LOT # (test code = 3575) POCT PREG TEST DATE ( test code = 3576) [facility]"
[2024-05-31] MEDS ORDERED: MORPHINE 4 MG/ML SYR ONE (08:38)
[2024-05-31] MEDS ORDERED: NA CHLORIDE 0.9% 1,000 ML ONE (08:38)
[2024-05-31] MEDS ORDERED: ONDANSETRON 4 MG/2 ML VIAL ONE (08:38)
[2024-05-31 08:54] LABS: Absolute Eosinophils 0.1 K/uL (0-0.5); Absolute Lymphocytes (CBC) 1.6 K/uL (0.7-4.9); Absolute Monocytes 0.7 K/uL (0.1-1.3); Absolute Neutrophil 10.1 K/uL (1.8-8.0); Basophils % 0.2 % (0-1.3); Eosinophils % 0.6 % (0-4.4); Hematocrit 43.5 % (36.0-45.0); Hemoglobin 14.5 g/dL (12.0-15.0); MCH 29.4 pg (27.0-35.0); MCHC 33.3 g/dL (32.0-36.0); MCV 88.1 fL (80-100); MPV 10.4 fL (7.6-11.3); Monocytes % 5.8 % (3.3-12.3); Neutrophils % 80.4 % (41.7-73.7); Nucleated Red Blood Cells % 0.1 % (0-0); Platelets 247 thou/uL (152-406); RBC Red Blood Cell Count 4.93 M/uL (3.86-4.86); Red Cell Distribution Width 12.6 % (12.1-15.2)
[2024-05-31 09:00] LABS: Albumin 3.5 g/dL (3.4-5.0); Albumin/Globulin Ratio 0.8 (1.1-1.8); Anion Gap 9.6 mEq/L (5.0-15.0); Bilirubin Total 0.3 mg/dL (0.2-1.0); Globulin 4.4 g/dL (2.3-3.5); Potassium 3.6 mEq/L (3.5-5.1); Protein, Total 7.9 g/dL (6.4-8.2)
[2024-05-31] MEDS ORDERED: KETOROLAC 30 MG/ML INJ ONE (10:16)
[2024-05-31] MEDS ORDERED: FAMOTIDINE 20 MG/2 ML VIAL IV ONE (10:16)
[2024-05-31 10:30] LABS: Specific Gravity 1.027 (1.005-1.030); Urine Bacteria <20 /HPF (<20); Urine Bilirubin NEGATIVE (Negative); Urine Blood Negative (Negative); Urine Clarity Extremely Turbid (Clear); Urine Color Light-Yellow (Yellow); Urine Culture Reflex Order NOT NEEDED; Urine Glucose 2+ (Negative); Urine Ketones 1+ (Negative); Urine Microscopic Reflex YN ORDER UMIC; Urine Mucus Slight /HPF (None Seen); Urine Nitrite NEGATIVE (Negative); Urine Protein TRACE (Negative); Urine RBC <5 /HPF (None Seen); Urine Urobilinogen Normal (Normal); Urine WBC <5 /HPF (<5); Urine pH 5.5 (5.0-7.0)
[2024-05-31 10:31] LABS: Specific Gravity 1.027 (1.005-1.030)
--- NOTE | 2024-05-31 11:25 | RAD REPORT ---
EXAMINATION: CT ABDOMEN AND PELVIS WITH CONTRAST CLINICAL INDICATION: ABD PAIN TECHNIQUE: CT abdomen and pelvis was performed, after the administration of IV contrast, [facility]. Axial, sagittal and coronal reconstructions were obtained. One or more of the following dose reduction techniques were used: Automated exposure control, adjustment of the mA and k V according to patient size, and iterative reconstruction. Unless otherwise specified, incidental findings do not require dedicated imaging follow-up. COMPARISON: 09/20/2011 FINDINGS: LOWER CHEST: The visualized lung bases are clear. LIVER: Mild fatty liver is present. No focal lesion or biliary dilatation is seen. Gallbladder dist ention. SPLEEN: Normal size. No focal lesion. PANCREAS: No mass, ductal dilation, or lary-pancreatic fluid. ADRENALS: Normal; no mass. KIDNEYS: Normal size and contour. No hydronephrosis. Small stone right kidney. GASTROINTESTINAL TRACT: No evidence of free air, significant intra-abdominal free fluid, bowel obstru ction or abscess. APPENDIX: Normal appendix. LYMPH NODES: No lymphadenopathy. MUSCULOSKELETAL: No acute or suspicious osseous abnormality. ADDITIONAL FINDINGS: None. IMPRESSION: No acute or concerning abnormalities seen in the abdomen or pelvis. Distended gallbladder.
--- NOTE | 2024-05-31 12:31 | RAD REPORT ---
EXAM: Right upper quadrant ultrasound. CLINICAL HISTORY: ABD PAIN COMPARISON: None. FINDINGS: Gallbladder: Distended with trace sludge. Bile ducts: No intrahepatic or extrahepatic biliary dilatation. Common bile duct measures 3 mm. Limited imaging of the liver shows no concerning finding. IMPRESSION: Gallbladder distention.
--- NOTE | 2024-05-31 12:36 | ER ---
Nurse's Notes [facility] Name: Shwetha Hightower Age: 48 yrs Sex: Female : 1975 Arrival Date: 05/31/2024 Time: 08:05 Bed 7 Private MD: Diagnosis: Disease of gallbladder, unspecified Presentation: 05/31 08:23 Chief complaint: Patient states: pain to right upper abdomen 8/10 , started last night, iw +n/v. Coronavirus screen: At this time, the client does not indicate any symptoms associated with coronavirus-19. Ebola Screen: No symptoms or risks identified at this time. Initial Sepsis Screen: Does the patient meet any 2 criteria? No. Patient's initial sepsis screen is negative. Does the patient have a suspected source of infection? No. Patient's initial sepsis screen is negative. Risk Assessment: Do you want to hurt yourself or someone else? Patient reports no desire to harm self or others. Onset of symptoms was May 31, 2024. 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 - Infectious Disease History:: Denies. - Social history:: Smoking status: Patient denies any tobacco usage or history of. Screenin:44 [facility] ED Fall Risk Assessment (Adult) History of falling in the last 3 months, ap3 including since admission No falls in past 3 months (0 pts) Confusion or Disorientation No (0 pts) Intoxicated or Sedated No (0 pts) Impaired Gait No (0 pts) Mobility Assist Device Used No (0 pt) Altered Elimination No (0 pt) Score/Fall Risk Level 0 - 2 = Low Risk Oriented to surroundings, Maintained a safe environment, Educated pt \T\ family on fall prevention, incl call for assistance when getting out of bed, Assessed \T\ reinforced patient's understanding of fall precautions, Hourly rounding (assess needs \T\ fall precautionary measures) done, Used ambulatory aids as needed (educated on \T\ assisted with). Abuse screen: Denies threats or abuse. Nutritional screening: No deficits noted. Tuberculosis screening: No symptoms or risk factors identified. Assessment: 08:43 General: Appears uncomfortable, Behavior is calm, cooperative. Pain: Complains of pain ap3 in epigastric area and right upper quadrant Pain began this morning. Neuro: Level of Consciousness is awake, alert, obeys commands, Oriented to person, place, time, situation. Cardiovascular: Patient's skin is warm and dry. Respiratory: Airway is patent Respiratory effort is even, unlabored, Respiratory pattern is regular, symmetrical. GI: Abdomen is non-distended, Bowel sounds present X 4 quads. Abd is soft Reports upper abdominal pain, nausea, vomiting. Vital Signs: 08:23 BP 164 / 87; Pulse 66; Resp 19; Temp 98.1; Pulse Ox 100% on R/A; Weight 58.97 kg; iw Height 5 ft. 5 in. ; Pain 8/10; 12:46 BP 123 / 77; Pulse 58; Resp 18; Temp 98.5(O); Pulse Ox 99% on R/A; ap3 08:23 Body Mass Index 21.63 (58.97 kg, 165.1 cm) iw 08:23 Pain Scale: Adult iw ED Course: 08:07 Patient arrived in ED. mr 08:19 Leanne Watkins PA-C is PHCP. sb4 08:19 Martin Abreu MD is Attending Physician. sb4 08:25 Triage completed. iw 08:25 Arm band placed on. iw 08:30 Inserted saline lock: 20 gauge in right antecubital area, using aseptic technique. bc6 Blood collected. Flushed with 10 mL NS. 08:36 Initial lab(s) drawn, by me, sent to lab. ap3 08:44 Patient has correct armband on for positive identification. Bed in low position. Call ap3 light in reach. Side rails up X2. Adult w/ patient. Provided Education on: medications prior to administration . Pulse ox on. NIBP on. 08:45 Shell Morataya, RN is Primary Nurse. ap3 10:50 CT Abd/Pelvis - IV Contrast Only In Process Unspecified. EDMS 10:58 No provider procedures requiring assistance completed. ap3 11:56 Abdomen Limited US In Process Unspecified. EDMS 12:35 Vijay Emerson MD is Referral Physician. sb4 12:46 IV discontinued, intact, bleeding controlled, No redness/swelling at site. Pressure ap3 dressing applied. Administered Medications: 08:45 Drug: Ondansetron IVP 4 mg IVP once; over 2 minutes Route: IVP; Site: right antecubital;ap3 10:12 Follow up: Response: No adverse reaction ap3 08:45 Drug: morphine IVP or IV 4 mg IVP once over 4 mins Route: IVP; Infused Over: 4 mins; ap3 Site: right antecubital; 10:12 Follow up: Response: No adverse reaction; Pain is unchanged, physician notified ap3 08:45 Drug: NS 0.9% IV 1000 ml IV at 1 bolus Per protocol; to be given as a bolus over 60 ap3 minutes Route: IV; Rate: 1 bolus; Site: right antecubital; 12:47 Follow up: IV Status: Completed infusion ap3 10:34 Drug: Ketorolac IVP 15 mg IVP once Route: IVP; Site: right antecubital; ap3 12:46 Follow up: Response: No adverse reaction; Pain is decreased; RASS: Alert and Calm (0) ap3 10:34 Drug: Famotidine IVP 20 mg IVP once; dilute with 10 mL 0.9% NaCl; give over 2 minutes ap3 Route: IVP; Site: right antecubital; 12:46 Follow up: Response: No adverse reaction ap3 Medication: 10:59 VIS not applicable for this client. ap3 Outcome: 12:36 Discharge ordered by . sb4 12:45 Discharged to home ambulatory, with family, ap3 12:45 Condition: good 12:45 Discharge instructions given to patient, family, Instructed on discharge instructions, follow up and referral plans. Demonstrated understanding of instructions, follow-up care, 12:48 Patient left the ED. ap3 Signatures: Dispatcher [employer] EDDE Misti Magallon, Alex Johnson mr Chinyere Bashir, Shell Borrego RN, RN RN ap3 Leanne Watkins, EDDIE PAGraham sb4 Stephanie Vasquez6
--- NOTE | 2024-05-31 12:36 | EDPHYS ---
Physician Documentation [facility] Name: Shwetha Hightower Age: 48 yrs Sex: Female : 1975 Arrival Date: 05/31/2024 Time: 08:05 Bed 7 Private MD: ED Physician Martin Abreu HPI: 05/31 08:32 This 48 yrs old Female presents to ER via Ambulatory with complaints of sb4 Abdominal Pain. 08:37 Patient complains of epigastric and right upper quadrant abdominal pain that began last sb4 night. It is associated with nausea and vomiting. Denies any prior episodes of this. Denies any history of known gallbladder stones or dysfunction. Denies any diarrhea. Denies any prior abdominal surgeries. CHURNER: 10:59 LMP N/A - neg u-peg, Not ap3 Historical: - Allergies: 08:25 No Known Allergies; iw - Home Meds: 08:25 None [Active]; iw - PMHx: 08:25 None; iw - PSHx: 08:25 section; iw - Immunization history:: Adult Immunizations. - Infectious Disease History:: Denies. - Social history:: Smoking status: Patient denies any tobacco usage or history of. ROS: 08:37 Constitutional: Negative for fever, chills, and weight loss, sb4 08:37 Abdomen/GI: Positive for abdominal pain, nausea and vomiting, 08:37 All other systems are negative, Exam: 08:37 Head/Face: Normocephalic, atraumatic. Eyes: Extra-ocular motions intact. Periorbital sb4 areas with no swelling, redness, or edema. ENT: Mucous membranes moist. Cardiovascular: Regular rate and rhythm with a normal S1 and S2. Respiratory: No increased work of breathing, no retractions or nasal flaring. Abdomen/GI: Soft, non-tender, no distension. Skin: Warm, dry with normal turgor. Normal color with no rashes, no lesions, and no evidence of cellulitis. 08:37 Constitutional: The patient appears alert, awake, uncomfortable, 08:37 Abdomen/GI: Indicators: Vyas's sign is negative, Vital Signs: 08:23 BP 164 / 87; Pulse 66; Resp 19; Temp 98.1; Pulse Ox 100% on R/A; Weight 58.97 kg; iw Height 5 ft. 5 in. ; Pain 8/10; 12:46 BP 123 / 77; Pulse 58; Resp 18; Temp 98.5(O); Pulse Ox 99% on R/A; ap3 08:23 Body Mass Index 21.63 (58.97 kg, 165.1 cm) iw 08:23 Pain Scale: Adult iw MDM: 08:21 Medical Screening Exam initiated sb4 10:06 Data reviewed: vital signs, nurses notes, lab test result(s), radiologic studies. sb4 05/31 08:27 Order name: CBC with Diff; Complete Time: 09:00 sb4 05/31 08:27 Order name: CMP; Complete Time: 09:00 sb4 05/31 08:27 Order name: Lipase; Complete Time: 09:00 sb4 05/31 08:27 Order name: Urinalysis w/ reflexes; Complete Time: 10:31 sb4 05/31 08:27 Order name: Test, Urine; Complete Time: 10:32 sb4 05/31 08:27 Order name: CT Abd/Pelvis - IV Contrast Only; Complete Time: 11:25 sb4 05/31 11:26 Order name: Abdomen Limited US; Complete Time: 12:32 sb4 05/31 08:27 Order name: IV Saline Lock; Complete Time: 08:35 sb4 05/31 08:27 Order name: Labs collected and sent; Complete Time: 08:35 sb4 Administered Medications: 08:45 Drug: Ondansetron IVP 4 mg IVP once; over 2 minutes Route: IVP; Site: right antecubital;ap3 10:12 Follow up: Response: No adverse reaction ap3 08:45 Drug: morphine IVP or IV 4 mg IVP once over 4 mins Route: IVP; Infused Over: 4 mins; ap3 Site: right antecubital; 10:12 Follow up: Response: No adverse reaction; Pain is unchanged, physician notified ap3 08:45 Drug: NS 0.9% IV 1000 ml IV at 1 bolus Per protocol; to be given as a bolus over 60 ap3 minutes Route: IV; Rate: 1 bolus; Site: right antecubital; 12:47 Follow up: IV Status: Completed infusion ap3 10:34 Drug: Ketorolac IVP 15 mg IVP once Route: IVP; Site: right antecubital; ap3 12:46 Follow up: Response: No adverse reaction; Pain is decreased; RASS: Alert and Calm (0) ap3 10:34 Drug: Famotidine IVP 20 mg IVP once; dilute with 10 mL 0.9% NaCl; give over 2 minutes ap3 Route: IVP; Site: right antecubital; 12:46 Follow up: Response: No adverse reaction ap3 Disposition: 13:30 Co-signature as Attending Physician, Martin Abreu MD I reviewed the patient's care rt provided by the Advanced Practice Provider and agree with the diagnosis and treatment plan. Disposition Summary: 05/31/24 12:36 Discharge Ordered Notes: Location: Home sb4 Problem: new sb4 Symptoms: have improved sb4 Condition: Stable sb4 Diagnosis - Disease of gallbladder, unspecified sb4 Followup: sb4 - With: Vijay Emerson MD - When: As needed - Reason: Recheck today's complaints, Re-evaluation by your physician Discharge Instructions: - Discharge Summary Sheet sb4 - Biliary Colic, Adult sb4 - Gallbladder Eating Plan sb4 Forms: - Patient Portal Instructions sb4 - Leadership Thank You Letter sb4 Signatures: Dispatcher [employer] Chinyere Alejandra RN RN iw Shell Morataya RN RN ap3 Leanne Watkins PA-Chantelle PADerickC sb4 Martin Abreu MD MD rt Corrections: (The following items were deleted from the chart) 08:27 08:27 CBC+H.LAB.BRZ ordered. EDMS EDMS 08:27 08:27 COMPREHENSIVE METABOLIC PANEL+C.LAB.BRZ ordered. EDMS EDMS 08:27 08:27 LIPASE+C.LAB.BRZ ordered. EDMS EDMS 08:27 08:27 Urinalysis+U.LAB.BRZ ordered. EDMS EDMS 08:27 08:27 Test, Urine+UC.LAB.BRZ ordered. EDMS EDMS 08:27 08:27 Abdomen Pelvis W Con+CT.RAD.BRZ ordered. EDMS EDMS
[2024-05-31 13:15] VITALS: BP 123/77; TEMP 98.5; O2SAT 99
== END 2024-05-31 12:48 | disposition home or self-care (01) ==
LOC: ER 08:05
DX: K82.9 Disease of gallbladder, unspecified (principal)
CPT/HCPCS: 85025; 81001; 36415; 81025; 83690; 80053; 74177; 76705; Q9967; J2405; J7030; 96361; 96374; 96375; 99284

== ENCOUNTER 2025-01-12 16:46 | Inpatient (IN) | payer OTHER ==
--- OUTSIDE RECORDS SUMMARY | 2025-01-12 16:55 | XMS REPORT | Continuity of Care Document ---
Author Name Unknown Address [address] [facility] [address] [place] [address] [facility] Address [address] [facility] [address] [place] [address] Care Team Providers Care Aerobics Instructor Name Role Phone PCP, PATIENT DOES NOT HAVE A Primary Care Physic caleb Unavailable Roselyn Valero LVN Attending Clinician + [phone] AVILA ASIF Attending Clinician Unavailable Veronica Og MD Attending Clinician [phone] HIRAM LANDAVERDE Attending Clinician Unavailabl e [facility]ending [facility]ician Unava ilable Domingo Oropeza Attending Clinician + DOMINGO GARCIA Attending Clinician Unavail able Irma Hussein Attending Clinician + [phone] IRMA SNYDER Attending Clinician Unavailab Juan Peralta MD Attending Clinician [phone] John Rosas MD Attending Clinician +[phone] SUZANNE DARBY Attending Clinician Unavailable Suzanne Darby MD Attending Clinician + Doctor Unassigned, [place] Attending Clinician U navailable Pgy3 Attending Clinician Unavailable Keagan Clark MD Attending Clinician + [phone] Lab, [facility] Attending Clinician Unavailable Christiano TRUONG, Debbie Attending Clinician [phone] [facility] Resident Attending Clinician Unavailab sadaf King MD, Alexa Mccord Attending Clinician [phone] Roselyn Valero Attending Clinician [phone] Wilberto TRUONG, Arley Jones Attending Clinician [phone] Raul TRUONG, Vineet Attending Clinician +[phone] AVILA ASIF Admitting Clinician Unavailable Reji TRUONG, Juan Seaman Admitting Clinician [phone] Raul TRUONG, Vineet Admitting Clinician +[phone] Payers Payer Name Policy Type Policy Number Effective Date Expirati on Date Source PAMELA Seaman/ ERICA SOSA [id number] 2024 00:00:00 [employer] DOMINIQUE 0-100% [id number] 2019 00:00:00 Problems Condition Name Condition Details Condition Category Status Onset Date Resolution Date Last Treatment Date Treating Clinician Comments Source Acute cholecysti tis Acute cholecysti tis Disease Active - 00:00: 00 [facility] RUQ pain RUQ pain Disease Active 11 00:00: 00 [facility] Weight gain Weight gain Disease Active 10-09 00:00: 00 [facility] Menorrhagi a with regular cycle Menorrhagi a with regular cycle Disease Active 10-09 00:00: 00 [facility] Feeling tired Feeling tired Disease Active 10-09 00:00: 00 [facility] Weight gain Weight gain Disease Active 10-09 00:00: 00 [facility] Symptomati c anemia Symptomati c anemia Disease Active 12-27 00:00: 00 [facility] Depo-Prove ra contracept goyo status Depo-Prove ra contracept goyo status Disease Active 6-16 00:00: 00 [facility] Class 1 obesity with body mass index (BMI) of 32.0 to 32.9 in adult, unspecifie d obesity type, unspecifie d whether serious comorbidit y present Class 1 obesity with body mass index (BMI) of 32.0 to 32.9 in adult, unspecifie d obesity type, unspecifie d whether serious comorbidit y present Disease Active 10-04 00:00: 00 [facility] BMI 32.0-32.9, adult BMI 32.0-32.9, adult Disease Active 10-04 00:00: 00 [facility] Encounter for surveillan ce of injectable contracept goyo Encounter for surveillan ce of injectable contracept goyo Disease Active 10-04 00:00: 00 [facility] Well woman exam (no gynecologi maria luisa exam) Well woman exam (no gynecologi maria luisa exam) Disease Active 4-10 00:00: 00 [facility] Research study patient Research study patient Disease Active 2- 00:00: 00 Overview: Formattin g of this note might be different from the original. Patient is in the HCTZ study IRB # [id number] y questions please contact:Mitchell Tipton MD [phone] Suarez MD [phone] Nuñez MD [phone] facts Patient randomize d after delivery if they met inclusion criteria a nd accepted Medicati on comes from [facility] not pharmacy, [facility] Phone Number Ext. 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 Tipton with any Questions [facility] GDM (gestation al diabetes mellitus) GDM (gestation al diabetes mellitus) Disease Active 8-23 00:00: 00 Overview: Formattin g of this note might be different from the original. Failed 1hr 207mgdl [facility] BMI 28.0-28.9, adult BMI 28.0-28.9, adult Disease Active 12-09 00:00: 00 [facility] BMI 28.0-28.9, adult BMI 28.0-28.9, adult Disease Active 12-09 00:00: 00 [facility] Routine follow-up Routine follow-up Disease Resolve d 3-20 00:00: 00 2018-07-29 00:00:00 2018-07-29 10:43:32 [facility] High blood pressure affecting , antepartum High blood pressure affecting , antepartum Disease Resolve d 2-26 00:00: 00 2018-07-29 00:00:00 2018-07-29 10:43:41 [facility] Abnormal antibody titer Abnormal antibody titer Disease Resolve d 1-04 00:00: 00 2018-07-29 00:00:00 2018-07-29 10:42:59 [facility] 35 weeks gestation of 35 weeks gestation of Disease Resolve d 2-26 00:00: 00 2018-07-08 00:00:00 2018-07-08 16:45:06 [facility] Preeclamps ia Preeclamps ia Disease Resolve d 2-26 00:00: 00 2018-07-08 00:00:00 2018-07-08 16:45:32 [facility] Insufficie nt care in third trimester Insufficie nt care in third trimester Disease Resolve d 1-04 00:00: 00 2018-07-08 00:00:00 2018-07-08 16:45:28 [facility] Influenza vaccinatio n declined Influenza vaccinatio n declined Disease Resolve d 1-04 00:00: 00 2018-07-08 00:00:00 2018-07-08 16:45:23 [facility] UTI in UTI in Disease Resolve d 9-07 00:00: 00 2018-07-08 00:00:00 2018-07-08 16:45:04 [facility] Supervisio n of high-risk Supervisio n of high-risk Disease Resolve d 12-09 00:00: 00 2018-07-08 00:00:00 2018-07-08 16:45:36 [facility] Multiparit y Multiparit y Disease Resolve d 12-09 00:00: 00 2018-07-08 00:00:00 2018-07-08 16:45:29 [facility] Family history of SIDS (sudden syndrome) Family history of SIDS (sudden infant syndrome) Disease Resolve d 12-09 00:00: 00 2018-07-08 00:00:00 2018-07-08 16:45:16 [facility] Anemia of mother in , antepartum Anemia of mother in , antepartum Disease Resolve d 01-11 00:00: 2018-07-08 00:00:00 2018-07-08 16:45:13 [facility] History of gestationa l diabetes History of gestationa l diabetes Disease Resolve d 12-09 00:00: 00 2018-05-01 00:00:00 2018-05-01 15:20:11 [facility] Gestationa l diabetes mellitus Gestationa l diabetes mellitus Disease Resolve d 2014-04 00:00: 00 2017-12-09 00:00:00 2017-12-09 15:20:02 [facility] Well female exam with routine gynecologi maria luisa exam Well female exam with routine gynecologi maria luisa exam Disease Resolve d 2014-04- 00:00: 00 2017-12-09 00:00:00 2017-12-09 15:19:53 [facility] Maternal varicella, non-immune Maternal varicella, non-immune Disease Resolve d 08-29 00:00: 00 2017-12-09 00:00:00 2017-12-09 15:19:56 [facility] Glucose tolerance test abnormal Glucose tolerance test abnormal Disease Resolve d 01-11 00:00: 2015-03-08 00:00:00 2021-11-04 00:37:45 [facility] Abnormal placenta Abnormal placenta Disease Resolve d 09-29 00:00: 2015-03-08 00:00:00 2021-11-04 00:36:22 [facility] Abnormal quad screen Abnormal quad screen Disease Resolve d 09-26 00:00: 2015-03-08 00:00:00 2015-03-08 12:11:18 [facility] Abnormal maternal glucose tolerance, antepartum Abnormal maternal glucose tolerance, antepartum Disease Resolve d 08-29 00:00: 2015-03-08 00:00:00 2021-11-04 00:35:56 [facility] Supervisio n of high-risk of elderly multigravi da Supervisio n of high-risk of elderly multigravi da Disease Resolve d 08-26 00:00: 00 2015-03-08 00:00:00 2015-03-08 12:11:29 [facility] Nausea and vomiting during prior to 22 weeks gestation Nausea and vomiting during prior to 22 weeks gestation Disease Resolve d 08-26 00:00: 2015-03-08 00:00:00 2015-03-08 12:10:52 [facility] Uterine size-date discrepanc y, antepartum Uterine size-date discrepanc y, antepartum Disease Resolve d 08-26 00:00: 2015-03-08 00:00:00 2021-11-04 00:35:55 [facility] History of gestationa l diabetes in prior , currently History of gestationa l diabetes in prior , currently Disease Resolve d 08-26 00:00: 00 2015-03-08 00:00:00 2015-03-08 12:11:25 [facility] DM, gestationa l, diet controlled DM, gestationa l, diet controlled Disease Resolve d 09-10 00:00: 00 2014-08-26 00:00:00 2014-08-26 11:41:35 [facility] Non-compli ance Non-compli ance Disease Resolve d 08-12 00:00: 00 2014-08-26 00:00:00 2014-08-26 11:41:37 [facility] Lower back pain Lower back pain Disease Resolve d 08-12 00:00: 00 2014-08-26 00:00:00 2014-08-26 11:41:36 [facility] Antepartum anemia Antepartum anemia Disease Resolve d 08-12 00:00: 00 2014-08-26 00:00:00 2021-11-04 00:29:59 [facility] AMA (advanced maternal age) multigravi da 35+ AMA (advanced maternal age) multigravi da 35+ Disease Resolve d 06-11 00:00: 00 2014-08-26 00:00:00 2021-11-04 00:29:01 [facility] Gestationa l diabetes mellitus, antepartum Gestationa l diabetes mellitus, antepartum Disease Resolve d 05-29 00:00: 00 2014-08-26 00:00:00 2021-11-04 00:28:47 [facility] Pap smear Pap smear Disease Resolve d 05-24 00:00: 00 2014-08-26 00:00:00 2021-11-04 00:28:42 [facility] Susceptibl e to varicella (non-immun e), currently Susceptibl e to varicella (non-immun e), currently Disease Resolve d 05-18 00:00: 00 2014-08-26 00:00:00 2021-11-04 00:28:36 [facility] Chlamydia infection complicati ng Chlamydia infection complicati ng Disease Resolve d 05-18 00:00: 00 2014-08-26 00:00:00 2021-11-04 00:28:36 [facility] Supervisio n of high-risk of elderly multigravi da Supervisio n of high-risk of elderly multigravi da Disease Resolve d 05-14 00:00: 00 2013-06-11 00:00:00 2021-11-04 00:28:34 [facility] Abnormal maternal glucose tolerance, antepartum Abnormal maternal glucose tolerance, antepartum Disease Resolve d 05-16 00:00: 00 2013-05-29 00:00:00 2021-11-04 00:28:34 [facility] Routine follow-up Routine follow-up Disease Resolve d 2006-04 00:00: 00 2013-05-14 00:00:00 2013-05-14 13:55:47 [facility] Other genital herpes Other genital herpes Disease Resolve d 2006-04 00:00: 00 2013-05-14 00:00:00 2013-05-14 13:55:40 [facility] Antepartum anemia Antepartum anemia Disease Resolve d 2006-04 00:00: 00 2013-05-14 00:00:00 2021-11-04 00:12:03 [facility] First degree perineal laceration during delivery First degree perineal laceration during delivery Disease Resolve d 2006-04 00:00: 00 2013-05-14 00:00:00 2021-11-04 00:12:03 [facility] Normal delivery Normal delivery Disease Resolve d 2006-04 00:00: 00 2007-02-21 00:00:00 2007-02-21 21:29:51 [facility] Allergies, Adverse Reactions, Alerts Allergy Name Allergy Type Status Severity Reaction(s) Onset Date Inactive Date Treating Clinician Comments Source NO KNOWN ALLERGIE S Drug Class Active [facility] Social History Social Habit Start Date Stop Date Quantity Comments Source ASSERTION Not [facility] of [facility]ation [facility] Exposure to SARS-CoV-2 (event) Not sure [facility] Alcoholic beverage intake 2024-11-01 00:00:00 2024-11-01 00:00:00 0 /d [facility] Tobacco use and exposure 2024-10-29 00:00:00 2024-10-29 00:00:00 Smokeless tobacco non-user [facility] Alcohol intake 2020-12-04 00:00:00 2020-12-04 00:00:00 Current non-drinker of alcohol (finding) [facility] History of Social function 2020-09-07 00:00:00 2020-09-07 00:00:00 [facility] Sex assigned at 1975 00:00:00 1975 00:00:00 [facility] Smoking Status Start Date Stop Date Source Never smoked tobacco [facility] Medications Ordered Medication Name Filled Medication Name Start Date Stop Date Current Medication? Ordering Clinician Indication Dosage Frequency Signature (SIG) Comments Components Source calcium carbonate (CALCIUM 500 ORAL) 10-30 13:10: 10 Yes 2{tbl} Take 2 tablets by mouth daily. [facility] vitamin B-12 100 mcg tablet 10-30 13:10: 10 Yes [id number] 50ug Take 50 mcg by mouth daily. [facility] vitamin C (VITAMIN C) 100 mg tablet 10-30 13:10: 10 Yes 100mg Take 100 mg by mouth daily. [facility] acetaminoph en (TYLENOL) tablet 1,000 mg acetaminoph en (TYLENOL) tablet 1,000 mg 10-30 13:00: 00 10-30 18:10 :10 Yes 1000mg 1,000 mg, Oral, TID, First dose on 10/30/24 at 0800, Until Discontinu ed, Routine [facility] celecoxib (CELEBREX) capsule 200 mg celecoxib (CELEBREX) capsule 200 mg 10-30 13:00: 00 10-30 20:10 :11 Yes 200mg 200 mg, Oral, BID MEALS, First dose on 10/30/24 at 0800, Until Discontinu ed, Routine [facility] methocarbam oL (ROBAXIN) tablet 500 mg methocarbam oL (ROBAXIN) tablet 500 mg 10-30 13:00: 00 10-30 20:10 :11 Yes 500mg 500 mg, Oral, QID, First dose on 10/30/24 at 0800, Until Discontinu ed, Routine [facility] magnesium oxide (MAG-OX 400) 400 mg (241.3 mg magnesium) tablet 400 mg magnesium oxide (MAG-OX 400) 400 mg (241.3 mg magnesium) tablet 400 mg 10-30 11:45: 00 10-30 12:17 :00 Yes 400mg 400 mg, Oral, ONCE, 1 dose, On 10/30/24 at 0645, Routine [facility] piperacilli n-tazobacta m (ZOSYN) 3.375 g in NaCl 0.9% (NS) 100 mL MINI-BAG piperacilli n-tazobacta m (ZOSYN) 3.375 g in NaCl 0.9% (NS) 100 mL MINI-BAG 10-30 04:15: 00 10-30 18:10 :10 Yes 3.375g 3.375 g, IV Piggyback, Q8H ABX, 15 doses, First dose on Fri10/29/24 at 2315, Last dose on Fri11/03/24 at 1515, Administer over 4 Hours, 100 mL, Reason for Anti-Infec tive: Documented Infection, Documented Infection Site: Abdominal, Duration of therapy: 7 days [facility] ondansetron (ZOFRAN (PF)) injection 4 mg ondansetron (ZOFRAN (PF)) injection 4 mg 10-30 03:39: 08 10-30 18:10 :10 Yes 4mg 4 mg, Slow IV Push, Q6HPRN, Nausea and Vomiting (N/V), Starting on Fri10/29/24 at 2239, Please give medication over 2-5 minutes. [facility] lactated ringers IV infusion 500 mL 10-30 02:15: 00 10-30 20:10 :11 No 500mL at 75 mL/hr, 500 mL, IV Infusion, CONTINUOUS , Starting on Fri10/29/24 at 2115, Until 10/30/24 at 1510, Routine, PACU [facility] traMADoL (ULTRAM) tablet 50 mg traMADoL (ULTRAM) tablet 50 mg 10-30 02:05: 50 10-30 20:10 :11 Yes 50mg 50 mg, Oral, Q6HPRN, Starting on Fri10/29/24 at 2105, Until 10/30/24 at 1510, Routine, Pain (scale 4-6), Pain (scale 7-10) [facility] celecoxib 200 mg capsule 10-30 00:00: 00 11-10 04:59 :00 Yes [id number] 200mg Take 1 capsule by mouth 2 times daily with meals for 10 days. [facility] methocarbam oL 500 mg tablet 10-30 00:00: 00 11-07 04:59 :00 Yes [id number] 500mg Take 1 tablet by mouth 4 times daily for 7 days. [facility] traMADoL 50 mg tablet 10-30 00:00: 00 11-07 04:59 :00 Yes [id number] 50mg Take 1 tablet by mouth every 6 hours as needed for Pain (scale 4-6) or Pain (scale 7-10) for up to 7 days. Indication s: acute pain [facility] sodium chloride 0.9 % irrigation solution 10-29 23:46: 00 10-30 02:01 :21 No PRN, Starting on Fri10/29/24 at 1846, Until Fri10/29/24 at 2101, Intra-op [facility] iohexoL (OMNIPAQUE 300-50 mL)) injection 10-29 23:12: 00 10-30 02:01 :21 No PRN, Starting on Fri10/29/24 at 1812, Until Fri10/29/24 at 2101, Routine, Intra-op [facility] indocyanine green (CARDIO-GRE EN) injection 1 mg indocyanine green (CARDIO-GRE EN) injection 1 mg 10-29 22:30: 00 10-29 21:18 :00 Yes 1mg 1 mg, Intravenou s, ONCE, 1 dose, On Fri10/29/24 at 1730, Routine [facility] bupivacaine -epinephrin e-pf (SENSORCAIN E W/EPINEPHRI NE) 0.25 %-1:200,000 30 mL, lidocaine 1% (PF) (XYLOCAINE) 30 mL 10-29 22:25: 10-30 02:01 :21 No PRN, Starting on Fri10/29/24 at 1725, [facility] 10-29 22:20: 00 10-30 02:01 :21 No PRN, Starting on Fri10/29/24 at 1720, Until Fri10/29/24 at 2101, Routine, Intra-op [facility] enoxaparin (LOVENOX) injection 40 mg enoxaparin (LOVENOX) injection 40 mg 10-29 22:00: 00 10-30 18:10 :10 Yes 40mg 40 mg, Subcutaneo us, DAILY AT 1700, First dose on Fri10/29/24 at 1700, Until Discontinu ed, Routine [facility] ketorolac (TORADOL) injection 15 mg 10-29 19:45: 00 10-29 19:26 :00 No 15mg 15 mg, Slow IV Push, ONCE, 1 dose, On Fri10/29/24 at 1445, Routine [facility] iopamidol (ISOVUE 370-500 mL) injection 85 mL 10-29 19:30: 00 10-29 19:30 :00 No [id number] 107 85mL 85 mL, Intravenou s, ONCE, 1 dose, On Fri10/29/24 at 1430, Routine [facility] morpHINE (4 mg/mL) injection 4 mg 10-29 19:00: 00 10-29 19:26 :00 No 4mg 4 mg, Slow IV Push, ONCE, 1 dose, On Fri10/29/24 at 1400, STAT [facility] ondansetron (ZOFRAN (PF)) injection 4 mg 10-29 16:30: 00 10-29 18:11 :00 No 4mg 4 mg, Slow IV Push, ONCE, 1 dose, On Fri10/29/24 at 1130, Administer over 2-5 Minutes, 2 mL [facility] morpHINE (4 mg/mL) injection 4 mg 10-29 16:30: 00 10-29 18:08 :00 No 4mg 4 mg, Slow IV Push, ONCE, 1 dose, On Fri10/29/24 at 1130, STAT [facility] medroxyPROG ESTERone (DEPO-PROVE RA) injection 150 mg 12-04 19:45: 00 12-04 18:38 :00 No [id number] 150mg [facility] vitamin B-12 100 mcg tablet 10-09 20:30: 22 Yes [id number] 50ug Take 50 mcg by mouth daily. [facility] vitamin C (VITAMIN C) 100 mg tablet 10-09 20:30: 22 Yes 100mg Take 100 mg by mouth daily. [facility] Nitrofurant oin&Nit. Macrocryst (MACROBID) 100 mg capsule 09-15 00:00: 00 09-26 04:59 :00 No [id number] 100mg Take 1 capsule by mouth 2 (two) times daily for 10 days. [facility] NaCl 0.9% (NS) bolus infusion 1,000 mL 09-12 03:45: 00 09-12 04:00 :00 No 1000mL at 999 mL/hr, 1,000 mL, IV Infusion, ONCE, 1 dose, 09/11/20 at 2245, STAT [facility] acetaminoph en (TYLENOL) tablet 975 mg 09-12 02:00: 00 09-12 01:18 :00 No 975mg 975 mg, Oral, ONCE, 1 dose, 09/11/20 at 2100, ROSANNE [facility] calcium carbonate (CALCIUM 500 ORAL) 12-29 19:03: 06 Yes 2{tbl} Take 2 tablets by mouth daily. [facility] KCL (KLOR-CON M20) tablet 40 mEq 12-29 18:15: 00 12-29 18:27 :00 No 40meq 40 mEq, Oral, ONCE, 1 dose, [place] 12/30/19 at 1315, Routine [facility] KCL (KLOR-CON M20) tablet 40 mEq 12-29 14:30: 00 12-29 14:25 :00 No 40meq 40 mEq, Oral, ONCE, 1 dose, [place] 12/30/19 at 0930, Routine [facility] medroxyPROG ESTERone (DEPO-PROVE RA) injection 150 mg 12-29 00:00: 00 12-29 00:40 :00 No 150mg 150 mg, Intramuscu lar, ONCE, 1 dose, Fri12/29/19 at 1900, Routine [facility] Sliding Scale Insulin-Reg ular + Fsbg Testing 12-28 21:30: 00 Yes Subcutaneo us, AC+HS, First dose on Fri12/29/19 at 1630, Until Discontinu ed, Routine [facility] furosemide (LASIX) injection 20 mg 12-28 21:30: 00 12-28 21:46 :00 No 20mg 20 mg, Slow IV Push, ONCE, 1 dose, Fri12/29/19 at 1630, Routine [facility] conjugated estrogens (PREMARIN) injection 25 mg 12-28 20:45: 00 12-28 21:21 :00 No 25mg 25 mg, Intravenou s, ONCE, 1 dose, Fri12/29/19 at 1545, Routine [facility] glucagon (GLUCAGEN DIAGNOSTIC KIT) injection 1 mg 12-28 16:42: 21 Yes 1mg 1 mg, Intramuscu lar, PRN, Starting Fri12/29/19 at 1142, Until Discontinu ed, ROSANNE, Blood Glucose < or = 70 mg/dL and patient is unable to swallow or has mental changes. [facility] dextrose 50 % in water (D50W) injection 25 mL 12-28 16:42: 20 Yes 25mL 25 mL, Slow IV Push, PRN, Starting Fri12/29/19 at 1142, Until Discontinu ed, ROSANNE, Blood Glucose < or = 70 mg/dL and patient is unable to swallow or has mental status changes. [facility] conjugated estrogens (PREMARIN) injection 25 mg 12-28 14:00: 00 12-28 14:45 :00 No 25mg 25 mg, Intravenou s, Q6H ABX, 1 dose, First dose (after last reorder) on Fri12/29/19 at 0900, Routine [facility] proMETHazin e (PHENERGAN) 25 mg in NaCl 0.9% (NS) 50 mL IV piggyback 12-28 12:24: 50 Yes 25mg 25 mg, IV Piggyback, Q4HPRN, Starting Fri12/29/19 at 0724, Until Discontinu ed, Routine, N/V unresponsi ve to Ondansetro n [facility] acetaminoph en (TYLENOL) tablet 650 mg 12-28 08:45: 00 12-28 07:42 :00 No 650mg 650 mg, Oral, ONCE, 1 dose, Fri12/29/19 at 0345, Routine [facility] diphenhydrA MINE (BENADRYL) capsule 50 mg 12-28 08:45: 00 12-28 08:45 :00 No 50mg 50 mg, Oral, ONCE, 1 dose, Fri12/29/19 at 0345, Routine [facility] KCL (KLOR-CON M20) tablet 60 mEq 12-28 07:30: 00 12-28 07:09 :00 No 60meq 60 mEq, Oral, ONCE, 1 dose, Fri12/29/19 at 0230, Routine [facility] NaCl 0.9% (NS) IV infusion 1,000 mL 12-28 07:30: 00 12-28 06:28 :00 No 1000mL at 125 mL/hr, IV Infusion, ONCE, 1 dose, Fri12/29/19 at 0230, Routine [facility] conjugated estrogens (PREMARIN) injection 25 mg 12-28 05:00: 00 12-28 08:01 :00 No 25mg 25 mg, Intravenou s, Q6H, 2 doses, First dose on Fri12/29/19 at 0000, Last dose on Fri12/29/19 at 0600, Routine [facility] ondansetron (ZOFRAN (PF)) injection 4 mg 12-28 00:11: 50 Yes 4mg 4 mg, Slow IV Push, Q6HPRN, Starting Fri12/28/19 at 191, Until Discontinu ed, Routine, Nausea and Vomiting (N/V) [facility] acetaminoph en (TYLENOL) tablet 650 mg 12-28 00:11: 42 Yes 650mg 650 mg, Oral, Q6HPRN, Starting Fri12/28/19 at 191, Until Discontinu ed, Routine, Pain (scale 1-3) [facility] NaCl 0.9% (NS) bolus infusion 1,000 mL 12-27 22:30: 00 12-27 22:39 :00 No 1000mL at 999 mL/hr, 1,000 mL, IV Infusion, ONCE, 1 dose, Fri12/28/19 at 1730, ROSANNE [facility] NaCl 0.9% (NS) bolus infusion 1,000 mL 12-27 19:45: 00 12-27 23:12 :00 No 1000mL at 999 mL/hr, 1,000 mL, IV Infusion, ONCE, 1 dose, Fri12/28/19 at 1445, [facility] 25/iron fum/folic/d valencia (-1 ORAL) 10-04 20:38: 02 10-04 00:00 :00 No Take by mouth. [facility] medroxyPROG ESTERone (DEPO-PROVE RA) injection 150 mg 10-04 20:30: 00 09-07 19:21 :00 No [id number] 150mg 150 mg, Intramuscu lar, [id number], 4 doses, First dose on Fri10/05/19 at 1530, Last dose on Fri06/13/20 at 1530, Routine [facility] calcium carbonate (CALCIUM 500 ORAL) 10-04 20:14: 19 Yes 2{tbl} Take 2 tablets by mouth daily. [facility] medroxyPROG ESTERone (DEPO-PROVE RA) injection 150 mg 07-12 20:15: 00 07-12 19:15 :00 No 150mg [facility] 25/iron fum/folic/d valencia (-1 ORAL) 10 15:52: 49 Yes Take by mouth. [facility] simethicone 80 mg chewable tablet 06-19 00:00: 00 10-04 00:00 :00 No [id number] 160mg Take 2 tablets by mouth after meals and at bedtime as needed for Gas. [facility] docusate calcium 240 mg capsule 06-19 00:00: 00 10-04 00:00 :00 No [id number] 240mg Take 1 capsule by mouth once daily as needed for Constipati on. [facility] HYDROcodone -acetaminop hen 5-325 mg tablet 06-19 00:00: 00 10-04 00:00 :00 No [id number] 1{tbl} Take 1 tablet by mouth every 6 (six) hours as needed for Pain (scale 4-6). [facility] ibuprofen 600 mg tablet 06-19 00:00: 00 10-04 00:00 :00 No [id number] 600mg Take 1 tablet by mouth every 6 (six) hours as needed for Pain (scale 1-3) or Pain (scale 4-6). [facility] vitamin w/FA tablet 06-19 00:00: 00 10-04 00:00 :00 No [id number] 1{tbl} Take 1 tablet by mouth daily. [facility] ferrous sulfate 325 mg (65 mg iron) tablet 06-19 00:00: 00 10-04 00:00 :00 No [id number] 325mg Take 1 tablet by mouth 2 (two) times daily. [facility] Blood-Gluco se Meter (FREESTYLE LITE METER) Kit 2017-04 0-05 00:00: 00 10-04 00:00 :00 No Glucose check 4X daily [facility] lancets (FREESTYLE LANCETS) 28 gauge Misc 2017-04 0-04 00:00: 00 10-04 00:00 :00 No Gucose Check 4X daily [facility] blood sugar diagnostic (FREESTYLE LITE STRIPS) strip 2017-04 004 00:00: 00 10-04 00:00 :00 No Gucose Check 4X daily [facility] Immunizations Ordered Immunization Name Filled Immunization Name Date Status Comments Source Tdap 2018-04-24 00:00:00 Completed [facility] TDAP 2018-04-24 00:00:00 Completed [facility] TDAP 2018-04-24 00:00:00 Completed [facility] Tdap 2018-04-24 00:00:00 Completed [facility] Tdap 2018-04-24 00:00:00 Completed [facility] TDAP 2018-04-24 00:00:00 Completed [facility] TDAP 2018-04-24 00:00:00 Completed [facility] TDAP 2018-04-24 00:00:00 Completed [facility] TDAP 2018-04-24 00:00:00 Completed [facility] TDAP 2018-04-24 00:00:00 Completed [facility] TDAP 2018-04-24 00:00:00 Completed [facility] TDAP 2018-04-24 00:00:00 Completed [facility] TDAP 2018-04-24 00:00:00 Completed [facility] TDAP 2018-04-24 00:00:00 Completed [facility] TDAP 2018-04-24 00:00:00 Completed [facility] TDAP 2018-04-24 00:00:00 Completed [facility] TDAP 2018-04-24 00:00:00 Completed [facility] TDAP 2018-04-24 00:00:00 Completed [facility] TDAP 2018-04-24 00:00:00 Completed [facility] TDAP 2018-04-24 00:00:00 Completed [facility] TDAP 2018-04-24 00:00:00 Completed [facility] TDAP 2018-04-24 00:00:00 Completed [facility] TDAP 2018-04-24 00:00:00 Completed [facility] TDAP 2018-04-24 00:00:00 Completed [facility] TDAP 2018-04-24 00:00:00 Completed [facility] TDAP 2018-04-24 00:00:00 Completed [facility] TDAP 2018-04-24 00:00:00 Completed [facility] TDAP 2018-04-24 00:00:00 Completed [facility] TDAP 2018-04-24 00:00:00 Completed [facility] TDAP 2018-04-24 00:00:00 Completed [facility] TDAP 2018-04-24 00:00:00 Completed [facility] TDAP 2018-04-24 00:00:00 Completed [facility] TDAP 2018-04-24 00:00:00 Completed [facility] Varicella (varivax)(chicken pox) 2015-04-04 00:00:00 Completed [facility] Varicella (varivax)(chicken pox) 2015-04-04 00:00:00 Completed [facility] Varicella (varivax)(chicken pox) 2015-04-04 00:00:00 Completed Varicella (varivax)(chicken pox) 2015-04-04 00:00:00 Completed [facility] Varicella (varivax)(chicken pox) 2015-04-04 00:00:00 Completed [facility] Varicella (varivax)(chicken pox) 2015-04-04 00:00:00 Completed [facility] Varicella (varivax)(chicken pox) 2015-04-04 00:00:00 Completed [facility] Varicella (varivax)(chicken pox) 2015-04-04 00:00:00 Completed [facility] Varicella (varivax)(chicken pox) 2015-04-04 00:00:00 Completed [facility] Varicella (varivax)(chicken pox) 2015-04-04 00:00:00 Completed [facility] Varicella (varivax)(chicken pox) 2015-04-04 00:00:00 Completed [facility] Varicella (varivax)(chicken pox) 2015-04-04 00:00:00 Completed [facility] Varicella (varivax)(chicken pox) 2015-04-04 00:00:00 Completed [facility] Varicella (varivax)(chicken pox) 2015-04-04 00:00:00 Completed [facility] Varicella (varivax)(chicken pox) 2015-04-04 00:00:00 Completed [facility] Varicella (varivax)(chicken pox) 2015-04-04 00:00:00 Completed [facility] Varicella (varivax)(chicken pox) 2015-04-04 00:00:00 Completed [facility] Varicella (varivax)(chicken pox) 2015-04-04 00:00:00 Completed [facility] Varicella (varivax)(chicken pox) 2015-04-04 00:00:00 Completed [facility] Varicella (varivax)(chicken pox) 2015-04-04 00:00:00 Completed [facility] Varicella (varivax)(chicken pox) 2015-04-04 00:00:00 Completed [facility] Varicella (varivax)(chicken pox) 2015-04-04 00:00:00 Completed [facility] Varicella (varivax)(chicken pox) 2015-04-04 00:00:00 Completed [facility] Varicella (varivax)(chicken pox) 2015-04-04 00:00:00 Completed [facility] Varicella (varivax)(chicken pox) 2015-04-04 00:00:00 Completed [facility] Varicella (varivax)(chicken pox) 2015-04-04 00:00:00 Completed [facility] Varicella (varivax)(chicken pox) 2015-04-04 00:00:00 Completed [facility] Varicella (varivax)(chicken pox) 2015-04-04 00:00:00 Completed [facility] Varicella (varivax)(chicken pox) 2015-04-04 00:00:00 Completed [facility] Varicella (varivax)(chicken pox) 2015-04-04 00:00:00 Completed [facility] Varicella (varivax)(chicken pox) 2015-04-04 00:00:00 Completed [facility] Varicella (varivax)(chicken pox) 2015-04-04 00:00:00 Completed [facility] Varicella (varivax)(chicken pox) 2015-04-04 00:00:00 Completed [facility] Influenza Virus Vaccine Quad IM 3+ YRS 2015-01-06 00:00:00 Completed [facility] TDAP 2015-01-06 00:00:00 Completed [facility] Influenza Virus Vaccine Quad IM 3+ YRS 2015-01-06 00:00:00 Completed [facility] Tdap 2015-01-06 00:00:00 Completed [facility] Influenza Virus Vaccine Quad IM 3+ YRS 2015-01-06 00:00:00 Completed TDAP 2015-01-06 00:00:00 Completed Influenza Virus Vaccine Quad IM 3+ YRS 2015-01-06 00:00:00 Completed [facility] Tdap 2015-01-06 00:00:00 Completed [facility] Influenza Virus Vaccine Quad IM 3+ YRS 2015-01-06 00:00:00 Completed [facility] TDAP 2015-01-06 00:00:00 Completed [facility] Influenza Virus Vaccine Quad IM 3+ YRS 2015-01-06 00:00:00 Completed [facility] TDAP 2015-01-06 00:00:00 Completed [facility] Influenza Virus Vaccine Quad IM 3+ YRS 2015-01-06 00:00:00 Completed [facility] TDAP 2015-01-06 00:00:00 Completed [facility] Influenza Virus Vaccine Quad IM 3+ YRS 2015-01-06 00:00:00 Completed [facility] TDAP 2015-01-06 00:00:00 Completed [facility] Influenza Virus Vaccine Quad IM 3+ YRS 2015-01-06 00:00:00 Completed [facility] TDAP 2015-01-06 00:00:00 Completed [facility] Influenza Virus Vaccine Quad IM 3+ YRS 2015-01-06 00:00:00 Completed [facility] TDAP 2015-01-06 00:00:00 Completed [facility] Influenza Virus Vaccine Quad IM 3+ YRS 2015-01-06 00:00:00 Completed [facility] TDAP 2015-01-06 00:00:00 Completed [facility] Influenza Virus Vaccine Quad IM 3+ YRS 2015-01-06 00:00:00 Completed [facility] TDAP 2015-01-06 00:00:00 Completed [facility] Influenza Virus Vaccine Quad IM 3+ YRS 2015-01-06 00:00:00 Completed [facility] TDAP 2015-01-06 00:00:00 Completed [facility] Influenza Virus Vaccine Quad IM 3+ YRS 2015-01-06 00:00:00 Completed [facility] TDAP 2015-01-06 00:00:00 Completed [facility] Influenza Virus Vaccine Quad IM 3+ YRS 2015-01-06 00:00:00 Completed [facility] TDAP 2015-01-06 00:00:00 Completed [facility] Influenza Virus Vaccine Quad IM 3+ YRS 2015-01-06 00:00:00 Completed [facility] TDAP 2015-01-06 00:00:00 Completed [facility] Influenza Virus Vaccine Quad IM 3+ YRS 2015-01-06 00:00:00 Completed [facility] TDAP 2015-01-06 00:00:00 Completed [facility] Influenza Virus Vaccine Quad IM 3+ YRS 2015-01-06 00:00:00 Completed [facility] TDAP 2015-01-06 00:00:00 Completed [facility] Influenza Virus Vaccine Quad IM 3+ YRS 2015-01-06 00:00:00 Completed [facility] TDAP 2015-01-06 00:00:00 Completed [facility] Influenza Virus Vaccine Quad IM 3+ YRS 2015-01-06 00:00:00 Completed [facility] TDAP 2015-01-06 00:00:00 Completed [facility] Influenza Virus Vaccine Quad IM 3+ YRS 2015-01-06 00:00:00 Completed [facility] TDAP 2015-01-06 00:00:00 Completed [facility] Influenza Virus Vaccine Quad IM 3+ YRS 2015-01-06 00:00:00 Completed [facility] TDAP 2015-01-06 00:00:00 Completed [facility] Influenza Virus Vaccine Quad IM 3+ YRS 2015-01-06 00:00:00 Completed [facility] TDAP 2015-01-06 00:00:00 Completed [facility] Influenza Virus Vaccine Quad IM 3+ YRS 2015-01-06 00:00:00 Completed [facility] TDAP 2015-01-06 00:00:00 Completed [facility] Influenza Virus Vaccine Quad IM 3+ YRS 2015-01-06 00:00:00 Completed [facility] TDAP 2015-01-06 00:00:00 Completed [facility] Influenza Virus Vaccine Quad IM 3+ YRS 2015-01-06 00:00:00 Completed [facility] TDAP 2015-01-06 00:00:00 Completed [facility] Influenza Virus Vaccine Quad IM 3+ YRS 2015-01-06 00:00:00 Completed [facility] TDAP 2015-01-06 00:00:00 Completed [facility] Influenza Virus Vaccine Quad IM 3+ YRS 2015-01-06 00:00:00 Completed [facility] TDAP 2015-01-06 00:00:00 Completed [facility] Influenza Virus Vaccine Quad IM 3+ YRS 2015-01-06 00:00:00 Completed [facility] TDAP 2015-01-06 00:00:00 Completed [facility] Influenza Virus Vaccine Quad IM 3+ YRS 2015-01-06 00:00:00 Completed [facility] TDAP 2015-01-06 00:00:00 Completed [facility] Influenza Virus Vaccine Quad IM 3+ YRS 2015-01-06 00:00:00 Completed [facility] TDAP 2015-01-06 00:00:00 Completed [facility] Influenza Virus Vaccine Quad IM 3+ YRS 2015-01-06 00:00:00 Completed [facility] TDAP 2015-01-06 00:00:00 Completed [facility] Influenza Virus Vaccine Quad IM 3+ YRS 2015-01-06 00:00:00 Completed [facility] Tdap 2015-01-06 00:00:00 Completed [facility] TDAP 2013-08-12 00:00:00 Completed [facility] Tdap 2013-08-12 00:00:00 Completed [facility] TDAP 2013-08-12 00:00:00 Completed [facility] Tdap 2013-08-12 00:00:00 Completed [facility] TDAP 2013-08-12 00:00:00 Completed [facility] TDAP 2013-08-12 00:00:00 Completed [facility] TDAP 2013-08-12 00:00:00 Completed [facility] TDAP 2013-08-12 00:00:00 Completed [facility] TDAP 2013-08-12 00:00:00 Completed [facility] TDAP 2013-08-12 00:00:00 Completed [facility] TDAP 2013-08-12 00:00:00 Completed [facility] TDAP 2013-08-12 00:00:00 Completed [facility] TDAP 2013-08-12 00:00:00 Completed [facility] TDAP 2013-08-12 00:00:00 Completed [facility] TDAP 2013-08-12 00:00:00 Completed [facility] TDAP 2013-08-12 00:00:00 Completed [facility] TDAP 2013-08-12 00:00:00 Completed [facility] TDAP 2013-08-12 00:00:00 Completed [facility] TDAP 2013-08-12 00:00:00 Completed [facility] TDAP 2013-08-12 00:00:00 Completed [facility] TDAP 2013-08-12 00:00:00 Completed [facility] TDAP 2013-08-12 00:00:00 Completed [facility] TDAP 2013-08-12 00:00:00 Completed [facility] TDAP 2013-08-12 00:00:00 Completed [facility] TDAP 2013-08-12 00:00:00 Completed [facility] TDAP 2013-08-12 00:00:00 Completed [facility] TDAP 2013-08-12 00:00:00 Completed [facility] TDAP 2013-08-12 00:00:00 Completed [facility] TDAP 2013-08-12 00:00:00 Completed [facility] TDAP 2013-08-12 00:00:00 Completed [facility] TDAP 2013-08-12 00:00:00 Completed [facility] Tdap 2013-08-12 00:00:00 Completed [facility] TDAP 2013-08-12 00:00:00 Completed [facility] Influenza Virus Vaccine (3+ yrs) 2013-06-11 00:00:00 Completed [facility] Influenza Virus Vaccine (3+ yrs) 2013-06-11 00:00:00 Completed [facility] Influenza, split virus, trivalent, preservative (3+ Yrs) (Afluria) 2013-06-11 00:00:00 Completed [facility] Influenza Virus Vaccine (3+ yrs) 2013-06-11 00:00:00 Completed [facility] Influenza Virus Vaccine (3+ yrs) 2013-06-11 00:00:00 Completed [facility] Influenza Virus Vaccine (3+ yrs) 2013-06-11 00:00:00 Completed [facility] Influenza Virus Vaccine (3+ yrs) 2013-06-11 00:00:00 Completed [facility] Influenza Virus Vaccine (3+ yrs) 2013-06-11 00:00:00 Completed [facility] Influenza Virus Vaccine (3+ yrs) 2013-06-11 00:00:00 Completed [facility] Influenza Virus Vaccine (3+ yrs) 2013-06-11 00:00:00 Completed [facility] Influenza Virus Vaccine (3+ yrs) 2013-06-11 00:00:00 Completed [facility] Influenza Virus Vaccine (3+ yrs) 2013-06-11 00:00:00 Completed [facility] Influenza Virus Vaccine (3+ yrs) 2013-06-11 00:00:00 Completed [facility] Influenza Virus Vaccine (3+ yrs) 2013-06-11 00:00:00 Completed [facility] Influenza Virus Vaccine (3+ yrs) 2013-06-11 00:00:00 Completed [facility] Influenza Virus Vaccine (3+ yrs) 2013-06-11 00:00:00 Completed [facility] Influenza Virus Vaccine (3+ yrs) 2013-06-11 00:00:00 Completed [facility] Influenza Virus Vaccine (3+ yrs) 2013-06-11 00:00:00 Completed [facility] Influenza Virus Vaccine (3+ yrs) 2013-06-11 00:00:00 Completed [facility] Influenza Virus Vaccine (3+ yrs) 2013-06-11 00:00:00 Completed [facility] Influenza Virus Vaccine (3+ yrs) 2013-06-11 00:00:00 Completed [facility] Influenza Virus Vaccine (3+ yrs) 2013-06-11 00:00:00 Completed [facility] Influenza Virus Vaccine (3+ yrs) 2013-06-11 00:00:00 Completed [facility] Influenza Virus Vaccine (3+ yrs) 2013-06-11 00:00:00 Completed [facility] Influenza Virus Vaccine (3+ yrs) 2013-06-11 00:00:00 Completed [facility] Influenza Virus Vaccine (3+ yrs) 2013-06-11 00:00:00 Completed [facility] Influenza Virus Vaccine (3+ yrs) 2013-06-11 00:00:00 Completed [facility] Influenza Virus Vaccine (3+ yrs) 2013-06-11 00:00:00 Completed [facility] Influenza Virus Vaccine (3+ yrs) 2013-06-11 00:00:00 Completed [facility] Influenza Virus Vaccine (3+ yrs) 2013-06-11 00:00:00 Completed [facility] Influenza Virus Vaccine (3+ yrs) 2013-06-11 00:00:00 Completed [facility] Influenza Virus Vaccine (3+ yrs) 2013-06-11 00:00:00 Completed [facility] Influenza Virus Vaccine (3+ yrs) 2013-06-11 00:00:00 Completed [facility] PPD (TB) 2003-04-21 00:00:00 Completed [facility] PPD (TB) 2003-04-21 00:00:00 Completed [facility] PPD (TB) 2003-04-21 00:00:00 Completed PPD (TB) 2003-04-21 00:00:00 Completed [facility] PPD (TB) 2003-04-21 00:00:00 Completed [facility] PPD (TB) 2003-04-21 00:00:00 Completed [facility] PPD (TB) 2003-04-21 00:00:00 Completed [facility] PPD (TB) 2003-04-21 00:00:00 Completed [facility] PPD (TB) 2003-04-21 00:00:00 Completed [facility] PPD (TB) 2003-04-21 00:00:00 Completed [facility] PPD (TB) 2003-04-21 00:00:00 Completed [facility] PPD (TB) 2003-04-21 00:00:00 Completed [facility] PPD (TB) 2003-04-21 00:00:00 Completed [facility] PPD (TB) 2003-04-21 00:00:00 Completed [facility] PPD (TB) 2003-04-21 00:00:00 Completed [facility] PPD (TB) 2003-04-21 00:00:00 Completed [facility] PPD (TB) 2003-04-21 00:00:00 Completed [facility] PPD (TB) 2003-04-21 00:00:00 Completed [facility] PPD (TB) 2003-04-21 00:00:00 Completed [facility] PPD (TB) 2003-04-21 00:00:00 Completed [facility] PPD (TB) 2003-04-21 00:00:00 Completed [facility] PPD (TB) 2003-04-21 00:00:00 Completed [facility] PPD (TB) 2003-04-21 00:00:00 Completed [facility] PPD (TB) 2003-04-21 00:00:00 Completed [facility] PPD (TB) 2003-04-21 00:00:00 Completed [facility] PPD (TB) 2003-04-21 00:00:00 Completed [facility] PPD (TB) 2003-04-21 00:00:00 Completed [facility] PPD (TB) 2003-04-21 00:00:00 Completed [facility] PPD (TB) 2003-04-21 00:00:00 Completed [facility] PPD (TB) 2003-04-21 00:00:00 Completed [facility] PPD (TB) 2003-04-21 00:00:00 Completed [facility] PPD (TB) 2003-04-21 00:00:00 Completed [facility] PPD (TB) 2003-04-21 00:00:00 Completed [facility] Td 2002-04-21 00:00:00 Completed [facility] Td 2002-04-21 00:00:00 Completed [facility] TD, NOS 2002-04-21 00:00:00 Completed [facility] Td 2002-04-21 00:00:00 Completed [facility] Td 2002-04-21 00:00:00 Completed [facility] Td 2002-04-21 00:00:00 Completed [facility] Td 2002-04-21 00:00:00 Completed [facility] Td 2002-04-21 00:00:00 Completed [facility] Td 2002-04-21 00:00:00 Completed [facility] Td 2002-04-21 00:00:00 Completed [facility] Td 2002-04-21 00:00:00 Completed [facility] Td 2002-04-21 00:00:00 Completed [facility] Td 2002-04-21 00:00:00 Completed [facility] Td 2002-04-21 00:00:00 Completed [facility] Td 2002-04-21 00:00:00 Completed [facility] Td 2002-04-21 00:00:00 Completed [facility] Td 2002-04-21 00:00:00 Completed [facility] Td 2002-04-21 00:00:00 Completed [facility] Td 2002-04-21 00:00:00 Completed [facility] Td 2002-04-21 00:00:00 Completed [facility] Td 2002-04-21 00:00:00 Completed [facility] Td 2002-04-21 00:00:00 Completed [facility] Td 2002-04-21 00:00:00 Completed [facility] Td 2002-04-21 00:00:00 Completed [facility] Td 2002-04-21 00:00:00 Completed [facility] Td 2002-04-21 00:00:00 Completed [facility] Td 2002-04-21 00:00:00 Completed [facility] Td 2002-04-21 00:00:00 Completed [facility] Td 2002-04-21 00:00:00 Completed [facility] Td 2002-04-21 00:00:00 Completed [facility] Td 2002-04-21 00:00:00 Completed [facility] Td 2002-04-21 00:00:00 Completed [facility] Td 2002-04-21 00:00:00 Completed [facility] Vital Signs Vital Name Observation Time Observation Value Comments Minh espinosa Systolic blood pressure 2024-10-30 16:11:00 115 mm[Hg] [facility] Diastolic blood pressure 2024-10-30 16:11:00 66 mm[Hg] [facility] Heart rate 2024-10-30 16:11:00 82 /min [facility] Oxygen saturation in Arterial blood by Pulse oximetry 2024-10-30 16:11:00 93 /min [facility] Body temperature 2024-10-30 16:10:00 36.33 Jill [facility] Respiratory rate 2024-10-30 16:10:00 16 /min [facility] Body weight 2024-10-30 08:10:00 76.476 kg [facility] BMI 2024-10-30 08:10:00 27.23 kg/m2 [facility] Body height 2024-10-30 03:15:00 167.6 cm [facility] Systolic blood pressure 2024-10-29 20:00:00 137 mm[Hg] [facility] Diastolic blood pressure 2024-10-29 20:00:00 80 mm[Hg] [facility] Heart rate 2024-10-29 20:00:00 81 /min [facility] Body temperature 2024-10-29 20:00:00 36.56 Jill [facility] Respiratory rate 2024-10-29 20:00:00 12 /min [facility] Oxygen saturation in Arterial blood by Pulse oximetry 2024-10-29 20:00:00 97 /min [facility] Body height 2024-10-29 16:05:00 167.6 cm [facility] Body weight 2024-10-29 16:05:00 63.504 kg [facility] BMI 2024-10-29 16:05:00 27.23 kg/m2 [facility] Systolic blood pressure 2020-12-04 18:23:00 134 mm[Hg] [facility] Diastolic blood pressure 2020-12-04 18:23:00 79 mm[Hg] [facility] Heart rate 2020-12-04 18:23:00 82 /min [facility] Body temperature 2020-12-04 18:23:00 36.56 Jill [facility] Respiratory rate 2020-12-04 18:23:00 16 /min [facility] Body height 2020-12-04 18:23:00 165.1 cm [facility] Body weight 2020-12-04 18:23:00 77.293 kg [facility] BMI 2020-12-04 18:23:00 28.36 kg/m2 [facility] Systolic blood pressure 2020-10-09 20:21:00 123 mm[Hg] [facility] Diastolic blood pressure 2020-10-09 20:21:00 82 mm[Hg] [facility] Heart rate 2020-10-09 20:21:00 96 /min [facility] Body temperature 2020-10-09 20:21:00 37.06 Jill [facility] Respiratory rate 2020-10-09 20:21:00 16 /min [facility] Body height 2020-10-09 20:21:00 165.1 cm [facility] Body weight 2020-10-09 20:21:00 77.656 kg [facility] BMI 2020-10-09 20:21:00 28.49 kg/m2 [facility] Systolic blood pressure 2020-09-21 20:13:00 136 mm[Hg] [facility] Diastolic blood pressure 2020-09-21 20:13:00 80 mm[Hg] [facility] Heart rate 2020-09-21 20:13:00 112 /min [facility] Body temperature 2020-09-21 20:13:00 36.83 Jill [facility] Respiratory rate 2020-09-21 20:13:00 22 /min [facility] Body height 2020-09-21 20:13:00 165.1 cm [facility] Body weight 2020-09-21 20:13:00 76.114 kg [facility] BMI 2020-09-21 20:13:00 27.92 kg/m2 [facility] Systolic blood pressure 2020-09-12 08:30:00 112 mm[Hg] [facility] Diastolic blood pressure 2020-09-12 08:30:00 62 mm[Hg] [facility] Heart rate 2020-09-12 08:30:00 70 /min [facility] Respiratory rate 2020-09-12 08:30:00 20 /min [facility] Oxygen saturation in Arterial blood by Pulse oximetry 2020-09-12 08:30:00 98 /min [facility] Body temperature 2020-09-12 06:22:00 37.33 Jill [facility] Body weight 2020-09-12 06:22:00 65.772 kg [facility] BMI 2020-09-12 06:22:00 24.13 kg/m2 [facility] Systolic blood pressure 2020-09-12 04:45:00 106 mm[Hg] [facility] Diastolic blood pressure 2020-09-12 04:45:00 72 mm[Hg] [facility] Heart rate 2020-09-12 04:45:00 94 /min [facility] Respiratory rate 2020-09-12 04:45:00 17 /min [facility] Oxygen saturation in Arterial blood by Pulse oximetry 2020-09-12 04:45:00 98 /min [facility] Body temperature 2020-09-12 03:15:00 37.22 Jill [facility] Body weight 2020-09-12 00:11:00 65.772 kg [facility] BMI 2020-09-12 00:11:00 24.13 kg/m2 [facility] Systolic blood pressure 2020-09-07 19:26:00 133 mm[Hg] [facility] Diastolic blood pressure 2020-09-07 19:26:00 74 mm[Hg] [facility] Heart rate 2020-09-07 19:26:00 131 /min [facility] Body temperature 2020-09-07 19:26:00 36.17 Jill [facility] Respiratory rate 2020-09-07 19:26:00 16 /min [facility] Body height 2020-09-07 19:26:00 165.1 cm [facility] Body weight 2020-09-07 19:26:00 76.476 kg [facility] BMI 2020-09-07 19:26:00 28.06 kg/m2 [facility] Systolic blood pressure 2020-06-15 19:31:00 130 mm[Hg] [facility] Diastolic blood pressure 2020-06-15 19:31:00 87 mm[Hg] [facility] Heart rate 2020-06-15 19:31:00 80 /min [facility] Body temperature 2020-06-15 19:31:00 36.83 Jill [facility] Respiratory rate 2020-06-15 19:31:00 16 /min [facility] Body height 2020-06-15 19:31:00 165.1 cm [facility] Body weight 2020-06-15 19:31:00 76.006 kg [facility] BMI 2020-06-15 19:31:00 27.88 kg/m2 [facility] Systolic blood pressure 2020-06-15 19:31:00 130 mm[Hg] [facility] Diastolic blood pressure 2020-06-15 19:31:00 87 mm[Hg] [facility] Heart rate 2020-06-15 19:31:00 80 /min [facility] Body temperature 2020-06-15 19:31:00 36.83 Jill [facility] Respiratory rate 2020-06-15 19:31:00 16 /min [facility] Body height 2020-06-15 19:31:00 165.1 cm [facility] Body weight 2020-06-15 19:31:00 76.006 kg [facility] BMI 2020-06-15 19:31:00 27.88 kg/m2 [facility] Systolic blood pressure 2020-03-23 19:45:00 115 mm[Hg] [facility] Diastolic blood pressure 2020-03-23 19:45:00 81 mm[Hg] [facility] Heart rate 2020-03-23 19:45:00 87 /min [facility] Body temperature 2020-03-23 19:45:00 37.11 Jill [facility] Respiratory rate 2020-03-23 19:45:00 16 /min [facility] Body height 2020-03-23 19:45:00 165.1 cm [facility] Body weight 2020-03-23 19:45:00 76.261 kg [facility] BMI 2020-03-23 19:45:00 27.98 kg/m2 [facility] Systolic blood pressure 2020-03-23 19:45:00 115 mm[Hg] [facility] Diastolic blood pressure 2020-03-23 19:45:00 81 mm[Hg] [facility] Heart rate 2020-03-23 19:45:00 87 /min [facility] Body temperature 2020-03-23 19:45:00 37.11 Jill [facility] Respiratory rate 2020-03-23 19:45:00 16 /min [facility] Body height 2020-03-23 19:45:00 165.1 cm [facility] Body weight 2020-03-23 19:45:00 76.261 kg [facility] BMI 2020-03-23 19:45:00 27.98 kg/m2 [facility] Systolic blood pressure 2020-02-22 18:56:00 130 mm[Hg] [facility] Diastolic blood pressure 2020-02-22 18:56:00 80 mm[Hg] [facility] Heart rate 2020-02-22 18:56:00 92 /min [facility] Body temperature 2020-02-22 18:56:00 37.11 Jill [facility] Respiratory rate 2020-02-22 18:56:00 18 /min [facility] Body height 2020-02-22 18:56:00 152.4 cm [facility] Body weight 2020-02-22 18:56:00 76.25 kg [facility] BMI 2020-02-22 18:56:00 32.83 kg/m2 [facility] Systolic blood pressure 2020-02-22 18:56:00 130 mm[Hg] [facility] Diastolic blood pressure 2020-02-22 18:56:00 80 mm[Hg] [facility] Heart rate 2020-02-22 18:56:00 92 /min [facility] Body temperature 2020-02-22 18:56:00 37.11 Jill [facility] Respiratory rate 2020-02-22 18:56:00 18 /min [facility] Body height 2020-02-22 18:56:00 152.4 cm [facility] Body weight 2020-02-22 18:56:00 76.25 kg [facility] BMI 2020-02-22 18:56:00 32.83 kg/m2 [facility] Systolic blood pressure 2020-01-11 18:00:00 118 mm[Hg] [facility] Diastolic blood pressure 2020-01-11 18:00:00 64 mm[Hg] [facility] Heart rate 2020-01-11 18:00:00 84 /min [facility] Body temperature 2020-01-11 18:00:00 36.72 Jill [facility] Respiratory rate 2020-01-11 18:00:00 20 /min [facility] Body height 2020-01-11 18:00:00 152.4 cm [facility] Body weight 2020-01-11 18:00:00 76.386 kg [facility] BMI 2020-01-11 18:00:00 32.89 kg/m2 [facility] Systolic blood pressure 2019-12-30 17:00:00 98 mm[Hg] [facility] Diastolic blood pressure 2019-12-30 17:00:00 73 mm[Hg] [facility] Heart rate 2019-12-30 17:00:00 114 /min [facility] Body temperature 2019-12-30 17:00:00 37.67 Jill [facility] Respiratory rate 2019-12-30 17:00:00 20 /min [facility] Oxygen saturation in Arterial blood by Pulse oximetry 2019-12-30 17:00:00 98 /min [facility] Body weight 2019-12-28 19:23:00 81.647 kg [facility] BMI 2019-12-28 19:23:00 35.15 kg/m2 [facility] Systolic blood pressure 2019-10-05 20:09:00 128 mm[Hg] [facility] Diastolic blood pressure 2019-10-05 20:09:00 87 mm[Hg] [facility] Heart rate 2019-10-05 20:09:00 100 /min [facility] Body temperature 2019-10-05 20:09:00 36.72 Jill [facility] Respiratory rate 2019-10-05 20:09:00 16 /min [facility] Body height 2019-10-05 20:09:00 152.4 cm [facility] Body weight 2019-10-05 20:09:00 75.411 kg [facility] BMI 2019-10-05 20:09:00 32.47 kg/m2 [facility] Body weight 2019-07-13 19:12:00 72.802 kg documented from last visit, due to COVID-19 [facility] BMI 2019-07-13 19:12:00 26.71 kg/m2 [facility] Procedures Procedure Date / Time Performed Performing Clinician Source MAGNESIUM 2024-10-30 09:08:00 Avila Asif [facility] HEPATIC FUNCTION PANEL (38828) (ALB,T.PRO,BILI T,BU/BC,ALT,AST,ALK PHOS) 2024-10-30 09:08:00 Pj Mcwilliams [facility] BASIC METABOLIC PANEL (NA, K, CL, CO2, GLUCOSE, BUN, CREATININE, CA) 2024-10-30 09:08:00 Avila Asif [facility] CBC WITH DIFF 2024-10-30 09:08:00 Avila Asif [facility] MAGNESIUM 2024-10-30 09:08:00 Avila Asif [facility] HEPATIC FUNCTION PANEL ([id number]) (ALB,T.PRO,BILI T,BU/BC,ALT,AST,ALK PHOS) 2024-10-30 09:08:00 Pj Mcwilliams [facility] BASIC METABOLIC PANEL (NA, K, CL, CO2, GLUCOSE, BUN, CREATININE, CA) 2024-10-30 09:08:00 Avila Asif [facility] CBC WITH DIFF 2024-10-30 09:08:00 Avila Asif [facility] GLYCOSYLATED HEMOGLOBIN (A1C) 2024-10-30 09:08:00 Varsha Pelletier [facility] FL TIME OR (NON-REPORTABLE) 2024-10-30 00:42:00 Caroline Chun [facility] FL TIME OR (NON-REPORTABLE) 2024-10-30 00:42:00 Caroline Chun [facility] [id number] - [place] ROBOTIC SURGICAL SYSTEM 2024-10-29 21:27:00 Veronica Og [facility] [id number] - CHG CHOLANGIOGRAPHY&/PANCREATO GRAPHY NTRAOP RS&I 2024-10-29 21:27:00 Veronica Og [facility] [id number] - [place] LAPS SURG CHOLECYSTECTOMY W/CHOLANGIOGRAPHY 2024-10-29 21:27:00 Veronica Og [facility] CT ABDOMEN PELVIS W CONTRAST 2024-10-29 18:33:46 Charlie Adame [facility] CT ABDOMEN PELVIS W CONTRAST 2024-10-29 18:33:46 Charlie Adame [facility] POCT TEST 2024-10-29 18:10:00 Charlie Adame [facility] POCT TEST 2024-10-29 18:10:00 Charlie Adame [facility] EKG-12 LEAD 2024-10-29 18:08:09 Charlie Adame [facility] URINALYSIS 2024-10-29 18:08:00 Charlie Adame [facility] URINALYSIS 2024-10-29 18:08:00 Charlie Adame [facility] LIPASE 2024-10-29 18:06:00 Charlie Adame [facility] COMP. METABOLIC PANEL ([id number]) 2024-10-29 18:06:00 Charlie Adame [facility] CBC WITH DIFF 2024-10-29 18:06:00 Charlie Adame [facility] LIPASE 2024-10-29 18:06:00 Charlie Adame [facility] COMP. METABOLIC PANEL ([id number]) 2024-10-29 18:06:00 Charlie Adame [facility] CBC WITH DIFF 2024-10-29 18:06:00 [facility] 2024-10-29 17:08:[address] [facility] GALL BLADDER 2024-10-29 17:08:38 Charlie Adame U [facility] XR CHEST 1 VW 2020-09-12 01:20:52 Suzanne Darby [facility] BLOOD CULTURE SCREEN 2020-09-12 01:14:00 Kenton Darby [facility] BLOOD CULTURE SCREEN 2020-09-12 01:09:00 Kenton Darby [facility] COVID-19 (ID NOW RAPID TESTING) 2020-09-12 00:55:00 Suzanne Darby [facility] POCT TEST 2020-09-12 00:52:00 Bg Darby [facility] LACTIC ACID WHOLE BLOOD 2020-09-12 00:49:00 Do mary Darby [facility] MAGNESIUM 2020-09-12 00:48:00 [facility] FREE T4 2020-09-12 00:48:00 Suzanne Darby [facility] THYROID STIMULATING HORMONE 2020-09-12 00:48:00 Suzanne Darby [facility] HEPATIC FUNCTION PANEL ([id number]) (ALB,T.PRO,BILI T,BU/BC,ALT,AST,ALK PHOS) 2020-09-12 00:48:00 Suzanne Darby [facility] BASIC METABOLIC PANEL (NA, K, CL, CO2, GLUCOSE, BUN, CREATININE, CA) 2020-09-12 00:48:00 Suzanne Darby [facility] CBC WITH DIFF 2020-09-12 00:48:00 Suzanne Darby [facility] PROTHROMBIN TIME / INR 2020-09-12 00:48:00 Santos Darby [facility] ACTIVATED PARTIAL THRMPLAS TALIA 2020-09-12 00:48:00 Suzanne Darby [facility] URINALYSIS 2020-09-12 00:48:00 [facility] HB ABO GROUPING 2020-09-12 00:48:00 Suzanne Darby Un [facility] NOTICE OF PRIVACY PRACTICES 2020-09-12 00:01:00 Doctor Unassigned, [place] [facility] CONSENT/REFUSAL FOR DIAGNOSIS AND TREATMENT 2020-09-12 00:00:48 Doctor Unassigned, [place] [facility] BCCS-RELATED DOCUMENTATION 2020-05-09 06:01:00 D octor Unassigned, [place] [facility] BI DIAGNOSTIC TOMOSYNTHESIS RIGHT 2020-02-23 14:57:20 Irma Snyder [facility] BCCS-RELATED DOCUMENTATION 2020-02-04 05:01:00 D octor Unassigned, [place] [facility] FREE T4 2020-01-11 20:06:00 Debbie Alvarado [facility] THYROID STIMULATING HORMONE 2020-01-11 20:06:00 Christiano Debbie [facility] COMP. METABOLIC PANEL ([id number]) 2020-01-11 20:06:00 Christiano Debbie [facility] FOLLICLE STIMULATING HORMONE 2020-01-11 20:06:00 Christiano [facility] CBC WITH DIFF 2020-01-11 20:06:[address] [facility] DISCLOSURE AND CONSENT, MEDICAL AND SURGICAL PROCEDURES 2020-01-11 05:01:00 Doctor Unassigned, [place] [facility] POCT GLUCOSE (AUTOMATED) 2019-12-30 16:33:00 Raul [facility] HEMOGLOBIN 2019-12-30 16:17:00 Raul [facility] HEMATOCRIT 2019-12-30 16:17:00 Raul [facility] POCT GLUCOSE (AUTOMATED) 2019-12-30 12:38:00 Vineet Carter [facility] MAGNESIUM 2019-12-30 10:10:00 Raul [facility] BASIC METABOLIC PANEL (NA, K, CL, CO2, GLUCOSE, BUN, CREATININE, CA) 2019-12-30 10:10:00 Raul [facility] CBC WITH DIFF 2019-12-30 10:10:00 Vineet Carter [facility] HEMOGLOBIN 2019-12-30 05:21:00 DonatoSudarshanspencer [facility] TRANSFUSE PACKED RBC 2019-12-30 03:33:04 Jonny Botello [facility] US PELVIS COMPLETE WITH TRANSVAGINAL 2019-12-30 02:02:18 Rosmery [facility] POCT GLUCOSE (AUTOMATED) 2019-12-30 01:26:00 Raul [facility] PREPARE PACKED RBC 2019-12-30 01:06:01 Rosmery [facility] POCT GLUCOSE (AUTOMATED) 2019-12-29 22:09:00 Raul [facility] URINALYSIS 2019-12-29 21:39:00 Vineet Carter [facility] CBC WITHOUT DIFF 2019-12-29 20:17:[address] [facility] PREPARE PACKED RBC 2019-12-29 15:23:21 Arley Ladd [facility] HEMOGLOBIN 2019-12-29 11:06:[address] [facility] BASIC METABOLIC PANEL (NA, K, CL, CO2, GLUCOSE, BUN, CREATININE, CA) 2019-12-29 07:36:00 Raul [facility] CBC WITH DIFF 2019-12-29 07:36:00 Raul [facility] GLYCOSYLATED HEMOGLOBIN (A1C) 2019-12-29 07:36:00 Raul [facility] PREPARE PACKED RBC 2019-12-29 07:06:22 Doctor Un assigned, [place] [facility] HEMOGLOBIN 2019-12-29 05:38:[address] [facility] HEMATOCRIT 2019-12-29 05:38[facility] 2019-12-28 21:10:00 Raul [facility] EKG-12 LEAD 2019-12-28 20:13:12 Arley Ladd [facility] COVID-19 (ID NOW RAPID TESTING) 2019-12-28 19:39:00 Arley Ladd [facility] HB ABO GROUPING 2019-12-28 19:37:00 Arley Ladd [facility] LIPASE 2019-12-28 19:36:00 Arley Ladd [facility] TEST, SERUM 2019-12-28 19:36:00 Glen Ladd [facility] TROPONIN I 2019-12-28 19:36:00 Arley Ladd [facility] HEPATIC FUNCTION PANEL ([id number]) (ALB,T.PRO,BILI T,BU/BC,ALT,AST,ALK PHOS) 2019-12-28 19:36:00 Arley Ladd [facility] BASIC METABOLIC PANEL (NA, K, CL, CO2, GLUCOSE, BUN, CREATININE, CA) 2019-12-28 19:36:00 Arley Ladd [facility] CBC WITH DIFF 2019-12-28 19:36:00 [facility] 2019-12-28 19:36:00 Darion Ladd [facility] EKG-12 LEAD 2019-12-28 19:34:10 Arley Ladd [facility] CONSENT/REFUSAL FOR DIAGNOSIS AND TREATMENT 2019-12-28 19:06:26 Doctor Unassigned, [place] [facility] NOTICE OF PRIVACY PRACTICES 2019-12-28 19:06:03 Doctor Unassigned, [place] [facility] POCT TEST 2019-10-05 20:35:00 Kristy Snyder [facility] [id number] CONSENT 2019-04-20 06:01:00 Doctor Unas signed, [place] [facility] Encounters Start Date/Time End Date/Time Encounter Type Admission Type Attending Clinicians Care Facility Care Department Encounter ID Source 2021-02-18 21:01:15 Emergency [place] [id number] [facility] 2021-02-16 16:24:04 Emergency [place] [id number] [facility] 2024-11-01 00:00:00 2024-11-01 16:44:13 Transition of Care Roselyn Valero Antoinette [facility] [address] [id number] [facility] 2024-10-29 11:08:00 2024-10-30 13:06:00 Hospital Encounter AVILA DENTON [facility] [id number] [facility] 2024-10-29 15:54:00 2024-10-29 19:01:00 Surgery Veronica Og [facility] [id number] [facility] 2021-02-28 13:00:00 2021-02-28 13:31:05 Outpatient HIRAM LAWS [place] [id number] [facility] 2021-02-27 13:30:00 2021-02-27 13:30:00 Outpatient HIRAM LAWS [place] [id number] [facility] 2021-02-26 14:00:00 2021-02-26 14:00:00 Outpatient R [place] [id number] [facility] 2020-12-04 13:09:20 2020-12-04 13:36:09 Nurse Visit Visit, [facility] Nurse Domingo Garcia [facility] [employer] MARK[employer] INTER[facility] [id number] [facility] 2020-12-04 13:30:00 2020-12-04 13:30:00 Outpatient DOMINGO BARR [place] [id number] [facility] 2020-11-30 14:30:00 2020-11-30 14:30:00 Outpatient R [place] [id number] [facility] 2020-11-09 13:30:00 2020-11-09 13:30:00 Outpatient R [place] [id number] [facility] 2020-10-09 14:40:20 2020-10-09 16:00:30 Office Visit Irma Snyder [facility] [employer] INTERN [facility] & CHILD [facility] 1.2.840.114 350.1.13.10 4.2.7.2.686 [id number] [facility] 2020-10-09 15:00:00 2020-10-09 15:00:00 Outpatient R ALAINA SNYDERASHLIEMELODYCharissa [place] [id number] [facility] 2020-09-21 14:48:30 2020-09-21 16:02:42 Office Visit Irma Snyder [facility] PRODUCT MARKETING INTERN [facility] & CHILD [facility] 1.2.840.114 350.1.13.10 4.2.7.2.686 [id number] [facility] 2020-09-21 15:00:00 2020-09-21 15:00:00 Outpatient R IRMA SNYDER [place] [id number] [facility] 2020-09-15 00:00:00 2020-09-15 00:00:00 Telephone Irma Snyder [facility] PRODUCT MARKETING INTERN [facility] & CHILD [facility] 1.2.840.114 350.1.13.10 4.2.7.2.686 [id number] [facility] 2020-09-12 01:24:00 2020-09-12 04:45:00 Emergency Juan Mendoza [facility] 1..840.114 350.1.13.10 4.2.7.2.686 [id number] [facility] 2020-09-11 19:15:00 2020-09-12 00:13:00 Emergency SUZANNE LOWE [facility] ERT [id number] [facility] 2020-09-11 19:15:00 2020-09-12 00:13:00 Emergency Suzanne Darby [facility] 1.2.840.114 350.1.13.10 4.2.7.2.686 [id number] [facility] 2020-09-07 13:48:49 2020-09-07 14:20:05 Nurse Visit Visit, Domingo Marie [facility] PRODUCT MARKETING INTERN [facility] & CHILD [facility] 1.2840.114 350.1.13.10 4.2.7.2.686 [id number] [facility] 2020-09-07 14:00:00 2020-09-07 14:00:00 Outpatient R [place] [id number] [facility] 2020-09-07 14:00:00 2020-09-07 14:00:00 Outpatient R DOMINGO GARCIA [place] [id number] [facility] 2020-06-15 13:07:28 2020-06-15 13:22:28 Nurse Visit Visit, Eder Fair [facility] PRODUCT MARKETING INTERN [facility] 1.0.114 350.1.13.10 4.2.7.2.686 [id number] 2020-06-15 13:07:28 2020-06-15 13:22:28 Nurse Visit Visit, Domingo Marie [facility] PRODUCT MARKETING INTERN [facility] & CHILD [facility] 1.2840.114 350.1.13.10 4.2.7.2.686 [id number] [facility] 2020-06-15 13:00:00 2020-06-15 13:00:00 Outpatient R [place] [id number] [facility] 2020-05-09 00:00:00 2020-05-09 00:00:00 Orders Only Doctor Unassigned, [place] [facility] 1.840.114 350.1.13.10 4.2.7.2.686 [id number] 2020-05-09 00:00:00 2020-05-09 00:00:00 Orders Only Doctor Unassigned, [place] [facility] 1.2.840.114 350.1.13.10 4.2.7.2.686 [id number] [facility] 2020-03-23 13:37:20 2020-03-23 14:02:39 [facility] PRODUCT MARKETING INTERN [facility] & CHILD [facility] 1.2.840.114 350.1.13.10 4.2.7.2.686 [id number] [facility] 2020-03-23 13:37:20 2020-03-23 14:02:39 Nurse Visit Visit, [facility] Fair [facility] PRODUCT MARKETING INTERN [facility] 1.2.840.114 350.1.13.10 4.2.7.2.686 [id number] 2020-03-23 14:00:00 2020-03-23 14:00:00 Outpatient R DOMINGO GARCIA [place] [id number] [facility] 2020-02-23 08:26:32 2020-02-23 23:59:00 Hospital Encounter LenoreAlainanemesio [facility] 1.2.840.114 350.1.13.10 4.2.7.2.686 [id number] [facility] 2020-02-23 08:26:32 2020-02-23 23:59:00 [facility] 1.2.840.114 350.1.13.10 4.2.7.2.686 [id number] 2020-02-23 08:24:37 2020-02-23 08:25:00 [facility] 1.2.840.114 350.1.13.10 4.2.7.2.686 [id number] [facility] 2020-02-23 08:24:37 2020-02-23 08:25:00 Hospital Encounter Alaina Snydershailesh Mccord [facility] 1.2840.114 350.1.13.10 4.2.7.2.686 [id number] 2020-02-23 00:00:00 2020-02-23 00:00:00 Outpatient R SNYDER ALAINASHAILESH [place] [id number] [facility] 2020-02-22 12:56:26 2020-02-22 13:11:26 Office Visit Pgy3 Keagan Clark [facility] 1.0.114 350.1.13.10 4.2.7.2.686 [id number] [facility] 2020-02-22 12:56:26 2020-02-22 13:11:[address] [facility] 1.20.114 350.1.13.10 4.2.7.2.686 [id number] 2020-02-22 13:00:00 2020-02-22 13:00:00 Outpatient R [place] [id number] [facility] 2020-02-04 00:00:00 2020-02-04 00:00:00 Orders Only Doctor Unassigned, [place] [facility] 1.20.114 350.1.13.10 4.2.7.2.686 [id number] [id number] [facility] 2020-01-21 08:29:44 2020-01-21 08:44:44 [employer] Member Visit Lab, [facility] Domingo Garcia [facility] PRODUCT MARKETING INTER[facility] 1.2840.114 350.1.13.10 4.2.7.2.686 [id number] [facility] 2020-01-21 08:30:00 2020-01-21 08:30:00 Outpatient R DOMINGO GARCIA [place] [id number] [facility] 2020-01-19 00:00:00 2020-01-19 00:00:00 Telephone Irma Snyder [facility] PRODUCT MARKETING INTERN [facility] MATERNAL & [facility] 1..114 350.1.13.10 4.2.7.2.686 [id number] 107 [id number] [facility] 2020-01-14 00:00:00 2020-01-14 00:00:[address] [facility] 1.114 350.1.13.10 4.2.7.2.686 [id number] [facility] 2020-01-11 12:54:00 2020-01-11 15:06:16 Office Visit Fabrice, [facility] Resident Alexa King [facility] 1..114 350.1.13.10 4.2.7.2.686 [id number] [facility] 2020-01-11 14:30:00 2020-01-11 14:30:00 Outpatient R [place] [id number] [facility] 2020-01-11 00:00:00 2020-01-11 00:00:00 Orders Only Doctor Unassigned, [place] [facility] 1.114 350.1.13.10 4.2.7.2.686 [id number] [facility] 2019-12-31 00:00:00 2019-12-31 00:00:00 Transition of Care Roselyn Valero 1..114 350.1.13.10 4.2.7.2.686 [id number] [facility] 2019-12-28 14:32:00 2019-12-30 13:33:00 Hospital Encounter Arley Ladd [facility] 1.2.840.114 350.1.13.10 4.2.7.2.686 [id number] [facility] 2019-12-28 15:00:00 2019-12-28 15:15:00 Nurse Visit Visit, Ang-Rmchp Nurse Domingo Garcia [facility] PRODUCT MARKETING INTERN [facility] & CHILD [facility] 1.2.840.114 350.1.13.10 4.2.7.2.686 [id number] [facility] 2019-12-28 15:00:00 2019-12-28 15:00:00 Outpatient R DOMINGO GARCIA [place] [id number] [facility] 2019-12-09 00:00:00 2019-12-09 00:00:00 Telephone Irma Snyder [facility] PRODUCT MARKETING INTERN [facility] CHILD [facility] 1.2.840.114 350.1.13.10 4.2.7.2.686 [id number] [facility] 2019-12-06 00:00:00 2019-12-06 00:00:00 Case Management Irma Snyder [facility] PRODUCT MARKETING INTERN [facility] CHILD [facility] 1.2840.114 350.1.13.10 4.2.7.2.686 [id number] [facility] 2019-11-29 10:00:00 2019-11-29 10:00:00 Outpatient R [place] [id number] [facility] 2019-11-26 00:00:00 2019-11-26 00:00:00 Telephone Irma Snyder [facility] PRODUCT MARKETING INTERN [facility] CHILD [facility] 1.2840.114 350.1.13.10 4.2.7.2.686 [id number] 107 [id number] [facility] 2019-11-26 00:00:00 2019-11-26 00:00:00 Telephone Irma Snyder [facility] PRODUCT MARKETING INTERN [facility] CHILD [facility] 1.2.840.114 350.1.13.10 4.2.7.2.686 [id number] [facility] 2019-11-25 00:00:00 2019-11-25 00:00:00 Telephone Irma Snyder [facility] PRODUCT MARKETING INTERN [facility] CHILD [facility] 1.2.840.114 350.1.13.10 4.2.7.2.686 [id number] 107 [id number] [facility] 2019-11-24 06:35:23 2019-11-24 23:59:00 Hospital Encounter Irma Snyder [facility] 1.2.840.114 350.1.13.10 4.2.7.2.686 [id number] [facility] 2019-11-24 00:00:00 2019-11-24 00:00:00 Outpatient IRMA JOYCE [place] [id number] [facility] 2019-11-24 00:00:00 2019-11-24 00:00:00 Telephone Domingo Garcia [facility] PRODUCT MARKETING INTERN [facility] CHILD [facility] 1.2.840.114 350.1.13.10 4.2.7.2.686 [id number] [facility] 2019-10-05 15:03:26 2019-10-05 15:38:20 Office Visit Irma Snyder [facility] PRODUCT MARKETING INTERN [facility] & CHILD [facility] 1.2.840.114 350.1.13.10 4.2.7.2.686 [id number] [facility] 2019-10-05 15:00:00 2019-10-05 15:00:00 Outpatient R IRMA SNYDER [place] [id number] [facility] 2019-07-13 14:30:00 2019-07-13 14:30:00 Outpatient R DOMINGO GARCIA [place] [id number] [facility] 2019-07-13 13:50:29 2019-07-13 14:05:29 Nurse Visit Visit, [facility] Nurse Domingo Garcia [facility] PRODUCT MARKETING INTERN [facility] 1.2840.114 350.1.13.10 4.2.7.2.686 [id number] [facility] 2019-04-20 00:00:00 2019-04-20 00:00:00 Orders Only Doctor Unassigned, [place] [facility] 1.840.114 350.1.13.10 4.2.7.2.686 [id number] [facility] Results Test Description Test Time Test Comments Results Result Comments Source [place] Time OR(non-reportab le) 00:45:20 These images do not require a Radiology diagnostic report. [facility] [place] Time OR(non-reportab le) 00:45:20 These images do not require a Radiology diagnostic report. [facility] CT Abdomen pelvis w contrast 18:47:38 CT ABDOMEN PELVIS W CONTRAST 10/29/2024 1:18 PM HISTORY: upper abd pain, n/v, no acute findings on US COMPARISON: Same day ultrasound TECHNIQUE: Axial images of the abdomen and pelvis were acquired afteradministration of intravenous contrast. Coronal and sagittalreconstructions were also created. FINDINGS: LOWER CHEST: The lungs bases are clear. ? HEPATOBILIARY: The liver is normal in size.The contour is normal. Decreasedparenchymal attenuation. No focal hepatic lesion.The gallbladder is distended within normal wall thickness, measures 4.7 x10 cm. A 5 mm stone in the cystic duct associated with fat stranding aroundthe cystic duct.No biliary ductal dilatation. SPLEEN: Normal in size. No lesion. PANCREAS: Normal parenchymal enhancement. No ductal dilatation. No masses. ADRENAL GLANDS: No adrenal nodules. KIDNEYS: Normal parenchymal enhancement. No hydronephrosis. 3 mm lower poleright renal stone.No solid mass. GI TRACT: No luminal dilation or wall thickening. The appendix is PERITONEUM AND RETROPERITONEUM: No free air.No free fluid. LYMPH NODES: No pathologically enlarged or morphologically abnormal lymphnodes are identified. PELVIS/BLADDER: The urinary bladder is normal. The reproductive organs arewithin normal limits. VESSELS: Within normal limits. BONES AND SOFT TISSUES: No aggressive osseous lesion. No acute osseousabnormality. No concerning soft tissue abnormality. [facility] CT Abdomen pelvis w contrast 18:47:38 CT ABDOMEN PELVIS W CONTRAST 10/29/2024 1:18 PM HISTORY: upper abd pain, n/v, no acute findings on US COMPARISON: Same day ultrasound TECHNIQUE: Axial images of the abdomen and pelvis were acquired afteradministration of intravenous contrast. Coronal and sagittalreconstructions were also created. FINDINGS: LOWER CHEST: The lungs bases are clear. ? HEPATOBILIARY: The liver is normal in size.The contour is normal. Decreasedparenchymal attenuation. No focal hepatic lesion.The gallbladder is distended within normal wall thickness, measures 4.7 x10 cm. A 5 mm stone in the cystic duct associated with fat stranding aroundthe cystic duct.No biliary ductal dilatation. SPLEEN: Normal in size. No lesion. PANCREAS: Normal parenchymal enhancement. No ductal dilatation. No masses. ADRENAL GLANDS: No adrenal nodules. KIDNEYS: Normal parenchymal enhancement. No hydronephrosis. 3 mm lower poleright renal stone.No solid mass. GI TRACT: No luminal dilation or wall thickening. The appendix is PERITONEUM AND RETROPERITONEUM: No free air.No free fluid. LYMPH NODES: No pathologically enlarged or morphologically abnormal lymphnodes are identified. PELVIS/BLADDER: The urinary bladder is normal. The reproductive organs arewithin normal limits. VESSELS: Within normal limits. BONES AND SOFT TISSUES: No aggressive osseous lesion. No acute osseousabnormality. No concerning soft tissue abnormality. [facility] ([id number])2024-10-29 18:45:43* Test Item Value Reference Range Interpretation Comme nts NA (test code = 3016204961) 135 mmol/L 135-145 K (test code = 6406713018) 3.9 mmol/L 3.5-5.0 CL (test code = 3066781467) 104 mmol/L 98-108 CO2 TOTAL (test code = 0905376787) 22 mmol/L 23-31 L AGAP (test code = 3817057159) 9 2-16 BUN (test code = 9233193328) 11 mg/dL 7-23 GLUCOSE (test code = 9035100581) 108 mg/dL 70-110 CREATININE (test code = 2160-0) 0.48 mg/dL 0.50-1.04 L TOTAL BILI (test code = 9731005511) 0.5 mg/dL 0.1-1.1 CALCIUM (test code = 9182770803) 9.1 mg/dL 8.6-10.6 T PROTEIN (test code = 7974522764) 7.9 g/dL 6.3-8.2 ALBUMIN (test code = 2306099215) 4.2 g/dL 3.5-5.0 ALK PHOS (test code = 9482243592) 116 U/L 34-122 ALTv (test code = 1742-6) 20 U/L 5-35 AST(SGOT) (test code = 8505209793) 24 U/L 13-40 eGFR (test code = 16095-9) 117 mL/min/1.73m2 CKD-EPI eGFR (2020). Assuming creatinine has been stable day-to-day for at least three months, the eGFR indicates Category G1 (>= 90 mL/min/1.73 m2) Lab Interpretation (test code = 63890-5) [facility]normal [facility] 18:45:03* Test Item Value Reference Range Interpretation Comme nts LIPASE (test code = 5394626597) 112 U/L 0-220 Lab Interpretation (test cod e = 17070-7) Normal [facility] 18:45:03* Test Item Value Reference Range Interpretation Comme nts LIPASE (test code = 9868722828) 112 U/L 0-220 Lab Interpretation (test cod e = 17974-6) Normal [facility] WITH [id number] 18:33:56* Test Item Value Reference Range Interpretation Comme nts WBC (test code = 6690-2) 12.9 4.30-11.10 H RBC (test code = 789-8) 5.14 3.93-5.25 HGB (test code = 718-7) 15.2 g/dL 11.6-15.0 H HCT (test code = 4544-3) 45.9 % 35.7-45.2 H MCV (test code = 787-2) 89.3 fL 80.6-95.5 MCH (test code = 785-6) 29.6 pg 25.9-32.8 MCHC (test code = 786-4) 33.1 g/dL 31.6-35.1 RDW-SD (test code = 27750-0) 38.9 fL 39.0-49.9 L RDW-CV (test code = 788-0) 11.9 % 12.0-15.5 L PLT (test code = 777-3) 285 166-358 MPV (test code = 54500-1) 12 fL 9.5-12.9 NRBC/100 WBC (test code = 6805534613) 0 0.0-10.0 NRBC x10^3 (test code = 6798192698) See_Comment [Automated message] The system which generated this result transmitted reference range: 10*3/?L. The reference range was not used to interpret this result as normal/abnormal. GRAN MAT (NEUT) % (test code = 770-8) 78.2 % IMM GRAN % (test code = 9339627829) 0.9 % LYMPH % (test code = 736-9) 13.4 % MONO % (test code = 5905-5) 6.4 % EOS % (test code = 713-8) 0.7 % BASO % (test code = 706-2) 0.4 % GRAN MAT x10^3(ANC) (test code = 3826808567) 10.08 10*3/uL 1.88-7.09 H IMM GRAN x10^3 (test code = 5671895014) 0.12 10*3/uL 0.00-0.06 H LYMPH x10^3 (test code = 731-0) 1.73 10*3/uL 1.32-3.29 MONO x10^3 (test code = 742-7) 0.83 10*3/uL 0.33-0.92 EOS x10^3 (test code = 711-2) 0.09 10*3/uL 0.03-0.39 BASO x10^3 (test code = 704-7) 0.05 10*3/uL 0.01-0.07 Lab Interpretation (test code = 93637-9) Abnormal [facility] WITH [id number] 18:33:56* Test Item Value Reference Range Interpretation Comme nts WBC (test code = 6690-2) 12.9 4.30-11.10 H RBC (test code = 789-8) 5.14 3.93-5.25 HGB (test code = 718-7) 15.2 g/dL 11.6-15.0 H HCT (test code = 4544-3) 45.9 % 35.7-45.2 H MCV (test code = 787-2) 89.3 fL 80.6-95.5 MCH (test code = 785-6) 29.6 pg 25.9-32.8 MCHC (test code = 786-4) 33.1 g/dL 31.6-35.1 RDW-SD (test code = 86460-3) 38.9 fL 39.0-49.9 L RDW-CV (test code = 788-0) 11.9 % 12.0-15.5 L PLT (test code = 777-3) 285 166-358 MPV (test code = 29788-6) 12 fL 9.5-12.9 NRBC/100 WBC (test code = 2460774980) 0 0.0-10.0 NRBC x10^3 (test code = 6332512325) See_Comment [Automated message] The system which generated this result transmitted reference range: 10*3/?L. The reference range was not used to interpret this result as normal/abnormal. GRAN MAT (NEUT) % (test code = 770-8) 78.2 % IMM GRAN % (test code = 2502529929) 0.9 % LYMPH % (test code = 736-9) 13.4 % MONO % (test code = 5905-5) 6.4 % EOS % (test code = 713-8) 0.7 % BASO % (test code = 706-2) 0.4 % GRAN MAT x10^3(ANC) (test code = 4758583843) 10.08 10*3/uL 1.88-7.09 H IMM GRAN x10^3 (test code = 9096705437) 0.12 10*3/uL 0.00-0.06 H LYMPH x10^3 (test code = 731-0) 1.73 10*3/uL 1.32-3.29 MONO x10^3 (test code = 742-7) 0.83 10*3/uL 0.33-0.92 EOS x10^3 (test code = 711-2) 0.09 10*3/uL 0.03-0.39 BASO x10^3 (test code = 704-7) 0.05 10*3/uL 0.01-0.07 Lab Interpretation (test code = 84458-9) [id number] 18:10:00* Test Item Value Reference Range Interpretation Comme nts POCT PREG (test code = 1605) Negative On board controls acceptable with C Line (test code = 3574) Yes Lab Interpretation (test cod e = 32038-4) Normal [facility] [id number] 18:10:00* Test Item Value Reference Range Interpretation Comme nts POCT PREG (test code = 1605) Negative On board controls acceptable with C Line (test code = 3574) Yes Lab Interpretation (test cod e = 82816-9) Normal [facility] [id number] 17:40:38EXAM: US GALL BLADDER HISTORY: 48 years-old Female; Provided indication: RUQ pain . TECHNIQUE: Limited abdominal ultrasound focused on the gallbladder wasperformed by the mineral technologist. Themain portal vein wasevaluated with color Doppler. Accounts Receivable Executive images were obtained for therecord. COMPARISON: None FINDINGS: PANCREAS:The pancreatic head and body display normal echogenicity to the extentvisualized. LIVER:Visualized Parenchyma: The liver parenchyma exhibits mildly increasedhepatic echogenicity and echotexture. Portal vein: Hepatopetal flow is present in the main portal vein. BILE DUCTS:No intra- or extrahepatic biliary dilatation is visualized.The common duct diameter is normal and measures 0.3 cm. GALLBLADDER:No shadowing stones are seen. The gallbladder is physiologically distended. The gallbladder wall thickness is normal and measures 0.2 cm. Nopericholecystic fluid is visualized.Vyas's sign was not present. OTHER: None.[facility] [id number] 17:40:38 EXAM: US GALL BLADDER HISTORY: 48 years-old Female; Provided indication: RUQ pain . TECHNIQUE: Limited abdominal ultrasound focused on the gallbladder wasperformed by the mineral technologist. Themain portal vein wasevaluated with color Doppler. Accounts Receivable Executive images were obtained for therecord. COMPARISON: None FINDINGS: PANCREAS:The pancreatic head and body display normal echogenicity to the extentvisualized. LIVER:Visualized Parenchyma: The liver parenchyma exhibits mildly increasedhepatic echogenicity and echotexture. Portal vein: Hepatopetal flow is present in the main portal vein. BILE DUCTS:No intra- or extrahepatic biliary dilatation is visualized.The common duct diameter is normal and measures 0.3 cm. GALLBLADDER:No shadowing stones are seen. The gallbladder is physiologically distended. The gallbladder wall thickness is normal and measures 0.2 cm. Nopericholecystic fluid is visualized.Vyas's sign was not present. OTHER: None.[facility] with [id number] 04:10:59* Test Item Value Reference Range Interpretation Comme nts WBC (test code = 6690-2) See_Comment [Automated [employer]] The system which generated this result transmitted reference range: 4.30 - 11.10 10*3/?L. The reference range was not used to interpret this result as normal/abnormal. RBC (test code = 789-8) See_Comment L [Automated [employer]] The system which generated this result transmitted [...] g/dL 31.6-35.1 L RDW-SD (test code = 14220-0) 51.8 fL 39.0-49.9 H RDW-CV (test code = 788-0) 17.1 % 12.0-15.5 H PLT (test code = 777-3) See_Comment [Automated messa ge] The system which generated this result transmitted reference range: 166 - 358 10*3/?L. The reference range was not used to interpret this result as normal/abnormal. MPV (test code = 71712-0) 12.7 fL 9.5-12.9 NRBC/100 WBC (test code = 7920656308) See_Comment [Automated me ssage] The system which generated this result transmitted reference range: 0.0 - 10.0 /100 WBCs. The reference range was not used to interpret this result as normal/abnormal. NRBC x10^3 (test code = 4127865237) See_Comment [Automated messa ge] The system which generated this result transmitted reference range: 10*3/?L. The reference range was not used to interpret this result as normal/abnormal. SEG % (test code = 62223-4) 63 % 33-76 BAND % (test code = 26858-8) 8 % 0-1 H LYMPH % (test code = 54371-2) 25 % 14-54 MONO % (test code = 22301-6) 4 % 0-4 ANC (test code = 3467393243) 6.13 10*3/uL 1.88-7.09 POLYCHROMASIA (test code = 86125-6) 2+ See_Comment [Automated messa ge] The system which generated this result transmitted reference range: 2+. The reference range was not used to interpret this result as normal/abnormal. PLT ESTIMATE (test code = 9317-9) Normal Normal Lab Interpretation (test code = 93613-3) [id number] 03:38:02* Test Item Value Reference Range Interpretation Comme nts FREE T4 (test code = 9385659780) See_Comment [Automated messa ge] The system which generated this result transmitted reference range: 0.78 - 2.20 ng/dL:. The reference range was not used to interpret this result as normal/abnormal. Lab Interpretation (test code = 36754-5) Normal [facility] - ONCE [id number] 02:17:30 * Test Item Value Reference Range Interpretation Comme nts ABO & RH (test code = 20) O Positive Performed at [facility] Laboratory [facility] Blood [address] Free: [phone] No. [id number] IAT (test code = 1185) Positive Performed at [facility] Laboratory [facility] Blood [address] Free: [phone] No. [id number] [facility]21-[facility] 02:02:02* Test Item Value Reference Range Interpretation Comme nts APTT Patient (test code = 3173-2) <20 See_Comment L [Automated message] The system which generated this result transmitted reference range: 23 - 38 Seconds. The reference range was not used to interpret this result as normal/abnormal. ROSALEE (test code = ROSALEE) The [facility] patient population mean normal value for aPTT is 30 seconds. Lab Interpretation (test code = 41033-9) [facility]normal [facility] 02:01:05* Test Item Value Reference Range Interpretation Comme nts APPEARANCE (test code = 4458181304) Hazy Clear A COLOR (test code = 7961243776) Yellow Yellow PH (test code = 9383091917) 4.8-8.0 SP GRAVITY (test code = 8527344063) 1.003-1.030 GLU U QUAL (test code = 2133585591) 500 mg/dL Normal A BLOOD (test code = 0278829748) 3+ Negative A KETONES (test code = 4408077696) Negative Negative PROTEIN (test code = 2887-8) Negative Negative UROBILIN (test code = 0429655000) 2.0 mg/dL Normal A BILIRUBIN (test code = 3818932468) Negative Negative NITRITE (test code = 9191870551) Negative Negative LEUK CRISTOFER (test code = 6345793196) Negative Negative RBC/HPF (test code = 9512038896) See_Comment [Automated messa ge] The system which generated this result transmitted reference range: 0 - 3 HPF. The reference range was not used to interpret this result as normal/abnormal. WBC/HPF (test code = 9767077774) See_Comment [Automated sli.doa ge] The system which generated this result transmitted reference range: 0 - 5 HPF. The reference range was not used to interpret this result as normal/abnormal. BACTERIA (test code = 8759486307) Few Negative A SQ EPITH (test code = 2758007176) HPF Lab Interpretation (test code = 90931-2) Abnormal [facility]wayTHYROID STIMULATING [id number] 01:55:33 * Test Item Value Reference Range Interpretation Comme nts TSH (test code = 2560734789) See_Comment [Automated sli.doa ge] The system which generated this result transmitted reference range: 0.45 - 4.70 mIU/L. The reference range was not used to interpret this result as normal/abnormal. Lab Interpretation (test code = 91737-2) Normal [facility]wayMAGNESIUM2021-05-25 01:25:20* Test Item Value Reference Range Interpretation Comme nts MAGNESIUM (test code = 4043384493) 2.1 mg/dL 1.7-2.4 Lab Interpretation (test cod e = 02276-7) Normal [facility]wayBasic Metabolic Panel (NA, K, CL, CO2, GLUCOSE, BUN, CREATININE, CA)2020-09-12 01:25:19* Test Item Value Reference Range Interpretation Comme nts NA (test code = 4320205827) 139 mmol/L 135-145 K (test code = 3313502870) 4.4 mmol/L 3.5-5.0 CL (test code = 6753078540) 107 mmol/L 98-108 CO2 TOTAL (test code = 7483351864) 23 mmol/L 23-31 AGAP (test code = 0922307768) 2-16 BUN (test code = 0705894477) 8 mg/dL 7-23 GLUCOSE (test code = 6871289376) 161 mg/dL 70-110 H CREATININE (test code = 2450396029) 0.39 mg/dL 0.50-1.04 L CALCIUM (test code = 3668057165) 9.1 mg/dL 8.6-10.6 eGFR (test code = 8315159674) mL/min/1.73m2 ROSALEE (test code = ROSALEE) Association [...] imaging tests). Lab Interpretation (test code = 37545-9) Abnormal [facility]wayHepatic Function Panel (ALB, T.PRO, BILI T, BU/BC, ALT, AST, ALK PHOS)2020-09-12 01:25:19* Test Item Value Reference Range Interpretation Comme nts TOTAL BILI (test code = 1863711089) 0.4 mg/dL 0.1-1.1 BILI UNCON (test code = 9812184643) 0.3 mg/dL 0.1-1.1 BILI CONJ (test code = 1321999417) 0.0 mg/dL 0.0-0.3 T PROTEIN (test code = 3871261497) 6.4 g/dL 6.3-8.2 ALBUMIN (test code = 4826802077) 3.9 g/dL 3.5-5.0 ALK PHOS (test code = 3689215533) 112 U/L 34-122 ALTv (test code = 1742-6) 29 U/L 5-35 AST(SGOT) (test code = 0596204256) 37 U/L 13-40 Lab Interpretation (test cod e = 73797-4) Normal [facility]wayCOVID-19 (ID NOW RAPID TESTING)2020-09-12 01:17:57* Test Item Value Reference Range Interpretation Comme nts SARS-CoV-2 Rapid ID NOW (test code = 10996-0) Not Detected Not Detected ROSALEE (test code = ROSALEE) ID NOW COVID-19 As say is an isothermal nucleic acid amplification test intended for the qualitative detection of nucleic acid from SARS-CoV-2 viral RNA in nasopharyngeal ([employer]) specimens. It is used under Emergency Use [...] clinically indicated. Lab Interpretation (test code = 77786-3) Normal [facility] ParkwayProthrombin Time (PT) / [id number] 01:17:16 * Test Item Value Reference Range Interpretation Comme nts PROTIME PATIENT (test code = 5964-2) See_Comment [Automated sli.doa ge] The system which generated this result transmitted reference range: 12.0 - 14.7 Seconds. The reference range was not used to interpret this result as normal/abnormal. INR (test code = 6301-6) Normal INR <1.1; Warfarin Therapeutic range 2.0 to 3.0 or 2.5 to 3.5, depending upon the indications. Lab Interpretation (test code = 62260-6) Normal [facility] ParkwayLactic Acid Whole [id number] 00:58:57* Test Item Value Reference Range Interpretation Comme nts LACTIC ACID (test code = 6809548637) 1.81 mmol/L 0.50-2.20 Lab Interpretation (test cod e = 73834-1) Normal [facility]wayPOCT [id number] 00:52:00* Test Item Value Reference Range Interpretation Comme nts POCT PREG (test code = 1605) negative On board controls acceptable with C Line (test code = 3574) present POCT PREG LOT # (test code = 3575) [id number] POCT PREG TEST DATE ( test code = 3576) 03/20/2022 Lab Interpretation (test cod e = 78850-0) Normal [facility] ParkwayBI DIAGNOSTIC TOMOSYNTHESIS [id number] 16:53:09Examination:BI DIAGNOSTIC TOMOSYNTHESIS RIGHT History:Patient is 44 [...] mammographic follow-up BI-RADS Category: Right 1 - NegativeW[facility] at ParkwayTHYROID STIMULATING [id number] 00:02:00* Test Item Value Reference Range Interpretation Comme nts TSH (test code = 4371979179) See_Comment [Automated Hub[employer]] The system which generated this result transmitted reference range: 0.45 - 4.70 mIU/L. The reference range was not used to interpret this result as normal/abnormal. Lab Interpretation (test code = 51849-3) Normal [facility] ParkwayTHYROID STIMULATING [id number] 00:02:00 * Test Item Value Reference Range Interpretation Comme nts TSH (test code = 2810687691) See_Comment [Automated sli[employer]] The system which generated this result transmitted reference range: 0.45 - 4.70 mIU/L. The reference range was not used to interpret this result as normal/abnormal. Lab Interpretation (test code = 48664-0) Normal [facility] [id number] 23:49:00* Test Item Value Reference Range Interpretation Comme nts FREE T4 (test code = 5828724427) See_Comment [Automated messa ge] The system which generated this result transmitted reference range: 0.78 - 2.20 ng/dL:. The reference range was not used to interpret this result as normal/abnormal. Lab Interpretation (test code = 34396-9) Normal [facility] [id number] 23:49:00* Test Item Value Reference Range Interpretation Comme nts FREE T4 (test code = 4737106569) See_Comment [Automated sli.doa ge] The system which generated this result transmitted reference range: 0.78 - 2.20 ng/dL:. The reference range was not used to interpret this result as normal/abnormal. Lab Interpretation (test code = 98896-7) Normal [facility] ParkwayFOLLICLE STIMULATING [id number] 23:45:00* Test Item Value Reference Range Interpretation Comme nts FSH (test code = 6406520995) mIU/mL ROSALEE (test code = ROSALEE) FSH Reference Ranges Follicular Phase: ? ? ? 3.8-8.8 mIU/mLMid-cycle Peak: ? 4.5-22.85 mIU/mLLuteal Phase: ? 1.7-5.1 mIU/mLPost-menopause female: ?16.7-113.6 mIU/mLAdult male: ? 1.2-19 mIU/mL [facility] ParkwayFOLLICLE STIMULATING [id number] 23:45:00* Test Item Value Reference Range Interpretation Comme nts FSH (test code = 0991116012) mIU/mL ROSALEE (test code = ROSALEE) FSH Reference Ranges Follicular Phase: ? ? ? 3.8-8.8 mIU/mLMid-cycle Peak: ? 4.5-22.85 mIU/mLLuteal Phase: ? 1.7-5.1 mIU/mLPost-menopause female: ?16.7-113.6 mIU/mLAdult male: ? 1.2-19 mIU/mL [facility] ParkwayCOMP. METABOLIC PANEL ([id number])2020-01-11 23:28:00* Test Item Value Reference Range Interpretation Comme nts NA (test code = 6840000945) 136 mmol/L 135-145 K (test code = 7752966190) 4.0 mmol/L 3.5-5 CL (test code = 2459259748) 104 mmol/L 98-108 CO2 TOTAL (test code = 2518721228) 20 mmol/L 23-31 L AGAP (test code = 2927224538) 2-16 BUN (test code = 9289795566) 13 mg/dL 7-23 GLUCOSE (test code = 1585939281) 240 mg/dL 70-110 H CREATININE (test code = 0751738713) 0.47 mg/dL 0.5-1.04 L TOTAL BILI (test code = 4814180590) 0.5 mg/dL 0.1-1.1 CALCIUM (test code = 1956411793) 8.4 mg/dL 8.6-10.6 L T PROTEIN (test code = 2058785757) 6.9 g/dL 6.3-8.2 ALBUMIN (test code = 1309282466) 3.7 g/dL 3.5-5 ALK PHOS (test code = 3950362871) 129 U/L 34-122 H ALTv (test code = 1742-6) 18 U/L 5-35 AST(SGOT) (test code = 7720192647) 36 U/L 13-40 eGFR Calculation (Non-) (test code = 2260225629) mL/min/1.73m2 eGFR Calculation () (test code = 6596007365) mL/min/1.73m2 ROSALEE (test code = ROSALEE) Association [...] imaging tests). Lab Interpretation (test code = 09290-7) Abnormal [facility] ParkwayCOMP. METABOLIC PANEL (70387)2020-01-11 23:28:00* Test Item Value Reference Range Interpretation Comme nts NA (test code = 6743303207) 136 mmol/L 135-145 K (test code = 0102326722) 4.0 mmol/L 3.5-5 CL (test code = 5512888472) 104 mmol/L 98-108 CO2 TOTAL (test code = 3450255980) 20 mmol/L 23-31 L AGAP (test code = 7863053244) 2-16 BUN (test code = 8369705697) 13 mg/dL 7-23 GLUCOSE (test code = 9095149322) 240 mg/dL 70-110 H CREATININE (test code = 9962960168) 0.47 mg/dL 0.5-1.04 L TOTAL BILI (test code = 4915180083) 0.5 mg/dL 0.1-1.1 CALCIUM (test code = 4878836450) 8.4 mg/dL 8.6-10.6 L T PROTEIN (test code = 7689101355) 6.9 g/dL 6.3-8.2 ALBUMIN (test code = 7746325399) 3.7 g/dL 3.5-5 ALK PHOS (test code = 0571360407) 129 U/L 34-122 H ALTv (test code = 1742-6) 18 U/L 5-35 AST(SGOT) (test code = 2402422718) 36 U/L 13-40 eGFR Calculation (Non-) (test code = 8691604398) mL/min/1.73m2 eGFR Calculation () (test code = 5088998725) mL/min/1.73m2 ROSALEE (test code = ROSALEE) Association [...] imaging tests). Lab Interpretation (test code = 14295-0) Abnormal [facility] WITH [id number] 22:23:00* Test Item Value Reference Range Interpretation Comme nts WBC (test code = 6690-2) See_Comment [Automated Hub[employer]] The system which generated this result transmitted [...] g/dL 31.6-35.1 L RDW-SD (test code = 39174-0) 51.9 fL 39-49.9 H RDW-CV (test code = 788-0) 16.7 % 12-15.5 H PLT (test code = 777-3) See_Comment [Automated messa ge] The system which generated this result transmitted reference range: 166 - 358 10*3/?L. The reference range was not used to interpret this result as normal/abnormal. MPV (test code = 48334-2) 12.2 fL 9.5-12.9 NRBC/100 WBC (test code = 8748657342) See_Comment [Automated [facility] ssage] The system which generated this result transmitted reference range: 0.0 - 10.0 /100 WBCs. The reference range was not used to interpret this result as normal/abnormal. NRBC x10^3 (test code = 6506739252) <0.01 See_Comment [Automated messa ge] The system which generated this result transmitted reference range: 10*3/?L. The reference range was not used to interpret this result as normal/abnormal. GRAN MAT (NEUT) % (test code = 770-8) 66.5 % IMM GRAN % (test code = 5077927129) 1.30 % LYMPH % (test code = 736-9) 22.5 % MONO % (test code = 5905-5) 8.5 % EOS % (test code = 713-8) 0.8 % BASO % (test code = 706-2) 0.4 % GRAN MAT x10^3(ANC) (test code = 1345338906) 5.63 10*3/uL 1.88-7.09 IMM GRAN x10^3 (test code = 7111835030) 0.11 10*3/uL 0-0.06 H LYMPH x10^3 (test code = 731-0) 1.90 10*3/uL 1.32-3.29 MONO x10^3 (test code = 742-7) 0.72 10*3/uL 0.33-0.92 EOS x10^3 (test code = 711-2) 0.07 10*3/uL 0.03-0.39 BASO x10^3 (test code = 704-7) 0.03 10*3/uL 0.01-0.07 Lab Interpretation (test code = 36214-6) Abnormal [facility] WITH [id number] 22:23:00* Test Item Value Reference Range Interpretation Comme nts WBC (test code = 6690-2) See_Comment [Automated sli.doa ge] The system which generated this result transmitted reference range: 4.30 - 11.10 10*3/?L. The reference range was not used to interpret this result as normal/abnormal. RBC (test code = 789-8) See_Comment L [Automated sli.doa ge] The system which generated this result [...] g/dL 31.6-35.1 L RDW-SD (test code = 07724-8) 51.9 fL 39-49.9 H RDW-CV (test code = 788-0) 16.7 % 12-15.5 H PLT (test code = 777-3) See_Comment [Automated sli.doa ge] The system which generated this result transmitted reference range: 166 - 358 10*3/?L. The reference range was not used to interpret this result as normal/abnormal. MPV (test code = 89398-0) 12.2 fL 9.5-12.9 NRBC/100 WBC (test code = 3000624891) See_Comment [Automated [facility] ssage] The system which generated this result transmitted reference range: 0.0 - 10.0 /100 WBCs. The reference range was not used to interpret this result as normal/abnormal. NRBC x10^3 (test code = 6849923194) <0.01 See_Comment [Automated sli.doa ge] The system which generated this result transmitted reference range: 10*3/?L. The reference range was not used to interpret this result as normal/abnormal. GRAN MAT (NEUT) % (test code = 770-8) 66.5 % IMM GRAN % (test code = 3852002779) 1.30 % LYMPH % (test code = 736-9) 22.5 % MONO % (test code = 5905-5) 8.5 % EOS % (test code = 713-8) 0.8 % BASO % (test code = 706-2) 0.4 % GRAN MAT x10^3(ANC) (test code = 3508464820) 5.63 10*3/uL 1.88-7.09 IMM GRAN x10^3 (test code = 3655202560) 0.11 10*3/uL 0-0.06 H LYMPH x10^3 (test code = 731-0) 1.90 10*3/uL 1.32-3.29 MONO x10^3 (test code = 742-7) 0.72 10*3/uL 0.33-0.92 EOS x10^3 (test code = 711-2) 0.07 10*3/uL 0.03-0.39 BASO x10^3 (test code = 704-7) 0.03 10*3/uL 0.01-0.07 Lab Interpretation (test code = 74888-1) Abnormal [facility] GLUCOSE (AUTOMATED)2019-12-30 17:01:00* Test Item Value Reference Range Interpretation Comme nts POCT GLU (test code = 0141172731) 151 mg/dL 70-110 H Lab Interpretation (test cod e = 82930-4) Abnormal [facility] GLUCOSE (AUTOMATED)2019-12-30 16:40:00* Test Item Value Reference Range Interpretation Comme nts POCT GLU (test code = 1834185434) 118 mg/dL 70-110 H Lab Interpretation (test cod e = 80879-6) Abnormal [facility]wayHEMOGLOBIN2020-09-10 16:40:00* Test Item Value Reference Range Interpretation Comme nts HGB (test code = 718-7) 7.6 g/dL 11.6-15 L Lab Interpretation (test cod e = 31243-7) Abnormal [facility]wayHEMATOCRIT2020-09-10 16:40:00* Test Item Value Reference Range Interpretation Comme nts HCT (test code = 4544-3) 22.4 % 35.7-45.2 L Lab Interpretation (test cod e = 17598-2) Abnormal [facility]wayMAGNESIUM2020-09-10 15:44:00* Test Item Value Reference Range Interpretation Comme nts MAGNESIUM (test code = 8793030311) 1.9 mg/dL 1.7-2.4 Lab Interpretation (test cod e = 84546-4) Normal [facility] WITH [id number] 12:14:00* Test Item Value Reference Range Interpretation [...] 35.1 g/dL 31.6-35.1 RDW-SD (test code = 72364-4) 42.1 fL 39-49.9 RDW-CV (test code = 788-0) 13.9 % 12-15.5 PLT (test code = 777-3) See_Comment [Automated message] The system which generated this result transmitted reference range: 166 - 358 10*3/?L. The reference range was not used to interpret this result as normal/abnormal. MPV (test code = 59675-4) 11.9 fL 9.5-12.9 NRBC/100 WBC (test code = 7548958409) See_Comment [Automated message] The system which generated this result transmitted reference range: 0.0 - 10.0 /100 WBCs. The reference range was not used to interpret this result as normal/abnormal. NRBC x10^3 (test code = 4526135189) See_Comment [Automated message] The system which generated this result transmitted reference range: 10*3/?L. The reference range was not used to interpret this result as normal/abnormal. SEG % (test code = 04010-7) 71 % 33-76 BAND % (test code = 39932-4) 3 % 0-1 H META % (test code = 98678-6) 1 % See_Comment H [Automated message] The system which generated this result transmitted reference range: <=0. The reference range was not used to interpret this result as normal/abnormal. MYELO % (test code = 94503-7) 5 % See_Comment H [Automated message] The system which generated this result transmitted reference range: <=0. The reference range was not used to interpret this result as normal/abnormal. LYMPH % (test code = 54579-9) 15 % 14-54 MONO % (test code = 69754-2) 4 % 0-4 EOS % (test code = 07848-7) 1 % 0-3 ANC (test code = 3001039812) 13.83 10*3/uL 1.88-7.09 H Lab Interpretation (test code = 40561-2) Abnormal [facility] (NA, K, CL, CO2, GLUCOSE, BUN, CREATININE, CA)2019-12-30 11:38:00* Test Item Value Reference Range Interpretation Comme nts NA (test code = 3476143663) 135 mmol/L 135-145 K (test code = 1050534189) 2.9 mmol/L 3.5-5 LL CL (test code = 3487083528) 104 mmol/L 98-108 CO2 TOTAL (test code = 2683824963) 26 mmol/L 23-31 AGAP (test code = 1830518862) 2-16 BUN (test code = 6552283641) 7 mg/dL 7-23 GLUCOSE (test code = 6548467662) 101 mg/dL 70-110 CREATININE (test code = 8860115973) 0.47 mg/dL 0.5-1.04 L CALCIUM (test code = 3246878557) 7.4 mg/dL 8.6-10.6 L eGFR Calculation (Non-) (test code = 1336283905) mL/min/1.73m2 eGFR Calculation () (test code = 9409902665) mL/min/1.73m2 ROSALEE (test code = ROSALEE) Association [...] imaging tests). Lab Interpretation (test code = 46779-2) Abnormal [facility]MOGLOBIN2020-09-10 05:31:00* Test Item Value Reference Range Interpretation Comme nts HGB (test code = 718-7) 7.5 g/dL 11.6-15 L Lab Interpretation (test cod e = 43242-9) Abnormal [facility]wayUS PELVIS COMPLETE WITH [id number] 02:28:47Mildly thickened endometrium with increased vascularity which [...] . LMP = 12/23/2019 TECHNIQUE: Transabdominal and rubio svaginal ultrasound imaging of the pelviswas performed including color Doppler evaluation. Accounts Rece[employer] Executive imageswere obtained for the record. COMPARISON: None [...] the pelviswas performed including color Doppler evaluation. [employer] Executive imageswere obtained for the record.COMPARISON: NoneFINDINGS:Uterus: Size: [...] reviewed this study and agree with the abovereport.[facility] GLUCOSE (AUTOMATED)2019-12-30 02:09:00* Test Item Value Reference Range Interpretation Comme nts POCT GLU (test code = 0752933787) 185 mg/dL 70-110 H Notified Provide r Lab Interpretation (test code = 74831-0) Abnormal [facility] GLUCOSE (AUTOMATED)2019-12-29 22:25:00* Test Item Value Reference Range Interpretation Comme nts POCT GLU (test code = 3626483839) 151 mg/dL 70-110 H Lab Interpretation (test cod e = 86884-5) Abnormal [facility]way[facility]INALYSIS2020-09-09 22:18:00* Test Item Value Reference Range Interpretation Comme nts APPEARANCE (test code = 1559370753) Hazy Clear A COLOR (test code = 4910190720) Yellow Yellow PH (test code = 5988324239) 4.8-8.0 SP GRAVITY (test code = 0783422238) 1.003-1.030 GLU U QUAL (test code = 6862295813) 500 mg/dL Normal A BLOOD (test code = 1319004819) 3+ Negative A KETONES (test code = 9906507302) Negative Negative PROTEIN (test code = 2887-8) 30 mg/dL Negative A UROBILIN (test code = 1220709422) Normal Normal BILIRUBIN (test code = 5911429870) Negative Negative NITRITE (test code = 3361904836) Negative Negative LEUK CRISTOFER (test code = 2147165117) Negative Negative RBC/HPF (test code = 4180132465) >182 See_Comment H [Automated messa ge] The system which generated this result transmitted reference range: 0 - 3 HPF. The reference range was not used to interpret this result as normal/abnormal. WBC/HPF (test code = 6089489503) See_Comment [Automated sli.doa ge] The system which generated this result transmitted reference range: 0 - 5 HPF. The reference range was not used to interpret this result as normal/abnormal. BACTERIA (test code = 7543815481) Few Negative A MUCOUS (test code = 0143153394) Slight Negative LPF A SQ EPITH (test code = 0243321707) <1 HPF WBC CLUMPS (test code = 3977695155) <1 See_Comment [Automated messa ge] The system which generated this result transmitted reference range: <=1 HPF. The reference range was not used to interpret this result as normal/abnormal. Lab Interpretation (test code = 21553-4) Abnormal [facility]wayPROFILE / HEMOGRAM - 30 minutes after transfusion of each [id number] 21:03:00* Test Item Value Reference Range Interpretation [...] result as normal/abnormal. MPV (test code = 17564-9) 12.8 fL 9.5-12.9 RDW-CV (test code = 788-0) 14.3 % 12-15.5 RDW-SD (test code = 09814-6) 42.4 fL 39-49.9 NRBC x10^3 (test code = 6169313619) See_Comment [Automated sli.doa ge] The system which generated this result transmitted reference range: 10*3/?L. The reference range was not used to interpret this result as normal/abnormal. NRBC/100 WBC (test code = 5808970427) See_Comment [Automated sli.doa ge] The system which generated this result transmitted reference range: 0.0 - 10.0 /100 WBCs. The reference range was not used to interpret this result as normal/abnormal. IPF % (test code = 9343313192) 6.5 % 1.3-7.7 Platelet count measured by fluorescence method. Lab Interpretation (test code = 71952-6) Abnormal [facility] ParkwayGlycosylated Hemoglobin (A1C)2019-12-29 19:33:00HGB C8DNxvmvgj: Due to low hemoglobin %A1c cannot be calculated.[facility]%A1C (NGSP) Interpretation (ADA)4.8-5.6 ? ? Normal or (Non-Diabetic Range)5.7-6.4 ? ? Increased Risk (Pre-Diabetic)>6.5 ?Diabetes IndicatedUnThe Hospitals of [facility] CampusPrepare Packed RBC (in units)2019-12-29 15:23:21* Test Item Value Reference Range Interpretation Comme nts Unit Blood Type (test code = 4410) O Pos ISBT Blood Type Code (test code = 088181) Unit Number (test code = 4411) [id number] Blood Expiration Date & Time (test code = 693689) Status Information (test code = 4412) Issued Product Identification (test code = 4413) Red Blood Cells Product Code (test code = 4414) [id number] Performed at [facility] Blood [address] [place], [place] [id number] Free: [phone] No. [id number] Cross Match Result (test code = 4409) Compatible [facility]wayHEMOGLOBIN2020-09-09 11:16:00* Test Item Value Reference Range Interpretation Comme nts HGB (test code = 718-7) 5.4 g/dL 11.6-15 L Lab Interpretation (test cod e = 10726-1) Abnormal [facility] ParkwayCBC with Wsjuagwiqpes5144-95-69 09:15:00* Test Item Value Reference Range Interpretation [...] 32.0 g/dL 31.6-35.1 RDW-SD (test code = 49967-7) 44.0 fL 39-49.9 RDW-CV (test code = 788-0) 14.3 % 12-15.5 PLT (test code = 777-3) See_Comment [Automated message] The system which generated this result transmitted reference range: 166 - 358 10*3/?L. The reference range was not used to interpret this result as normal/abnormal. MPV (test code = 75897-6) 12.3 fL 9.5-12.9 NRBC/100 WBC (test code = 3559653988) See_Comment [Automated message] The system which generated this result transmitted reference range: 0.0 - 10.0 /100 WBCs. The reference range was not used to interpret this result as normal/abnormal. NRBC x10^3 (test code = 1038913027) <0.01 See_Comment [Automated message] The system which generated this result transmitted reference range: 10*3/?L. The reference range was not used to interpret this result as normal/abnormal. GRAN MAT (NEUT) % (test code = 770-8) 59.0 % IMM GRAN % (test code = 4722769557) 2.90 % LYMPH % (test code = 736-9) 29.7 % MONO % (test code = 5905-5) 8.1 % EOS % (test code = 713-8) 0.1 % BASO % (test code = 706-2) 0.2 % GRAN MAT x10^3(ANC) (test code = 4000667487) 10.09 10*3/uL 1.88-7.09 H IMM GRAN x10^3 (test code = 0733293135) 0.50 10*3/uL 0-0.06 H LYMPH x10^3 (test code = 731-0) 5.09 10*3/uL 1.32-3.29 H MONO x10^3 (test code = 742-7) 1.39 10*3/uL 0.33-0.92 H EOS x10^3 (test code = 711-2) <0.03 0.03-0.39 L BASO x10^3 (test code = 704-7) 0.04 10*3/uL 0.01-0.07 Lab Interpretation (test code = 13939-2) Abnormal [facility] Metabolic Panel (NA, K, CL, CO2, GLUCOSE, BUN, CREATININE, CA)2019-12-29 09:04:00* Test Item Value Reference Range Interpretation Comme nts NA (test code = 6016222095) 136 mmol/L 135-145 K (test code = 7265646053) 3.2 mmol/L 3.5-5 L CL (test code = 2693321822) 110 mmol/L 98-108 H CO2 TOTAL (test code = 1233306725) 23 mmol/L 23-31 AGAP (test code = 8930166090) 2-16 BUN (test code = 2021954595) 7 mg/dL 7-23 GLUCOSE (test code = 4171082030) 171 mg/dL 70-110 H CREATININE (test code = 7743854441) 0.46 mg/dL 0.5-1.04 L CALCIUM (test code = 2289528726) 7.4 mg/dL 8.6-10.6 L eGFR Calculation (Non-) (test code = 5829026210) mL/min/1.73m2 eGFR Calculation () (test code = 9826960631) mL/min/1.73m2 ROSALEE (test code = ROSALEE) Association [...] imaging tests). Lab Interpretation (test code = 03516-6) Abnormal [facility]way[facility]ANEL [id number] 08:29:59* Test Item Value Reference Range Interpretation Comme nts ANTIBODY ID (test code = 245) Anti-E History of antib lisa of undetermined specificity not showingPerformed at [facility] Laboratory Services - [facility] Blood [address] [place] [id number] Free: [phone] No. [id number] [facility] ParkwayPrepare Packed RBC (in units)2019-12-29 07:06:22* Test Item Value Reference Range Interpretation Comme nts Unit Blood Type (test code = 4410) O Neg ISBT Blood Type Code (test code = 749850) Unit Number (test code = 4411) [id number] Blood Expiration Date & Time (test code = 061875) Status Information (test code = 4412) Issued Product Identification (test code = 4413) Red Blood Cells Product Code (test code = 4414) [id number] Performed at [facility] Laboratory Services - [facility] Blood [address] [place] [id number] Free: [phone] No. [id number] [facility]wayHEMOGLOBIN2020-09-09 06:19:00* Test Item Value Reference Range Interpretation Comme nts HGB (test code = 718-7) 4.7 g/dL 11.6-15 LL Lab Interpretation (test cod e = 01125-3) Abnormal [facility]wayHEMATOCRIT2020-09-09 06:19:00* Test Item Value Reference Range Interpretation Comme nts HCT (test code = 4544-3) 14.6 % 35.7-45.2 LL Lab Interpretation (test cod e = 48114-7) Abnormal [facility] ParkwayType and Screen - ONCE [id number] 21:19:49 * Test Item Value Reference Range Interpretation Comme nts ABO & RH (test code = 20) O Positive Performed at [facility] Laboratory Services [facility] Blood [address] [place] [address] Free: [phone] No. [id number] IAT (test code = 1185) Positive Performed at [facility] Laboratory [facility] Blood [address] [place] [address] Free: [phone] No. [id number] [facility] ParkwayCBC with [id number] 20:29:00* Test Item Value Reference Range Interpretation [...] 32.9 g/dL 31.6-35.1 RDW-SD (test code = 34138-9) 42.5 fL 39-49.9 RDW-CV (test code = 788-0) 13.8 % 12-15.5 PLT (test code = 777-3) See_Comment [Automated message] The system which generated this result transmitted reference range: 166 - 358 10*3/?L. The reference range was not used to interpret this result as normal/abnormal. MPV (test code = 95653-9) 12.7 fL 9.5-12.9 NRBC/100 WBC (test code = 0613523537) See_Comment [Automated message] The system which generated this result transmitted reference range: 0.0 - 10.0 /100 WBCs. The reference range was not used to interpret this result as normal/abnormal. NRBC x10^3 (test code = 7114994446) <0.01 See_Comment [Automated message] The system which generated this result transmitted reference range: 10*3/?L. The reference range was not used to interpret this result as normal/abnormal. GRAN MAT (NEUT) % (test code = 770-8) 65.2 % IMM GRAN % (test code = 4215072088) 2.60 % LYMPH % (test code = 736-9) 25.7 % MONO % (test code = 5905-5) 6.1 % EOS % (test code = 713-8) 0.1 % BASO % (test code = 706-2) 0.3 % GRAN MAT x10^3(ANC) (test code = 0773875917) 10.95 10*3/uL 1.88-7.09 H IMM GRAN x10^3 (test code = 8218832123) 0.43 10*3/uL 0-0.06 H LYMPH x10^3 (test code = 731-0) 4.30 10*3/uL 1.32-3.29 H MONO x10^3 (test code = 742-7) 1.02 10*3/uL 0.33-0.92 H EOS x10^3 (test code = 711-2) <0.03 0.03-0.39 L BASO x10^3 (test code = 704-7) 0.05 10*3/uL 0.01-0.07 Lab Interpretation (test code = 33330-8) Abnormal [facility]wayPregnancy Test, [id number] 20:22:00* Test Item Value Reference Range Interpretation Comme nts PREG SERUM (test code = 3565826457) Negative ROSALEE (test code = ROSALEE) Less than 10 IU/L. ?If low titer or ectopic is suspected, resubmit specimen in 48-72 hours. [facility] ParkwayTroponin [id number] 20:18:00* Test Item Value Reference Range Interpretation Comme nts TROPONIN I (test code = 5978302285) <0.012 See_Comment [Automated message] The system which [...] biotin. ? Lab Interpretation (test code = 03086-9) Normal [facility]wayCOVID-19 (ID NOW RAPID TESTING)2019-12-28 20:15:00* Test Item Value Reference Range Interpretation Comme nts SARS-CoV-2 Rapid ID NOW (test code = 81611-9) Not Detected Not Detected ROSALEE (test code = ROSALEE) ID NOW COVID-19 As say is an isothermal nucleic acid amplification test intended for the qualitative detection of nucleic acid from SARS-CoV-2 viral RNA in nasopharyngeal ([employer]) specimens. It is used under Emergency Use [...] clinically indicated. Lab Interpretation (test code = 81358-9) Normal [facility] ParkwayHepatic Function Panel (ALB, T.PRO, BILI T, BU/BC, ALT, AST, ALK PHOS)2019-12-28 20:12:00* Test Item Value Reference Range Interpretation Comme nts TOTAL BILI (test code = 0863800819) <0.1 0.1-1.1 L BILI UNCON (test code = 7844749912) 0.4 mg/dL 0.1-1.1 BILI CONJ (test code = 3822881378) 0.0 mg/dL 0-0.3 T PROTEIN (test code = 9248236815) 5.6 g/dL 6.3-8.2 L ALBUMIN (test code = 6788811984) 2.9 g/dL 3.5-5 L ALK PHOS (test code = 2409274369) 107 U/L 34-122 ALTv (test code = 1742-6) 15 U/L 5-35 AST(SGOT) (test code = 6595342540) 17 U/L 13-40 Lab Interpretation (test cod e = 97985-8) Abnormal [facility]wayBasi Metabolic Panel (NA, K, CL, CO2, GLUCOSE, BUN, CREATININE, CA)2019-12-28 20:08:00* Test Item Value Reference Range Interpretation Comme nts NA (test code = 7126109806) 136 mmol/L 135-145 K (test code = 8723176516) 3.3 mmol/L 3.5-5 L CL (test code = 9778053190) 106 mmol/L 98-108 CO2 TOTAL (test code = 3170507102) 21 mmol/L 23-31 L AGAP (test code = 8914653736) 2-16 BUN (test code = 6950160231) 11 mg/dL 7-23 GLUCOSE (test code = 9611523958) 227 mg/dL 70-110 H CREATININE (test code = 6452910142) 0.42 mg/dL 0.5-1.04 L CALCIUM (test code = 6804302642) 8.3 mg/dL 8.6-10.6 L eGFR Calculation (Non-) (test code = 7278972996) mL/min/1.73m2 eGFR Calculation () (test code = 0127257404) mL/min/1.73m2 ROSALEE (test code = ROSALEE) Association [...] imaging tests). Lab Interpretation (test code = 57116-7) Abnormal [facility] ParkwayLipase [id number] 20:07:00* Test Item Value Reference Range Interpretation Comme [facility] LIPASE (test code = 8959474496) 79 U/L 0-220 Lab Interpretation (test cod e = 94019-5) Normal [facility] ParkwayProthrombin Time (PT) / [id number] 20:02:00 * Test Item Value Reference Range Interpretation Comme [facility] PROTIME PATIENT (test code = 5964-2) See_Comment [Automated sli.doa ge] The system which generated this result transmitted reference range: 12.0 - 14.7 Seconds. The reference range was not used to interpret this result as normal/abnormal. INR (test code = 6301-6) Normal INR <1.1; Warfarin Therapeutic range 2.0 to 3.0 or 2.5 to 3.5, depending upon the indications. Lab Interpretation (test code = 12220-9) Normal [facility]wayPOCT [id number] 20:35:00* Test Item Value Reference Range Interpretation Comme [facility] POCT PREG (test code = 1605) Negative On board controls acceptable with C Line (test code = 3574) Yes POCT PREG LOT # (test code = 3575) POCT PREG TEST DATE ( test code = 3576) [facility]wayPOCT [id number] 20:35:00* Test Item Value Reference Range Interpretation Comme [facility] POCT PREG (test code = 1605) Negative On board controls acceptable with C Line (test code = 3574) Yes POCT PREG LOT # (test code = 3575) POCT PREG TEST DATE ( test code = 3576) [facility] Consult Notes Date/Time Note Provider Source 2024-10-29 14:03:54 GENERAL SURGERY HISTORY AND PHYSICAL Date of Service: 10/29/24 Chief Complaint: Abdominal pain HPI Shwetha Hightower is a 48 year old female otherwise healthy with RUQ pain of 1 day. Had similar episodes before. Denies fevers chills. Has nausea. Surgical hx of c section. Denies any changes to bowel or urinary habits. Last meal was yesterday afternoon. MEDICATIONS Current Facility-Administered Medications Medication Dose Route Frequency Last Rate Last Admin [COMPLETED] iopamidol (ISOVUE 370-500 mL) injection 85 mL 85 mL Intravenous ONCE 85 mL at 10/29/24 1430 ketorolac (TORADOL) injection 15 mg 15 mg Slow IV Push ONCE morpHINE (4 mg/mL) injection 4 mg 4 mg Slow IV Push ONCE Current Outpatient Medications Medication Sig Dispense Refill vitamin B-12 100 mcg tablet Take 50 mcg by mouth daily. vitamin C (VITAMIN C) 100 mg tablet Take 100 mg by mouth daily. calcium carbonate (CALCIUM 500 ORAL) Take 2 tablets by mouth daily. ALLERGIES No Known Allergies PAST SURGICAL HISTORY Past Surgical History: Procedure Laterality Date SECTION Bilateral 06/16/2018 Surgeon: Nicholas Chun; Location: Labor and Delivery - [place] PAST MEDICAL HISTORY Past Medical History: Diagnosis Date Abnormal antibody titer 04/24/2018 Anemia 2017 Resolved; received blood transfusion DM, gestational, diet controlled 09/10/2013 Gestational diabetes mellitus, antepartum 05/29/2013 Preeclampsia 06/16/2018 Transfusion history 2017 anemia due to heavy bleeding for 1 year FAMILY MEDICAL HISTORY None relevant SOCIAL HISTORY Social History Socioeconomic History Marital status: Spouse name: Kane Number of children: 4 Years of education: 12 Highest education level: Not on file Occupational History Occupation: Unemployed Tobacco Use Smoking status: Never Smokeless tobacco: Never Substance and Sexual Activity Alcohol use: No Alcohol/week: 0.0 standard drinks of alcohol Drug use: No Sexual activity: Yes Partners: Male control/protection: Injection Comment: last sexual intercourse 10/01/2019 Other Topics Concern Service Not Asked Blood Transfusions No Caffeine Concern Not Asked Occupational Exposure Not Asked Hobby Hazards Not Asked Sleep Concern Not Asked Stress Concern Not Asked Weight Concern Not Asked Special Diet Not Asked Back Care Not Asked Exercise Not Asked Bike Helmet Not Asked Seat Belt Not Asked Self-Exams Not Asked Social History Narrative Patient lives with spouse and children. Denies domestic violence or abuse Exposure to cats Sabianism: Moravian Social Drivers of Health Financial Resource Strain: Not on file Food Insecurity: Not on file Transportation Needs: Not on file Physical Activity: Not on file Stress: Not on file Social Connections: Not on file Housing Stability: Not on file REVIEW OF SYSTEMS Per HPI PHYSICAL EXAM BP (!) 145/83 | Pulse 86 | Temp 37.2 ?C (99 ?F) (Oral) | Resp 16 | Ht 1.676 m (5' 6") | Wt 63.5 kg (140 lb) | SpO2 97% | BMI 22.60 kg/m? Constitutional: alert and oriented, no acute distress Eyes: extra ocular movements intact, no scleral icterus Head: normocephalic, no masses, lesions, tenderness or abnormalities Mouth: moist mucous membranes Chest: symmetric, no deformities, no chest wall tenderness Respiratory: non labored on room air Cardiovascular: regular rate and rhythm Gastrointestinal: soft, no masses, tender in RUQ, nondistended, no rebound or guarding Musculoskeletal: no clubbing, cyanosis, or edema Skin: no rashes Neurologic: no focal deficits Psychiatric: appropriate affect LABORATORY Labs (last 24 hours): Chemistry CBC LFTs Coags, other 135 104 11 108 12.90 (H) 15.2 (H) 285 AST: 24 ALT: 20 PT: - INR: - 3.9 22 (L) 0.48 (L) 45.9 (H) AP: 116 T Anurag: 0.5 PTT: - eGFR: 117.0 Ca: 9.1 % Jenn: 78.2 Prot: 7.9 Alb: 4.2 Lact: - Mg: - PO4: - ANC: 10.08 (H) Procal: - Respiratory Cardiac -|-|-|-|- D-dimer: - pBNP: - Trop I: - CK: - CKMB: - RADIOLOGY CT Abdomen pelvis w contrast Result Date: 10/29/2024 CT ABDOMEN PELVIS W CONTRAST 10/29/2024 1:18 PM HISTORY: upper abd pain, n/v, no acute findings on US COMPARISON: Same day ultrasound TECHNIQUE: Axial images of the abdomen and pelvis were acquired after administration of intravenous contrast. Coronal and sagittal reconstructions were also created. FINDINGS: LOWER CHEST: The lungs bases are clear. HEPATOBILIARY: The liver is normal in size.The contour is normal. Decreased parenchymal attenuation. No focal hepatic lesion. The gallbladder is distended within normal wall thickness, measures 4.7 x 10 cm. A 5 mm stone in the cystic duct associated with fat stranding around the cystic duct. No biliary ductal dilatation. SPLEEN: Normal in size. No lesion. PANCREAS: Normal parenchymal enhancement. No ductal dilatation. No masses. ADRENAL GLANDS: No adrenal nodules. KIDNEYS: Normal parenchymal enhancement. No hydronephrosis. 3 mm lower pole right renal stone.No solid mass. GI TRACT: No luminal dilation or wall thickening. The appendix is PERITONEUM AND RETROPERITONEUM: No free air.No free fluid. LYMPH NODES: No pathologically enlarged or morphologically abnormal lymph nodes are identified. PELVIS/BLADDER: The urinary bladder is normal. The reproductive organs are within normal limits. VESSELS: Within normal limits. BONES AND SOFT TISSUES: No aggressive osseous lesion. No acute osseous abnormality. No concerning soft tissue abnormality. Concern for early acute cholecystitis. A 5 mm cystic duct stone and edema around the proximal cystic duct which are not evident on ultrasound. Hepatic steatosis. US Gall bladder Result Date: 10/29/2024 EXAM: US GALL BLADDER HISTORY: 48 years-old Female; Provided indication: RUQ pain . TECHNIQUE: Limited abdominal ultrasound focused on the gallbladder was performed by the mineral technologist. The main portal vein was evaluated with color Doppler. Accounts Receivable Executive images were obtained for the record. COMPARISON: None FINDINGS: PANCREAS: The pancreatic head and body display normal echogenicity to the extent visualized. LIVER: Visualized Parenchyma: The liver parenchyma exhibits mildly increased hepatic echogenicity and echotexture. Portal vein: Hepatopetal flow is present in the main portal vein. BILE DUCTS: No intra- or extrahepatic biliary dilatation is visualized. The common duct diameter is normal and measures 0.3 cm. GALLBLADDER: No shadowing stones are seen. The gallbladder is physiologically distended. The gallbladder wall thickness is normal and measures 0.2 cm. No pericholecystic fluid is visualized. Vyas's sign was not present. OTHER: None. Normal gallbladder and biliary ultrasound. Hepatocellular disease including mild steatosis. Preliminary Report Dictated by Resident: Iona Weiner I, April Felix MD., have reviewed this study and agree with the above report. ASSESSMENT/PLAN Shwetha Hightower is a 48 year old female with acute cholecystitis with stone impacted at neck of GB on imaging, GB dilation, wall thickening, pericystic duct fat stranding. HDS. WBC 12.9. T bili normal. - OR for robotic assisted laparoscopic cholecystectomy with intraoperative cholangiogram - zosyn. IVF. Keep NPO - consent obtained Ana Paula Lobo MD General Surgery Cosigned by Diana Rubio MD at 10/29/2024 2:28 PM CDT Associated attestation - Diana Rubio MD - 10/29/2024 2:28 PM CDT I personally examined the patient on 10/29/[address] Lobo's resident note as written . I actively participated in the decision-making process. Please see the resident's note for additional details. Diana Rubio MD [facility] - Health History and Physical Notes Date/Time Note Provider Source 2024-10-29 22:15:26 Medicine History & Physical Date of Service: 10/29/2024 Pt presents from: Home CC: Abdominal pain History of Present Illness: Shwetha Hightower is a 48 year old female with a PMH of overweight BMI 27.23 and gestational diabetes who presented to the ED for RUQ abdominal pain. She reports that she developed severe squeezing RUQ abdominal pain around 2 am this morning. The pain was associated with nausea and vomiting. She denies fever or chills. She came to the ED for further evaluation. In the ED, she was found to be hypertensive (BP 140/101). Labs showed leukocytosis (WBCs 12,900). CT abdomen/pelvis with contrast showed a cystic duct cholelith with early cholecystitis. She was given IV morphine 4 mg x2, IV Toradol 15 mg x1 and IV Zofran 4 mg x1. General surgery was consulted and she underwent robotic assisted laparoscopic cholecystectomy with IOC. She is admitted for further management. ROS: Pt endorses nausea, vomiting and abdominal pain. Pt denies fever / chills / diarrhea / constipation / chest pain / SOB / cough / dysuria / hematuria / melena / hematochezia / rashes / suicidal or homicidal ideation / All others negative Review of Hx/Meds: No current facility-administered medications on file prior to encounter. Current Outpatient Medications on File Prior to Encounter Medication Sig Dispense Refill vitamin B-12 100 mcg tablet Take 50 mcg by mouth daily. vitamin C (VITAMIN C) 100 mg tablet Take 100 mg by mouth daily. calcium carbonate (CALCIUM 500 ORAL) Take 2 tablets by mouth daily. I have reviewed the patient's home medications PMH: Past Medical History: Diagnosis Date Abnormal antibody titer 04/24/2018 Anemia 2017 Resolved; received blood transfusion DM, gestational, diet controlled 09/10/2013 Gestational diabetes mellitus, antepartum 05/29/2013 Preeclampsia 06/16/2018 Transfusion history 2017 anemia due to heavy bleeding for 1 year PSH: has a past surgical history that includes section (Bilateral, 06/16/2018). Family Hx: Denies family history of HTN, DM, CAD, [place] or cancer Social History Tobacco Use Smoking status: Never Passive exposure: Never Smokeless tobacco: Never Substance Use Topics Alcohol use: No Alcohol/week: 0.0 standard drinks of alcohol Drug use: No Current Scheduled Medications Current IV Current Facility-Administered Medications: [START ON 10/30/2024] acetaminophen (TYLENOL) tablet 1,000 mg, 1,000 mg, Oral, TID, Caroline Chun MD [START ON 10/30/2024] celecoxib (CELEBREX) capsule 200 mg, 200 mg, Oral, BID MEALS, Caroline Chun MD enoxaparin (LOVENOX) injection 40 mg, 40 mg, Subcutaneous, DAILY AT 1700, Avila Asif DO lactated ringers IV infusion 500 mL, 500 mL, IV Infusion, CONTINUOUS, Jeremy Ruano MD [START ON 10/30/2024] methocarbamoL (ROBAXIN) tablet 500 mg, 500 mg, Oral, QID, Caroline Chun MD piperacillin-tazobactam (ZOSYN) 3.375 g in NaCl 0.9% (NS) 100 mL MINI-BAG, 3.375 g, IV Piggyback, ONCE, Avila Asif DO piperacillin-tazobactam (ZOSYN) 3.375 g in NaCl 0.9% (NS) 100 mL MINI-BAG, 3.375 g, IV Piggyback, Q8H ABX, Avila Asif DO traMADoL (ULTRAM) tablet 50 mg, 50 mg, Oral, Q6HPRN, Caroline Chun MD Objective: Vitals: Vitals: 10/29/24 2140 10/29/24 21410/29/24 2150 10/29/24 2215 BP: (!) 149/83 (!) 149/83 (!) 149/83 (!) 144/89 Pulse: 113 110 104 108 Resp: 18 11 12 20 Temp: TempSrc: Oral SpO2: 97% 97% 93% 94% Weight: Height: I/O's: Intake/Output Summary (Last 24 hours) at 10/29/20242214 Last data filed at 10/29/20242057 Gross per 24 hour Intake 1900 ml Output -- Net 1900 ml Physical Exam: Constitutional: A&O x3, well-developed, well-nourished, and in no distress. Head: Normocephalic and atraumatic. Eyes: PERRL. Conjunctivae and EOM are normal. Neck: Normal range of motion. Neck supple. No JVD present. Cardiovascular: Normal rate, regular rhythm, normal heart sounds Pulmonary/Chest: Effort normal and breath sounds normal. No respiratory distress. No wheezes, rales or rhonchi. Abdominal: Soft. Bowel sounds are normal. Mild RUQ TTP, non-distended and no masses. No rebound or guarding. Musculoskeletal: Normal range of motion. No edema or tenderness. Lymphadenopathy: No cervical adenopathy. Neurological: A&O x3. No focal deficits. Skin: Skin is warm and dry. No rash noted. No erythema. No pallor. Labs: BMP:BMP NA Date Value 10/29/2024 135 mmol/L 09/11/2020 139 mmol/L 01/11/2020 136 mmol/L 12/30/2019 135 mmol/L 12/29/2019 136 mmol/L 08/13/2006 136 MMOL/L K Date Value 10/29/2024 3.9 mmol/L 09/11/2020 4.4 mmol/L 01/11/2020 4.0 mmol/L 12/30/2019 2.9 mmol/L (LL) 12/29/2019 3.2 mmol/L (L) 08/13/2006 3.5 MMOL/L CALCIUM Date Value 10/29/2024 9.1 mg/dL 09/11/2020 9.1 mg/dL 01/11/2020 8.4 mg/dL (L) 12/30/2019 7.4 mg/dL (L) 12/29/2019 7.4 mg/dL (L) 08/13/2006 9.7 MG/DL CL Date Value 10/29/2024 104 mmol/L 09/11/2020 107 mmol/L 01/11/2020 104 mmol/L 12/30/2019 104 mmol/L 12/29/2019 110 mmol/L (H) 08/13/2006 102 MMOL/L BUN Date Value 10/29/2024 11 mg/dL 09/11/2020 8 mg/dL 01/11/2020 13 mg/dL 12/30/2019 7 mg/dL 12/29/2019 7 mg/dL 08/13/2006 10 MG/DL CREATININE Date Value 10/29/2024 0.48 mg/dL (L) 09/11/2020 0.39 mg/dL (L) 01/11/2020 0.47 mg/dL (L) 12/30/2019 0.47 mg/dL (L) 12/29/2019 0.46 mg/dL (L) 08/13/2006 0.40 MG/DL (L) GLUCOSE Date Value 10/29/2024 108 mg/dL 09/11/2020 161 mg/dL (H) 01/11/2020 240 mg/dL (H) 12/30/2019 101 mg/dL 12/29/2019 171 mg/dL (H) 08/13/2006 71 MG/DL CO2 TOTAL Date Value 10/29/2024 22 mmol/L (L) 09/11/2020 23 mmol/L 01/11/2020 20 mmol/L (L) 12/30/2019 26 mmol/L 12/29/2019 23 mmol/L 08/13/2006 21 MMOL/L (L) CBC:CBC WBC x10 3 (/uL) Date Value 08/26/2014 10.7 WBC (10*3/?L) Date Value 10/29/2024 12.90 (H) RBC x10 6 (/uL) Date Value 08/26/2014 4.91 RBC (10*6/?L) Date Value 10/29/2024 5.14 PLT x10 3 (/uL) Date Value 08/26/2014 303 PLT (10*3/?L) Date Value 10/29/2024 285 HGB Date Value 10/29/2024 15.2 g/dL (H) 08/26/2014 11.3 G/DL (L) HCT (%) Date Value 10/29/2024 45.9 (H) 08/26/2014 36.2 BMP:Hepatic Function Panel ALBUMIN Date Value 10/29/2024 4.2 g/dL 08/13/2006 4.1 G/DL T PROTEIN Date Value 10/29/2024 7.9 g/dL 08/13/2006 8.1 G/DL TOTAL BILI Date Value 10/29/2024 0.5 mg/dL 08/13/2006 0.2 MG/DL BILI UNCON Date Value 09/11/2020 0.3 mg/dL 08/13/2006 0.4 MG/DL BILI CONJ Date Value 09/11/2020 0.0 mg/dL 08/13/2006 0.0 MG/DL ALT(SGPT) (U/L) Date Value 06/16/2018 29 08/13/2006 28 ALTv (U/L) Date Value 10/29/2024 20 AST(SGOT) (U/L) Date Value 10/29/2024 24 08/13/2006 20 ALK PHOS (U/L) Date Value 10/29/2024 116 08/13/2006 91 Troponin: There are no current results on file for these tests and/or test for 1 year. I have reviewed all relevant labs Imaging: FL Time OR(non-reportable) Result Date: 10/29/2024 These images do not require a Radiology diagnostic report. CT Abdomen pelvis w contrast Result Date: 10/29/2024 CT ABDOMEN PELVIS W CONTRAST 10/29/2024 1:18 PM HISTORY: upper abd pain, n/v, no acute findings on US COMPARISON: Same day ultrasound TECHNIQUE: Axial images of the abdomen and pelvis were acquired after administration of intravenous contrast. Coronal and sagittal reconstructions were also created. FINDINGS: LOWER CHEST: The lungs bases are clear. HEPATOBILIARY: The liver is normal in size.The contour is normal. Decreased parenchymal attenuation. No focal hepatic lesion. The gallbladder is distended within normal wall thickness, measures 4.7 x 10 cm. A 5 mm stone in the cystic duct associated with fat stranding around the cystic duct. No biliary ductal dilatation. SPLEEN: Normal in size. No lesion. PANCREAS: Normal parenchymal enhancement. No ductal dilatation. No masses. ADRENAL GLANDS: No adrenal nodules. KIDNEYS: Normal parenchymal enhancement. No hydronephrosis. 3 mm lower pole right renal stone.No solid mass. GI TRACT: No luminal dilation or wall thickening. The appendix is PERITONEUM AND RETROPERITONEUM: No free air.No free fluid. LYMPH NODES: No pathologically enlarged or morphologically abnormal lymph nodes are identified. PELVIS/BLADDER: The urinary bladder is normal. The reproductive organs are within normal limits. VESSELS: Within normal limits. BONES AND SOFT TISSUES: No aggressive osseous lesion. No acute osseous abnormality. No concerning soft tissue abnormality. Concern for early acute cholecystitis. A 5 mm cystic duct stone and edema around the proximal cystic duct which are not evident on ultrasound. Hepatic steatosis. US Gall bladder Result Date: 10/29/2024 EXAM: US GALL BLADDER HISTORY: 48 years-old Female; Provided indication: RUQ pain . TECHNIQUE: Limited abdominal ultrasound focused on the gallbladder was performed by the mineral technologist. The main portal vein was evaluated with color Doppler. Accounts Rece[employer] Executive images were obtained for the record. COMPARISON: None FINDINGS: PANCREAS: The pancreatic head and body display normal echogenicity to the extent visualized. LIVER: Visualized Parenchyma: The liver parenchyma exhibits mildly increased hepatic echogenicity and echotexture. Portal vein: Hepatopetal flow is present in the main portal vein. BILE DUCTS: No intra- or extrahepatic biliary dilatation is visualized. The common duct diameter is normal and measures 0.3 cm. GALLBLADDER: No shadowing stones are seen. The gallbladder is physiologically distended. The gallbladder wall thickness is normal and measures 0.2 cm. No pericholecystic fluid is visualized. Vyas's sign was not present. OTHER: None. Normal gallbladder and biliary ultrasound. Hepatocellular disease including mild steatosis. Preliminary Report Dictated by Resident: Iona Weiner I, April Felix MD., have reviewed this study and agree with the above report. Assessment and plan: Principal Problem: Acute cholecystitis Active Problems: RUQ pain Acute cholecystitis: - S/p robotic assisted laparoscopic cholecystectomy, POD #0. - Continue IV Zosyn and analgesics. - Start regular diet. - Management discussed with Dr. Og, general surgeon, who agrees with the current plan. Overweight BMI 27.23: - Continue diet and supportive care. DVT prophylaxis: Lovenox Advanced Care Planning ( Z71.89 ) Above assessment and plan discussed at length with patient, patient expressed full understanding. Questions and concerns addressed I spent 18 minutes discussing the advance care planning. Advanced Directive Maker: Self Level of comfort: N/A Code Status: Full code Non-tobacco user (Z71.6) Disposition: Home -INTERNAL MEDICINE STAFF [facility] Notes Date/Time Note Provider Source 2024-10-30 12:35:28 Problem: Falls, Risk of Goal: Absence of falls Outcome: Adequate for discharge Problem: Pain Goal: Control of pain at or below patient's documented comfort goal Outcome: Adequate for discharge Goal: Reduction in pain sensation Outcome: Adequate for discharge Problem: Discharge Planning Goal: Adequate for discharge Outcome: Adequate for discharge Goal: Effective communication Outcome: Adequate for discharge Problem: Venous Thromboembolism, (actual or risk of) Goal: Absence of venous thromboembolism (Risk) Outcome: Adequate for discharge Problem: Skin integrity Impaired (Risk or Actual) Goal: Wound healing Outcome: Adequate for discharge Goal: Prevention of new skin breakdown Outcome: Adequate for discharge Problem: Respiratory Function - Impaired Goal: Able to cough effectively Outcome: Adequate for discharge Christina Camargo RN [facility] 2024-10-30 00:10:03 Problem: Falls, Risk of Goal: Absence of falls Outcome: Progressing as expected Problem: Pain Goal: Control of pain at or below patient's documented comfort goal Outcome: Progressing as expected Goal: Reduction in pain sensation Outcome: Progressing as expected Problem: Discharge Planning Goal: Adequate for discharge Outcome: Progressing as expected Goal: Effective communication Outcome: Progressing as expected Problem: Venous Thromboembolism, (actual or risk of) Goal: Absence of venous thromboembolism (Risk) Outcome: Progressing as expected Problem: Skin integrity Impaired (Risk or Actual) Goal: Wound healing Outcome: Progressing as expected Goal: Prevention of new skin breakdown Outcome: Progressing as expected [facility] 2024-10-29 17:21:00 Summary: Family Surgical Update 1721: Patient's , Kane, called on cell phone at 1721 to notify him that the surgery has started. No questions at this time. 1825: Patient's , aKne, called on cell phone at 1824 to provide a surgery status update. 1939: Patient's , Kane, called on cell phone at 1939 to provide a surgery status update. 2045: Patient's , Kane, called on cell phone at 2045 to provide a surgery status update. Verified he is in the waiting area for MD to speak with postoperatively. Vicky Olea RN [facility] 2024-10-29 17:20:57 FULL OPERATIVE NOTE Date of Surgery: 10/29/2024 Preoperative diagnosis: Acute cholecystitis with cholelithiasis Postoperative diagnosis: Acute cholecystitis with cholelithiasis and hydrops Procedure: Robotic assisted laparoscopic cholecystectomy Intraoperative cholangiogram Cholangiogram interpretation Surgeons: Faculty: Veronica Og M.D. Rn Faculty: Zahra Canales M.D. Resident: Caroline Chun M.D. Anesthesiologist: Jeremy Ruano M.D., Hiram Hadley CRNA Anesthesia: General endotracheal intubation EBL: 5 mL Sponge, needle, and instrument count: Correct at the end of the case X2 Packs, drains: None Specimen: Gallbladder Findings: Significantly distended gallbladder with acute inflammation, hydrops on aspiration of bile, cholelithiasis, critical view of safety achieved Cholangiogram Interpretation: Filling of the cystitic duct, common bile duct, common hepatic duct, right and left ducts all without filling defect or leak with contrast flowing into the duodenum Complications: None Indications: Shwetha Hightower is a 48 year old female who presented to the ED with a complaint of right upper quadrant abdominal pain. Clinical and radiological evidence demonstrated acute cholecystitis with cholelithiasis. Diagnosis and treatment options were discussed with the patient, the patient wished to proceed with surgery. Procedure in detail: Risks, benefits, alternatives were explained to the patient; all questions were answered; and informed consent was obtained. 2.5 mg of Indocyanine Green (ICG) was given in Pre-Op Holding. The patient was then brought to the operating room and placed in the supine position on the operating room table. IV sedation and general anesthesia with endotracheal intubation was performed by Anesthesia without difficulty. Preoperative antibiotics were administered prior to skin incision. SCD's were placed, initiated before induction, and used throughout the operative procedure. The patient's right arm was padded and tucked. The patient s abdomen was then prepped and draped in the standard sterile fashion. A time out was performed verifying patient data, allergies, and planned procedure prior to skin incision. A small skin incision was made at [place] and access was obtained using a Veress needle. The abdomen was then insufflated to 15 mm mercury with CO2 with no hemodynamic consequences. An 8 mm robotic trocar was used to Optiview into the abdomen above and to the left of the umbilicus under direct visualization using the 5 mm zero degree camera. Additional trocars were placed under direct visualization and after the use of 0.25% Marcaine with epinephrine mixed in a 1:1 ratio with 1% Lidocaine with epinephrine for local anesthesia: one in the left upper quadrant and two in the right abdomen. The table was then placed in the reverse trendelenburg position at 15 degrees and rotated 5 degrees to the left. The robot was then docked. The gallbladder was noted to be acute inflamed and distended. Omental adhesions to the gallbladder were first taken down using robotic hook electrocautery. Needle aspiration of the gallbladder was then performed. The bile was clear consistent with hydrops. The dome of the gallbladder was grasped with a prograsp and retracted cephalad while the infundibulum was retracted inferolaterally with the fenestrated bipolar. The cystic duct and artery were dissected free from surrounding tissue using a robotic hook. Dissection continued until the critical view of safety was was achieved with the cystic duct and cystic artery clearly going into the gallbladder with the liver visible posteriorly. The cystic duct was further confirmed using Firefly. Attention was then turned to the cystic duct for cholangiogram. The cystic duct was clipped proximally close to the infundibulum with a Hem-o-jaqueline clip and a ductotomy was made using the robotic scissors. A 14 gauge angiocatheter was introduced into the abdomen through the right upper quadrant under direct visualization. A 5 romansh catheter was then placed through the angiocatheter and advanced into the cystic duct. The fenestrated bipolar was used to hold the catheter in place, care was taken not to crush the cystic duct. The catheter was flushed with saline to confirm no leakage. The instruments were pulled back into the ports and the arms were adjusted to allow for the fluoroscopy C-arm to be positioned. A cholangiogram was then performed with radiopaque contrast. The cystic duct, common bile duct, left and right hepatic ducts were all visualized as well as passage of contrast into the duodenum. No stones were visualized in the common bile duct. Following completion of the cholangiogram the catheter was removed from the cystic duct. Attention was first turned to the cystic duct. Two Hem-o-loc clips were placed across the distal cystic duct below the ductotomy. The cystic duct was then divided. Attention was then turned to the cystic artery. Two Hem-o-loc clips were placed across the proximal cystic artery, one clip was placed across the distal cystic artery close to the gallbladder wall. The cystic artery was then divided. The cystic duct below the ductotomy and cystic artery were then clipped using Hem-o-jaqueline clips and divided close to the gallbladder. The gallbladder was then removed from its peritoneal attachments in a retrograde fashion using robotic hook electrocautery and then placed in an endoscopic retrieval bag. The patient's right upper quadrant was then copiously irrigated with sterile saline, all irrigation was suctioned out. The liver was carefully elevated and inspected for hemostasis, small bleeding points were controlled with electrocautery. The clips across the cystic duct and cystic artery were noted to be intact without evidence of bile leakage or bleeding. The robot was then undocked. The endoscopic retrieval bag containing the gallbladder was removed from the periumbilical trocar site. The fascia at the periumbilical trocar site was then closed using an 0-PDS endo stitch. The pneumoperitoneum was evacuated and the secondary trocars were removed. All skin incisions were irrigated with sterile saline. All skin incisions were then closed using 4-0 Monocryl in a subcuticular fashion. Dermabond was applied to all skin incisions. The patient was then awakened from general anesthesia, extubated in the operating room, and then transferred to the recovery room in satisfactory condition. The counts were correct at the end of the case. The patient received no blood products. Dr. Og was present and scrubbed for the entirety of the operative procedure. Veronica Og M.D. 10/29/2024 23:27 [facility] 2024-10-29 17:20:57 BRIEF OPERATIVE NOTE Date of Surgery: 10/29/2024 Surgeons and Role: * Veronica Og MD - Primary * Zahra Canales MD - Assisting * Caroline Chun MD - Resident - Assisting Pre-Op Diagnosis: Acute cholecystitis [K81.0] Post-Op Diagnosis Codes: * Acute cholecystitis [K81.0] Procedures: Procedure(s) (LRB): CHOLECYSTECTOMY ROBOT-ASSISTED WITH CHOLANGIOGRAM (N/A) CPT: CODINGHELP, S2900, 64444, 72248, Any Complications Encounters: None Estimated Blood Loss: 15cc Specimens Removed: ID Type Source Tests Collected by Time Destination 1 : Tissue GALLBLADDER SURGICAL PATHOLOGY EXAM Veronica Og MD 10/29/20242009 * No implants in log * Patient's Condition: Good Findings: Acute cholecystitis, hydropic gallbladder. Negative IOC. Any other important information: - advance diet as tolerated - MMPC per primary - continue abx x2 more doses (last dose to be given 10/30 at 0715AM) - ok for dc from surgery standpoint in AM once abx completed - follow up in clinic in 2 weeks Please see dictated operative report for additional detail. Caroline Chun MD PGY-1 General Surgery Cosigned by Veronica Og MD at 10/29/2024 10:04 PM CDT Associated attestation - Veronica Og MD - 10/29/2024 10:04 PM CDT Attending Attestation: I personally evaluated and examined the patient on 10/29/[address] Chun's brief op note as written. I actively participated in the decision-making process. Please see the resident's note for additional details. Please see operative note for details. Veronica Og M.D. 10/29/2024 22:03 SURGERY [facility] 2024-10-29 14:47:32 Patient went to OR Sharon Castro RN [facility] 2024-10-29 14:35:37 Nurse Report Report given to Catalina. Chief complaint, assessment findings, infusion verify and orders reviewed. Latisha Mir RN [facility] 2024-10-29 11:04:39 states: "She started having abdominal pain at 2 or 3 in the morning" Denies vomiting/ diarrhea. Pmhx: none Hiram Weaver RN [facility]
[2025-01-12 18:38] LABS: Absolute Lymphocytes (CBC) 2.2 K/uL (0.7-4.9); Hematocrit 46.3 % (36.0-45.0); Hemoglobin 15.9 g/dL (12.0-15.0); MCH 29.7 pg (27.0-35.0); MCHC 34.3 g/dL (32.0-36.0); MCV 86.6 fL (80-100); MPV 10.1 fL (7.6-11.3); Nucleated RBC Absolute Count 0.0 (0-0); Nucleated Red Blood Cells % 0.1 % (0-0); RBC Red Blood Cell Count 5.35 M/uL (3.86-4.86); White Blood Count 13.10 thou/uL (4.3-10.9)
[2025-01-12 18:48] LABS: Sqamous Epithelial <5 /HPF (None Seen); Urine Culture Reflex Order NOT NEEDED; Urine Microscopic Reflex YN ORDER UMIC
[2025-01-12 18:56] LABS: ALT/SGPT 19 U/L (13-56); Albumin 3.5 g/dL (3.4-5.0); Albumin/Globulin Ratio 0.8 (1.1-1.8); Alkaline Phosphatase 130 U/L (45-117); Anion Gap 8.2 mEq/L (5.0-15.0); BUN Blood Urea Nitrogen 7 mg/dL (7-18); C-Reactive Protein 38.70 mg/L (<3.00); Globulin 4.6 g/dL (2.3-3.5); Glucose Level 106 mg/dL (74-106); Potassium 3.2 mEq/L (3.5-5.1)
[2025-01-12 18:57] LABS: AST/SGOT < 10 U/L (15-37)
[2025-01-12] MEDS ORDERED: LIDOCAINE 2% W/EPI 1:200,000 MPF 20 ML VIAL IM ONE (20:55)
[2025-01-12] MEDS ORDERED: POTASSIUM 25 MEQ EFFERV TAB ONE (20:56)
[2025-01-12] MEDS ORDERED: NA CHLORIDE 0.9% 100 ML ONE (20:56)
[2025-01-12] MEDS ORDERED: PIPERACIL/TAZO 3.375 GM VIAL IV ONE (20:57)
--- NOTE | 2025-01-12 21:04 | ER ---
Nurse's Notes [facility] Name: Shwetha Hightower Age: 49 yrs Sex: Female : 1975 Arrival Date: 01/12/2025 Time: 16:46 Bed 8 Private MD: Diagnosis: Cellulitis of back [any part except buttock];Cutaneous abscess of back [any part, except buttock] Presentation: 01/12 17:15 Chief complaint: Patient states: PAINFUL BUMP ON LT UPPER BACK THAT HAS BEEN THERE FOR ll1 A FEW WEEKS AND GETTING LARGER AND MORE PAINFUL. Coronavirus screen: At this time, the client does not indicate any symptoms associated with coronavirus-19. Ebola Screen: No symptoms or risks identified at this time. Initial Sepsis Screen: Does the patient meet any 2 criteria? No. Patient's initial sepsis screen is negative. Does the patient have a suspected source of infection? No. Patient's initial sepsis screen is negative. Risk Assessment: Do you want to hurt yourself or someone else? Patient reports no desire to harm self or others. Onset of symptoms is unknown. 17:15 Method Of Arrival: Ambulatory ll1 17:15 Acuity: FABIENNE 3 ll1 Triage Assessment: 17:16 General: Appears uncomfortable, Behavior is calm, cooperative, appropriate for age. ll1 Pain: Complains of pain in left scapular area. Derm: Abscess located on left scapular area is quarter sized. Musculoskeletal: Circulation, motion, and sensation intact. Range of motion: intact in all extremities. DIRECTOR FUNERAL: 22:45 unknown bm8 Historical: - Allergies: 17:16 No Known Allergies; ll1 - PMHx: 17:16 None; ll1 - PSHx: 17:16 section; Cholecystectomy; ll1 - Immunization history:: Adult Immunizations up to date. - Infectious Disease History:: Denies. - Social history:: Smoking status: Patient denies any tobacco usage or history of. Screenin:00 [facility] ED Fall Risk Assessment (Adult) History of falling in the last 3 months, bm8 including since admission No falls in past 3 months (0 pts) Confusion or Disorientation No (0 pts) Intoxicated or Sedated No (0 pts) Impaired Gait No (0 pts) Mobility Assist Device Used No (0 pt) Altered Elimination No (0 pt) Score/Fall Risk Level 0 - 2 = Low Risk Oriented to surroundings, Maintained a safe environment, Educated pt \T\ family on fall prevention, incl call for assistance when getting out of bed, Assessed \T\ reinforced patient's understanding of fall precautions, Hourly rounding (assess needs \T\ fall precautionary measures) done, Used ambulatory aids as needed (educated on \T\ assisted with), Used gait belt as appropriate. Abuse screen: Denies threats or abuse. Nutritional screening: No deficits noted. Tuberculosis screening: No symptoms or risk factors identified. Assessment: 21:00 General: Appears in no apparent distress. uncomfortable, Behavior is calm, cooperative, bm8 appropriate for age. Pain: Complains of pain in left scapular area Pain currently is 8 out of 10 on a pain scale. Quality of pain is described as aching, throbbing. Neuro: No deficits noted. Level of Consciousness is awake, alert, obeys commands, Oriented to person, place, time, situation, Appropriate for age. Cardiovascular: Denies chest pain, Capillary refill < 3 seconds in bilateral fingers Patient's skin is warm and dry. Respiratory: Airway is patent Trachea midline Respiratory effort is even, unlabored, Respiratory pattern is regular, symmetrical, Breath sounds are clear bilaterally. GI: No deficits noted. No signs and/or symptoms were reported involving the gastrointestinal system. : No deficits noted. No signs and/or symptoms were reported regarding the genitourinary system. EENT: No deficits noted. No signs and/or symptoms were reported regarding the EENT system. Derm: Skin is intact, Skin is red, Abscess located on left scapular area is 3-4 inches in diameter, irregular edges. Musculoskeletal: No deficits noted. No signs and/or symptoms reported regarding the musculoskeletal system. 22:44 Reassessment: Patient appears in no apparent distress at this time. Patient and/or bm8 family updated on plan of care and expected duration. Pain level reassessed. Patient is alert, oriented x 3, equal unlabored respirations, skin warm/dry/pink. Patient states feeling better. Patient states symptoms have improved. Vital Signs: 17:15 BP 133 / 96; Pulse 88; Resp 16; Temp 98.3; Pulse Ox 100% ; Weight 72.57 kg; Pain 8/10; ll1 21:00 BP 153 / 82; Pulse 100; Resp 20; Temp 98.3; Pulse Ox 99% ; Pain 8/10; bm8 22:44 BP 109 / 70; Pulse 87; Resp 17; Temp 98.3; Pulse Ox 97% ; Pain 2/10; bm8 17:15 Pain Scale: Adult ll1 21:00 Pain Scale: Adult bm8 22:44 Pain Scale: Adult bm8 [place] Coma Score: 21:00 Eye Response: spontaneous(4). Motor Response: obeys commands(6). Verbal Response: bm8 oriented(5). Total: 15. 22:44 Eye Response: spontaneous(4). Motor Response: obeys commands(6). Verbal Response: bm8 oriented(5). Total: 15. ED Course: 16:48 Patient arrived in ED. cj3 16:50 Cyril Mcknight PA-C is PHCP. cp 16:50 Cyril Cassidy MD is Attending Physician. cp 17:16 Triage completed. ll1 17:16 Arm band placed on right wrist. ll1 18:25 Missed attempt(s): 22 gauge in right antecubital area. Bleeding controlled, band aid bc6 applied, catheter tip intact. 18:33 Lactate w/ 2H reflex if indic. Sent. bc6 18:33 CRP Sent. bc6 18:33 CBC with Diff Sent. bc6 18:33 CMP Sent. bc6 18:33 Initial lab(s) drawn, by me, sent to lab. Inserted saline lock: 24 gauge in left bc6 antecubital area, using aseptic technique. Blood collected. Flushed with 10 mL NS. 20:48 Shell Nicolas, RN is Primary Nurse. al5 21:00 Patient has correct armband on for positive identification. Placed in gown. Bed in low bm8 position. Call light in reach. Side rails up X 1. Adult w/ patient. Provided Education on: need for admission. Client placed on continuous cardiac and pulse oximetry monitoring. NIBP monitoring applied. Pulse ox on. NIBP on. Door closed. Noise minimized. Warm blanket given. Pillow given. Verbal reassurance given. Head of bed elevated. 21:00 No provider procedures requiring assistance completed. Patient maintains SpO2 bm8 saturation greater than 95% on room air. 21:02 Francisco Javier Owusu MD is Hospitalizing Provider. cp 21:42 Inserted saline lock: 20 gauge in right forearm, using aseptic technique. Flushed with bm8 10 mL NS IV discontinued, intact, bleeding controlled, No redness/swelling at site. Pressure dressing applied, 22 rac dc. Administered Medications: 21:06 Not Given (Physician Discretion): lidocaine(2 %) 20 ml 5 ml Infiltration once; to bm8 bedside 21:06 Drug: Potassium PO Effervescent Tablet 50 mEq PO once; dissolve in 4 ounces of water or bm8 juice Route: PO; 22:43 Follow up: Response: No adverse reaction bm8 21:06 Drug: Piperacillin-Tazobactam IVPB 3.375 grams IVPB once over 60 mins; (mix in NS 100 bm8 mL) Route: IVPB; Infused Over: 60 mins; Site: right forearm; 22:43 Follow up: Response: No adverse reaction; IV Status: Completed infusion bm8 21:41 Drug: morphine IVP or IV 4 mg IVP once over 4 mins Route: IVP; Infused Over: 4 mins; bm8 Site: right forearm; 22:44 Follow up: Response: No adverse reaction bm8 21:41 Drug: NS 0.9% IV 1000 ml IV at 1 bolus Per protocol; to be given as a bolus over 60 bm8 minutes Route: IV; Rate: 1 bolus; Site: right forearm; 22:44 Follow up: Response: No adverse reaction; IV Status: Infusion continued upon admission bm8 22:22 Drug: HYDROmorphone IVP 1 mg IVP once Route: IVP; Site: right forearm; bm8 22:43 Follow up: Response: No adverse reaction bm8 22:22 Drug: Ondansetron IVP 4 mg IVP once; over 2 minutes Route: IVP; Site: right forearm; bm8 22:43 Follow up: Response: No adverse reaction bm8 Medication: 21:00 VIS not applicable for this client. bm8 Outcome: 21:03 Decision to Hospitalize by Provider. cp 22:44 Admitted to Med/surg accompanied by nurse, via wheelchair, room 216, with chart, bm8 22:44 Condition: stable 22:44 Instructed on the need for admit, Demonstrated understanding of instructions, follow-up care, medications, 22:48 Patient left the ED. bm8 Signatures: Cyril Mcknight PA-C PA-C cp Lewis, Lynsay, RN RN ll1 Stephanie Vasquez bc6 Murphy White RN RN bm8 Shell Nicolas RN RN al5 Marjorie Cherry cj3 Corrections: (The following items were deleted from the chart) 21: 21:06 Piperacillin-Tazobactam IVPB 3.375 grams IVPB in left antecubital over 60 mins bm88 : 21:07 NS 0.9% IV 1000 ml IV at 1 bolus in left antecubital 8 8 : 21:07 morphine IVP or IV 4 mg IVP in left antecubital over 4 mins 8 8
--- NOTE | 2025-01-12 21:04 | EDPHYS ---
Physician Documentation [facility] Name: Shwetha Hightower Age: 49 yrs Sex: Female : 1975 Arrival Date: 01/12/2025 Time: 16:46 Bed 8 Private MD: ALDO Physician Cyril Cassidy HPI: 01/12 18:00 This 49 yrs old Female presents to ER via Ambulatory with complaints of Back cp Pain - UPPER. 18:00 The patient presents with pain that is acute, with no known mechanism of injury. The cp symptoms are located in the left upper back area. 18:00 Onset: The symptoms/episode began/occurred several weeks ago, worse over past several cp days. 18:00 Associated signs and symptoms: Pertinent negatives: injury. cp [employer]: 22:45 unknown bm8 Historical: - Allergies: 17:16 No Known Allergies; ll1 - PMHx: 17:16 None; ll1 - PSHx: 17:16 section; Cholecystectomy; ll1 - Immunization history:: Adult Immunizations up to date. - Infectious Disease History:: Denies. - Social history:: Smoking status: Patient denies any tobacco usage or history of. ROS: 18:00 Eyes: Negative for injury, pain, redness, and discharge, cp 18:00 Constitutional: Negative for body aches, chills, fever, poor PO intake, 18:00 Cardiovascular: Negative for chest pain, palpitations, 18:00 Respiratory: Negative for cough, shortness of breath, wheezing, 18:00 Abdomen/GI: Negative for abdominal pain, nausea, vomiting, and diarrhea, 18:00 Back: Positive for pain at rest, pain with movement, of the left scapular area, Negative for injury or acute deformity, decreased range of motion, 18:00 Neuro: Negative for altered mental status, dizziness, headache, weakness, 18:00 All other systems are negative, Exam: 18:00 Head/Face: Normocephalic, atraumatic. cp 18:00 Constitutional: The patient appears in no acute distress, alert, awake, non-diaphoretic, non-toxic, well developed, well nourished, uncomfortable, 18:00 Eyes: Periorbital structures: appear normal, Conjunctiva: normal, no exudate, no injection, Sclera: no appreciated abnormality, Lids and lashes: appear normal, bilaterally, 18:00 ENT: External ear(s): are unremarkable, Nose: is normal, Mouth: Lips: moist, Oral mucosa: moist, Posterior pharynx: Airway: no evidence of obstruction, patent, 18:00 Chest/axilla: Inspection: normal, 18:00 Cardiovascular: Rate: normal, Rhythm: regular, 18:00 Respiratory: the patient does not display signs of respiratory distress, Respirations: normal, no use of accessory muscles, no retractions, labored breathing, is not present, Breath sounds: are clear throughout, no decreased breath sounds, no stridor, no wheezing, 18:00 Abdomen/GI: Exam negative for discomfort, distension, guarding, Inspection: abdomen appears normal, 18:00 Back: pain, that is severe, of the left scapular area, swelling, skin induration, 18:00 Neuro: Orientation: to person, place \T\ time. Mentation: is normal, Motor: moves all fours, strength is normal, Vital Signs: 17:15 BP 133 / 96; Pulse 88; Resp 16; Temp 98.3; Pulse Ox 100% ; Weight 72.57 kg; Pain 8/10; ll1 21:00 BP 153 / 82; Pulse 100; Resp 20; Temp 98.3; Pulse Ox 99% ; Pain 8/10; bm8 22:44 BP 109 / 70; Pulse 87; Resp 17; Temp 98.3; Pulse Ox 97% ; Pain 2/10; bm8 17:15 Pain Scale: Adult ll1 21:00 Pain Scale: Adult bm8 22:44 Pain Scale: Adult bm8 [place] Coma Score: 21:00 Eye Response: spontaneous(4). Motor Response: obeys commands(6). Verbal Response: bm8 oriented(5). Total: 15. 22:44 Eye Response: spontaneous(4). Motor Response: obeys commands(6). Verbal Response: bm8 oriented(5). Total: 15. MDM: 17:10 Medical Screening Exam initiated fran 20:00 Differential diagnosis: abscess, cellulitis, back pain. cp 21:05 Data reviewed: vital signs, nurses notes, lab test result(s), and as a result, I will cp admit patient. 21:05 Management of patient was discussed with the following: Glass Sagger: DR Brooks will cp consult for general surgery and patient to be admitted to hospitalist service, DR Owusu after discussion. 01/12 17:25 Order name: CBC with Diff; Complete Time: 19:01 01/12 19:01 Interpretation: Normal except: WBC 13.10; RBC 5.35; HGB 15.9; HCT 46.3; NEUT A 9.6. 01/12 17:25 Order name: CMP; Complete Time: 19: 01/12 19:02 Interpretation: Normal except: K 3.2; CRE 0.53; AST < 10; ALK 130; GLOB 4.6; A/G 0.8. 01/12 17:25 Order name: UA Rfx Raymon Cult if indicated; Complete Time: 19: 01/12 17:25 Order name: Test, Urine; Complete Time: 19: 01/12 17:25 Order name: CRP; Complete Time: 19: 01/12 17:25 Order name: Lactate w/ 2H reflex if indic.; Complete Time: 19: 01/12 22:10 Order name: CBC with Automated Diff [facility] 01/12 22:10 Order name: CBC with Automated Diff [facility] 01/12 22:10 Order name: Comprehensive Metabolic Panel [facility] 01/12 22:10 Order name: Comprehensive Metabolic Panel [facility] 01/12 22:10 Order name: CONS Physician Consult [facility] 01/12 17:25 Order name: IV Saline Lock; Complete Time: 18:33 cp 01/12 17:25 Order name: Labs collected and sent; Complete Time: 18:33 cp Administered Medications: 21:06 Not Given (Physician Discretion): lidocaine(2 %) 20 ml 5 ml Infiltration once; to [facility] bedside 21:06 Drug: Potassium PO Effervescent Tablet 50 mEq PO once; dissolve in 4 ounces of water or bm8 juice Route: PO; 22:43 Follow up: Response: No adverse reaction [facility] 21:06 Drug: Piperacillin-Tazobactam IVPB 3.375 grams IVPB once over 60 mins; (mix in NS 100 bm8 mL) Route: IVPB; Infused Over: 60 mins; Site: right forearm; 22:43 Follow up: Response: No adverse reaction; IV Status: Completed infusion [facility] 21:41 Drug: morphine IVP or IV 4 mg IVP once over 4 mins Route: IVP; Infused Over: 4 mins; bm8 Site: right forearm; 22:44 Follow up: Response: No adverse reaction bm8 21:41 Drug: NS 0.9% IV 1000 ml IV at 1 bolus Per protocol; to be given as a bolus over 60 bm8 minutes Route: IV; Rate: 1 bolus; Site: right forearm; 22:44 Follow up: Response: No adverse reaction; IV Status: Infusion continued upon admission bm8 22:22 Drug: HYDROmorphone IVP 1 mg IVP once Route: IVP; Site: right forearm; bm8 22:43 Follow up: Response: No adverse reaction bm8 22:22 Drug: Ondansetron IVP 4 mg IVP once; over 2 minutes Route: IVP; Site: right forearm; bm8 22:43 Follow up: Response: No adverse reaction bm8 Disposition Summary: 01/12/25 21:03 Hospitalization Ordered Notes: Hospitalization Status: Inpatient Admission cp Provider: Francisco Javier Owusu cp Location: Telemetry/MedSurg (Inpatient) cp Condition: Stable cp Problem: new cp Symptoms: have improved cp Bed/Room Type: Standard cp Room Assignment: 216(01/12/25 22:25) vc1 Diagnosis - Cellulitis of back [any part except buttock] cp - Cutaneous abscess of back [any part, except buttock] cp Forms: - Medication Reconciliation Form cp - SBAR form cp - Leadership Thank You Letter cp Signatures: Dispatcher [employer] EDCyril Perdomo MD MD cha Page, Corey, PA-C PA-C cp Sofy Pizarro RN RN ll1 Marie Oneil RN RN vc1 Murphy White RN RN bm8 Corrections: (The following items were deleted from the chart) 17:26 17:26 CBC+H.LAB.BRZ ordered. EDMS EDMS 17:26 17:26 COMPREHENSIVE METABOLIC PANEL+C.LAB.BRZ ordered. EDMS EDMS 17:26 17:26 UA Rfx Raymon Cult if indicated+U.LAB.BRZ ordered. EDMS EDMS 17:26 17:26 Test, Urine+UC.LAB.BRZ ordered. EDMS EDMS 17:26 17:26 C-REACTIVE PROTEIN+C.LAB.BRZ ordered. EDMS EDMS 17:26 17:26 LACTATE+C.LAB.BRZ ordered. EDMS EDMS : 19:02 I\T\D Setup ordered. cp bm8 :25 21:03 cp vc1
[2025-01-12] MEDS ORDERED: MORPHINE 4 MG/ML SYR ONE (21:33)
[2025-01-12] MEDS ORDERED: NA CHLORIDE 0.9% 1,000 ML ONE (21:33)
[2025-01-12] MEDS ORDERED: ONDANSETRON 4 MG/2 ML VIAL IV PRN (22:05)
[2025-01-12] MEDS ORDERED: ACETAMINOPHEN 325 MG TABLET PO PRN (22:05)
--- NOTE | 2025-01-12 22:05 | P.HP ---
Certification for Inpatient Patient admitted to: Inpatient With expected LOS: >2 Midnights Practitioner: I am a practitioner with admitting privileges, knowledge of patient current condition, hospital course, and medical plan of care. Services: Services provided to patient in accordance with Admission requirements found in Title 42 Section 412.3 of the Code of Federal Regulations Patient History Date of Service: 01/12/25 Reason for admission: Pain and swelling in the upper back History of Present Illness: 49-year-old female with no significant past medical history brought to ER with pain and swelling of upper back which started few days ago and has been progressively getting worse. And was brought to ER. Patient had a very small swelling previously but last 4 days with pain and swelling increase in size with redness. Denies any trauma. No fever or chills. No chest pain or shortness of breath. Patient was assessed in the ER and is admitted for further management of abscess left upper back Allergies No Known Allergies Allergy (Verified 10/17/16 05:19) Home medications list reviewed: Yes Home Medications: Iron Polysaccharide Complex [Hematex] 150 mg PO DAILY #30 tablet 04/05/21 - Past Medical/Surgical History Diabetic: Yes Past Medical History: Reviewed- Non-Contributory -: Gestational diabetes -: iron deficiency anemia Past Surgical History: Reviewed- Non-Contributory -: C section - Social History Smoking Status: Never smoker Alcohol use: No CD- Drugs: No Caffeine use: Yes Review of Systems 10-point ROS is otherwise unremarkable Physical Examination - Vital Signs Temperature: 97.8 F Blood Pressure: 136/70 Pulse: 78 Respirations: 18 Pulse Ox (%): 94 - Physical Exam General: Alert, In no apparent distress, Oriented x3 HEENT: Atraumatic, Normocephalic Neck: Supple Respiratory: Clear to auscultation bilaterally, Normal air movement Cardiovascular: Regular rate/rhythm, Normal S1 S2 Capillary refill: <2 Seconds Gastrointestinal: Soft and benign, W/out hepatosplenomegaly Musculoskeletal: No clubbing, Erythema, Tenderness, Warmth Integumentary: No rashes, Tenderness/swelling, Erythema, Warmth Neurological: Other (Alert awake nonfocal) Lymphatics: No axilla or inguinal lymphadenopathy - Studies Laboratory Data (last 24 hrs) 01/12/25 01/12/25 18:30 18:30 WBC 13.10 H Hgb 15.9 H Hct 46.3 H Plt Count 236 Sodium 138 Potassium 3.2 L BUN 7 Creatinine 0.53 L Glucose 106 Total Bilirubin 0.6 AST < 10 L ALT 19 Alkaline Phosphatase 130 H Assessment and Plan - Plan Abscess left upper back Pain control Started on IV antibiotic Surgical consult. May need I&D Leukocytosis Elevated CRP Continue antibiotics Will obtain cultures Change antibiotic as per sensitivity Hypokalemia Electrolytes monitor and replace accordingly GI/DVT prophylaxis Advanced directive full code Discharge Plan: Home Plan to discharge in: 48 Hours - Advance Directives Does patient have a Living Will: No Does patient have a Durable POA for Healthcare: No - Code Status/Comfort Care Code Status: Full Code Time Spent Managing Pts Care (In Minutes): 48
[2025-01-12] MEDS: VANCOMYCIN 1 GM in NA CHLORIDE 0.9% 250 ML IVPB SCH (22:09)
[2025-01-12] MEDS ORDERED: ONDANSETRON 4 MG/2 ML VIAL ONE (22:10)
[2025-01-12] MEDS ORDERED: HYDROMORPHONE HCL 1 MG/ML INJ ONE (22:17)
[2025-01-12 23:00] VITALS: BMI 27.6
[2025-01-12] MEDS: VANCOMYCIN 1 GM in NA CHLORIDE 0.9% 250 ML IVPB ONE (23:12)
[2025-01-12] MEDS: NA CHLORIDE 0.9% 1,000 ML IV SCH (23:12)
[2025-01-13] MEDS: VANCOMYCIN 250 MG in NA CHLORIDE 0.9% 100 ML IVPB ONE ×2 (00:30→03:45)
[2025-01-13 05:55] LABS: Absolute Lymphocytes (CBC) 1.5 K/uL (0.7-4.9); Hematocrit 40.1 % (36.0-45.0); Hemoglobin 13.8 g/dL (12.0-15.0); MCH 29.9 pg (27.0-35.0); MCHC 34.5 g/dL (32.0-36.0); MCV 86.6 fL (80-100); MPV 10.8 fL (7.6-11.3); Nucleated RBC Absolute Count 0.0 (0-0); Nucleated Red Blood Cells % 0.0 % (0-0); RBC Red Blood Cell Count 4.63 M/uL (3.86-4.86); White Blood Count 12.00 thou/uL (4.3-10.9)
[2025-01-13 06:07] LABS: ALT/SGPT 50.0 U/L (13-56); AST/SGOT 52.0 U/L (15-37); Albumin 3.0 g/dL (3.4-5.0); Albumin/Globulin Ratio 0.7 (1.1-1.8); Alkaline Phosphatase 139.0 U/L (45-117); Anion Gap 8.5 mEq/L (5.0-15.0); BUN Blood Urea Nitrogen 8.0 mg/dL (7-18); Globulin 4.1 g/dL (2.3-3.5); Glucose Level 156.0 mg/dL (74-106); Potassium 3.5 mEq/L (3.5-5.1)
[2025-01-13] MEDS: KCL 20 MEQ/100 mL IVPB 20 MEQ/100 ML BAG IV SCH (06:27)
--- NOTE | 2025-01-13 07:19 | P.PN ---
Date of Service: 01/13/25 Subjective: tenderness/pain of left back no new/worsening symptoms awaiting surgery Physical Exam: Gen: Alert, Oriented, NAD CV: Regular rate and rhythm, no edema Pulm: Nonlabored respirations on room air, clear bilaterally Integumentary: L scapular abscess/cyst with induration Neuro: Normal strength, normal affect Problem List: Left upper back abscess Hypokalemia, resolved Hx iron deficiency anemia Hx Menorrhagia Left upper back abscess on admission, presents with left upper back cyst/lump that's progressively getting larger and more painful over last few weeks Given IV Zosyn in ED Dr. Contreras, general surgeon consulted NPO until eval by surgery for possible I&D Start IV rocephen/Vancomycin afebrile, mild leukocytosis improving CRP 38.7 Hypokalemia, resolved monitor and replete as needed Hx iron deficiency anemia Hx Menorrhagia Daily labs Dispo: Home Pending surgical recs, pain improves, leukocytosis resolves
[2025-01-13] MEDS: CEFTRIAXONE 1,000 MG in NA CHLORIDE 0.9% 50 ML IVPB SCH (09:11)
[2025-01-13] MEDS: VANCOMYCIN 1.25 GM in NA CHLORIDE 0.9% 250 ML IVPB SCH (09:52)
[2025-01-13] MEDS: MORPHINE 2 MG/ML SYR IV PRN (19:28)
[2025-01-14] MEDS ORDERED: SUCCINYLCHOLINE 20 MG/ML (10 ML) IV ONE (06:34)
[2025-01-14 07:25] LABS: Absolute Lymphocytes (CBC) 1.9 K/uL (0.7-4.9); Hematocrit 40.6 % (36.0-45.0); Hemoglobin 13.6 g/dL (12.0-15.0); MCH 29.4 pg (27.0-35.0); MCHC 33.4 g/dL (32.0-36.0); MCV 87.9 fL (80-100); MPV 10.4 fL (7.6-11.3); Nucleated RBC Absolute Count 0.0 (0-0); Nucleated Red Blood Cells % 0.0 % (0-0); RBC Red Blood Cell Count 4.62 M/uL (3.86-4.86); White Blood Count 10.50 thou/uL (4.3-10.9)
[2025-01-14 07:40] LABS: Anion Gap 10.5 mEq/L (5.0-15.0); BUN Blood Urea Nitrogen 10.0 mg/dL (7-18); Glucose Level 132.0 mg/dL (74-106); Magnesium 2.0 mg/dL (1.6-2.4); Potassium 3.5 mEq/L (3.5-5.1)
[2025-01-14] MEDS: KCL 20 MEQ/100 mL IVPB 20 MEQ/100 ML BAG IV SCH (09:46)
--- NOTE | 2025-01-14 11:28 | P.PN ---
Date of Service: 01/14/25 Subjective: no new issues planning for I&D today afebrile Physical Exam: Gen: Alert, Oriented, NAD CV: Regular rate and rhythm, no edema Pulm: Nonlabored respirations on room air, clear bilaterally Integumentary: L scapular abscess/cyst with induration Neuro: Normal strength, normal affect Problem List: Left upper back abscess Hypokalemia, resolved Hx iron deficiency anemia Hx Menorrhagia Left upper back abscess on admission, presents with left upper back cyst/lump that's progressively getting larger and more painful over last few weeks Dr. Contreras, general surgeon consulted Continue IV rocephen/Vancomycin afebrile, leukocytosis resolved. NPO for I&D today. Hypokalemia, resolved monitor and replete as needed Hx iron deficiency anemia Hx Menorrhagia Daily labs Dispo: Home Pending I&D
[2025-01-14] MEDS: Ringers Lactate 1,000 ML IV ONE (11:33)
[2025-01-14] MEDS ORDERED: ONDANSETRON 4 MG/2 ML VIAL ONE (13:18)
[2025-01-14] MEDS ORDERED: LIDOCAINE 1% MPF 5 ML VIAL ONE (13:18)
[2025-01-14] MEDS ORDERED: MIDAZOLAM HCL 2 MG/2 ML INJ ONE (13:18)
[2025-01-14] MEDS ORDERED: FENTANYL CITR 100 MCG/2 ML ONE (13:18)
--- NOTE | 2025-01-14 14:02 | CON ---
Date of Consultation: 01/13/2025 Brief History Of Present Illness: The patient is a 49-year-old female with no past medical history other than gestational diabetes who presents to the ER with complaint of swelling in the uppe r back which started a few days prior to admission. It got progressively worse, and as such, she shahram t to the ER and had swelling in the area. She had noticed that it got significantly larger and tende r, but there were no drainable collections at that time. She was seen by the ER physician, who state d there was no additional drainable collection at this time, and as such, they wanted to bring her in for significant cellulitis of her left upper back area. She is unaware of any inciting causative fa ctors of this. She is unsure of how this occurred. Past Medical History: Gestational diabetes, iron-deficiency anemia. Past Surgical History: C-sections. Home Medications: None other than iron polysaccharide complex. Allergies: NO KNOWN DRUG ALLERGIES. Social History: She denies smoking, alcohol, or recreational drug use Review of Systems: Ten-point review of systems other than HPI, denies. Physical Examination: General: At the time of my examination, she is awake, alert, and oriented. Psychiatric: Appropriate and conversive. HEENT: She is normocephalic. Sclerae are anicteric. Mucous membranes are moist. Oropharynx is delilah ar. Neck: Supple without JVD. Chest: Normal to expansion and excursion. Cardiovascular: Regular rate and rhythm. Pulmonary: Clear to auscultation bilaterally. Abdomen: Soft. Extremities: No clubbing, cyanosis, or edema. Skin: Warm and dry with the exception of a left upper back cystic area with no fluctuance at this ti me. Induration is present. Significant swelling and redness. No drainage. Tenderness of the area is noted as well consistent with a developing possible phlegmonous potential abscess in the future. Laboratory Exam: Revealed a white blood cell count of 12.0, hemoglobin 13.2, hematocrit of 40.1, ze telet count was 242. Her neutrophils are 80%. Her sodium is 140, potassium 3.5, chloride 108, carbo n dioxide is 27, BUN is 8, creatinine 0.67, glucose is 156. Lactic acid 1.7 on admission. AST 52, A LT 50, alkaline phosphatase was 139, total bilirubin 0.7. She had a UA which was essentially negativ e. test negative. Assessment And Plan: This is a 49-year-old female who comes with an upper back cellulitis, possible developing abscess. 1. However, there is no abscess currently in the area, and as such, I have recommended IV antibiotics and serial examinations and wound care locally. 2. If the patient does not have significant improvement by tomorrow, we will plan for doing incision, drainage, and debridement of the area. I have explained the risks, benefits, and alternatives of in cision, drainage, and debridement of this upper back cyst/infection including, but not limited to, bl eeding, infection, damage to surrounding tissues, need for further operative procedures, blood clots, heart attacks, strokes, other unforeseen complications in the perioperative period. I have also exp lained that the patient will likely need ongoing wound care in this area with packing. She states he r is able to pack this area for her and we will give instructions for that regarding that. C andrew medical management by Primary team. Thank you for this interesting consult. LEIGHTON/DARIUSZ Voice ID: [id number] Report ID: [id number]
[2025-01-14] MEDS: LIDOCAINE HCL/EPINEPHRINE 20 ML MDV ONE (14:05)
--- NOTE | 2025-01-14 14:17 | P.OP ---
Preoperative diagnosis: Upper LEFT Back infected sebaceous cyst w/abscess Postoperative diagnosis: Upper LEFT Back infected sebaceous cyst w/abscess Primary procedure: Wide excision of Upper LEFT Back infected sebaceous cyst w/abscess Anesthesia: GETA +Local Estimated blood loss: <5cc Specimen: Cultures, Debridement Tissue Findings: 4cm x 2 cm x 2 cm Complications: None Transferred to: Recovery Room Condition: Good
[2025-01-14 14:56] VITALS: O2SAT 96
[2025-01-14] MEDS: HYDROCODONE/APAP 5/325 MG TAB PO PRN (16:16)
[2025-01-14 16:38] VITALS: BP 124/70; TEMP 97.9
--- NOTE | 2025-01-14 21:32 | OP ---
Date of Procedure: 01/14/2025 Surgeon: Dave Contreras MD, Preoperative Diagnosis: Upper left back infected sebaceous cyst with abscess present. Postoperative Diagnosis: Upper left back infected sebaceous cyst with abscess present. Procedure Performed: Wide local excision of upper left back infected sebaceous cyst with abscess. Anesthesia: General endotracheal plus local with 1% lidocaine. Estimated Blood Loss: Less than 5 cc. Specimen: Culture sent both for aerobic and anaerobic speciation. Debridement of tissue. Findings: Approximately 4 cm x 2 cm x 2 cm infected sebaceous cyst with abscess. Complications: None. Disposition: The patient was transferred to recovery room in good condition. Procedure In Detail: After informed consent was obtained, patient was prepped and draped in the usua l sterile fashion. After adequate anesthesia was achieved, I made an elliptical incision circumferen tially around an obviously infected sebaceous cyst down to subcutaneous tissues. Minimal abscess mat erial was appreciated, at this point, but this cyst was quite infected. I circumferentially dissecte d this out using electrocautery ultimately culturing for both aerobic and anaerobic speciation, sendi ng the tissue off for pathologic examination. The area was copiously irrigated, and hemostasis was a chieved with electrocautery. I then partially reapproximated the edges with 3-0 nylon sutures and th e wound was packed with iodoform 1-inch packing and a sterile dressing was placed over top. The josefa ent tolerated the procedure without incident or complication and transferred to PACU in good conditio n. All counts were correct at the end of the case. LEIGHTON/DARIUSZ Voice ID: [id number] Report ID: [id number]
[2025-01-14] MEDS ORDERED: VANCOMYCIN 1.5 GM in NA CHLORIDE 0.9% 500 ML IVPB SCH (23:00)
--- NOTE | 2025-01-15 11:18 | P.DS ---
Admission Date: 01/12/25 Discharge Date: 01/14/25 Disposition: ROUTINE DISCHARGE Discharge Condition: GOOD Reason for Admission: Pain and swelling in the upper back Consultations: General surgery - Dr. Contreras Brief History of Present Illness: 49yo F, PMH: none Patient brought to ER with pain and swelling of upper back which started few days ago and has been progressively getting worse. And was brought to ER. Patient had a very small swelling previously but last 4 days with pain and swelling increase in size with redness. Denies any trauma. No fever or chills. No chest pain or shortness of breath. Patient was assessed in the ER and is admitted for further management of abscess left upper back Hospital Course: Problem List: Left upper back abscess s/p I&D (01/14) Hypokalemia, resolved Hx iron deficiency anemia Hx Menorrhagia Physician discharge instructions: Patient presented with left upper back cyst that's progressively getting larger and more painful over the last few days secondary to left upper back abscess. Patient was evaluated by Dr. Contreras and underwent I&D on 01/14. Patient felt significant improvement post-operatively. She received empiric Rocephin/Vancomycin while hospitalized and is to complete 4 more days of augmentin Patient was feeling better, back pain improved, afebrile since admission, and was deemed stable for discharge. Follow up with Dr. Contreras in his office in 1 week for further management. Medications: augmentin x 4 days Hydrocodone as needed for pain Follow up: PCP 3-[address] Contreras in 1 week in his office Please call to schedule / confirm appointments Wound care: Remove all packing daily irrigate with sterile saline followed by repacking with 1 inch iodoform packing then dry gauze over top. Do not allow to get wet in shower cover with Tegaderm or similar occlusive dressing. First dressing change 48 hours after surgery. Physical Exam: Gen: Alert, Oriented, NAD CV: Regular rate and rhythm, no edema Pulm: Nonlabored respirations on room air, clear bilaterally Integumentary: dressing in place Neuro: Normal strength, normal affect Vital Signs/Physical Exam: Temp Pulse Resp BP Pulse Ox 97.9 F 76 16 124/70 98 01/14/25 16:00 01/14/25 16:00 01/14/25 16:01/14/25 16:00 01/14/25 16:00 Laboratory Data at Discharge: WBC 10.50 thou/uL (4.3-10.9) 01/14/25 07:14 Hgb 13.6 g/dL (12.0-15.0) 01/14/25 07:14 Hct 40.6 % (36.0-45.0) 01/14/25 07:14 Plt Count 206 thou/uL (152-406) 01/14/25 07:14 Sodium 140 mEq/L (136-145) 01/14/25 07:14 Potassium 3.5 mEq/L (3.5-5.1) 01/14/25 07:14 BUN 10 mg/dL (7-18) 01/14/25 07:14 Creatinine 0.41 mg/dL (0.55-1.02) L 01/14/25 07:14 Glucose 132 mg/dL (74-106) H 01/14/25 07:14 Magnesium 2.0 mg/dL (1.6-2.4) 01/14/25 07:14 Total Bilirubin 0.7 mg/dL (0.2-1.0) 01/13/25 05:04 AST 52 U/L (15-37) H 01/13/25 05:04 ALT 50 U/L (13-56) 01/13/25 05:04 Alkaline Phosphatase 139 U/L (45-117) H 01/13/25 05:04 Home Medications: Iron Polysaccharide Complex [Hematex] 150 mg PO DAILY #30 tablet 04/05/21 Amox/Clavulanate [Augmentin 875-125 Tab] 1 tab PO BID 4 Days #8 tab 01/14/25 Hydrocodone 5/APAP 325 [[place] 5/325*] 1 tab PO Q8H PRN #15 tab 01/14/25 New Medications: Amox/Clavulanate [Augmentin 875-125 Tab] 1 tab PO BID 4 Days #8 tab Hydrocodone 5/APAP 325 [[place] 5/325*] 1 tab PO Q8H PRN #15 tab PRN Reason: Pain Scale 5-7 (Moderate) Physician Discharge Instructions: Physician discharge instructions: Patient presented with left upper back cyst that's progressively getting larger and more painful over the last few days secondary to left upper back abscess. Patient was evaluated by Dr. Contreras and underwent I&D on 01/14. Patient felt significant improvement post-operatively. She received empiric Rocephin/Vancomycin while hospitalized and is to complete 4 more days of augmentin Patient was feeling better, back pain improved, afebrile since admission, and was deemed stable for discharge. Follow up with Dr. Contreras in his office in 1 week for further management. Medications: augmentin x 4 days Hydrocodone as needed for pain Follow up: PCP 3-[address] Contreras in 1 week in his office Please call to schedule / confirm appointments Wound care: Remove all packing daily irrigate with sterile saline followed by repacking with 1 inch iodoform packing then dry gauze over top. Do not allow to get wet in shower cover with Tegaderm or similar occlusive dressing. First dressing change 48 hours after surgery. Followup: Dave Contreras MD [ACTIVE - CAN ADMIT] - NONE,NONE [Primary Care Provider] - Time spent managing pt's care (in minutes): 45
== END 2025-01-14 17:50 | disposition home or self-care (01) | DRG 571 ==
LOC: ER 16:46 → ERHOLD 22:05 → 2ND 22:35
PROVIDERS: ADMIT Family Medicine; ATTEND Hospitalist
PROC: 0JB70ZZ Excision of Back Subcutaneous Tissue and Fascia, Open Approach (ICD-10-PCS; principal; 2025-01-14 14:15)
DX: L72.3 Sebaceous cyst (principal); L02.212 Cutaneous abscess of back [any part, except buttock and flank]; L03.312 Cellulitis of back [any part except buttock and flank]; E87.6 Hypokalemia
CPT/HCPCS: 36415; 80048; 80053; 80202; 81001; 81025; 83605; 83735; 85025; 86140; 87070; 87075; 87205; 88304; 96365; 96366; 96375; 99285; J0330; J0696; J1171; J2003; J2250; J2270; J2405; J2543; J2704; J3010; J3373; J3480; J7030; J7040; J7050; J7120